=== PATIENT | male | born 1940 | race Hispanic/Latino ===

== ENCOUNTER 2016-06-14 06:20 | Day surgery (SDC) | payer MEDICARE, OTHER ==
[2016-06-01 08:18] VITALS: BMI 23.6
[2016-06-14 06:49] LABS: ADD MANUAL DIFF? NO
[2016-06-14 07:03] LABS: CALCIUM 9.5 mg/dL (8.4-10.5); POTASSIUM 4.5 mmol/L (3.6-5.0)
[2016-06-14 07:08] LABS: INR 0.99 (0.93-1.08); PARTIAL THROMBOPLASTIN TIME 25.9 Seconds (23.7-30.8)
[2016-06-14] MEDS ORDERED: Midazolam 2 MG/2 ML VIAL ONE (07:15)
[2016-06-14] MEDS ORDERED: Lidocaine 2% Inj (20ml) ONE (07:15)
[2016-06-14 07:16] LABS: BASO # 0.03 K/mm3 (0.0-2.0); BASO % 0.4 % (0.0-3.0); EOS # 0.2 (0.0-0.7); EOS % 2.7 % (1.5-5.0); GRAN # 4.71 (1.4-6.5); GRAN % 69.5 % (50.0-68.0); HEMATOCRIT 37.7 % (42.0-52.0); LYMPH # 1.3 (1.2-3.4); LYMPH % 19.3 % (22.0-35.0); MEAN CORPUSCULAR HEMOGLOBIN 29.1 pg (25.0-35.0); MEAN CORPUSCULAR HGB CONC 32.4 g/dl (31.0-37.0); MEAN PLATELET VOLUME 9.1 fl (7.0-11.0); MONO # 0.6 (0.1-0.6); MONO % 8.1 % (1.0-6.0); PLATELET COUNT 181 10^3/uL (120.0-450.0); RED CELL DISTRIBUTION WIDTH 14.3 % (11.5-14.5); WHITE BLOOD COUNT 6.8 10^3/ul (4.5-11.0)
[2016-06-14 07:20] VITALS: RESP 20; TEMP 97.9
[2016-06-14 08:27] VITALS: O2SAT 98
[2016-06-14 10:03] VITALS: BP 115/70; PULSE 69
--- NOTE | 2016-06-14 10:07 | CARDCATH ---
PROCEDURE DATE: 06/14/2016 HISTORY: This is a 75-year-old man with a history of pulmonary hypertension, known coronary artery d isease, status post remote bypass surgery, PCI and pulmonary hypertension who was advised a repeat [facility] heart catheterization for monitoring of pulmonary artery pressures. He is currently on IV milrin one as well as Adempas. INDICATION: Pulmonary hypertension, congestive heart failure. FINDINGS: The right heart pressures were as follows: The RA mean pressure was 8, the RV pressure wa s 36/8 with a PA pressure of 36/14. The pulmonary capillary wedge pressure was 14. No significant m itral regurgitation was noted. The cardiac output was 4.9 liters per minute with cardiac index of 2. 6 liters per minute per meter squared. Access was obtained via the right femoral artery without difficulty. Following the procedure, the sh eath was removed and manual pressure applied. Hemostasis was achieved. IMPRESSION: History of pulmonary hypertension, well controlled at present. RECOMMENDATIONS: Continuation of his current therapy is advised. Dwight Tejeda MD cc:Matt Hartley MD; Jan Griffin MD 382 TT: 06/14/2016 10:07:04 an
== END 2016-06-14 11:30 | disposition home or self-care (01) ==
LOC: CATH 06:20
PROVIDERS: ATTEND Internal Medicine Cardiovascular Disease
DX: I25.10 Atherosclerotic heart disease of native coronary artery without angina pectoris (principal); I27.2 Other secondary pulmonary hypertension; I11.0 Hypertensive heart disease with heart failure; I50.9 Heart failure, unspecified; Z95.1 Presence of aortocoronary bypass graft
CPT/HCPCS: 36415; 80048; 80061; 85025; 85610; 85730; 86850; 86900; 93451; 99152; C1894; J1644; J2250; J3010; J7040

== ENCOUNTER 2017-07-23 18:45 | Emergency (ER) | payer MEDICARE, OTHER ==
[2017-07-23 19:19] VITALS: BMI 26.2
--- NOTE | 2017-07-23 19:28 | ED PDOC ---
Arrival/HPI - General Chief Complaint: Vascular Access Device Problem Time Seen by Provider: 07/23/17 19:22 Historian: Patient - History of Present Illness Narrative History of Present Illness (Text): 07/23/17 19:23 A 76 year old male, whose past medical history includes , presents to the emergency department complaining of right port leak. Patient reports milrinone is not going through upper chest port that is attached to bag. Patient's port is leaking and making shirt wet instead. No PMD Past Medical History - Provider Review Nursing Documentation Reviewed: Yes - Infectious Disease Hx of Infectious Diseases: None - Cardiac Hx Cardiac Disorders: Yes (CAD, Coronary Stent) - Pulmonary Hx Respiratory Disorders: Yes Hx Chronic Obstructive Pulmonary Disease (COPD): Yes Hx Pneumonia: Yes - Neurological Hx Neurological Disorder: No Hx Paralysis: No - HEENT Hx HEENT Disorder: Yes Other/Comment: hearing problem - Renal Hx Renal Disorder: Yes (BLADDER CA WITH SURGERY) - Endocrine/Metabolic Hx Endocrine Disorders: No - Hematological/Oncological Hx Blood Transfusions: Yes - Integumentary Hx Dermatological Disorder: No - Musculoskeletal/Rheumatological Hx Musculoskeletal Disorders: No Hx Back Pain: Yes Hx Falls: Yes - Gastrointestinal Hx Gastrointestinal Disorders: Yes Other/Comment: hernia- inguinal - Genitourinary/Gynecological Hx Genitourinary Disorders: Yes Hx Bladder Cancer: Yes Other/Comment: urostomy - Psychiatric Hx Psychophysiologic Disorder: Yes Hx Depression: Yes Hx Substance Use: No - Surgical History Hx Cholecystectomy: Yes Hx Coronary Stent: Yes (ptca 11/2014) - Anesthesia Hx Anesthesia: Yes Hx Anesthesia Reactions: No - Suicidal Assessment Feels Threatened In Home Enviroment: No Family/Social History - Physician Review Nursing Documentation Reviewed: Yes Family/Social History: No Known Family HX Smoking Status: Former Smoker Hx Alcohol Use: Yes Hx Substance Use: No Hx Substance Use Treatment: No Allergies/Home Meds Allergies/Adverse Reactions: Allergies No Known Allergies Allergy (Verified 04/25/17 06:16) Home Medications: Home Meds Medication Instructions Recorded Confirmed Atorvastatin [Lipitor] 40 mg PO QPM 04/13/15 04/25/17 Clopidogrel [Plavix] 75 mg PO QAM 04/13/15 04/25/17 Metoprolol Tartrate 50 mg PO BID 05/11/15 04/25/17 Furosemide [Lasix] 40 mg PO BID 12/24/15 04/25/17 Temazepam [Restoril] 15 mg PO HS PRN 03/30/16 06/14/16 Milrinone [Primacor] 3.3 ml IV Q60M 06/01/16 04/25/17 Riociguat [Adempas] 2.5 mg PO TID 06/01/16 04/25/17 Metolazone 5 mg PO QWK 04/25/17 04/25/17 Potassium 20 meq PO QWK 04/25/17 04/25/17 Spironolactone 25 mg PO DAILY 04/25/17 04/25/17 Review of Systems - Physician Review All systems were reviewed & negative as marked: Yes - Review of Systems Constitutional: absent: Fevers, Night Sweats Respiratory: absent: SOB, Cough Cardiovascular: absent: Chest Pain Gastrointestinal: absent: Abdominal Pain, Diarrhea, Nausea, Vomiting Physical Exam - Systems Exam Respiratory/Chest: Present: Clear to Auscultation, Good Air Exchange. No: Respiratory Distress, Accessory Muscle Use Cardiovascular: Present: Regular Rate and Rhythm, Normal S1, S2. No: Murmurs Abdomen: No: Tenderness, Distention, Peritoneal Signs Upper Extremity: Present: Normal Inspection. No: Cyanosis, Edema Lower Extremity: Present: Normal Inspection. No: Edema Neurological: Present: GCS=15, CN II-XII Intact, Speech Normal Skin: Present: Warm, Dry, Normal Color. No: Rashes Psychiatric: Present: Alert, Oriented x 3, Normal Insight, Normal Concentration Medical Decision Making ED Course and Treatment: 07/23/17 19:30 Impression: 76 year old male with leaking chest port. Plan: -- Insert back chest port correctly -- Reassess and disposition Progress Notes: 07/23/17 19:49 Patient's port has been correctly placed. Has good blood flow return now. It was discovered needle was dislodged causing the leak. Since there is no present chest pain or chest tenderness, fluids will absorb, and patient will be discharged. - Scribe Statement The provider has reviewed the documentation as recorded by the Ebony Black Provider Scribe Attestation: All medical record entries made by the Scribe were at my direction and personally dictated by me. I have reviewed the chart and agree that the record accurately reflects my personal performance of the history, physical exam, medical decision making, and the department course for this patient. I have also personally directed, reviewed, and agree with the discharge instructions and disposition. Disposition/Present on Arrival - Present on Arrival Any Indicators Present on Arrival: No History of DVT/PE: No History of Uncontrolled Diabetes: No Urinary Catheter: No History of Decub. Ulcer: No History Surgical Site Infection Following: None - Disposition Have Diagnosis and Disposition been Completed?: Yes Diagnosis: Encounter for care related to vascular access port Disposition: HOME/ ROUTINE Disposition Time: 19:50 Patient Plan: Discharge Additional Instructions: Mr Ko - It was a pleasure to meet you today. I am glad we were able to fix the problem. Return to us if you have any problems at all. Follow up with your regular doctor(s). Best- Dr. Dylan Preston Referrals: Pascual Hartley MD [Primary Care Provider] - Follow up with primary Forms: [email or web address] (Burmese)
[2017-07-23 20:32] VITALS: BP 157/72; PULSE 79; RESP 18; TEMP 98.8; O2SAT 98
== END 2017-07-23 20:05 | disposition home or self-care (01) ==
LOC: ED 18:45
DX: Z45.2 Encounter for adjustment and management of vascular access device (principal); I25.10 Atherosclerotic heart disease of native coronary artery without angina pectoris; Z87.891 Personal history of nicotine dependence; Z85.51 Personal history of malignant neoplasm of bladder

== ENCOUNTER 2017-07-24 09:30 | Inpatient (IN) | payer MEDICARE, OTHER ==
[2017-07-24 09:30] VITALS: BMI 26.2
[2017-07-24 11:38] LABS: BASO # 0.03 K/mm3 (0.0-2.0); BASO % 0.4 % (0.0-3.0); EOS # 0.1 (0.0-0.7); EOS % 1.4 % (1.5-5.0); GRAN # 6.12 (1.4-6.5); GRAN % 76.7 % (50.0-68.0); HEMOGLOBIN 11.7 g/dL (14.0-18.0); LYMPH # 1.2 (1.2-3.4); LYMPH % 14.4 % (22.0-35.0); MEAN CELL VOLUME 86.6 fl (80.0-105.0); MEAN CORPUSCULAR HEMOGLOBIN 29.5 pg (25.0-35.0); MEAN PLATELET VOLUME 8.6 fl (7.0-11.0); MONO # 0.6 (0.1-0.6); MONO % 7.1 % (1.0-6.0); RBC 3.97 10^6/uL (3.5-6.1); RED CELL DISTRIBUTION WIDTH 15.2 % (11.5-14.5)
--- NOTE | 2017-07-24 11:41 | RAD ---
HISTORY: Shortness of breath COMPARISON: 03/30/2016. FINDINGS: The right IJV line terminates at the cavoatrial junction. LUNGS: The lungs are hyperinflated and there is peribronchial thickening with chronic changes in both lungs. There is bibasilar atelectasis. No focal consolidation. PLEURA: No significant pleural effusion identified, no pneumothorax apparent. CARDIOVASCULAR: Normal. OSSEOUS STRUCTURES: No significant abnormalities. VISUALIZED UPPER ABDOMEN: Normal. OTHER FINDINGS: None. IMPRESSION: No active pulmonary disease. COPD.
[2017-07-24 11:49] LABS: PROTHROMBIN TIME 11.3 SECONDS (9.4-12.5)
[2017-07-24 11:50] LABS: ALB/GLOB RATIO 1.9 (1.1-1.8); ALBUMIN 4.2 g/dL (3.0-4.8); CALCIUM 9.5 mg/dL (8.4-10.5); INR 0.98 (0.93-1.08); PARTIAL THROMBOPLASTIN TIME 27.3 Seconds (25.1-36.5)
[2017-07-24 12:01] LABS: TROPONIN I 0.07 ng/mL
[2017-07-24 12:06] LABS: CK MB% 1.9 % (2.5-3.0)
--- NOTE | 2017-07-24 13:21 | ED PDOC ---
Arrival/HPI - General Historian: Patient - History of Present Illness Time/Duration: 4-6 hours Symptom Onset: Sudden Symptom Course: Unchanged Quality: Unable to Describe Severity Level: 2 Activities at Onset: Rest Context: Home - General Chief Complaint: Abnormal Skin Integrity Time Seen by Provider: 07/24/17 09:55 - History of Present Illness Narrative History of Present Illness (Text): 07/24/17 13:22 Pt is a 76 year old male, whose past medical history includes CHF, Cardiac stent , and COPD, presents to the emergency department one day after being seen in the ED for a right port leak. Patient reports milrinone is not going through upper chest port that is attached to bag. Patient's port continues to leak. Denies chest pain, mildly short of breath, no n/v/d, fever, chills, lower extremity swelling. PMD: Marielena Plummer) Past Medical History - Provider Review Nursing Documentation Reviewed: Yes - Travel History Have you recently traveled outside [place] w/in the past 3 mons?: No - Infectious Disease Hx of Infectious Diseases: None - Cardiac Hx Cardiac Disorders: Yes (CAD, Coronary Stent) - Pulmonary Hx Respiratory Disorders: Yes Hx Chronic Obstructive Pulmonary Disease (COPD): Yes Hx Pneumonia: Yes - Neurological Hx Neurological Disorder: No Hx Paralysis: No - HEENT Hx HEENT Disorder: Yes Other/Comment: hearing problem - Renal Hx Renal Disorder: Yes (BLADDER CA WITH SURGERY) - Endocrine/Metabolic Hx Endocrine Disorders: No - Hematological/Oncological Hx Blood Transfusions: Yes - Integumentary Hx Dermatological Disorder: No - Musculoskeletal/Rheumatological Hx Musculoskeletal Disorders: No Hx Back Pain: Yes Hx Falls: Yes - Gastrointestinal Hx Gastrointestinal Disorders: Yes Other/Comment: hernia- inguinal - Genitourinary/Gynecological Hx Genitourinary Disorders: Yes Hx Bladder Cancer: Yes Other/Comment: urostomy - Psychiatric Hx Psychophysiologic Disorder: Yes Hx Depression: Yes Hx Substance Use: No - Surgical History Hx Cholecystectomy: Yes Hx Coronary Stent: Yes (ptca 11/2014) - Anesthesia Hx Anesthesia: Yes Hx Anesthesia Reactions: No - Suicidal Assessment Feels Threatened In Home Enviroment: No Family/Social History - Physician Review Nursing Documentation Reviewed: Yes Family/Social History: Unknown Family HX Smoking Status: Former Smoker Hx Alcohol Use: Yes Hx Substance Use: No Hx Substance Use Treatment: No Allergies/Home Meds Allergies/Adverse Reactions: Allergies No Known Allergies Allergy (Verified 07/24/17 22:10) Home Medications: Home Meds Medication Instructions Recorded Confirmed Atorvastatin [Lipitor] 40 mg PO QPM 04/13/15 07/24/17 Clopidogrel [Plavix] 75 mg PO QAM 04/13/15 07/24/17 Metoprolol Tartrate 50 mg PO BID 05/11/15 07/24/17 Furosemide [Lasix] 40 mg PO BID 12/24/15 07/24/17 Temazepam [Restoril] 15 mg PO HS PRN 03/30/16 07/24/17 Milrinone [Primacor] 3.3 ml IV Q60M 06/01/16 07/24/17 Riociguat [Adempas] 2.5 mg PO TID 06/01/16 07/24/17 Potassium Chloride [K-Dur 20] 20 meq PO QWK 07/24/17 07/24/17 Spironolactone [Aldactone] 25 mg PO DAILY 07/24/17 07/24/17 metOLazone [Zaroxolyn] 5 mg PO QWK 07/24/17 07/24/17 Review of Systems - Review of Systems Systems not reviewed;Unavailable: Acuity of Condition Constitutional: Normal Eyes: Normal ENT: Normal Respiratory: Normal Cardiovascular: Normal, Other (right port with pump; ) Gastrointestinal: Normal Genitourinary Male: Normal Musculoskeletal: Normal Skin: Normal Neurological: Normal Endocrine: Normal Hemo/Lymphatic: Normal Psychiatric: Normal Physical Exam Vital Signs Reviewed: Yes Temperature: Afebrile Blood Pressure: Normal Pulse: Regular Respiratory Rate: Normal Appearance: Positive for: Well-Appearing, Non-Toxic, Comfortable Pain Distress: None Mental Status: Positive for: Alert and Oriented X 3 - Systems Exam Head: Present: Atraumatic, Normocephalic Pupils: Present: PERRL Extroacular Muscles: Present: EOMI Conjunctiva: Present: Normal Mouth: Present: Moist Mucous Membranes Neck: Present: Normal Range of Motion Respiratory/Chest: Present: Clear to Auscultation, Good Air Exchange, Other ( Right port opening with cath, dressing wet due to failure of port). No: Respiratory Distress, Accessory Muscle Use Cardiovascular: Present: Regular Rate and Rhythm, Normal S1, S2. No: Murmurs Abdomen: No: Tenderness, Distention, Peritoneal Signs Back: Present: Normal Inspection Upper Extremity: Present: Normal Inspection. No: Cyanosis, Edema Lower Extremity: Present: Normal Inspection. No: Edema Neurological: Present: GCS=15, CN II-XII Intact, Speech Normal Skin: Present: Warm, Dry, Normal Color. No: Rashes Psychiatric: Present: Alert, Oriented x 3, Normal Insight, Normal Concentration Vital Signs Temp Pulse Resp BP Pulse Ox 07/24/17 16:40 88 18 103/68 97 07/24/17 16:39 98 F 07/24/17 13:58 90 18 127/66 97 07/24/17 13:20 110/70 07/24/17 10:00 98 F 98 H 20 101/48 L 96 Medical Decision Making ED Course and Treatment: 07/24/17 13:25 Impression Pt is a 76 year old male, whose past medical history includes CHF, Cardiac stent , and COPD, presents to the emergency department one day after being seen in the ED for a right port leak. Pt's port site wet with serosangreneous fluid; lungs CTAB Plan labs, UA, cxr, EKG Contact PMD, senior medical writer, pulp drier firer DW Dr Carroll Assess and dispo Progress note Spoke with Dr. Peres who advised consult from Dr. Wayne Mathews Pt resting comfortably; pt admitted to med/surg Stable and awaiting bed (Marielena Villalta) 07/25/17 10:25 Patient seen and evaluated with PA. On exam, patient complaining of increased SOB over past several days. Suspect component of COPD and CHF. Port site examined is leaking fluid appears to not be functioning properly. There is no surrounding erythema or edema. No cellulitis noted. Milrinone drip ordered as I feel patient is not receiving milrinone properly through port. Will be admitted to Dr. Hartley service, Dr. Tejeda consulted as well as Dr. Wayne Mathews. (Taisha Carroll) - Lab Interpretations Lab Results: 07/24/17 11:11 07/24/17 11:11 Lab Results 07/24/17 11:11: Sodium 139, Potassium 3.4 L, Chloride 102, Carbon Dioxide 22, Anion Gap 18, BUN 78 H, Creatinine 3.3 H, Est GFR ( Amer) 22, Est GFR ( Non-Af Amer) 18, Random Glucose 124 H, Calcium 9.5, Total Bilirubin 0.3, AST 26 , ALT 35, Alkaline Phosphatase 63, Lactate Dehydrogenase 592, Total Creatine Kinase 262 H, CK-MB (CK-2) 5.0 H, CK-MB (CK-2) % 1.9 L, Troponin I 0.07 D, NT- Pro-B Natriuret Pep 893 H, Total Protein 6.4, Albumin 4.2, Globulin 2.3, Albumin /Globulin Ratio 1.9 H 07/24/17 11:11: PT 11.3, INR 0.98, APTT 27.3 07/24/17 11:11: WBC 8.0, RBC 3.97, Hgb 11.7 L, Hct 34.4 L, MCV 86.6, MCH 29.5, MCHC 34.0, RDW 15.2 H, Plt Count 182, MPV 8.6, Gran % 76.7 H, Lymph % (Auto) 14.4 L, [place] % (Auto) 7.1 H, Eos % (Auto) 1.4 L, Baso % (Auto) 0.4, Gran # 6.12 , Lymph # (Auto) 1.2, [place] # (Auto) 0.6, Eos # (Auto) 0.1, Baso # (Auto) 0.03 - RAD Interpretation Radiology Orders: 07/24/17 10:59 CHEST PORTABLE [RAD] Stat - Medication Orders Current Medication Orders: Albuterol/Ipratropium (Duoneb 3 Mg/0.5 Mg (3 Ml) Ud) 3 ml IH Q2H PRN PRN Reason: Shortness of Breath Albuterol/Ipratropium (Duoneb 3 Mg/0.5 Mg (3 Ml) Ud) 3 ml IH [id number] [facility] Last Admin: 07/25/17 07:30 Dose: 3 ml Aspirin (Aspirin Chewable) 81 mg PO DAILY [facility] Atorvastatin Calcium (Lipitor) 40 mg PO DIN [facility] Clopidogrel Bisulfate (Plavix) 75 mg PO DAILY [facility] Furosemide (Lasix) 40 mg PO BID [facility] Last Admin: 07/24/17 17:30 Dose: 40 mg MAR Blood Pressure Document 07/24/17 17:30 LM (Rec: 07/24/17 17:30 LM [id number]) Blood Pressure Blood Pressure (100/60-150/90 mm Hg) 128/69 Milrinone Lactate/Dextrose (Primacor 20mg/100ml D5w) 100 mls @ 7.267 mls/hr IV [id number] PRN; Protocol; 0.3 MCG/KG/MIN PRN Reason: TITRATE PER MD ORDER Last Admin: 07/25/17 01:07 Dose: 0.3 mcg/kg/min, 7.267 mls/hr eMAR Start Stop Document 07/25/17 01:07 MS (Rec: 07/25/17 01:08 [place] [id number]) Intravenous Solution Start Date 07/25/17 Start Time 01:07 MAY Pulse and Blood Pressure Document 07/25/17 01:07 MS (Rec: 07/25/17 01:08 MS [id number]) Pulse Pulse Rate (60-90 beats/min) 105 Blood Pressure Blood Pressure (100/60-150/90 mm Hg) 103/60 Titration Intervention Document 07/25/17 01:07 MS (Rec: 07/25/17 01:08 MS [id number]) Titration Intake Cumulative Intake (Rx) 100 Waste Amount 0 Container Volume 100 Titration Dosing Titration Dose 0.3 IV Rate 7.267 Intake/Decrease Started/Running Cumulative Dose 20 Potassium Chloride (Potassium Chloride 10 Meq/100 Ml) 10 meq in 100 mls @ 50 mls/hr IVPB Q2H CECILY Stop: 07/25/17 12:29 Metoprolol Tartrate (Lopressor) 50 mg PO BRKDIN CECILY Discontinued Medications Furosemide (Lasix) 40 mg IVP ONCE ONE Stop: 07/24/17 13:12 Last Admin: 07/24/17 13:20 Dose: 40 mg MAR Blood Pressure Document 07/24/17 13:20 Regino (Rec: 07/24/17 13:46 [facility] [id number]) Blood Pressure Blood Pressure (100/60-150/90 mm Hg) 110/70 IVP Administration Document 07/24/17 13:20 GEORGE (Rec: 07/24/17 13:46 [facility] [id number]) Charges for Administration # of IVP Administrations 1 Pneumococcal Polyvalent Vaccine (Pneumovax 23 Vaccine) 0.5 ml IM .ONCE ONE Stop: 07/24/17 22:33 Last Admin: 07/25/17 01:10 Dose: Comments: already had vaccine Immunization Registry Document 07/25/17 01:10 MS (Rec: 07/25/17 01:10 MS [id number]) Immunization Registry Consent Date 03/06/17 Potassium Chloride (K-Dur 20 Meq Er Tab) 20 meq PO STAT STA Stop: 07/24/17 16:50 Last Admin: 07/24/17 17:30 Dose: 20 meq Potassium Chloride (K-Dur 20 Meq Er Tab) 40 meq PO ONCE ONE Stop: 07/25/17 08:26 Disposition/Present on Arrival - Present on Arrival Any Indicators Present on Arrival: Yes History of DVT/PE: No History of Uncontrolled Diabetes: No Urinary Catheter: No History of Decub. Ulcer: No History Surgical Site Infection Following: None - Disposition Have Diagnosis and Disposition been Completed?: Yes Disposition Time: 11:00 Patient Plan: Admission - Disposition Diagnosis: Port catheter in place, Failure of outpatient treatment, CHF exacerbation Disposition: HOSPITALIZED Patient Problems: Current Active Problems Problem Status Onset CHF exacerbation Acute Failure of outpatient treatment Acute Port catheter in place Acute Condition: GOOD
[2017-07-24] MEDS: Milrinone 20mg/100ml D5W 100 ML IV PRN (13:44)
[2017-07-24] MEDS ORDERED: Potassium Chloride 20 mEq ER Tab PO STA (16:49)
[2017-07-24] MEDS ORDERED: Albuterol-Ipratrop 3 mg / 0.5 (3 ml) UD IH PRN (17:17)
--- NOTE | 2017-07-24 18:34 | CARD ---
APPROVED REPORT EKG Measurement Heart [id number] <Conclusion> Sinus rhythm with marked sinus arrhythmia Right bundle branch block Anteroseptal infarct, age undetermined Abnormal ECG
--- NOTE | 2017-07-24 19:14 | HP ---
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 The patient was seen in the ED 1 day ago for reported leakage at his port site. He was discharged from the ED with outpatient followup recommended however overnight he noted continued leakage and states that he woke up in the morning with his T shirt being soaked. He returned for evaluation in the ED and was indeed found to have a malfunctioning access port and as such was admitted for evaluation for possible line exchange. PAST MEDICAL HISTORY: As per HPI, also, hypertension and history of bladder cancer. PAST SURGICAL HISTORY: As per HPI. ALLERGIES: NKDA. MEDICATIONS: Metoprolol 50 mg p.o. b.i.d., Lisinopril 2.5 mg p.o. daily, Spironolactone 12.5 mg p.o. b.i.d., Aspirin 81 mg p.o. daily, Plavix 75 mg p.o. daily, Lasix 40 mg p.o. b.i.d., Lipitor 40 mg p.o. daily and Milrinone infusion. FAMILY HISTORY: Noncontributory. SOCIAL HISTORY: The patient reports a former [id number] smoking history but quit approximately 4 years ago. He reports social alcohol use and denies illicit drug abuse. REVIEW OF SYSTEMS: A 14-point review of systems is negative except as per HPI. PHYSICAL EXAMINATION: VITAL SIGNS: Temperature 98, pulse 88, blood pressure 103/68, respiratory rate 18, oxygen saturation 97% on room air. GENERAL: No apparent distress. HEENT: PERRL, EOMI. No scleral icterus. No conjunctival pallor. NECK: Supple with full range of motion. No JVD. No bruits. LUNGS: Decreased breath sounds at the bases. CARDIOVASCULAR: Regular rate and rhythm. Normal S1 and S2. Grade II/ systolic murmur to left lower sternal border. ABDOMEN: Normoactive bowel sounds. Soft, nontender and nondistended. EXTREMITIES: Trace lower extremity edema bilaterally. NEUROLOGIC: Awake, alert and oriented x 3. No focal motor deficits. LABORATORY DATA: WBC 8, hemoglobin 11.7, hematocrit 34, platelets 182. Sodium 139, potassium 3.4, chloride 102, bicarb 22, BUN 78, creatinine 3.3, glucose 124. IMAGING STUDIES: Chest x-ray demonstrates COPD changes but no active pulmonary disease. ASSESSMENT: The patient is a 76 year old man with multiple medical comorbidities including severe 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 infusion who presented for evaluation of a malfunctioning MediPort. PLAN: 1. Ischemic dilated cardiomyopathy on chronic home milrinone. The patient presented with a malfunctioning Port. Dr. Wayne Mathews of IR has been consulted for evaluation for possible port exchange. We will resume the patient's outpatient medications. Dr. Tejeda of Cardiology has been consulted. 2. COPD, severe. We will resume bronchodilators and supplemental oxygen as needed. 3. CAD s/p STEMI s/p PCI with stent placement. Resume Aspirin 81 mg p.o. daily , Plavix 75 mg p.o. daily and Lipitor 40 mg p.o. daily. 4. CKD stage 4. Labs demonstrated renal function at the patient's baseline. 5. Hypertension. Blood pressure controlled. Continue with current medications. 6. Prophylaxis. GI prophylaxis is not indicated as the patient is eating. DVT prophylaxis is not indicated as the patient is ambulatory. CODE STATUS: Full code. Matt Hartley MD MTDD
[2017-07-24] MEDS: Albuterol-Ipratrop 3 mg / 0.5 (3 ml) UD IH SCH ×2 (19:51→23:45)
[2017-07-24] MEDS ORDERED: Pneumococcal 23-Valent Vaccine IM ONE (22:32)
[2017-07-25] MEDS: Milrinone 20mg/100ml D5W 100 ML IV PRN ×2 (01:07→18:34)
[2017-07-25] MEDS: Albuterol-Ipratrop 3 mg / 0.5 (3 ml) UD IH SCH ×6 (04:31→23:27)
[2017-07-25 07:07] LABS: HEMOGLOBIN 11.6 g/dL (14.0-18.0); MEAN CELL VOLUME 87.3 fl (80.0-105.0); MEAN CORPUSCULAR HEMOGLOBIN 28.9 pg (25.0-35.0); MEAN PLATELET VOLUME 8.5 fl (7.0-11.0); RBC 4.02 10^6/uL (3.5-6.1); RED CELL DISTRIBUTION WIDTH 15.3 % (11.5-14.5); WHITE BLOOD COUNT 7.7 10^3/ul (4.5-11.0)
[2017-07-25 07:19] LABS: ALB/GLOB RATIO 1.6 (1.1-1.8); ALBUMIN 4.4 g/dL (3.0-4.8); CALCIUM 9.5 mg/dL (8.4-10.5)
[2017-07-25] MEDS ORDERED: Potassium Chloride 20 mEq ER Tab PO ONE (08:25)
[2017-07-25] MEDS ORDERED: Magnesium Sulfate 2 GM in Sodium Chloride 0.9% 100 ML IVPB ONE (11:19)
--- NOTE | 2017-07-25 14:21 | PN ---
SUBJECTIVE: The patient was seen and examined at bedside on the telemetry sarkar. No acute events overnight. He remains afebrile, hemodynamically stable and is pending change of his right anterior chest wall MediPort due to leakage. PHYSICAL EXAMINATION: VITAL SIGNS: Temperature 97.6, pulse 85, blood pressure 99/56, respiratory rate 20, oxygen saturation 98% on room air. GENERAL: No apparent distress. HEENT: PERRL. EOMI. No scleral icterus. No conjunctival pallor. NECK: No JVD. No bruits. LUNGS: Decreased breath sounds at the bases. CARDIOVASCULAR: Regular rate and rhythm. Normal S1 and S2. Grade 2/6 systolic murmur to left lower sternal border. ABDOMEN: Normoactive bowel sounds. Soft, nontender, and nondistended. EXTREMITIES: No edema. NEUROLOGIC: Awake, alert and oriented x 3. No focal motor deficits. LABORATORY DATA: CBC reviewed and unremarkable. Sodium 141, potassium 3, chloride 102, bicarb 23, BUN 81, creatinine 3.5, glucose 124. 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 PLAN: 1. Ischemic dilated cardiomyopathy on chronic home Milrinone. The patient presented with a malfunctioning MediPort. Evaluation by Dr. Wayne Mathews is pending for exchange of MediPort access. The patient remains on Milrinone infusion via peripheral access. Continue with current outpatient medical regimen. 2. COPD, severe. Continue with bronchodilators and supplemental oxygen as needed. 3. CAD s/p STEMI s/p PCI with stent placement. Continue Aspirin 81 mg p.o. daily, Plavix 75 mg p.o. daily and Lipitor 40 mg p.o. daily. 4. CKD stage IV. Labs demonstrated renal function at patient's baseline. 5. Hypertension. Blood pressure controlled. Continue with current medications. 6. Prophylaxis. GI prophylaxis is not indicated as the patient is eating. DVT prophylaxis is not indicated as the patient is ambulatory. CODE STATUS: Full code. Matt Hartley MD [facility] # [id number] [place]
--- NOTE | 2017-07-25 22:21 | CON ---
DATE: 07/25/2017 REQUESTING PHYSICIAN: Dr. Hartley. REASON FOR CONSULTATION: Dyspnea, infusion port malfunction. HISTORY OF PRESENT ILLNESS: This is a 76-year-old man well known to me with a history of severe coronary artery disease, prior myocardial infarction, severely reduced LV systolic function as well as severe COPD, maintained on home milrinone infusion, who was admitted with evidence of malfunction of his infusion port as well as dyspnea. He was seen in the emergency room 2 days ago and noted to have problems with this port due to leakage at the site. Apparently his needle was changed and he was sent home. The same evening, he developed leakage at the site and soaked his shirt. It does not appear to be receiving his milrinone as a result. PAST MEDICAL HISTORY: Notable for the problems mentioned above. He suffered a myocardial infarction several years ago and underwent PCI at that time. He has been left with severe residual LV dysfunction. He also has a history of hypertension and prior bladder cancer. History of chronic renal insufficiency with baseline creatinine approximately 3. MEDICATIONS AT HOME: Include metoprolol 50 mg b.i.d., lisinopril 2.5 mg daily, spirolactone 12.5 mg b.i.d., aspirin once daily, Plavix 75 mg daily, Lasix 40 mg b.i.d., Lipitor 40 mg daily, and home milrinone infusion. ALLERGIES: NONE. SOCIAL HISTORY: He is a smoker of over a pack per day for many years. He drinks alcohol rarely. He is retired, lives with his . FAMILY HISTORY: Both parents from age-related illness. REVIEW OF SYSTEMS: A 10-point review of systems otherwise unremarkable. PHYSICAL EXAMINATION: GENERAL: He is a chronically ill-appearing elderly man. VITAL SIGNS: Blood pressure is 100/56 with a pulse of 86, in sinus and respirations are 16. He is afebrile. HEENT: Head normocephalic, atraumatic. NECK: Supple. No JVD noted. Carotid upstrokes are diminished, however, 1+ bilaterally. CHEST: Reveals bilateral scattered rhonchi. HEART: PMI displaced laterally with soft tones noted with systolic murmur in the lower left sternal border as well as at the apex. ABDOMEN: Soft and nontender with normoactive bowel sounds. EXTREMITIES: Trace ankle edema. SKIN: Warm and dry. The connection to his infusion port appears to be intact at the present time. PSYCHIATRIC: Normal mood and affect. NEUROLOGIC: Alert and was x3. No gross motor or sensory is appreciable. DIAGNOSTIC DATA: Potassium is 3, BUN and creatinine are 81 and 3.5. White count 7.7, hemoglobin and hematocrit 11.6 and 35.1 with a platelet count of 189,000. Electrocardiogram reveals sinus rhythm with right bundle-branch block, prior anteroseptal myocardial infarction pattern is present. Chest x-ray reveals enlarged cardiac silhouette with clear lung collins. IMPRESSION: 1. Apparent infusion catheter malfunction, unclear if this is due to needle displacement or actual disruption of the normal architecture of the infusion catheter. 2. Class III congestive heart failure, chronic, systolic. 3. Coronary artery disease, status post remote percutaneous coronary intervention and myocardial infarction. 4. Rest of the problems as noted. RECOMMENDATIONS: Additional potassium supplement has been ordered and replaced. Dr. Wayne Mathews was notified and requested that his port be checked. If replacement is needed, this can be arranged. Rest of the medications should continue unchanged. Overall, prognosis remains fairly poor. Thank you for this consultation. We will be happy to follow him through the hospital course. Dwight Tejeda MD
[2017-07-26] MEDS: Albuterol-Ipratrop 3 mg / 0.5 (3 ml) UD IH SCH ×6 (04:10→23:26)
[2017-07-26 06:43] LABS: MEAN CELL VOLUME 87.5 fl (80.0-105.0); MEAN CORPUSCULAR HEMOGLOBIN 29.3 pg (25.0-35.0); MEAN CORPUSCULAR HGB CONC 33.4 g/dl (31.0-37.0); RBC 3.76 10^6/uL (3.5-6.1); RED CELL DISTRIBUTION WIDTH 15.5 % (11.5-14.5)
[2017-07-26 07:36] LABS: ALB/GLOB RATIO 1.6 (1.1-1.8); ALBUMIN 3.9 g/dL (3.0-4.8); CALCIUM 9.5 mg/dL (8.4-10.5)
[2017-07-26] MEDS: Milrinone 20mg/100ml D5W 100 ML IV PRN ×2 (08:21→23:15)
--- NOTE | 2017-07-26 08:50 | PN ---
SUBJECTIVE: The patient was seen and examined at bedside on the telemetry sarkar. No acute events overnight. He remains afebrile, hemodynamically stable and is pending exchange of his MediPort. PHYSICAL EXAMINATION: VITAL SIGNS: Temperature 98, pulse 106, blood pressure 96/53, respiratory rate 20, oxygen saturation 97% on room air. GENERAL: No apparent distress. HEENT: PERRL. EOMI. No scleral icterus. No conjunctival pallor. NECK: No JVD. LUNGS: Clear to auscultation. CARDIOVASCULAR: Regular rate and rhythm. Normal S1 and S2. Grade II/ systolic murmur to left lower sternal border. ABDOMEN: Normoactive bowel sounds. Soft, nontender, and nondistended. EXTREMITIES: Trace pedal edema bilaterally. NEUROLOGIC: Awake, alert and oriented x 3. No focal motor deficits. LABORATORY DATA: CBC reviewed and unremarkable. Sodium 141, potassium 3.6, chloride 103, bicarb 23, BUN 83, creatinine 3.3, glucose 116. 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 PLAN: 1. Ischemic dilated cardiomyopathy on chronic home Milrinone. The patient presented with a malfunctioning MediPort. He is pending MediPort exchange with Dr. Wayne Mathews today. Continue with his current medical regimen. 2. COPD, severe. Continue with bronchodilators and supplemental oxygen as needed. 3. CAD s/p STEMI s/p PCI with stent placement. Continue Aspirin 81 mg p.o. daily, Plavix 75 mg p.o. daily and Lipitor 40 mg p.o. daily. 4. CKD stage IV. Labs demonstrated renal function at the patient's baseline. 5. Hypertension. Blood pressure controlled. Continue with current medications. 6. Prophylaxis. GI prophylaxis is not indicated as the patient is eating. DVT prophylaxis is not indicated as the patient is ambulatory. CODE STATUS: Full code. Matt Hartley MD [facility]
[2017-07-26] MEDS ORDERED: Lidocaine 2% Inj (20ml) ONE (14:03)
[2017-07-26] MEDS ORDERED: Iodixanol 320 MG/ML 100 ML BOTTLE IV ONE (14:03)
--- NOTE | 2017-07-26 15:39 | VASCULAR ---
PROCEDURE: 1. Port-A-Cath check CLINICAL HISTORY: Right IJ Port-A-Cath. Milrinone infusion. Leaking port site. PHYSICIAN(S): Wayne Mathews M.D. TECHNIQUE: The patient's port was prepped and draped in usual sterile fashion. It was accessed with the appropriate Martinez needle. Preliminary fluoroscopy showed no evidence of fracture or separation. The tip of the catheter is well positioned at the SVC-RA junction. Contrast was injected. The port fills without evidence of extravasation initially. The catheter is patent with contrast infusing from the tip. No obvious large fibrin sheath is seen. After injecting 15 cc of contrast, there is a faint amorphous accumulation of contrast adjacent to the port. Point of leakage is not clearly identified. It may involve the septum. IMPRESSION: 1. Faint leak noted likely involving the septum of the patient's port. 2. The results were discussed with Dr. Calixto. The patient's port will be changed.
[2017-07-27] MEDS: Albuterol-Ipratrop 3 mg / 0.5 (3 ml) UD IH SCH ×4 (05:12→15:31)
[2017-07-27 07:10] LABS: HEMOGLOBIN 10.9 g/dL (14.0-18.0); MEAN CELL VOLUME 87.5 fl (80.0-105.0); MEAN CORPUSCULAR HEMOGLOBIN 29.1 pg (25.0-35.0); MEAN CORPUSCULAR HGB CONC 33.2 g/dl (31.0-37.0); MEAN PLATELET VOLUME 8.7 fl (7.0-11.0); RBC 3.75 10^6/uL (3.5-6.1); RED CELL DISTRIBUTION WIDTH 15.5 % (11.5-14.5); WHITE BLOOD COUNT 7.9 10^3/ul (4.5-11.0)
[2017-07-27 07:23] LABS: ALB/GLOB RATIO 1.7 (1.1-1.8); CALCIUM 9.5 mg/dL (8.4-10.5)
[2017-07-27] MEDS ORDERED: Lidocaine 2% Inj (20ml) ONE ×2 (10:35→10:45)
[2017-07-27] MEDS ORDERED: Midazolam 2 MG/2 ML VIAL ONE (10:45)
[2017-07-27] MEDS ORDERED: Oxycodone/Acetaminophen 5/325 mg Tab PO PRN (11:52)
[2017-07-27] MEDS ORDERED: Sodium Chloride 0.45% 1,000 ML IV SCH (12:00)
[2017-07-27 12:26] VITALS: RESP 16; TEMP 97.9; O2SAT 98
--- NOTE | 2017-07-27 14:37 | PN ---
DATE: 07/27/2017 SUBJECTIVE: Patient is a 76-year-old white male in room 273, bed 2. He is ambulatory. He has no complaints. There have been no acute events overnight. PHYSICAL EXAMINATION: VITAL SIGNS: Temperature of 97.7, pulse rate of 98, blood pressure 98/67, respiratory rate of 18 with 95% O2 saturation on room air. HEENT: Negative. NECK: Supple. There are no bruits. LUNGS: Clear. HEART: Regular rate and rhythm. ABDOMEN: Benign. NEUROLOGIC: The patient is intact. The patient will be taken for a replacement of an indwelling catheter that is nonfunctional and subsequently, the patient will be discharged. The patient's CBC with a hemoglobin of 10.9 and hematocrit of 32.8. Chemistry is normal with the potassium of 3.5, BUN of 79, creatinine of 3.2, which has improved since the patient arrived. CURRENT DIAGNOSES: 1. Non-functioning catheter. 2. Congestive heart failure. 3. Chronic obstructive pulmonary disease. 4. Chronic renal failure. Pascual Hartley MD
[2017-07-27 17:44] VITALS: BP 103/61; PULSE 65
--- NOTE | 2017-07-27 21:04 | VASCULAR ---
PROCEDURE: Change leaking right chest venous port CLINICAL HISTORY: Cardiomyopathy. Venous port for Milrinone infusion. Leaking port. PHYSICIAN(S): Wayne Mathews M.D. TECHNIQUE: The relative risks and indications of the procedure were explained to the patient and consent obtained. The patient was placed supine on the arteriogram table and the right neck and chest prepped and draped usual sterile fashion. Conscious sedation monitoring were provided throughout the procedure by a nurse. Antibiotics were given. Entrance site at the right internal jugular vein was anesthetized 1 percent xylocaine. A 2 cm incision was made. The catheter was bluntly dissected and transected. A 0.035 glidewire was placed the IVC. The catheter fragment was removed. A new 8 Dutch catheter was advanced the SVC/RA junction. The catheter was tunneled in a retrograde fashion to a new pocket. The catheter was trimmed and attached to the port. The port aspirates and inject easily. The port was placed the pocket closed in 2 layers. The patient tolerated the procedure well IMPRESSION: governor assembler a guidewire of the malfunctioning right IJ chest port.
--- NOTE | 2017-07-28 12:21 | DS ---
ADMITTING DIAGNOSIS: Malfunctioning MediPort to the right anterior chest wall. DISCHARGE DIAGNOSIS: Malfunctioning MediPort to the right anterior chest wall s/p replacement. SECONDARY DIAGNOSES: Ischemic dilated cardiomyopathy on chronic home Milrinone infusion, CAD s/p STEMI s/p PCI with stent placement, severe COPD, CKD stage 4, HTN and history of bladder cancer. CONSULTATIONS: Dr. Tejeda (Cardiology) and Dr. Mathews (Interventional Radiology). IMAGING STUDIES: Chest x-ray demonstrated COPD changes but otherwise no acute pathology. PROCEDURES: Exchange of malfunctioning right chest MediPort. HISTORY OF PRESENT ILLNESS: The patient is a 76 year old man with a past medical history of ischemic dilated cardiomyopathy on chronic home Milrinone infusion who presented for evaluation of a malfunctioning MediPort to his right anterior chest wall. The patient was seen in the ED 1 day prior for reported leakage at his port site. The patient had an exchange of the needle access to his MediPort and was sent home with outpatient followup recommended however that night he was noted to have persistent leakage and the following morning reported his shirt and bed being soaked with fluids presumably from his port access. He returned to the ED and was indeed found to have a malfunctioning access port and was thus admitted for further evaluation of possible line exchange. HOSPITAL COURSE: Upon admission to the telemetry sarkar he was resumed on his outpatient medications. Dr. Wayne Mathews of IR evaluated the patient and confirmed a malfunctioning MediPort. The following day he was taken to the IR suite where he underwent successful exchange of his right anterior chest wall MediPort. After confirming that it was functioning satisfactorily, he was discharged to home. CONDITION: Fair, improved. DISPOSITION: Home. DISCHARGE MEDICATIONS: Metoprolol 50 mg p.o. b.i.d., Lisinopril 2.5 mg p.o. daily, Spironolactone 12.5 mg p.o. b.i.d., Aspirin 81 mg p.o. daily, Plavix 75 mg p.o. daily, Lasix 40 mg p.o. b.i.d., Lipitor 40 mg p.o. daily and Milrinone infusion. DISCHARGE INSTRUCTIONS: The patient was advised that if he has any further leakage or issues with his MediPort to present to his PMD or to the nearest ED immediately. The patient was also advised that if he develops any discharge, erythema, increased warmth or pain at his MediPort site to present to his PMD or in the nearest ED immediately. FOLLOWUP: The patient to follow up with his PMD within 1 week of discharge. The patient to follow up with Dr. Tejeda as scheduled. Matt Hartley MD MTDD
== END 2017-07-27 19:00 | disposition home or self-care (01) | DRG 315 ==
LOC: ED 09:30 → ERH 13:10 → 2RSO 16:53 → OBSVTOIN 07-26 15:47
PROVIDERS: ADMIT Student in an Organized Health Care Education/Training Program; ATTEND Student in an Organized Health Care Education/Training Program
PROC: 0JPT3XZ Removal of Tunneled Vascular Access Device from Trunk Subcutaneous Tissue and Fascia, Percutaneous Approach (ICD-10-PCS; principal; 2017-07-27)
PROC: 0JH63XZ Insertion of Tunneled Vascular Access Device into Chest Subcutaneous Tissue and Fascia, Percutaneous Approach (ICD-10-PCS; 2017-07-27)
PROC: 06PY33Z Removal of Infusion Device from Lower Vein, Percutaneous Approach (ICD-10-PCS; 2017-07-27)
PROC: 02HV33Z Insertion of Infusion Device into Superior Vena Cava, Percutaneous Approach (ICD-10-PCS; 2017-07-27)
DX: T82.534A Leakage of infusion catheter, initial encounter (principal); I50.22 Chronic systolic (congestive) heart failure; I13.0 Hypertensive heart and chronic kidney disease with heart failure and stage 1 through stage 4 chronic kidney disease, or unspecified chronic kidney disease; N18.4 Chronic kidney disease, stage 4 (severe); I42.0 Dilated cardiomyopathy; I25.10 Atherosclerotic heart disease of native coronary artery without angina pectoris; J44.9 Chronic obstructive pulmonary disease, unspecified; I25.5 Ischemic cardiomyopathy; F17.200 Nicotine dependence, unspecified, uncomplicated; Y83.8 Other surgical procedures as the cause of abnormal reaction of the patient, or of later complication, without mention of misadventure at the time of the procedure; I25.2 Old myocardial infarction; Z95.5 Presence of coronary angioplasty implant and graft; Z85.51 Personal history of malignant neoplasm of bladder; Z79.899 Other long term (current) drug therapy

== ENCOUNTER 2018-03-18 10:05 | Inpatient (IN) | payer MEDICARE, OTHER ==
[2018-03-18 10:11] VITALS: BMI 24.6
[2018-03-18] MEDS ORDERED: Albuterol-Ipratrop 3 mg / 0.5 (3 ml) UD IH STA ×2 (10:24→10:25)
--- NOTE | 2018-03-18 10:32 | ED PDOC ---
Arrival/HPI - General Chief Complaint: Chest Pain Time Seen by Provider: 03/18/18 10:11 Historian: Patient - History of Present Illness Narrative History of Present Illness (Text): 03/18/18 10:25 75 year old male, whose past medical history includes chronic obstructive pulmonary disease, congestive heart failure, coronary artery disease, hypertension, bladder CA, myocardial infarction in the past, on Plavix, Lasix, and home Milrinone drip, presents to the emergency department with chest pain, since 07:00 today. Patient states pain is sharp and localized to the middle of the chest, and associated with some difficulty breathing. Patient states he has been having abdominal pain as well, associated with an untreated hernia. Patient denies any fevers, chills, headache, dizziness, nausea, vomiting, diarrhea, back pain, neck pain, or any other complaint. PMD: Dr. Pascual Hartley Time/Duration: 1-3 hours Symptom Onset: Gradual Symptom Course: Unchanged Quality: Stabbing Context: Home Past Medical History - Provider Review Nursing Documentation Reviewed: Yes - Infectious Disease Hx of Infectious Diseases: None - Cardiac Hx Cardiac Disorders: Yes (CAD, 1 Coronary Stent) - Pulmonary Hx Respiratory Disorders: Yes (smoked 2 ppd quit.) - Neurological Hx Neurological Disorder: No - HEENT Hx HEENT Disorder: Yes Other/Comment: hearing problem - Renal Hx Renal Disorder: Yes (BLADDER CA WITH SURGERY) - Endocrine/Metabolic Hx Endocrine Disorders: No - Hematological/Oncological Hx Blood Transfusions: Yes - Integumentary Hx Dermatological Disorder: No - Musculoskeletal/Rheumatological Hx Musculoskeletal Disorders: Yes - Gastrointestinal Hx Gastrointestinal Disorders: Yes Other/Comment: hernia- inguinal - Genitourinary/Gynecological Hx Genitourinary Disorders: Yes Hx Bladder Cancer: Yes Other/Comment: urostomy - Psychiatric Hx Psychophysiologic Disorder: Yes Hx Depression: Yes Hx Substance Use: No - Surgical History Hx Cholecystectomy: Yes Hx Coronary Stent: Yes (ptca 11/2014) - Anesthesia Hx Anesthesia: Yes Hx Anesthesia Reactions: No Hx Malignant Hyperthermia: No - Suicidal Assessment Feels Threatened In Home Enviroment: No Family/Social History - Physician Review Nursing Documentation Reviewed: Yes Family/Social History: No Known Family HX Smoking Status: Former Smoker Hx Alcohol Use: Yes (glass of wine occasionally) Hx Substance Use: No Hx Substance Use Treatment: No Allergies/Home Meds Allergies/Adverse Reactions: Allergies No Known Allergies Allergy (Verified 03/18/18 17:28) Home Medications: Home Meds Medication Instructions Recorded Confirmed RX: Atorvastatin [Lipitor] 40 mg PO QPM 04/13/15 03/18/18 RX: Clopidogrel [Plavix] 75 mg PO QAM 04/13/15 03/18/18 RX: Furosemide [Lasix] 40 mg PO ACD 12/24/15 03/18/18 RX: Milrinone [Primacor] 3.3 ml IV Q60M 06/01/16 03/18/18 RX: Riociguat [Adempas] 2.5 mg PO TID 06/01/16 03/18/18 RX: Spironolactone [Aldactone] 25 mg PO DAILY 07/24/17 03/18/18 Carvedilol [Coreg] 3.125 mg PO BID 03/18/18 03/18/18 Furosemide [Lasix] 2 mg PO ACB 03/18/18 03/18/18 Selexipag [Uptravi] 600 mg PO BID 03/18/18 03/18/18 Umeclidinium Brm/Vilanterol Tr 1 puff INH DAILY 03/18/18 03/18/18 [Anoro Ellipta 62.5-25 Mcg INH] Review of Systems - Physician Review All systems were reviewed & negative as marked: Yes - Review of Systems Constitutional: absent: Fevers, Night Sweats Respiratory: SOB Cardiovascular: Chest Pain Gastrointestinal: Abdominal Pain. absent: Diarrhea, Nausea, Vomiting Musculoskeletal: absent: Back Pain, Neck Pain Neurological: absent: Headache, Dizziness Physical Exam Vital Signs Reviewed: Yes Vital Signs Temp Pulse Resp BP Pulse Ox 03/18/18 10:11 98.6 F 86 18 122/56 L 98 Temperature: Afebrile Blood Pressure: Hypotensive Pulse: Regular Respiratory Rate: Normal Appearance: Positive for: Well-Appearing, Non-Toxic, Comfortable Pain Distress: None Mental Status: Positive for: Alert and Oriented X 3 - Systems Exam Head: Present: Atraumatic, Normocephalic Pupils: Present: PERRL Extroacular Muscles: Present: EOMI Conjunctiva: Present: Normal Mouth: Present: Moist Mucous Membranes Neck: Present: Normal Range of Motion Respiratory/Chest: Present: Wheezes (Bilateral Wheezing), Decreased Breath Sounds, Rales (Rales bilaterally) Cardiovascular: Present: Regular Rate and Rhythm, Normal S1, S2. No: Murmurs Abdomen: Present: Hernias (Large, soft, abdominal hernia), Ostomy Tubes (Cholost maximo bag) Back: Present: Normal Inspection Upper Extremity: Present: Normal Inspection. No: Cyanosis, Edema Lower Extremity: Present: Normal Inspection. No: Edema Neurological: Present: GCS=15, CN II-XII Intact, Speech Normal Skin: Present: Warm, Dry, Normal Color. No: Rashes Psychiatric: Present: Alert, Oriented x 3, Normal Insight, Normal Concentration Medical Decision Making ED Course and Treatment: 03/18/18 10:37 Impression: 77 year old male presents with chest pain, shortness of breath, and abdominal pain. Plan: -- CT abd & pelvis -- EKG -- Chemistry -- CBC, Heme -- Chest X-ray -- Duoneb -- Solumedrol -- Urinalysis -- Reassess and disposition Prior Visits: Notes and results from previous visits were reviewed. Progress Notes: 03/18/18 10:38 EKG reviewed by me, shows: Normal sinus rhythm @ 91bpm RBBB, No interval change from previous 03/18/18 13:50 Chest X-ray reviewed by radiologist, shows: No active disease. 03/18/18 13:53 CT abd & pelvis reviewed by radiologist, shows: There is a large left inguinal hernia extending into the left scrotum measuring 8 x 12 cm transversely and 25 cm in length. The hernia contains large and small bowel. There is no associated obstruction. 03/19/18 12:23 vq neg. case discussed with pmd accepted for admission. - Scribe Statement The provider has reviewed the documentation as recorded by the Ebony Awan Provider Scribe Attestation: All medical record entries made by the Loreleiibrenata were at my direction and personally dictated by me. I have reviewed the chart and agree that the record accurately reflects my personal performance of the history, physical exam, medical decision making, and the department course for this patient. I have also personally directed, reviewed, and agree with the discharge instructions and disposition. Disposition/Present on Arrival - Present on Arrival Any Indicators Present on Arrival: No History of DVT/PE: No History of Uncontrolled Diabetes: No Urinary Catheter: No History of Decub. Ulcer: No History Surgical Site Infection Following: None - Disposition Have Diagnosis and Disposition been Completed?: Yes Diagnosis: COPD exacerbation, Chest pain, Hernia, CHF exacerbation Disposition: HOSPITALIZED Disposition Time: 12:00 Condition: FAIR
[2018-03-18 10:48] LABS: BASO # 0.05 K/mm3 (0.0-2.0); BASO % 0.7 % (0.0-3.0); EOS # 0.2 (0.0-0.7); EOS % 3.2 % (1.5-5.0); GRAN # 5.17 (1.4-6.5); GRAN % 72.7 % (50.0-68.0); HEMOGLOBIN 10.8 g/dL (14.0-18.0); LYMPH # 1.2 (1.2-3.4); LYMPH % 17.1 % (22.0-35.0); MEAN CELL VOLUME 87.5 fl (80.0-105.0); MEAN CORPUSCULAR HEMOGLOBIN 27.6 pg (25.0-35.0); MEAN CORPUSCULAR HGB CONC 31.6 g/dl (31.0-37.0); MEAN PLATELET VOLUME 8.5 fl (7.0-11.0); MONO # 0.5 (0.1-0.6); MONO % 6.3 % (1.0-6.0); RBC 3.91 10^6/uL (3.5-6.1); RED CELL DISTRIBUTION WIDTH 15.2 % (11.5-14.5); WHITE BLOOD COUNT 7.1 10^3/uL (4.5-11.0)
[2018-03-18 10:57] LABS: INR 0.98; PARTIAL THROMBOPLASTIN TIME 29.3 Seconds (25.1-36.5); PROTHROMBIN TIME 11.3 SECONDS (9.4-12.5)
[2018-03-18 10:58] LABS: ALB/GLOB RATIO 1.4 (1.1-1.8); ALBUMIN 3.9 g/dL (3.0-4.8); CALCIUM 9.3 mg/dL (8.4-10.5)
[2018-03-18 11:10] LABS: TROPONIN I 0.04 ng/mL
[2018-03-18 11:16] LABS: CK-MB 2.2 ng/mL (0.0-3.6)
[2018-03-18 11:35] LABS: URINE APPEARANCE CLEAR (CLEAR); URINE BILIRUBIN NEGATIVE (NEGATIVE); URINE BLOOD NEGATIVE (NEGATIVE); URINE COLOR YELLOW (YELLOW); URINE GLUCOSE (UA) NEGATIVE (NEGATIVE); URINE LEUKOCYTE ESTERASE SMALL Leu/uL (NEGATIVE); URINE PROTEIN NEGATIVE mg/dL (<30 mg/dL); URINE UROBILINOGEN 0.2 E.U./dL (<1 E.U./dL)
[2018-03-18 11:40] LABS: URINE EPITHELIAL CELLS 0 - 2 /hpf (0-5); URINE RBC NEGATIVE /hpf (0-2)
[2018-03-18 11:41] LABS: URINE BACTERIA MANY /hpf
--- NOTE | 2018-03-18 12:47 | CT ---
Date of service: 03/18/2018 PROCEDURE: CT Abdomen and Pelvis without intravenous contrast HISTORY: abd pain, h/o of colostomy/hernia COMPARISON: None. TECHNIQUE: Without contrast.. Contrast dose: Radiation dose: Total exam DLP = 653.81 mGy-cm. This CT exam was performed using one or more of the following dose reduction techniques: Automated exposure control, adjustment of the mA and/or kV according to patient size, and/or use of iterative reconstruction technique. FINDINGS: LOWER THORAX: Unremarkable. LIVER: Unremarkable. No gross lesion or ductal dilatation. GALLBLADDER AND BILE DUCTS: Unremarkable. PANCREAS: Unremarkable. No gross lesion or ductal dilatation. SPLEEN: Unremarkable. ADRENALS: Bilateral adrenal masses are seen. On the right the mass measures 2.4 x 3.8 cm and contains areas of fat. There is a 2.0 x 2.7 cm left adrenal mass. 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 KIDNEYS AND URETERS: There is a 2.3 cm lesion along the periphery of the left kidney measuring 40 Hounsfield units in density. This could represent a solid mass or hemorrhagic cyst. Follow-up is recommended this is unchanged from prior MRI 10/31/2017 VASCULATURE: Unremarkable. No aortic aneurysm. Aortic calcification BOWEL: There is a large left inguinal hernia extending into the left scrotum measuring 8 x 12 cm transversely and 25 cm in length. The hernia contains large and small bowel. There is no associated obstruction. There is a right lower quadrant colostomy. APPENDIX: Unremarkable. Normal appendix. PERITONEUM: Unremarkable. No free fluid. No free air. LYMPH NODES: Unremarkable. No enlarged lymph nodes. BLADDER: Unremarkable. REPRODUCTIVE: Unremarkable. BONES: No acute fracture. OTHER FINDINGS: None. IMPRESSION: There is a large left inguinal hernia extending into the left scrotum measuring 8 x 12 cm transversely and 25 cm in length. The hernia contains large and small bowel. There is no associated obstruction.
--- NOTE | 2018-03-18 13:27 | RAD ---
Date of service: 03/18/2018 HISTORY: sob COMPARISON: 07/24/2017 FINDINGS: LUNGS: No active pulmonary disease. PLEURA: No significant pleural effusion identified, no pneumothorax apparent. CARDIOVASCULAR: No aortic atherosclerotic calcification present. Normal cardiac size. No pulmonary vascular congestion. OSSEOUS STRUCTURES: No significant abnormalities. VISUALIZED UPPER ABDOMEN: Normal. OTHER FINDINGS: Right-sided Port-A-Cath IMPRESSION: No active disease.
--- NOTE | 2018-03-18 14:48 | NM ---
Date of service: 03/18/2018 COMPARISON: Chest x-ray same day TECHNIQUE: 38.5 mCi technetium 99-m DTPA aerosol. 5.0 mCI technetium 99-m MAA administered intravenously. FINDINGS: VENTILATION COMPONENT: Normal. PERFUSION COMPONENT: Normal. IMPRESSION: Lowprobability ventilation perfusion scan for pulmonary embolism.
[2018-03-18] MEDS ORDERED: Albuterol-Ipratrop 3 mg / 0.5 (3 ml) UD IH PRN (15:55)
[2018-03-18] MEDS: Milrinone 20mg/100ml D5W 100 ML IV PRN (18:31)
[2018-03-18] MEDS: Arformoterol 15 mcg/2 ml Inh Sol IH SCH (21:07)
[2018-03-18] MEDS: Budesonide 0.25 mg/2 ml Inhal Susp UD IH SCH (21:07)
--- NOTE | 2018-03-18 21:18 | HP ---
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 The patient reports that he was in his usual state of health until the day of presentation to the ED when he developed a sudden onset of substernal chest discomfort. The patient reports dyspnea and pedal edema associated with his chest pain but denies radiation of pain, palpitations or diaphoresis. Due to his underlying cardiac history he opted for ED evaluation. In the ED he was afebrile and hemodynamically stable. Labs revealed an elevated D-dimer and an intermediate troponin. He underwent a V/Q scan which was negative and he was subsequently admitted to the telemetry sarkar to rule out ACS. PAST MEDICAL HISTORY: As per HPI, also CKD stage IV, hypertension, anemia of chronic kidney disease and a history of bladder cancer. PAST SURGICAL HISTORY: As per HPI. ALLERGIES: NKDA. MEDICATIONS: Coreg 3.125 mg p.o. b.i.d., Lisinopril 2.5 mg p.o. daily, Spironolactone 25 mg p.o. daily, Aspirin 81 mg p.o. daily, Plavix 75 mg p.o. daily, Lasix 40 mg p.o. daily, Lipitor 40 mg p.o. daily and Milrinone infusion. FAMILY HISTORY: Noncontributory. SOCIAL HISTORY: The patient reports a former 50 pack-year smoking history but quit approximately 5 years ago. He reports social alcohol use and denies illicit drug abuse. REVIEW OF SYSTEMS: A 12-point review of systems is negative except as per HPI. PHYSICAL EXAMINATION: VITAL SIGNS: Temperature 98.6, pulse 112, blood pressure 133/82, respiratory rate 18, oxygen saturation 98% on room air. GENERAL: No apparent distress. HEENT: PERRL, EOMI. No scleral icterus. No conjunctival pallor. NECK: No JVD. No bruits. LUNGS: Decreased breath sounds at the bases. CARDIOVASCULAR: Regular rate and rhythm. Normal S1, S2. Grade II/ RAGHU to LLSB. ABDOMEN: Normoactive bowel sounds. Soft, nontender, nondistended. Palpable and reducible mass to left groin. EXTREMITIES: Trace pedal edema bilaterally. NEUROLOGIC: Awake, alert and oriented x 3. No focal motor deficits. LABORATORY DATA: WBC 7.1 with 73% neutrophils, hemoglobin 11, hematocrit 34, platelets 194. Sodium 140, potassium 4.5, chloride 113, bicarb 21, BUN 35, creatinine 2.6, glucose 89. D-dimer 329. BNP 735. Troponin 0.04. IMAGING STUDIES: 1. Chest x-ray demonstrates no active disease. 2. CT of the abdomen and pelvis without contrast demonstrates a large left inguinal hernia with no evidence of obstruction or incarceration. DIAGNOSTIC STUDIES: V/Q scan demonstrates low probability for PE. ASSESSMENT: The patient is a 77-year-old man with multiple medical comorbidities including severe ischemic dilated cardiomyopathy on home milrinone, CAD s/p STEMI s/p PCI with stent placement and severe COPD who presented for evaluation of a 1 day history of substernal chest pain and was admitted to the telemetry sarkar to rule out acute coronary syndrome. PLAN: 1. Chest pain, rule out ACS. The patient had an intermediate initial troponin. We will cycle cardiac enzymes q [address] Tejeda of Cardiology has been consulted for further evaluation and recommendations. 2. CAD s/p STEMI s/p PCI with stent placement. Resume Aspirin 81 mg p.o. daily, Plavix 75 mg p.o. daily and Lipitor 40 mg p.o. daily. 3. 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 Resume Lisinopril 2.5 mg p.o. daily, Aldactone 25 mg p.o. daily, Coreg 3.125 mg p.o. b.i.d., Lasix 40 mg p.o. daily and Milrinone infusion. 4. COPD. Continue supplemental oxygen and bronchodilators as needed. 5. CKD stage IV. Renal function at baseline. We will continue to monitor strict I&O's, renally dose medications and avoid nephrotoxins. 6. Hypertension. Blood pressure controlled. Continue with current medications. 7. Anemia of chronic disease. H/H remains stable with no evidence of active bleed. We will continue to monitor. 8. Prophylaxis. GI prophylaxis not indicated as the patient is eating. DVT prophylaxis is not indicated as the patient is ambulatory. CODE STATUS: Full code. Matt Hartley MD [facility] # [id number] [place]
[2018-03-18] MEDS ORDERED: Pneumococcal 23-Valent Vaccine IM ONE (22:15)
[2018-03-18] MEDS ORDERED: Influenza Vaccine 60 mcg/0.5 mL SYR (4YR UP) IM ONE (22:15)
--- NOTE | 2018-03-19 01:16 | CARD ---
APPROVED REPORT Date of service: 03/18/2018 EKG Measurement Heart [id number] <Conclusion> Normal sinus rhythm Right bundle branch block Anterolateral infarct, age undetermined Abnormal ECG
[2018-03-19] MEDS: Milrinone 20mg/100ml D5W 100 ML IV PRN ×2 (06:44→19:42)
[2018-03-19 07:24] LABS: BASO # 0.01 K/mm3 (0.0-2.0); BASO % 0.1 % (0.0-3.0); EOS % 0.2 % (1.5-5.0); GRAN # 6.58 (1.4-6.5); GRAN % 81.5 % (50.0-68.0); HEMOGLOBIN 10.8 g/dL (14.0-18.0); LYMPH # 0.9 (1.2-3.4); LYMPH % 11.6 % (22.0-35.0); MEAN CELL VOLUME 86.7 fl (80.0-105.0); MEAN CORPUSCULAR HEMOGLOBIN 27.7 pg (25.0-35.0); MEAN PLATELET VOLUME 8.5 fl (7.0-11.0); MONO # 0.5 (0.1-0.6); MONO % 6.6 % (1.0-6.0); RBC 3.9 10^6/uL (3.5-6.1); RED CELL DISTRIBUTION WIDTH 15.1 % (11.5-14.5); WHITE BLOOD COUNT 8.1 10^3/uL (4.5-11.0)
[2018-03-19 07:50] LABS: ALB/GLOB RATIO 1.5 (1.1-1.8); ALBUMIN 4.1 g/dL (3.0-4.8); CALCIUM 9.7 mg/dL (8.4-10.5)
[2018-03-19] MEDS: Budesonide 0.25 mg/2 ml Inhal Susp UD IH SCH ×2 (08:32→20:06)
[2018-03-19] MEDS: Arformoterol 15 mcg/2 ml Inh Sol IH SCH ×2 (08:32→20:05)
--- NOTE | 2018-03-19 13:37 | CON ---
DATE: 03/19/2018 INDICATIONS: Chest pain, shortness of breath. HISTORY OF PRESENT ILLNESS: This is a 77-year-old man known to our practice with admission through the emergency room yesterday with severe episode of chest pain associated with shortness of breath. He underwent treatment. He was transferred to telemetry. This morning he does not have chest pain. There is some dyspnea on exertion with minimal activities. There is no orthopnea, PND, syncope, presyncope, lightheadedness, dizziness, vertigo, palpitation, fever, chills, cough, sputum production, hemoptysis, abdominal pain, nausea, vomiting, diarrhea, constipation, or melena. PAST MEDICAL HISTORY: His past medical history is complex. He has known ischemic cardiomyopathy on milrinone infusion. He has a history of myocardial infarction and coronary intervention. He has severe COPD and pulmonary hypertension, on pulmonary hypertension meds. He has a history of hypertension, chronic kidney disease, bladder cancer with cystectomy, left inguinal hernia. He is a former smoker. There is no history of rheumatic fever, arrhythmia, diabetes, stroke, TIA or gout. MEDICATIONS: Medications at the time of admission include Adempas, Aldactone, Anoro, Coreg, Lasix, Lipitor, Plavix, milrinone. ALLERGIES: THERE ARE NO MEDICATION ALLERGIES REPORTED. SOCIAL HISTORY: He lives at home. He is ambulatory. He no longer smokes. He drinks alcohol on social occasions. FAMILY HISTORY: Noncontributory. REVIEW OF SYSTEMS: Ten-point review of systems otherwise unremarkable except as noted above. PHYSICAL EXAMINATION: GENERAL: He is a well-developed male, in no acute distress, sitting on his bed in telemetry. VITAL SIGNS: Notable for sinus rhythm to sinus tachycardia 85-116 beats per minute. He is afebrile. Blood pressure 118/88, respirations 18-20, O2 sat 95-98% on nasal cannula and room air. HEENT: Exam reveals no neck vein distention, thyromegaly, carotid bruits. Mucous membranes moist. Conjunctivae pink. NECK: Supple. LUNGS: Lung collins, scattered rhonchi. CARDIAC: Examination of the heart revealed a regular rhythm. Normal first and second heart sounds. Soft systolic murmur along the left sternal border. ABDOMEN: Soft. Bowel sounds present. No mass, organomegaly, tenderness, rebound or guarding. No CVA tenderness. No palpable abdominal aortic aneurysm. EXTREMITIES: Extremity exam revealed no cyanosis or clubbing. There is mild ankle edema. NEUROLOGICALLY: Awake, alert and oriented. PSYCHIATRIC: Normal as to mood and affect. SKIN: Warm and dry. No rash or cellulitis. LABORATORY AND IMAGING STUDIES: EKG demonstrates regular sinus rhythm, right bundle-branch block, anterior wall myocardial infarction, ST-T wave changes. No change from a prior EKG. A CT of the abdomen and pelvis revealed large left inguinal hernia extending into the left scrotum. A portable chest x-ray revealed no active disease. A lung scan was low probability for PE. White count normal, hemoglobin 10.8, hematocrit 33.8, platelet count normal. PT, INR, PTT unremarkable. D-dimer 329. Electrolytes, BUN, creatinine notable for BUN 38, creatinine 2.7, potassium 4.6, magnesium 2.4. LFTs unremarkable. CK 278, troponin 0.04 and 0.03. BNP 735. Lipase 379. Urinalysis unremarkable. IMPRESSION: Boy Ko is a 77-year-old man with severe left ventricular dysfunction, coronary artery disease, remote myocardial infarction, severe chronic obstructive pulmonary disease, former smoker with pulmonary hypertension on therapy, admitted with an episode of chest pain with negative troponins. At this time, the chest pain has resolved. I would continue his usual cardiac medications including Coreg, Lasix, Lipitor, Plavix and milrinone. I will check an echocardiogram. He should have a pulmonary evaluation. He should continue his pulmonary hypertension medications. He can be out of bed to chair. We will continue the milrinone infusion. We will check I's and O's, stool for occult blood, monitor labs. We will continue spironolactone, aspirin. He is getting Brovana albuterol, Pulmicort, methylprednisolone and Zestril. I will follow along with you. I will make additional recommendations based on his clinical course. Jj Orozco MD [facility]
[2018-03-20 01:58] VITALS: O2SAT 97
[2018-03-20] MEDS: Budesonide 0.25 mg/2 ml Inhal Susp UD IH SCH ×2 (08:01→20:20)
[2018-03-20] MEDS: Arformoterol 15 mcg/2 ml Inh Sol IH SCH ×2 (08:01→20:20)
--- NOTE | 2018-03-20 08:13 | CP.PCM.PN ---
Subjective - Date & Time of Evaluation Date of Evaluation: 03/20/18 Time of Evaluation: 07:00 - Subjective Subjective: Stable on 2R. Low abd. pain on and off. GÓMEZ with mild exertions. No CP V/S noted. RSR PE: Lungs: rhonchi Cor.: S1S2 Abd.: soft Ext.: mild edema Neuro.: alert Labs pending. Urine C+S: GNR Stool for OB: neg. Objective - Vital Signs/Intake and Output Vital Signs (last 24 hours): Temp Pulse Resp BP Pulse Ox 98.6 F 99 H 20 101/62 97 03/20/18 06:00 03/20/18 06:00 03/20/18 06:00 03/20/18 06:00 03/20/18 00:01 Intake and Output: 03/20/18 03/20/18 06:59 18:59 Intake Total 1088 Output Total 4 Balance 1084 - Medications Medications: Current Medications Albuterol/Ipratropium (Duoneb 3 Mg/0.5 Mg (3 Ml) Ud) 3 ml IH Q4 PRN PRN Reason: Shortness of Breath Arformoterol Tartrate (Brovana) 15 mcg IH [id number] [facility] Last Admin: 03/20/18 08:01 Dose: 15 mcg Aspirin (Aspirin Chewable) 81 mg PO DAILY [facility] Last Admin: 03/19/18 10:29 Dose: 81 mg Atorvastatin Calcium (Lipitor) 40 mg PO DAILY [facility] Last Admin: 03/19/18 10:28 Dose: 40 mg Budesonide (Pulmicort Respules) 0.25 mg IH [id number] [facility] Last Admin: 03/20/18 08:01 Dose: 0.25 mg Carvedilol (Coreg) 3.125 mg PO BID [facility] Last Admin: 03/19/18 17:41 Dose: 3.125 mg Clopidogrel Bisulfate (Plavix) 75 mg PO DAILY [facility] Last Admin: 03/19/18 10:28 Dose: 75 mg Furosemide (Lasix) 40 mg PO DAILY [facility] Last Admin: 03/19/18 10:28 Dose: 40 mg Milrinone Lactate/Dextrose (Primacor 20mg/100ml D5w) 100 mls @ 6.818 mls/hr IV .[id number] PRN; Protocol PRN Reason: TITRATE PER MD ORDER Last Admin: 03/19/18 19:42 Dose: 0.3 mcg/kg/min, 6.818 mls/hr Lisinopril (Zestril) 2.5 mg PO DAILY [facility] Last Admin: 03/19/18 10:28 Dose: 2.5 mg Spironolactone (Aldactone) 25 mg PO DAILY [facility] Last Admin: 03/19/18 10:28 Dose: 25 mg Zolpidem Tartrate (Ambien) 5 mg PO HS PRN; Protocol PRN Reason: Insomnia Last Admin: 03/19/18 21:47 Dose: 5 mg - Labs Labs: 03/19/18 06:30 03/19/18 06:30 PT 11.3 SECONDS (9.4-12.5) 03/18/18 10:40 INR 0.98 03/18/18 10:40 APTT 29.3 Seconds (25.1-36.5) 03/18/18 10:40 Assessment and Plan - Assessment and Plan (Free Text) Assessment: CP/SOB/Abd. Pain CAD/DE/PCI/Severe LVD on milrinone infusion R/O UTI CHF Severe COPD and PH/Former Smoker HBP CKD Bladder cancer/cystectomy [facility] Plan: AB Pulm eval and tx. Continue cardiac meds and milrinone infusion. Check Echo OOB as kortney. Monitor: labs, cultures, sats., I/O, etc.
--- NOTE | 2018-03-20 08:37 | PN ---
SUBJECTIVE: The patient was seen and examined at bedside on the telemetry sarkar. No acute events overnight. He remains afebrile and hemodynamically stable. He furthermore reports resolution of his chest discomfort but does endorse mild dyspnea which has also improved since admission. OBJECTIVE: VITAL SIGNS: Temperature 98.6, pulse 99, blood pressure 101/62, respiratory rate 20, oxygen saturation 97% on 2 liters nasal cannula. GENERAL: No apparent distress. HEENT: PERRL, EOMI. No scleral icterus. No conjunctival pallor. NECK: No JVD. LUNGS: Decreased breath sounds at the bases with bibasilar crackles. CARDIOVASCULAR: Regular rate and rhythm. Normal S1, S2. Grade II/ RAGHU to LLSB. ABDOMEN: Normoactive bowel sounds. Soft, nontender, nondistended, reducible mass to left groin. EXTREMITIES: Trace pedal edema bilaterally. NEUROLOGIC: Awake, alert and oriented x 3. No focal motor deficits. LABORATORY DATA: Morning labs are pending. ASSESSMENT: The patient is a 77-year-old man with multiple medical comorbidities including severe ischemic dilated cardiomyopathy on home Milrinone, CAD s/p STEMI s/p PCI with stent placement and severe COPD who presented for evaluation of a 1 day history of substernal chest pain and was admitted to the telemetry sarkar to rule out an acute coronary syndrome. PLAN: 1. Chest pain, no evidence of ACS. Input from Dr. Orozco noted and greatly appreciated. The patient has an echocardiogram pending. 2. CAD s/p STEMI s/p PCI with stent placement. Continue Aspirin 81 mg p.o. daily, Plavix 75 mg p.o. daily and Lipitor 40 mg p.o. daily. 3. 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 Continue Lisinopril 2.5 mg p.o. daily, Aldactone 25 mg p.o. daily, Coreg 3.125 mg p.o. b.i.d., Lasix 40 mg p.o. daily and Milrinone infusion. 4. COPD. Continue supplemental oxygen and bronchodilators as needed. 5. CKD stage IV. Renal function at baseline. Continue to monitor strict I&O's, renally dose medications and avoid nephrotoxins. 6. Hypertension. Blood pressure remained satisfactory. Continue with current medications. 7. Anemia of chronic disease. H/H remained stable. No evidence of bleed. Continue to monitor CBC daily. 8. Insomnia. Continue Ambien 5 mg p.o. at bedtime. 9. Prophylaxis. GI prophylaxis not indicated as the patient is eating. DVT prophylaxis not indicated as the patient is ambulatory. CODE STATUS: Full code. Matt Hartley MD [facility]
--- NOTE | 2018-03-20 09:52 | PN ---
SUBJECTIVE: The patient was seen and examined at bedside on the telemetry sarkar. No acute events overnight. He remains afebrile, hemodynamically stable and with moderate improvement in his chest discomfort. This morning he feels okay overall and offers no complaints. OBJECTIVE: VITAL SIGNS: Temperature 98.2, pulse 116, blood pressure 118/88, respiratory rate 18, oxygen saturation 96% on 2 liters nasal cannula. GENERAL: No apparent distress. HEENT: PERRL, EOMI. No scleral icterus. No conjunctival pallor. NECK: No JVD, no bruits. LUNGS: Decreased breath sounds at the bases with faint bibasilar crackles. CARDIOVASCULAR: Regular rate and rhythm. Normal S1, S2. Grade II/ RAGHU to LLSB. ABDOMEN: Normoactive bowel sounds. Soft, nontender, nondistended and reducible mass to left groin EXTREMITIES: Trace pedal edema bilaterally. NEUROLOGIC: Awake, alert and oriented x 3. No focal motor deficits. LABORATORY DATA: WBC 8.1, hemoglobin 11, hematocrit 34, platelets 207. Sodium 139, potassium 4.6, chloride 112, bicarb 19, BUN 38, creatinine 2.7, glucose 104. Troponin 0.04, 0.03. ASSESSMENT: The patient is a 77-year-old man with multiple medical comorbidities including severe ischemic dilated cardiomyopathy on home Milrinone, CAD s/p STEMI s/p PCI with stent placement and severe COPD who presented with a 1 day history of substernal chest pain and was admitted to the telemetry sarkar to rule out acute coronary syndrome. PLAN: 1. Chest pain, no evidence for ACS. The patient has had two sets of negative cardiac enzymes. Evaluation with Dr. Orozco pending. A TTE is ordered and pending. 2. CAD s/p STEMI s/p PCI with stent placement. Continue Aspirin 81 mg p.o. daily, Plavix 75 mg p.o. daily, and Lipitor 40 mg p.o. daily 3. 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 Continue Lisinopril 2.5 mg p.o. daily, Aldactone 25 mg p.o. daily, Coreg 3.125 mg p.o. b.i.d., Lasix 40 mg p.o. daily and Milrinone infusion. 4. COPD. Continue supplemental oxygen and bronchodilators as needed. 5. CKD, stage IV. Renal function at baseline. Continue to monitor strict I&O's, renally dose medications and avoid nephrotoxins. 6. Hypertension. Blood pressure controlled. Continue with current medications. 7. Anemia of chronic disease. Hb stable. 8. Insomnia. We will start Ambien 10 mg p.o. at bedtime as needed 9. Prophylaxis. GI prophylaxis not indicated as the patient is eating. DVT prophylaxis is not indicated as the patient is ambulatory. CODE STATUS: Full code. Matt Hartley MD [facility]
[2018-03-20] MEDS: Milrinone 20mg/100ml D5W 100 ML IV PRN (10:22)
[2018-03-20 11:33] LABS: BASO # 0.03 K/mm3 (0.0-2.0); BASO % 0.5 % (0.0-3.0); EOS # 0.1 (0.0-0.7); GRAN # 3.64 (1.4-6.5); GRAN % 66.4 % (50.0-68.0); HEMOGLOBIN 10.2 g/dL (14.0-18.0); LYMPH # 1.2 (1.2-3.4); LYMPH % 21.1 % (22.0-35.0); MEAN CELL VOLUME 86.7 fl (80.0-105.0); MEAN CORPUSCULAR HEMOGLOBIN 27.7 pg (25.0-35.0); MEAN PLATELET VOLUME 8.1 fl (7.0-11.0); MONO # 0.6 (0.1-0.6); RBC 3.68 10^6/uL (3.5-6.1); RED CELL DISTRIBUTION WIDTH 15.3 % (11.5-14.5); WHITE BLOOD COUNT 5.5 10^3/uL (4.5-11.0)
[2018-03-20 11:45] LABS: ALB/GLOB RATIO 1.4 (1.1-1.8); ALBUMIN 3.6 g/dL (3.0-4.8); CALCIUM 9.1 mg/dL (8.4-10.5)
[2018-03-21] MEDS: Milrinone 20mg/100ml D5W 100 ML IV PRN (01:11)
[2018-03-21 06:58] LABS: BASO # 0.04 K/mm3 (0.0-2.0); BASO % 0.6 % (0.0-3.0); EOS # 0.2 (0.0-0.7); EOS % 3.2 % (1.5-5.0); GRAN # 4.18 (1.4-6.5); GRAN % 67.6 % (50.0-68.0); HEMOGLOBIN 10.1 g/dL (14.0-18.0); LYMPH # 1.2 (1.2-3.4); LYMPH % 19.1 % (22.0-35.0); MEAN CELL VOLUME 87.2 fl (80.0-105.0); MEAN CORPUSCULAR HEMOGLOBIN 27.5 pg (25.0-35.0); MEAN CORPUSCULAR HGB CONC 31.6 g/dl (31.0-37.0); MEAN PLATELET VOLUME 8.7 fl (7.0-11.0); MONO # 0.6 (0.1-0.6); MONO % 9.5 % (1.0-6.0); RBC 3.67 10^6/uL (3.5-6.1); RED CELL DISTRIBUTION WIDTH 15.2 % (11.5-14.5); WHITE BLOOD COUNT 6.2 10^3/uL (4.5-11.0)
[2018-03-21 07:18] LABS: ALB/GLOB RATIO 1.4 (1.1-1.8); ALBUMIN 3.5 g/dL (3.0-4.8); CALCIUM 8.9 mg/dL (8.4-10.5)
--- NOTE | 2018-03-21 08:23 | CP.PCM.PN ---
Subjective - Date & Time of Evaluation Date of Evaluation: 03/21/18 Time of Evaluation: 07:00 - Subjective Subjective: Stable on 2R. GÓMEZ with mild exertions. No CP. He feels better. V/S noted. RSR PE: Lungs: rhonchi Cor.: S1S2 Abd.: soft Ext.: mild edema Neuro.: alert Labs noted: Cr = 2.7 Urine C+S: + Klebs and Enterococus Stool for OB: neg. Echo done: Sev. LVD. See report. Objective - Vital Signs/Intake and Output Vital Signs (last 24 hours): Temp Pulse Resp BP Pulse Ox 98 F 64 19 104/71 97 03/21/18 06:00 03/21/18 06:00 03/21/18 06:00 03/21/18 06:00 03/21/18 06:00 Intake and Output: 03/21/18 03/21/18 06:59 18:59 Intake Total 432 Output Total 0 Balance 432 - Medications Medications: Current Medications Albuterol/Ipratropium (Duoneb 3 Mg/0.5 Mg (3 Ml) Ud) 3 ml IH Q4 PRN PRN Reason: Shortness of Breath Arformoterol Tartrate (Brovana) 15 mcg IH [id number] [facility] Last Admin: 03/20/18 20:20 Dose: 15 mcg Aspirin (Aspirin Chewable) 81 mg PO DAILY [facility] Last Admin: 03/20/18 10:13 Dose: 81 mg Atorvastatin Calcium (Lipitor) 40 mg PO DAILY [facility] Last Admin: 03/20/18 10:13 Dose: 40 mg Budesonide (Pulmicort Respules) 0.25 mg IH [id number] [facility] Last Admin: 03/20/18 20:20 Dose: 0.25 mg Carvedilol (Coreg) 3.125 mg PO BID [facility] Last Admin: 03/20/18 17:45 Dose: 3.125 mg Clopidogrel Bisulfate (Plavix) 75 mg PO DAILY [facility] Last Admin: 03/20/18 10:14 Dose: 75 mg Furosemide (Lasix) 40 mg PO DAILY [facility] Last Admin: 03/20/18 10:13 Dose: 40 mg Milrinone Lactate/Dextrose (Primacor 20mg/100ml D5w) 100 mls @ 6.818 mls/hr IV .[id number] PRN; Protocol PRN Reason: TITRATE PER MD ORDER Last Admin: 03/21/18 01:11 Dose: 0.3 mcg/kg/min, 6.818 mls/hr Lisinopril (Zestril) 2.5 mg PO DAILY [facility] Last Admin: 03/20/18 10:13 Dose: 2.5 mg Spironolactone (Aldactone) 25 mg PO DAILY [facility] Last Admin: 03/20/18 10:14 Dose: 25 mg Zolpidem Tartrate (Ambien) 5 mg PO HS PRN; Protocol PRN Reason: Insomnia Last Admin: 03/21/18 01:28 Dose: 5 mg - Labs Labs: 03/21/18 06:00 03/21/18 06:00 PT 11.3 SECONDS (9.4-12.5) 03/18/18 10:40 INR 0.98 03/18/18 10:40 APTT 29.3 Seconds (25.1-36.5) 03/18/18 10:40 Assessment and Plan - Assessment and Plan (Free Text) Assessment: CP/SOB/Abd. Pain. All resolved/improved CAD/TX/PCI/Severe LVD on milrinone infusion UTI CHF Severe COPD and PH/Former Smoker HBP CKD Bladder cancer/cystectomy [facility] Plan: Rx. for UTI/AB, as per Dr. Hartley Pulm eval and tx. Continue cardiac meds and milrinone infusion. OOB as kortney.
[2018-03-21] MEDS: Arformoterol 15 mcg/2 ml Inh Sol IH SCH (08:25)
[2018-03-21] MEDS: Budesonide 0.25 mg/2 ml Inhal Susp UD IH SCH (08:25)
--- NOTE | 2018-03-21 08:45 | PN ---
SUBJECTIVE: The patient was seen and examined at bedside on the telemetry sarkar. No acute events overnight. He remains afebrile and hemodynamically stable. His sole complaint is that of mild lower abdominal discomfort secondary to his inguinal hernia. OBJECTIVE: VITAL SIGNS: Temperature 98, pulse 64, blood pressure 104/71, respiratory rate 19, oxygen saturation 97% on 2 liters nasal cannula. GENERAL: No apparent distress. HEENT: PERRL, EOMI. No scleral icterus. No conjunctival pallor. NECK: No JVD. LUNGS: Decreased breath sounds at the bases with bibasilar crackles. CARDIOVASCULAR: Regular rate and rhythm. Normal S1, S2. Grade II/ RAGHU to LLSB. ABDOMEN: Normoactive bowel sounds. Soft, nontender, nondistended with reducible mass to left groin. EXTREMITIES: Trace pedal edema bilaterally. NEUROLOGIC: Awake, alert and oriented x 3. No focal motor deficits. LABORATORY DATA: WBC 6.2, hemoglobin 10, hematocrit 32, platelets 185. Sodium 130, potassium 4.7, chloride 113, bicarb 19, BUN 50, creatinine 2.7, glucose 84. ASSESSMENT: The patient is a 77-year-old man with multiple medical comorbidities including severe ischemic dilated cardiomyopathy on home Milrinone, CAD s/p STEMI s/p PCI with stent placement and severe COPD who presented for evaluation of 1 day history of substernal chest pain and was admitted to the telemetry sarkar to rule out an acute coronary syndrome. PLAN: 1. Chest pain, no evidence of ACS. Input from Dr. Orozco appreciated. 2. CAD s/p STEMI s/p PCI with stent placement. Continue Aspirin 81 mg p.o. daily, Plavix 75 mg p.o. daily and Lipitor 40 mg p.o. daily. 3. 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 Continue Lisinopril 2.5 mg p.o. daily, Aldactone 25 mg p.o. daily, Coreg 3.125 mg p.o. b.i.d., Lasix 40 mg p.o. daily and Milrinone infusion. A TTE is pending. 4. COPD. Continue supplemental oxygen and bronchodilators as needed. 5. CKD stage IV. Renal function remains at baseline. We will continue to monitor. 6. Hypertension. Blood pressure remains satisfactory. Continue current medications. 7. Anemia of chronic disease. Hb stable. 8. Insomnia. Continue Ambien 5 mg p.o. at bedtime. 9. Prophylaxis. GI prophylaxis not indicated as the patient is eating. DVT prophylaxis not indicated as the patient is ambulatory. 10. Disposition. The patient for possible discharge today pending PT evaluation. CODE STATUS: Full code. Matt Hartley MD [facility]
--- NOTE | 2018-03-21 09:11 | CARD ---
APPROVED REPORT Date of service: 03/20/2018 EXAM: Two-dimensional and M-mode echocardiogram with Doppler and color Doppler. Other Information Quality : FairRhythm : INDICATION Dyspnea Cardiomyopathy 2D DIMENSIONS Left Atrium (2D)4.5 (1.6-4.0cm)IVSd1.2 (0.7-1.1cm) LVDd6.1 (3.9-5.9cm)PWd1.1 (0.7-1.1cm) LVDs5.4 (2.5-4.0cm)LVEF (%)25.0 (>50%) M-Mode DIMENSIONS Aortic Root2.80 (2.2-3.7cm)Aortic Cusp Exc.1.10 (1.5-2.0cm) Aortic Valve AoV Peak Rvzkpmsy602.0cm/Suze Peak GR.14mmHg Mitral Valve MV E Qtdjobuo77.1cm/sMV A Terlhfpb182.0cm/sE/A ratio0.5 TDI E/Lateral E'0.0E/Medial E'0.0 Tricuspid Valve TR Peak [id number]/sRAP [id number] Peak Gr.18mmHg [id number] LEFT VENTRICLE The Left Ventricle is moderately dilated. There is normal left ventricular wall thickness. Left ventricle systolic function is severely impaired. The Ejection Fraction is - 25% There is severe global hypokinesis. RIGHT VENTRICLE The right ventricle is normal size. ATRIA The left atrium is mildly dilated. The right atrium size is normal. The interatrial septum is intact with no evidence for an atrial septal defect. AORTIC VALVE The aortic valve is moderately calcified. MITRAL VALVE The mitral valve is moderately thickened but opens well. Mitral regurgitation is mild. TRICUSPID VALVE The tricuspid valve is not well visualized. There is mild tricuspid regurgitation. PULMONIC VALVE The pulmonic valve is not well visualized. GREAT VESSELS The aortic root is normal in size. PERICARDIAL EFFUSION There is no pericardial effusion. <Conclusion> The Left Ventricle is moderately dilated. There is normal left ventricular wall thickness. Left ventricle systolic function is severely impaired. The Ejection Fraction is - 25% There is severe global hypokinesis. The aortic valve is moderately calcified. Aortic sclerosis vs. mild . Mitral regurgitation is mild. There is mild tricuspid regurgitation.
[2018-03-21] MEDS ORDERED: Influenza Vaccine 60 mcg/0.5 mL SYR (4YR UP) IM ONE (13:33)
[2018-03-21] MEDS ORDERED: Pneumococcal 23-Valent Vaccine IM ONE (13:33)
[2018-03-21 13:52] VITALS: RESP 18; TEMP 97.4
[2018-03-21 14:25] VITALS: BP 93/62; PULSE 87
== END 2018-03-21 16:14 | disposition home or self-care (01) | DRG 303 ==
LOC: ED 10:05 → ERH 15:31 → 2RSO 18:35
PROVIDERS: ADMIT Student in an Organized Health Care Education/Training Program; ATTEND Student in an Organized Health Care Education/Training Program
PROC: 3E0234Z Introduction of Serum, Toxoid and Vaccine into Muscle, Percutaneous Approach (ICD-10-PCS; principal; 2018-03-21)
DX: I25.5 Ischemic cardiomyopathy (principal); J44.1 Chronic obstructive pulmonary disease with (acute) exacerbation; I13.0 Hypertensive heart and chronic kidney disease with heart failure and stage 1 through stage 4 chronic kidney disease, or unspecified chronic kidney disease; N18.4 Chronic kidney disease, stage 4 (severe); N39.0 Urinary tract infection, site not specified; R07.2 Precordial pain; I42.0 Dilated cardiomyopathy; Z85.51 Personal history of malignant neoplasm of bladder; I50.9 Heart failure, unspecified; I25.2 Old myocardial infarction; I25.10 Atherosclerotic heart disease of native coronary artery without angina pectoris; D63.1 Anemia in chronic kidney disease; I27.20 Pulmonary hypertension, unspecified; Z87.891 Personal history of nicotine dependence; K40.90 Unilateral inguinal hernia, without obstruction or gangrene, not specified as recurrent; Z95.5 Presence of coronary angioplasty implant and graft; R79.1 Abnormal coagulation profile; Z90.49 Acquired absence of other specified parts of digestive tract; I45.10 Unspecified right bundle-branch block; G47.00 Insomnia, unspecified; Z90.6 Acquired absence of other parts of urinary tract; B96.1 Klebsiella pneumoniae [K. pneumoniae] as the cause of diseases classified elsewhere; B95.2 Enterococcus as the cause of diseases classified elsewhere; Z23 Encounter for immunization

== ENCOUNTER 2018-04-09 13:23 | Inpatient (IN) | payer MEDICARE, OTHER ==
[2018-04-09] MEDS ORDERED: Sodium Chloride 0.9% 500 ML IV STA (14:13)
--- NOTE | 2018-04-09 14:22 | ED PDOC ---
Arrival/HPI <Oliverio Sewell - Last Filed: 04/09/18 19:55> - History of Present Illness Narrative History of Present Illness (Text): 04/09/18 14:14 This is a 77-year-old M with PMH COPD, CHF, CAD, HTN, bladder CA, MS in the past, on Plavix and home Milrinone drip, presents to [facility] emergency department with a chief complaint of inability to urinate x2 days Patient reports associated abdominal pain that began 2 days ago. Patient able to localize the pain to his upper quadrants, however states that it becomes more diffuse and intense when he coughs. Patient describes the pain as "tight" and rates it as 9/10 and radiating towards his back. ROS significant for non-blood diarrhea and shortness of breath. Patient otherwise denies fever, chills, chest pain, headache, and/or lower extremity pain. 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, CAD, s/p STEMI) - Pulmonary Hx Chronic Obstructive Pulmonary Disease (COPD): Yes (severe) - Neurological Hx Neurological Disorder: No - HEENT Hx HEENT Disorder: Yes Other/Comment: hearing problem - Renal Hx Renal Failure: Yes (CKD IV) - Endocrine/Metabolic Hx Endocrine Disorders: No - Hematological/Oncological Hx Blood Transfusions: Yes - Integumentary Hx Dermatological Disorder: No - Musculoskeletal/Rheumatological Hx Musculoskeletal Disorders: Yes - Gastrointestinal Hx Gastrointestinal Disorders: Yes Other/Comment: hernia- inguinal - Genitourinary/Gynecological Hx Genitourinary Disorders: Yes Hx Bladder Cancer: Yes Other/Comment: urostomy - Psychiatric Hx Psychophysiologic Disorder: Yes Hx Depression: Yes Hx Substance Use: No - Surgical History Hx Cholecystectomy: Yes Hx Coronary Stent: Yes (ptca 11/2014) - Anesthesia Hx Anesthesia: Yes Hx Anesthesia Reactions: No Hx Malignant Hyperthermia: No - Suicidal Assessment Feels Threatened In Home Enviroment: No <Kristin Joy - Last Filed: 04/09/18 20:06> Family/Social History - Physician Review Nursing Documentation Reviewed: Yes Family/Social History: Unknown Family HX Smoking Status: Former Smoker Hx Alcohol Use: Yes (glass of wine occasionally) Hx Substance Use: No Hx Substance Use Treatment: No <Kristin Joy - Last Filed: 04/09/18 20:06> Allergies/Home Meds <Oliverio Sewell - Last Filed: 04/09/18 19:55> <Kristin Joy - Last Filed: 04/09/18 20:06> Allergies/Adverse Reactions: Allergies No Known Allergies Allergy (Verified 04/09/18 18:51) Home Medications: Home Meds Medication Instructions Recorded Confirmed RX: Atorvastatin [Lipitor] 40 mg PO QPM 04/13/15 04/09/18 RX: Clopidogrel [Plavix] 75 mg PO QAM 04/13/15 04/09/18 RX: Milrinone [Primacor] 3.3 ml IV Q60M 06/01/16 04/09/18 RX: Riociguat [Adempas] 2.5 mg PO TID 06/01/16 04/09/18 RX: Spironolactone [Aldactone] 25 mg PO DAILY 07/24/17 04/09/18 RX: Carvedilol [Coreg] 3.125 mg PO BID 03/18/18 04/09/18 RX: Selexipag [Uptravi] 600 mg PO BID 03/18/18 04/09/18 RX: Umeclidinium Brm/Vilanterol Tr 1 puff INH DAILY 03/18/18 04/09/18 [Anoro Ellipta 62.5-25 Mcg INH] Atropine/Diphenoxylate [Lonox 1 tab PO Q6 PRN 04/09/18 04/09/18 0.025 MG-2.5 MG] Review of Systems - Review of Systems Constitutional: Normal Eyes: Normal ENT: Normal Respiratory: SOB Cardiovascular: Normal Gastrointestinal: Abdominal Pain, Stool Changes (watery diarrhea ), Diarrhea Genitourinary Male: Urinary Output Changes (oliguria x2 days ), Other (cystectomy) Musculoskeletal: Back Pain Skin: Normal Neurological: Normal Endocrine: Normal Hemo/Lymphatic: Normal Psychiatric: Normal <Kristin Joy - Last Filed: 04/09/18 20:06> Physical Exam Vital Signs Temp Pulse Resp BP Pulse Ox 04/09/18 16:07 96 H 74/42 L 04/09/18 15:54 100 H 20 74/42 L 100 04/09/18 15:01 97.2 F L 97 H 18 77/44 L 100 04/09/18 13:55 97.2 F L 92 H 22 61/42 L 97 <Oliverio Sewell - Last Filed: 04/09/18 19:55> Vital Signs Reviewed: Yes (hypotension, tachycardia ) Vital Signs Temp Pulse Resp BP Pulse Ox 04/09/18 13:55 97.2 F L 92 H 22 61/42 L 97 Blood Pressure: Hypotensive Pulse: Tachycardic Respiratory Rate: Normal Appearance: Positive for: Ill-Appearing Pain Distress: Moderate Mental Status: Positive for: Alert and Oriented X 3. No: Confused - Systems Exam Head: Present: Atraumatic, Normocephalic Pupils: Present: PERRL Extroacular Muscles: Present: EOMI Conjunctiva: Present: Normal Mouth: Present: Dry Nose (External): Present: Atraumatic Neck: Present: Normal Range of Motion Respiratory/Chest: Present: Clear to Auscultation Cardiovascular: Present: Normal S1, S2, Tachycardic Abdomen: Present: Tenderness, Normal Bowel Sounds. No: Distention, Peritoneal Signs Back: Present: Normal Inspection Upper Extremity: Present: Normal Inspection. No: Cyanosis, Edema Lower Extremity: Present: Normal Inspection. No: Edema Neurological: Present: GCS=15, CN II-XII Intact, Speech Normal Skin: Present: Warm, Dry, Normal Color Psychiatric: Present: Alert, Oriented x 3, Normal Insight <Kristin Joy - Last Filed: 04/09/18 20:06> Medical Decision Making ED Course and Treatment: 04/09/18 16:27 Patient is a 77 year old female presenting to the emergency department complaining of inability to urinate for the past 2 days. In agreement with resident note, which includes further HPI details. Patient was seen and evaluated with resident, came up with plan and treatment together. 04/09/18 16:[address] Rodriguez. Consult for Dr. Ivey and Dr. Tejeda. 16:[address] Escoto accepts patient for admission. 04/09/18 16:[address] Menjivar, in cardiology, who recommends discontinuing the milrinone drip. 04/09/18 16:[address] Bonner who will see patient for consultation. - Critical Care Critical Care Minutes: 60 minutes - Lab Interpretations Lab Results: pO2 227 mm/Hg (30-55) H 04/09/18 14:15 VBG pH 7.14 (7.32-7.43) L* 04/09/18 14:15 VBG pCO2 29.0 (40-60) L 04/09/18 14:15 VBG HCO3 9.9 mmol/l (21-28) L 04/09/18 14:15 VBG Total CO2 10.8 mmol.L (22-28) L 04/09/18 14:15 VBG O2 Sat (Calc) 98.4 % (40-65) H 04/09/18 14:15 VBG Base Excess -17.8 mmol/L (0.0-2.0) L 04/09/18 14:15 VBG Potassium 5.6 mmol/L (3.6-5.2) H 04/09/18 14:15 Sodium 132.0 mmol/L (132-148) 04/09/18 14:15 Chloride 110.0 mmol/L (98-107) H 04/09/18 14:15 Glucose 132 mg/dl (75-110) H 04/09/18 14:15 Lactate 0.8 mmol/L (0.7-2.1) 04/09/18 14:15 FiO2 21.0 % 04/09/18 14:15 Crit Value Called To Britt johnson 04/09/18 14:15 Crit Value Called By Ab 04/09/18 14:15 Blood Gas Notified Time 1428 04/09/18 14:15 PT 11.1 SECONDS (9.4-12.5) 04/09/18 14:10 INR 0.97 04/09/18 14:10 APTT 28.8 Seconds (25.1-36.5) 04/09/18 14:10 Troponin I 0.03 ng/mL 04/09/18 14:10 Total Bilirubin 0.4 mg/dL (0.2-1.3) 04/09/18 14:10 AST 15 U/L (17-59) L D 04/09/18 14:10 ALT 24 U/L (7-56) 04/09/18 14:10 Alkaline Phosphatase 87 U/L (38-126) 04/09/18 14:10 Total Protein 6.7 g/dL (5.8-8.3) 04/09/18 14:10 Albumin 4.0 g/dL (3.0-4.8) 04/09/18 14:10 Globulin 2.8 gm/dL 04/09/18 14:10 Albumin/Globulin Ratio 1.4 (1.1-1.8) 04/09/18 14:10 Lipase 171 U/L (23-300) 04/09/18 14:10 Urine Color Light yellow (YELLOW) 04/09/18 14:30 Urine Appearance Cloudy (CLEAR) 04/09/18 14:30 Urine pH 6.5 (4.7-8.0) 04/09/18 14:30 Ur Specific [place] 1.025 (1.005-1.035) 04/09/18 14:30 Urine Protein 100 mg/dL (<30 mg/dL) H 04/09/18 14:30 Urine Glucose (UA) Negative mg/dL (NEGATIVE) 04/09/18 14:30 Urine Ketones Negative mg/dL (NEGATIVE) 04/09/18 14:30 Urine Blood Large (NEGATIVE) H 04/09/18 14:30 Urine Nitrate Negative (NEGATIVE) 04/09/18 14:30 Urine Bilirubin Negative (NEGATIVE) 04/09/18 14:30 Urine Urobilinogen 0.2 E.U./dL (<1 E.U./dL) 04/09/18 14:30 Ur Leukocyte Esterase Trace Kirk/uL (NEGATIVE) H 04/09/18 14:30 Urine RBC 25 - 30 /hpf (0-2) H 04/09/18 14:30 Urine WBC 10 - 15 /hpf (0-6) H 04/09/18 14:30 Ur Epithelial Cells 0 - 2 /hpf (0-5) 04/09/18 14:30 Amorphous Sediment Small /hpf (NONE) 04/09/18 14:30 Urine Bacteria Large /hpf (NONE) 04/09/18 14:30 Urine Other Uyeast /hpf 04/09/18 14:30 - RAD Interpretation Radiology Orders: 04/09/18 14:10 CHEST PORTABLE [RAD] Stat 04/09/18 14:26 ABDOMEN & PELVIS [ABD & PELVIS W/O PO OR IV CONT] [CT] Stat - EKG Interpretation EKG Interpretation (Text): 04/09/18 17:53 EKG: Ordered, reviewed, and independently interpreted the EKG. Rate : 93 BPM Rhythm : NSR Interpretation : Right bundle branch block, no ectopy. Interpreted by ED Physician: Yes - Medication Orders Current Medication Orders: Milrinone Lactate/Dextrose (Primacor 20mg/100ml D5w) 100 mls @ 4.507 mls/hr IV .[id number] PRN; Protocol PRN Reason: TITRATE PER MD ORDER Last Admin: 04/09/18 16:07 Dose: 4.507 mls/hr eMAR Start Stop Document 04/09/18 16:07 EQ (Rec: 04/09/18 16:08 EQ [facility]-ER-20) Intravenous Solution Start Date 04/09/18 Start Time 16:08 MAR Pulse and Blood Pressure Document 04/09/18 16:07 EQ (Rec: 04/09/18 16:08 EQ [facility]-ER-20) Pulse Pulse Rate (60-90) 96 Blood Pressure Blood Pressure (100/60-150/90) 74/42 Calcium Gluconate 1,000 mg/ (Sodium Chloride) 110 mls @ 110 mls/hr IVPB ONCE ONE Stop: 04/09/18 16:59 Discontinued Medications Albuterol Sulfate (Albuterol 0.5% Inhal Evelin (2.5 Mg/0.5 Ml) Ud) 10 mg IH STAT STA Stop: 04/09/18 16:04 Dextrose (Dextrose 50% Inj) 50 ml IVP STAT STA Stop: 04/09/18 16:04 Sodium Chloride (Sodium Chloride 0.9%) 500 mls @ 999 mls/hr IV .Q31M STA Stop: 04/09/18 14:43 Last Admin: 04/09/18 14:19 Dose: 999 mls/hr eMAR Start Stop Document 04/09/18 14:19 EQ (Rec: 04/09/18 14:19 EQ [facility]-ER-20) Intravenous Solution Start Date 04/09/18 Start Time 14:19 Insulin Human Regular (Humulin R) 10 units SC STAT STA Stop: 04/09/18 16:04 Ondansetron HCl (Zofran Inj) 4 mg IVP STAT STA Stop: 04/09/18 15:17 Last Admin: 04/09/18 16:07 Dose: 4 mg IVP Administration Document 04/09/18 16:07 EQ (Rec: 04/09/18 16:07 EQ [facility]-ER-20) Charges for Administration # of IVP Administrations 1 Sodium Bicarbonate (Sodium Bicarbonate 8.4% (50 Meq) Syringe) 100 meq IVP STAT STA Stop: 04/09/18 16:04 Sodium Polystyrene Sulfonate (Kayexalate) 30 gm PO STAT STA Stop: 04/09/18 16:04 <Oliverio Sewell - Last Filed: 04/09/18 19:55> ED Course and Treatment: 04/09/18 14:34 IMPRESSION: 77-year-old M with PMH of COPD, CHF, CAD, HTN, Bladder CA, nad previous MS (on Plavix and home Milrinone drip) presents to [facility] emergency department for oliguria x2 days. Patient has cystectomy. ASSESSMENT: Rule-Out SBO PLAN: Labs ordered: - VBG - CMP - CBC - Lipase - Troponin - PT/PTT - Urinalysis / Urine Culture - Type & Screen Medications ordered: - NS 500mL IV 999mls/hr Imaging ordered: - CXR - ABD/PELVIS CT - EKG 04/09/18 16:17 Assessment/Plan: Acidosis ABG: - pH= 7.14 - PCO2=29.0 Anemia CBC: - Hgb=10.3 - Hct=32.0 Hyperkalemia CMP: - Potassium=5.8 - Creatinine=9.4 Imaging: - CT ABD/Pelvis: IMPRESSION: 1. large left inguinal scrotal hernia containing normal caliber small bowel loops and colon. No evidence for obstruction or incarceration. VASCULATURE: No aortic aneurysm. There are aortic atherosclerotic calcifications present - EKG: abnormal - Chest X-ray: Mild cardiomegaly and moderate vascular congestion - RAD Interpretation Radiology Orders: 04/09/18 14:10 CHEST PORTABLE [RAD] Stat - EKG Interpretation Interpreted by ED Physician: Yes - Medication Orders Current Medication Orders: Sodium Chloride (Sodium Chloride 0.9%) 500 mls @ 999 mls/hr IV .Q31M STA Stop: 04/09/18 14:43 <Kristin Joy - Last Filed: 04/09/18 20:06> - PA / TRIAL JUSTICE / Resident Statement / has reviewed & agrees with the documentation as recorded. /DO has examined the patient and agrees with the treatment plan. - Scribe Statement The provider has reviewed the documentation as recorded by the Scribrenata Bynum All medical record entries made by the Scribe were at my direction and personally dictated by me. I have reviewed the chart and agree that the record accurately reflects my personal performance of the history, physical exam, medical decision making, and the department course for this patient. I have also personally directed, reviewed, and agree with the discharge instructions and disposition. <Oliverio Sewell - Last Filed: 04/09/18 19:55> Disposition/Present on Arrival <Oliverio Sewell - Last Filed: 04/09/18 19:55> - Present on Arrival Any Indicators Present on Arrival: No History of DVT/PE: No History of Uncontrolled Diabetes: No Urinary Catheter: No History of Decub. Ulcer: No History Surgical Site Infection Following: None - Disposition Have Diagnosis and Disposition been Completed?: Yes Disposition Time: 16:45 Patient Plan: ICU <Kristin Joy - Last Filed: 04/09/18 20:06> - Disposition Diagnosis: Hypotension, Hyperkalemia, Acute kidney failure Disposition: HOSPITALIZED Patient Problems: Current Active Problems Problem Status Onset Acute kidney failure Acute Acute on chronic heart failure Acute Hyperkalemia Acute Hypotension Acute Condition: CRITICAL
[2018-04-09 14:25] LABS: BASO # 0.01 K/mm3 (0.0-2.0); BASO % 0.1 % (0.0-3.0); EOS # 0.1 (0.0-0.7); EOS % 0.9 % (1.5-5.0); GRAN # 5.97 (1.4-6.5); HEMOGLOBIN 10.3 g/dL (14.0-18.0); LYMPH # 0.8 (1.2-3.4); LYMPH % 10.4 % (22.0-35.0); MEAN CELL VOLUME 87.4 fl (80.0-105.0); MEAN CORPUSCULAR HEMOGLOBIN 28.1 pg (25.0-35.0); MEAN CORPUSCULAR HGB CONC 32.2 g/dl (31.0-37.0); MONO # 0.6 (0.1-0.6); MONO % 8.6 % (1.0-6.0); RBC 3.66 10^6/uL (3.5-6.1); RED CELL DISTRIBUTION WIDTH 15.9 % (11.5-14.5); WHITE BLOOD COUNT 7.5 10^3/uL (4.5-11.0)
[2018-04-09 14:30] LABS: VENOUS BLOOD GAS BASE EXCESS -17.8 mmol/L (0.0-2.0); VENOUS BLOOD GAS PO2 227 mm/Hg (30-55); VENOUS BLOOD PH 7.14 (7.32-7.43)
[2018-04-09 14:40] LABS: TROPONIN I 0.03 ng/mL
[2018-04-09 14:41] LABS: INR 0.97; PARTIAL THROMBOPLASTIN TIME 28.8 Seconds (25.1-36.5); PROTHROMBIN TIME 11.1 SECONDS (9.4-12.5)
[2018-04-09 14:43] LABS: ALB/GLOB RATIO 1.4 (1.1-1.8); CALCIUM 9.2 mg/dL (8.4-10.5)
--- NOTE | 2018-04-09 14:44 | RAD ---
Date of service: 04/09/2018 HISTORY: chest pain COMPARISON: 03/18/2018 FINDINGS: LUNGS: No active pulmonary disease. PLEURA: No significant pleural effusion identified, no pneumothorax apparent. CARDIOVASCULAR: No aortic atherosclerotic calcification present. Mild cardiomegaly moderate vascular congestion OSSEOUS STRUCTURES: No significant abnormalities. VISUALIZED UPPER ABDOMEN: Normal. OTHER FINDINGS: Right-sided Port-A-Cath IMPRESSION: Mild cardiomegaly and moderate vascular congestion
[2018-04-09 15:01] LABS: PH,URINE 6.5 (4.7-8.0); URINE BILIRUBIN NEGATIVE (NEGATIVE); URINE BLOOD LARGE (NEGATIVE); URINE GLUCOSE (UA) NEGATIVE (NEGATIVE); URINE LEUKOCYTE ESTERASE TRACE Leu/uL (NEGATIVE); URINE PROTEIN 100 mg/dL (<30 mg/dL); URINE UROBILINOGEN 0.2 E.U./dL (<1 E.U./dL)
[2018-04-09 15:07] LABS: URINE APPEARANCE CLOUDY (CLEAR); URINE COLOR LIGHT YELLOW (YELLOW)
[2018-04-09 15:13] LABS: URINE BACTERIA LARGE /hpf; URINE EPITHELIAL CELLS 0 - 2 /hpf (0-5); URINE RBC 25 - 30 /hpf (0-2)
[2018-04-09 15:14] LABS: URINE AMORPHOUS SEDIMENT SMALL /hpf
[2018-04-09 15:24] VITALS: BMI 25.9
[2018-04-09] MEDS ORDERED: Milrinone 20mg/100ml D5W 100 ML IV PRN (15:28)
--- NOTE | 2018-04-09 15:33 | CT ---
Date of service: 04/09/2018 PROCEDURE: CT Abdomen and Pelvis without intravenous contrast HISTORY: Abdominal pain COMPARISON: 03/18/2018. TECHNIQUE: CT scan of the abdomen and pelvis was performed without administration of intravenous contrast. Oral contrast was not administered. Coronal and sagittal reformatted images were obtained. . Radiation dose: Total exam DLP = 577.63 mGy-cm. This CT exam was performed using one or more of the following dose reduction techniques: Automated exposure control, adjustment of the mA and/or kV according to patient size, and/or use of iterative reconstruction technique. FINDINGS: LOWER THORAX: There is dependent atelectasis in the lung bases. LIVER: Normal in size. No intrahepatic ductal dilatation. GALLBLADDER AND BILE DUCTS: The gallbladder is distended. There is a small calcified gallstone in the neck of the gallbladder. PANCREAS: Mild fatty atrophy of the pancreas. No ductal dilatation. SPLEEN: Mild splenomegaly. ADRENALS: There is a stable 3.5 cm benign adenoma in the right adrenal gland and 1.8 cm benign adenoma in the left adrenal gland. KIDNEYS AND URETERS: There is cortical atrophy in both kidneys. There is redemonstration of a 2.6 x 2.2 cm Iso to hyperdense nodule in the lower pole of the right kidney and 10 mm high attenuation lesion in the upper pole of the left kidney. Additionally there are few simple cysts in the kidneys. VASCULATURE: No aortic aneurysm. There are aortic atherosclerotic calcifications present. BOWEL: The small bowel loops are normal in caliber. There is redemonstration of right lower quadrant ostomy. Again seen is a large left inguinal scrotal hernia containing small bowel loops descending and sigmoid colon. No evidence for incarceration. There is large amount of stool in a pouch of colon in the right mid abdomen at the site of surgical anastomosis. APPENDIX: Normal appendix. PERITONEUM: No free fluid. No free air. LYMPH NODES: No enlarged lymph nodes. BLADDER: Not visualized. Please correlate with surgical history. REPRODUCTIVE: Unremarkable. BONES: No acute fracture. Advanced multilevel degenerative disc disease and diffuse bone demineralization. OTHER FINDINGS: None. IMPRESSION: 1. large left inguinal scrotal hernia containing normal caliber small bowel loops and colon. No evidence for obstruction or incarceration. 2. Additional stable benign findings as described above.
[2018-04-09] MEDS ORDERED: Insulin Regular 1 UNITS/0.01 ML ML SC STA (16:03)
[2018-04-09] MEDS ORDERED: Sodium Bicarbonate (8.4%) 50 Meq Syringe IVP STA (16:03)
[2018-04-09] MEDS ORDERED: Dextrose 50% SYRINGE Inj (50 ml) IVP STA (16:03)
[2018-04-09] MEDS ORDERED: Albuterol 0.5% Inhal Sol (2.5 mg/0.5 ml) UD IH STA (16:03)
[2018-04-09] MEDS ORDERED: Primacor 1 mg/ml Inj (10 ml) IV SCH (16:45)
[2018-04-09] MEDS ORDERED: Sodium Chloride 0.9% 1,000 ML IV SCH (17:00)
--- NOTE | 2018-04-09 17:12 | CP.PCM.CON ---
<Scott Tellez - Last Filed: 04/09/18 18:04> History of Present Illness - History of Present Illness History of Present Illness: Chinmay Rosalinda PGY2 - ICU Consult Note Consultation: ICU admission HPI: Patient is a 77 year old male with past medical history of COPD (on 3L NC at home), Pulmonary HTN, CKD stage IV, hx bladder CA, CAD, anterior wall WI, CHF, and HTN who presented to [facility] via [place] for complaints of fatigue, nausea, vomiting and limited urine output for the past 2 days. Patient indicates that starting 2 days prior to presentation he noticed that he was having limited output of his ileo conduit. He also endorses limited oral intake of fluids and food for the past 2 days. Denies fever, chills, recent illness, sick contacts, chest pain changes in medications, confusion, palpitations, neurological deficits, urinary complaints. He does endorse some shortness of breath as well as abdominal discomfort. He has had some dark colored vomit but denies coffee ground emesis. Patient does report compliance with his medications and various consultants. PMH: COPD (on 3L NC at home), Pulmonary HTN, CKD stage IV, hx bladder CA, CAD, anterior wall WI, CHF, and HTN Surg: Port-a-cath placement, cardiac catherization, cystectomy All: NKDA FHx: Non-contributory SH: Former 2-3 PPD for 40 years (quit 3 yrs ago), social EtOH use, denied illicit drug use Meds: MAR reviewed Review of Systems - Review of Systems All systems: reviewed and no additional remarkable complaints except (as mentioned in HPI) Past Patient History - Infectious Disease Hx of Infectious Diseases: None - Past Medical History & Family History Past Medical History?: Yes - Past Social History Smoking Status: Former Smoker Drugs: Denies - CARDIAC Hx Cardiac Disorders: Yes (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, CAD, s/p STEMI) - PULMONARY Hx Chronic Obstructive Pulmonary Disease (COPD): Yes (severe) - NEUROLOGICAL Hx Neurological Disorder: No - HEENT Hx HEENT Problems: Yes Other/Comment: hearing problem - RENAL Hx Renal Failure: Yes (CKD IV) - ENDOCRINE/METABOLIC Hx Endocrine Disorders: No - HEMATOLOGICAL/ONCOLOGICAL Hx Blood Transfusions: Yes - INTEGUMENTARY Hx Dermatological Problems: No - MUSCULOSKELETAL/RHEUMATOLOGICAL Hx Musculoskeletal Disorders: Yes - GASTROINTESTINAL Hx Gastrointestinal Disorders: Yes Other/Comment: hernia- inguinal - GENITOURINARY/GYNECOLOGICAL Hx Genitourinary Disorders: Yes Hx Bladder Cancer: Yes Other/Comment: urostomy - PSYCHIATRIC Hx Psychophysiologic Disorder: Yes Hx Depression: Yes Hx Substance Use: No - SURGICAL HISTORY Hx Cholecystectomy: Yes Hx Coronary Stent: Yes (ptca 11/2014) - ANESTHESIA Hx Anesthesia: Yes Hx Anesthesia Reactions: No Hx Malignant Hyperthermia: No Meds Allergies/Adverse Reactions: Allergies Allergy/AdvReac Type Severity Reaction Status Date / Time No Known Allergies Allergy Verified 04/09/18 13:53 - Medications Medications: Current Medications Acetaminophen (Tylenol 325mg Tab) 650 mg PO Q6H PRN PRN Reason: Fever >100.4 F Albuterol/Ipratropium (Duoneb 3 Mg/0.5 Mg (3 Ml) Ud) 3 ml IH [id number] PRN PRN Reason: Shortness of Breath Arformoterol Tartrate (Brovana) 15 mcg IH [id number] [facility] Aspirin (Aspirin Chewable) 81 mg PO DAILY [facility] Aspirin (Aspirin Chewable) 81 mg PO DAILY [facility] Atorvastatin Calcium (Lipitor) 40 mg PO DAILY [facility] Atorvastatin Calcium (Lipitor) 40 mg PO QPM [facility] Clopidogrel Bisulfate (Plavix) 75 mg PO DAILY [facility] Clopidogrel Bisulfate (Plavix) 75 mg PO QAM [facility] Famotidine (Pepcid) 20 mg PO DAILY [facility] Heparin Sodium (Porcine) (Heparin) 5,000 units SC Q8 [facility]; Protocol Sodium Chloride (Sodium Chloride 0.9%) 1,000 mls @ 50 mls/hr IV .Q20H [facility] Ondansetron HCl (Zofran Inj) 4 mg IVP Q6H PRN PRN Reason: Nausea/Vomiting Physical Exam - Constitutional Additional comments: anxious male appearing stated age resting in bed - Head Exam Head Exam: ATRAUMATIC, NORMAL INSPECTION, NORMOCEPHALIC - Eye Exam Eye Exam: EOMI, PERRL. absent: Nystagmus, Scleral icterus - ENT Exam ENT Exam: Mucous Membranes Dry - Neck Exam Neck exam: Positive for: Full Rom - Respiratory Exam Respiratory Exam: Clear to Auscultation Bilateral, NORMAL BREATHING PATTERN. absent: Rales, Rhonchi, Wheezes Additional comments: breath sounds distant b/l - Cardiovascular Exam Cardiovascular Exam: REGULAR RHYTHM, +S1, +S2. absent: JVD - GI/Abdominal Exam GI & Abdominal Exam: Guarding, Hernia, Normal Bowel Sounds, Soft, Tenderness - Extremities Exam Extremities exam: Negative for: calf tenderness, pedal edema, tenderness - Neurological Exam Neurological exam: Alert, CN II-XII Intact, Oriented x3 Additional comments: motor and sensory grossly intact - Psychiatric Exam Psychiatric exam: Anxious - Skin Skin Exam: Dry, Intact Results - Vital Signs Recent Vital Signs: Last Vital Signs Temp 97.2 F L 04/09/18 15:01 Pulse 96 H 04/09/18 16:07 Resp 20 04/09/18 15:54 BP 74/42 L 04/09/18 16:07 Pulse Ox 100 04/09/18 15:54 - Labs Result Diagrams: 04/09/18 14:10 04/09/18 14:10 Labs: Laboratory Results - last 24 hr 04/09/18 04/09/18 04/09/18 14:10 14:10 14:10 WBC 7.5 D RBC 3.66 Hgb 10.3 L Hct 32.0 L MCV 87.4 MCH 28.1 MCHC 32.2 RDW 15.9 H Plt Count 167 MPV 8.0 Gran % 80.0 H Lymph % (Auto) 10.4 L [place] % (Auto) 8.6 H Eos % (Auto) 0.9 L Baso % (Auto) 0.1 Gran # 5.97 Lymph # (Auto) 0.8 L [place] # (Auto) 0.6 Eos # (Auto) 0.1 Baso # (Auto) 0.01 PT 11.1 INR 0.97 APTT 28.8 pO2 VBG pH VBG pCO2 VBG HCO3 VBG Total CO2 VBG O2 Sat (Calc) VBG Base Excess VBG Potassium Glucose Lactate FiO2 Crit Value Called To Crit Value Called By Blood Gas Notified Time Sodium 136 Potassium 5.8 H* D Chloride 111 H Carbon Dioxide 11 L Anion Gap 20 BUN 74 H Creatinine 9.4 H* D Est GFR ( Amer) 7 Est GFR (Non-Af Amer) 5 Random Glucose 126 H Calcium 9.2 Total Bilirubin 0.4 AST 15 L D ALT 24 Alkaline Phosphatase 87 Troponin I 0.03 Total Protein 6.7 Albumin 4.0 Globulin 2.8 Albumin/Globulin Ratio 1.4 Lipase 171 Venous Blood Potassium Urine Color Urine Appearance Urine pH Ur Specific [place] Urine Protein Urine Glucose (UA) Urine Ketones Urine Blood Urine Nitrate Urine Bilirubin Urine Urobilinogen Ur Leukocyte Esterase Urine RBC Urine WBC Ur Epithelial Cells Amorphous Sediment Urine Bacteria Urine Other Blood Type Antibody Screen BBK History Checked 04/09/18 04/09/18 04/09/18 14:15 14:30 15:41 WBC RBC Hgb Hct MCV MCH MCHC RDW Plt Count MPV Gran % Lymph % (Auto) [place] % (Auto) Eos % (Auto) Baso % (Auto) Gran # Lymph # (Auto) [place] # (Auto) Eos # (Auto) Baso # (Auto) PT INR APTT pO2 227 H VBG pH 7.14 L* VBG pCO2 29.0 L VBG HCO3 9.9 L VBG Total CO2 10.8 L VBG O2 Sat (Calc) 98.4 H VBG Base Excess -17.8 L VBG Potassium 5.6 H Glucose 132 H Lactate 0.8 FiO2 21.0 Crit Value Called To Britt johnson Crit Value Called By Ab Blood Gas Notified Time 1428 Sodium 132.0 Potassium Chloride 110.0 H Carbon Dioxide Anion Gap BUN Creatinine Est GFR ( Amer) Est GFR (Non-Af Amer) Random Glucose Calcium Total Bilirubin AST ALT Alkaline Phosphatase Troponin I Total Protein Albumin Globulin Albumin/Globulin Ratio Lipase Venous Blood Potassium 5.6 H Urine Color Light yellow Urine Appearance Cloudy Urine pH 6.5 Ur Specific [place] 1.025 Urine Protein 100 H Urine Glucose (UA) Negative Urine Ketones Negative Urine Blood Large H Urine Nitrate Negative Urine Bilirubin Negative Urine Urobilinogen 0.2 Ur Leukocyte Esterase Trace H Urine RBC 25 - 30 H Urine WBC 10 - 15 H Ur Epithelial Cells 0 - 2 Amorphous Sediment Small Urine Bacteria Large Urine Other Uyeast Blood Type O POSITIVE Antibody Screen Negative BBK History Checked Patient has bt Assessment & Plan - Assessment and Plan (Free Text) Assessment: 77 year old male with past medical history of COPD (on 3L NC at home), Pulmonary HTN, CKD stage IV, hx bladder CA, CAD, anterior wall WI, CHF, and HTN who presented to [facility] via [place] for complaints of fatigue, nausea, vomiting and limited urine output for the past 2 days. Patient is to be admitted to ICU for hypotension, acute on chronic renal failure, acute electrolyte disturbance, uremia, systolic CHF. Plan: Neuro: AAOx3 Monitor mentation Maintain normothermia, euglycemia Cardio: CAD, Hx anterior wall WI - Continue ASA 81mg Daily, Plavix 75mg Daily, Lipitor 40mg QHS - EKG on admission shows old septal anterior q waves and RBBB Systolic CHF - Last known EF of 25% in 02/2018 - Echocardiogram(03/20/2018): EF 25%, severe global hypokinesis, AV moderately clacified, mild MR, TR - Holding MARK-inh, Spironolactone at this time in setting of acute on chronic kidney injury - Proceed with gentle hydration, clinically patient appears dry - Per cardiology will hold milrinone gtt Hypotension in setting of hx of HTN -Patient with history of HTN, holding home coreg at this time -Will fluid resuscitate with gentle hydration and continue to monitor BP -Will consider further pressor support after fluid resucitation -Maintain MAP>65mmHg Pulm: Hx of COPD on home O2 3L NC, Pulm HTN -Duoneb q6H PRN -Supplemental O2 with NC, goal SaO2 >90% -Patient instructed to notify family members to bring his medications from home -Pulmonology consulted, appreciate recs GI: Abdominal Pain, Emesis -Abd/Pelvis CT w/o contrast(04/09/18): Large left inguinal scrotla hernia containing normal caliber small bowel loops and colon, no evidence of obstruction or incarceration, gallbladder is distended, small calcified gallstone in the neck of the gallbladder -Zofran 4mg IVP Q6H prn nausea -Continue to monitor for change in consistency, likely secondary to uremia, CKD -GI ppx pepcid -HHD Renal: Acute on chronic renal failure, CKD stage IV Uremia -Patient regularly follows with Dr. Ivey outpatient nephrology -Patient Cr/BUN elevated from baseline -Clinically and labwork indicate patient dry with specific gravity elevated, BUN elevated, limited output from ileoconduit -Abd/Pelvis CT w/o contrast(04/09/18): Cortical atrophy in both kidneys, few simple cysts, 2.6 x 2.2 cm Iso to hyperdense nodule in the lower pole of the right kidney and 10 mm high attenuation lesion in the upper pole of the left kidney -Monitor UOP -IVF with 1/4 NS and 2 amps bicarb gentle hydration at 50cc/hr in setting of systolic CHF - Maintain euvolemia, replete lytes as necessary -Nephrology with Dr. Bonner consulted, appreciate further recs Heme/Onc: HX of bladder cancer s/p bladder resection Anemia likely 2/2 chronic disease -Monitor H/H, current levels appear to be at baseline -Transfuse with Hgb goal >7 ID: Afebrile, No leukocytosis -Tylenol Q6 PRN fever -Maintain normothermia GI ppx: Pepcid, HHD DVT ppx: Heparin 5000 units SC Q8 Code status: Full Code Patient seen, case and plan discussed and approved by attending, Dr. Mccurdy <Robinson Judd - Last Filed: 04/09/18 18:15> Meds - Medications Medications: Current Medications Acetaminophen (Tylenol 325mg Tab) 650 mg PO Q6H PRN PRN Reason: Fever >100.4 F Albuterol/Ipratropium (Duoneb 3 Mg/0.5 Mg (3 Ml) Ud) 3 ml IH [id number] PRN PRN Reason: Shortness of Breath Arformoterol Tartrate (Brovana) 15 mcg IH [id number] [facility] Aspirin (Aspirin Chewable) 81 mg PO DAILY [facility] Aspirin (Aspirin Chewable) 81 mg PO DAILY [facility] Atorvastatin Calcium (Lipitor) 40 mg PO DAILY [facility] Atorvastatin Calcium (Lipitor) 40 mg PO QPM [facility] Clopidogrel Bisulfate (Plavix) 75 mg PO DAILY [facility] Clopidogrel Bisulfate (Plavix) 75 mg PO QAM [facility] Famotidine (Pepcid) 20 mg PO DAILY [facility] Heparin Sodium (Porcine) (Heparin) 5,000 units SC Q8 [facility]; Protocol Sodium Chloride (Sodium Chloride 0.9%) 1,000 mls @ 50 mls/hr IV .Q20H [facility] Last Admin: 04/09/18 17:26 Dose: 50 mls/hr Sodium Bicarbonate 100 meq/ (Dextrose/Sodium Chloride) 1,100 mls @ 50 mls/hr IV .Q22H [facility] Ondansetron HCl (Zofran Inj) 4 mg IVP Q6H PRN PRN Reason: Nausea/Vomiting Results - Vital Signs Recent Vital Signs: Last Vital Signs Temp 97.5 F L 04/09/18 17:52 Pulse 93 H 04/09/18 17:52 Resp 20 04/09/18 17:52 BP 110/63 04/09/18 17:52 Pulse Ox 100 04/09/18 17:52 - Labs Result Diagrams: 04/09/18 14:10 04/09/18 14:10 Labs: Laboratory Results - last 24 hr 04/09/18 04/09/18 04/09/18 14:10 14:10 14:10 WBC 7.5 D RBC 3.66 Hgb 10.3 L Hct 32.0 L MCV 87.4 MCH 28.1 MCHC 32.2 RDW 15.9 H Plt Count 167 MPV 8.0 Gran % 80.0 H Lymph % (Auto) 10.4 L [place] % (Auto) 8.6 H Eos % (Auto) 0.9 L Baso % (Auto) 0.1 Gran # 5.97 Lymph # (Auto) 0.8 L [place] # (Auto) 0.6 Eos # (Auto) 0.1 Baso # (Auto) 0.01 PT 11.1 INR 0.97 APTT 28.8 pO2 VBG pH VBG pCO2 VBG HCO3 VBG Total CO2 VBG O2 Sat (Calc) VBG Base Excess VBG Potassium Glucose Lactate FiO2 Crit Value Called To Crit Value Called By Blood Gas Notified Time Sodium 136 Potassium 5.8 H* D Chloride 111 H Carbon Dioxide 11 L Anion Gap 20 BUN 74 H Creatinine 9.4 H* D Est GFR ( Amer) 7 Est GFR (Non-Af Amer) 5 Random Glucose 126 H Calcium 9.2 Total Bilirubin 0.4 AST 15 L D ALT 24 Alkaline Phosphatase 87 Troponin I 0.03 Total Protein 6.7 Albumin 4.0 Globulin 2.8 Albumin/Globulin Ratio 1.4 Lipase 171 Venous Blood Potassium Urine Color Urine Appearance Urine pH Ur Specific [place] Urine Protein Urine Glucose (UA) Urine Ketones Urine Blood Urine Nitrate Urine Bilirubin Urine Urobilinogen Ur Leukocyte Esterase Urine RBC Urine WBC Ur Epithelial Cells Amorphous Sediment Urine Bacteria Urine Other Blood Type Antibody Screen BBK History Checked 04/09/18 04/09/18 04/09/18 14:15 14:30 15:41 WBC RBC Hgb Hct MCV MCH MCHC RDW Plt Count MPV Gran % Lymph % (Auto) [place] % (Auto) Eos % (Auto) Baso % (Auto) Gran # Lymph # (Auto) [place] # (Auto) Eos # (Auto) Baso # (Auto) PT INR APTT pO2 227 H VBG pH 7.14 L* VBG pCO2 29.0 L VBG HCO3 9.9 L VBG Total CO2 10.8 L VBG O2 Sat (Calc) 98.4 H VBG Base Excess -17.8 L VBG Potassium 5.6 H Glucose 132 H Lactate 0.8 FiO2 21.0 Crit Value Called To Britt johnson Crit Value Called By Ab Blood Gas Notified Time 1428 Sodium 132.0 Potassium Chloride 110.0 H Carbon Dioxide Anion Gap BUN Creatinine Est GFR ( Amer) Est GFR (Non-Af Amer) Random Glucose Calcium Total Bilirubin AST ALT Alkaline Phosphatase Troponin I Total Protein Albumin Globulin Albumin/Globulin Ratio Lipase Venous Blood Potassium 5.6 H Urine Color Light yellow Urine Appearance Cloudy Urine pH 6.5 Ur Specific [place] 1.025 Urine Protein 100 H Urine Glucose (UA) Negative Urine Ketones Negative Urine Blood Large H Urine Nitrate Negative Urine Bilirubin Negative Urine Urobilinogen 0.2 Ur Leukocyte Esterase Trace H Urine RBC 25 - 30 H Urine WBC 10 - 15 H Ur Epithelial Cells 0 - 2 Amorphous Sediment Small Urine Bacteria Large Urine Other [place] Blood Type O POSITIVE Antibody Screen Negative BBK History Checked Patient has bt Assessment & Plan - Assessment and Plan (Free Text) Plan: Patient seen and examined on rounds with resident, agree with note with following additions/exceptions: Patient is 77yo male with PMhx of COPD (on 3L NC at home), Pulmonary HTN, CKD stage IV, hx bladder CA, CAD, anterior wall WI, CHF, and HTN, Ilium conduit, who presented to [facility] via [place] for complaints of fatigue, nausea, vomiting and limited urine output for the past 2 days. Pt found to be in worsening renal failure, with metabolic acidosis. Labs, imaging, chart reviewed Patient currently afebrile, BP stable, with nausea Renal consulted LYNN CKD Pulmonary HTN COPD Metabolic Acidosis CHF, EF 25% Recommend: - supp o2 as needed, goal sat 90%, duonebs PRN, pulm consult - panculture, UCx, BCx, Procal - Hold BP meds - IVF, 1/2NS with 75meq NaBicarb - check Ulytes, Renal sono - follow up CT A/P - GI ppx - DVT ppx - Monitor in MICU
[2018-04-09] MEDS ORDERED: SODIUM BICARBONATE IV SCH (19:00)
[2018-04-09] MEDS ORDERED: [UNRECOGNIZED DRUG - OTHER] IV SCH (19:00)
[2018-04-09] MEDS ORDERED: DEXTROSE IV SCH (19:00)
[2018-04-09] MEDS ORDERED: Pneumococcal 23-Valent Vaccine IM ONE (19:26)
[2018-04-09] MEDS ORDERED: Influenza Vaccine 60 mcg/0.5 mL SYR (4YR UP) IM ONE (19:26)
[2018-04-09] MEDS: Arformoterol 15 mcg/2 ml Inh Sol IH SCH (20:18)
[2018-04-09 20:23] LABS: ALB/GLOB RATIO 1.5 (1.1-1.8); ALBUMIN 3.6 g/dL (3.0-4.8); CALCIUM 9.2 mg/dL (8.4-10.5)
--- NOTE | 2018-04-09 20:32 | HP ---
HISTORY OF PRESENT ILLNESS: The patient is a 77-year-old man with a past medical history of CKD stage IV and history of bladder cancer s/p cystectomy with ileal conduit who presented with a 2 day history of decreased urinary output from his ileal conduit. He reports that 2 days ago he developed a lower abdominal "fullness" that progressed over the next 24 hours. He also reported decreased urinary output and nausea. He denied fevers, chills or rigors associated with his symptoms. Given the increasing intensity of his abdominal discomfort, he opted for ED evaluation. In the ED he was afebrile but hypotensive and in moderate distress secondary to lower abdominal pain. A CT of the abdomen and pelvis demonstrated a persistent large left inguinal hernia but otherwise no acute pathology. Laboratory findings demonstrated significant derangements with acute on chronic kidney disease (creatinine of 9.4), hyperkalemia (potassium of 5.8) and metabolic acidosis. He was started on IV fluid hydration and subsequently admitted for continued management of acute on chronic kidney disease. PAST MEDICAL HISTORY: As per HPI, also ischemic dilated cardiomyopathy on chronic Milrinone, CAD s/p STEMI s/p PCI with stent placement, severe COPD, hypertension, anemia of chronic kidney disease, insomnia and chronic left inguinal hernia. PAST SURGICAL HISTORY: As per HPI. ALLERGIES: NKDA. MEDICATIONS: Coreg 3.125 mg p.o. b.i.d., Lisinopril 2.5 mg p.o. daily, Spironolactone 25 mg p.o. daily, Aspirin 81 mg p.o. daily, Plavix 75 mg p.o. daily, Lipitor 40 mg p.o. daily, Lasix 40 mg p.o. daily, Ventolin HFA 2 puffs q. 4-6 hours p.r.n. dyspnea or wheeze, Symbicort 160/4.5 mcg 2 puffs b.i.d. and Milrinone infusion. FAMILY HISTORY: Noncontributory. SOCIAL HISTORY: The patient reports a former 50 pack-year smoking history but quit approximately 5 years ago. He reports social alcohol use and denies illicit drug abuse. REVIEW OF SYSTEMS: A 12-point review of systems is negative except as per HPI. PHYSICAL EXAMINATION: VITAL SIGNS: Temperature 97.2, pulse 96, blood pressure 74/42, respiratory rate 20, oxygen saturation 100% on room air. GENERAL: Non-toxic elderly man in mild distress secondary to abdominal pain. HEENT: PERRL, EOMI. No scleral icterus. Mild conjunctival pallor is noted. NECK: No JVD. No bruits. CARDIOPULMONARY: Regular rate and rhythm. Normal S1, S2. Grade II/ RAGHU to LLSB. LUNGS: Decreased breath sounds at the bases with bibasilar crackles and few scattered rhonchi. ABDOMEN: Normoactive bowel sounds, soft, nondistended. Mild tenderness to palpation to lower abdomen with voluntary guarding and large left inguinal hernia. EXTREMITIES: Trace pedal edema bilaterally. NEUROLOGIC: Awake, alert and oriented x 3. No focal motor deficits. LABORATORY DATA: WBC 7.5, hemoglobin 10, hematocrit 32, platelets 167. Sodium 136, potassium 5.8, chloride 111, bicarb 11, BUN 74, creatinine 9.4, glucose 126. IMAGING STUDIES: 1. Chest x-ray demonstrates mild cardiomegaly and moderate vascular congestion. 2. CT of the abdomen and pelvis without contrast demonstrates a large left inguinal scrotal hernia with no obstruction or incarceration. ASSESSMENT: The patient is a 77-year-old man with multiple medical comorbidities including CKD stage IV and history of bladder cancer s/p cystectomy s/p ileal conduit who presented with a 2 day history of decreased urinary output, nausea and lower abdominal pain and was admitted for management of LYNN on CKD stage IV. PLAN: 1. LYNN on CKD stage IV (baseline Cr 2-3). Consider etiology secondary to medication induced as patient is on multiple nephrotoxic agents. We will obtain urine studies. Evaluation with Dr. Bonner is pending. We will start gentle IV fluid hydration, monitor strict I&O's, renally dose medications and avoid nephrotoxins. 2. Remote history of bladder cancer s/p cystectomy s/p ileal conduit. CT reviewed and no evidence of malfunctioning conduit. As per discussion with the ED physician the case was reviewed with Dr. Figueredo (urologist apartment leasing consultant) and no indication of acute urological intervention is indicated. 3. Hyperkalemia. The patient is s/p calcium gluconate, insulin and Kayexalate in the ED. We will continue to monitor. 4. Metabolic acidosis. We will start patient on sodium bicarbonate infusion. As above, evaluation with Dr. Bonner is pending. 5. 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 We will hold Lisinopril 2.5 mg p.o. daily, Aldactone 25 mg p.o. daily and Lasix 40 mg p.o. daily in the setting of LYNN on CKD. We will furthermore hold Coreg 3.125 mg p.o. b.i.d. given the patient's hypotension. Evaluation with Dr. Tejeda is pending. 6. COPD. We will start supplemental oxygen and bronchodilators as needed. 7. CAD s/p STEMI s/p PCI with stent placement. Resume Aspirin 81 mg p.o. daily, Plavix 75 mg p.o. daily and Lipitor 40 mg p.o. daily 8. Anemia of chronic disease. Hb stable. 9. Insomnia. Resume Ambien 5 mg p.o. at bedtime. 10. Chronic left inguinal hernia. CT reviewed and no evidence of incarceration or obstruction. 11. Prophylaxis. GI prophylaxis not indicated as the patient is eating. We will start SCDs for DVT prophylaxis. CODE STATUS: Full code. Matt Hartley MD MTDD
[2018-04-09] MEDS ORDERED: Alum-Mag Hydrox-Simethicone Susp (30 mL) PO ONE (22:15)
[2018-04-09] MEDS ORDERED: HYDROmorphone 0.5 mg/0.5 ml ISec IVP STA (22:20)
[2018-04-09] MEDS ORDERED: Piperacillin/Tazobact 3.375 gm 100 ML IVPB STA (23:03)
--- NOTE | 2018-04-10 00:08 | CON ---
DATE: 04/09/2018 The patient admitted for Dr. Pascual Hartley. REFERRING PHYSICIAN: Dr. aHrtley REASON FOR CONSULTATION: Evaluation of a patient unknown to me but seen by my partner approximately 2 years ago, who presents with acute renal failure superimposed on chronic kidney disease stage IV with life-threatening hyperkalemia and metabolic acidosis. 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 The patient apparently has seen Dr. Rico Ann in the outpatient setting. He has never been to our office. The patient remains on home Primacor therapy for his severe cardiomyopathy. The patient has a history of bladder cancer, status post resection of the bladder with ileostomy. History of anemia. Past history of hypertension. The patient, as per his history, has been sick over the last several days at home. Diminished p.o. fluid intake. No significant urine output. The patient was tremulous. He presents to the hospital with an elevated BUN and creatinine, BUN 74 with a creatinine of 9.4. The patient is hyperkalemic with a potassium of 5.8 and acidotic with a CO2 of 11. We are asked to evaluate the patient for his ioyoc-py-abzcpae kidney disease with life-threatening hyperkalemia and metabolic acidosis. PAST MEDICAL HISTORY: Significant for ischemic dilated cardiomyopathy, on ionotropic support at home; ASHD status post RI, status post PTCA stent; history of COPD with pulmonary hypertension; history of chronic kidney disease stage IV with a baseline creatinine in the upper 2 to low 3 range; past history of hypertension; past history of cigarette smoking; history of bladder cancer, status post resection of the bladder with ileostomy; history of anemia secondary to chronic kidney disease; history of aortic stenosis, mitral regurgitation and tricuspid regurgitation. MEDICATIONS AT HOME: Include that of Uptravi, Adempas, Primacor drip, Lomotil, lisinopril, Lasix, Plavix, Coreg, Lipitor, aspirin, Anoro Ellipta, spirolactone. ALLERGIES: THE PATIENT HAS NO KNOWN ALLERGIES TO MEDICATION. CURRENT MEDICATIONS IN HOSPITAL: Include that of aspirin, Brovana, DuoNeb, heparin, Lipitor, Pepcid, Plavix, normal saline 50 mL an hour, Tylenol p.r.n. and Zofran p.r.n. The patient had received calcium gluconate, D50 with insulin, Kayexalate, sodium bicarbonate and Zofran. SOCIAL HISTORY: Past history of cigarette smoking many years, the patient had stopped recently. No history of alcohol use at present, but he was using alcohol socially in the past. FAMILY HISTORY: Mother of complications of diabetes. Father of complications of heart disease. REVIEW OF SYSTEMS: Ten-plus systems reviewed with the patient and the patient's daughter. GENERAL: Up until this point in time, appetite has been stable, no weight loss. ENT: Denies any hearing or visual problems. PULMONARY: Admits to chronic shortness of breath and dyspnea on exertion. CARDIAC: History of ASHD as noted above. GI: Positive for nausea and vomiting at present. No abdominal pain. No constipation or diarrhea. The patient does use Lomotil on a p.r.n. basis for intermittent diarrhea. : History of chronic kidney disease stage IV. ENDOCRINE: No history of diabetes. MUSCULOSKELETAL: No issues. NEURO: No past history of CVA, TIA, seizures or syncope. HEME/ONC: History of anemia secondary to chronic kidney disease and history of bladder cancer. PSYCHIATRIC HISTORY: Negative. PHYSICAL EXAMINATION: GENERAL: The patient is currently seen in the ER en route to the CCU. He is tremulous. He is having mild nausea and vomiting. IV calcium gluconate is infusing. No significant urine output as of yet. VITAL SIGNS: Blood pressure has been ranging from 61 systolic to 81. Diastolic 42-48. Heart rate is 112. Temperature 97.2, respiratory rate of 20 with an oxygen saturation of 100% on oxygen by nasal cannula. HEENT: Exam shows him to be normocephalic, atraumatic. Conjunctivae are pale. Sclerae are nonicteric. Pupils equal and reactive to light and accommodation. Extraocular muscles are intact. Posterior pharynx appears normal. NECK: Supple. No neck vein distention. No thyromegaly. No lymphadenopathy. No bruits. CHEST: Clear to auscultation and percussion with no rales, rhonchi or wheezing. Positive port right chest wall, cannulated, with IV fluid infusing. CARDIOVASCULAR: Shows a regular rate and rhythm with /MR/TR. No S3, no S4, no rub. ABDOMEN: Soft. Bowel sounds normal. Positive ileostomy lower quadrant. Bowel sounds normal. No rebound, guarding or masses. BACK: No CVAT, no spinal tenderness. EXTREMITIES: Show no lower extremity cyanosis, clubbing or edema. Distal lower extremity pulses are reduced to 1+ bilateral. NEURO: The patient appears to be mildly tremulous. He is alert, oriented x3. There are no gross focal motor or sensory deficits noted. LABORATORY DATA AND IMAGING: Admitting chest x-ray showed no acute pulmonary disease. Admitting abdominal CT scan showed a large left inguinal hernia. He has bilateral renal cortical atrophy with a hyperdense nodule on the right kidney and a hyperdense lesion in the left kidney with bilateral renal cyst. No obstructive uropathy. CBC: White blood cell count 7.5, hemoglobin 10.3 with a platelet count of 167,000. Coags are normal. Blood gas: 7.14 with a pO2 of 227 and a pCO2 of 29. Chemistries showed a sodium of 136, potassium elevated at 5.8, chloride 111 with a CO2 of 11. BUN 74 with a creatinine of 9.4. His baseline BUN is in the 30-50 range with baseline creatinine in the upper 2 to low 3 range. Glucose is 126. Calcium 9.2. Liver enzymes are normal. Albumin is 4. Venous blood potassium level correlates and is 5.6. His urines showed 25-30 red blood cells, 10-15 white blood cells, 2 to 3+ protein. ASSESSMENT: 1. Acute renal failure superimposed on chronic kidney disease stage IV in the setting of profound hypotension, dehydration, life-threatening hyperkalemia and metabolic acidosis. The patient received the standard treatment in the emergency room. He should be started on IV fluid hydration cautiously with sodium bicarbonate rather than chloride as the anion. I did discuss with the patient and the daughter the possibility of needing dialysis if he is unable to tolerate fluids and his hyperkalemia and acidosis are difficult to control. The patient does have a baseline of chronic kidney disease stage IV. Apparently, he is followed by Dr. Rico Ann in-and-out in the outpatient setting. No evidence for obstructive uropathy. 2. History of severe ischemic dilated cardiomyopathy. The patient is on chronic Primacor therapy at home. History of myocardial infarction, status post percutaneous transluminal coronary angioplasty and stent. As per discussion between the ER staff and his financial operations analyst, Dr. Tejeda, the patient should be started on pressors to increase his blood pressure if necessary. At this point in time, Dr. Tejeda does not want to use Primacor. 3. History of aortic stenosis, mitral regurgitation, tricuspid regurgitation with ejection fraction of 25% on an echocardiogram done in 02/2018. The patient also has a history of pulmonary hypertension and remains on appropriate medication and follows with Dr. Griffin. 4. History of chronic obstructive pulmonary disease. This is secondary to long history of cigarette smoking. The patient remains on inhalation therapy. 5. Past history of hypertension. The patient presently is nonhypertensive, he is hypotensive. 6. History of bladder cancer, status post bladder resection with ileostomy. 7. History of anemia, likely in part secondary to chronic kidney disease. PLAN: 1. Discussed with ER staff and ICU staff. No role for MARK inhibition or spirolactone at this point in time, and in all likelihood, these medications should never be used in this patient. 2. Agree with either ionotropic support or pressor support to increase his blood pressure to improve renal perfusion. 3. Would start IV fluid with sodium bicarbonate rather than normal saline in light of his severe metabolic acidosis and hyperkalemia. 4. Continue inhalation therapy. 5. Monitor urine output carefully. At present, the patient is making small amounts of urine. 6. Obtain a urine C and S in light of the fact that he has red blood cells and white blood cells in his urine, but this is a urine collected from the ileostomy. 7. Discussed with the patient and his daughter the possibility of needing to do acute dialysis if we are unable to lower his BUN and creatinine with IV fluid hydration, if we are unable to correct his severe metabolic acidosis and treat his hyperkalemia. I did explain to them that given his severe cardiomyopathy with low ejection fraction, dialysis could be a risky procedure. Greater than 45 minutes spent in the care of this critically ill patient. Thank you for letting me partake and share in the care of your patient. Paul Bonner MD
[2018-04-10 06:58] LABS: BASO # 0.01 K/mm3 (0.0-2.0); BASO % 0.2 % (0.0-3.0); EOS % 0.3 % (1.5-5.0); GRAN # 5.19 (1.4-6.5); GRAN % 78.6 % (50.0-68.0); HEMOGLOBIN 9.3 g/dL (14.0-18.0); LYMPH # 0.7 (1.2-3.4); LYMPH % 10.3 % (22.0-35.0); MEAN CELL VOLUME 86.9 fl (80.0-105.0); MEAN CORPUSCULAR HEMOGLOBIN 27.8 pg (25.0-35.0); MEAN PLATELET VOLUME 8.4 fl (7.0-11.0); MONO # 0.7 (0.1-0.6); MONO % 10.6 % (1.0-6.0); RBC 3.35 10^6/uL (3.5-6.1); RED CELL DISTRIBUTION WIDTH 16.1 % (11.5-14.5); WHITE BLOOD COUNT 6.6 10^3/uL (4.5-11.0)
[2018-04-10 07:02] LABS: INR 0.98; PARTIAL THROMBOPLASTIN TIME 29.5 Seconds (25.1-36.5); PROTHROMBIN TIME 11.3 SECONDS (9.4-12.5)
[2018-04-10 07:34] LABS: ALB/GLOB RATIO 1.4 (1.1-1.8); ALBUMIN 3.3 g/dL (3.0-4.8); CALCIUM 8.6 mg/dL (8.4-10.5)
--- NOTE | 2018-04-10 07:54 | CON ---
DATE: 04/10/2018 PULMONARY CONSULTATION REASON FOR CONSULTATION: COPD. REFERRING PHYSICIAN: Dr. Hartley. SOURCE OF HISTORY: History is obtained via extensive discussion with the ICU team. I have also reviewed the chart at length, and discussed the case with the patient at length. HISTORY OF PRESENT ILLNESS: The patient is a chronically ill 77-year-old male, with past medical history significant for advanced chronic obstructive pulmonary disease, on home oxygen, pulmonary hypertension, chronic kidney disease, bladder cancer, coronary artery disease, myocardial infarction in the past, hypertension, who presents to [facility] with increasing fatigue, nausea, vomiting, and limited urine output for the past 2 days. In the emergency room, the patient was noted to be in acute renal failure. He also was noted to have multiple electrolyte abnormalities. He was thus admitted for additional evaluation. The patient is not short of breath at rest. He does have chronic dyspnea on exertion. He also has a chronic occasional cough with occasional sputum production. There is no history of chest pain, coughing up of blood, or chest pain - brought on with deep respirations. There is no history of temperatures, chills or infectious exposure. There is no history of night sweats, weight loss or appetite change prior to the above events. No history of calf pains. No history of syncope or diaphoresis. No history of recent travel or trauma. REVIEW OF SYSTEMS: No abdominal pain. No diarrhea. The patient does state to a discoloration of his urine. No new neurologic complaints. Rest of the review of systems is negative. ALLERGIES: NO KNOWN ALLERGIES. SOCIAL HISTORY: Positive for extensive tobacco usage. No alcohol. FAMILY HISTORY: No inheritable diseases. MEDICATIONS: Home medications include Adempas, Primacor, Zestril, Lasix, Plavix, Coreg, Lipitor, aspirin, ANORO, Aldactone. PHYSICAL EXAMINATION: GENERAL: The patient appears comfortable at rest. He is not short of breath. VITAL SIGNS: Temperature is 98.3, pulse is 104, respiratory rate 16/18, last blood pressure recorded 73/35. Oxygen saturation on nasal cannula is 97%. HEENT: Normocephalic, atraumatic. No JVD. CARDIOVASCULAR: Systolic ejection murmur at the lower left sternal border. No S3 gallop. LUNGS: Decreased breath sounds at the bases. Very minimal rhonchi. No wheezing. EXTREMITIES: Mild edema. No cyanosis, no clubbing. Calves are nontender to palpation. GI: Abdomen is soft, nontender and nondistended. Bowel sounds are positive. SKIN: No acute rash. NEUROLOGIC: Exam limited at the present time. PERTINENT LABORATORY DATA: Chest x-ray was done and reviewed. There is mild cardiomegaly and mild vascular congestion noted. CBC: White count 7.5K, hemoglobin 10.3, hematocrit 32, platelets of 167,000. Complete metabolic profile: Potassium 5.3, chloride 113, carbon dioxide 15, BUN 76, creatinine 8.8. Rest of the metabolic profile is within normal limits. IMPRESSION: 1. Acute on chronic renal failure. 2. Multiple electrolyte abnormalities. 3. Hypotension. 4. Advanced chronic obstructive pulmonary disease. 5. Coronary artery disease. 6. Pulmonary hypertension. PLAN: Again, I did discuss the case with the ICU team at length. I have also reviewed the chart at length, and discussed the case with the patient at length. The patient presents to [facility] with a 2-day history of worsening fatigue, nausea, vomiting, and limited urine output. In the emergency room, he was noted to be hypotensive and in renal failure. He was thus admitted for additional evaluation to the medical ICU. I did review the chest x-ray as above. The chest x-ray reveals only mild pulmonary vascular congestion. At the present time, the patient is not in significant bronchospasm. In addition, there is no significant alveolar-arterial gradient. I will continue the current nebulizer treatments and add inhaled Pulmicort. The patient does have a history of very advanced chronic obstructive pulmonary disease. Inputs by Renal and Internal Medicine are also noted. The patient appears critically ill at this point in time. His overall prognosis is very guarded. Again, I did discuss the case with the ICU team at length. I will also discuss the case with the attending physician. Thank you very much for this pulmonary consultation. Mic Birmingham MD MTDToya
[2018-04-10] MEDS: Arformoterol 15 mcg/2 ml Inh Sol IH SCH ×2 (08:11→20:58)
[2018-04-10] MEDS: Budesonide 0.5 mg/2 ml Inhal Susp UD IH SCH ×2 (08:11→20:58)
--- NOTE | 2018-04-10 09:21 | CP.CCUPN ---
<García Jasso - Last Filed: 04/10/18 11:31> CCU Subjective - Physician Review Subjective (Free Text): García Jasso, PGY-1, ICU Progress Note for Dr. Judd CC: fatigue, dark urine, dark diarrhea, dark vomit, abdominal pain Patient seen and evaluated at bedside. Patient had no acute overnight events. Today, he complains of shortness of breath, dysphagia to both solids and liquids, sharp abdominal pain worse with eating, fatigue, and shortness of breath. Patient has recent history of multiple episodes of black vomitus, black diarrhea, and black urine that terminated today. 12-point ROS was negative except for what was mentioned above. CCU Objective - Vital Signs / Intake & Output Vital Signs (Last 4 hours): Vital Signs Temp Pulse 04/10/18 06:00 98.3 F 04/10/18 05:30 116 H Intake and Output (Last 8hrs): Intake & Output 04/09/18 04/10/18 04/10/18 22:59 06:59 14:59 Intake Total 1500 Output Total 250 Balance 1250 Weight 165 lb 9.6 oz Intake: IV 1500 Left Forearm 1500 Output: Urine 250 Suprapubic 250 Other: Voiding Method Ileal Conduit (Right) - Physical Exam Head: Positive for: Atraumatic, Normocephalic Pupils: Positive for: PERRL Extroacular Muscles: Positive for: EOMI Conjunctiva: Positive for: Normal Mouth: Positive for: Dry Nose (External): Positive for: Atraumatic Neck: Positive for: Normal Range of Motion Respiratory/Chest: Positive for: Clear to Auscultation, Decreased Breath Sounds Cardiovascular: Positive for: Normal S1, S2, Tachycardic Abdomen: Positive for: Tenderness, Normal Bowel Sounds. Negative for: Distention, Peritoneal Signs Back: Positive for: Normal Inspection Upper Extremity: Positive for: Normal Inspection. Negative for: Cyanosis, Edema Lower Extremity: Positive for: Normal Inspection. Negative for: Edema Neurological: Positive for: GCS=15, CN II-XII Intact, Speech Normal Skin: Positive for: Warm, Dry, Normal Color Psychiatric: Positive for: Alert, Oriented x 3, Normal Insight - Medications Active Medications: Active Medications Generic Name Dose Route Start Last Admin Trade Name Freq PRN Reason Stop Dose Admin Acetaminophen 650 mg 04/09/18 16:51 Tylenol 325mg Tab PO Q6H PRN Fever >100.4 F Albuterol/Ipratropium 3 ml 04/09/18 16:50 Duoneb 3 Mg/0.5 Mg (3 Ml) Ud IH [id number] PRN Shortness of Breath Arformoterol Tartrate 15 mcg 04/09/18 20:00 04/10/18 08:11 Brovana IH 15 mcg [id number] CECILY Administration Aspirin 81 mg 04/10/18 10:00 Aspirin Chewable PO DAILY CECILY Atorvastatin Calcium 40 mg 04/10/18 10:00 Lipitor PO DAILY CECILY Budesonide 0.5 mg 04/10/18 08:00 04/10/18 08:11 Pulmicort Respules IH 0.5 mg [id number] CECILY Administration Clopidogrel Bisulfate 75 mg 04/10/18 10:00 Plavix PO DAILY CECILY Famotidine 20 mg 04/10/18 10:00 Pepcid PO DAILY CECILY Heparin Sodium (Porcine) 5,000 units 04/09/18 22:00 04/10/18 08:35 Heparin SC 5,000 units Q8 CECILY Administration Protocol Sodium Bicarbonate 75 meq/ 1,075 mls @ 50 mls/hr 04/09/18 18:15 04/09/18 18:35 Sodium Chloride IV 50 mls/hr .[id number] CECILY Administration Ondansetron HCl 4 mg 04/09/18 16:51 04/09/18 18:25 Zofran Inj IVP 4 mg Q6H PRN Administration Nausea/Vomiting - Patient Studies Lab Studies: Lab Studies 04/10/18 04/10/18 04/10/18 Range/Units 06:30 06:30 06:30 WBC 6.6 (4.5-11.0) 10^3/uL RBC 3.35 L (3.5-6.1) 10^6/uL Hgb 9.3 L (14.0-18.0) g/dL Hct 29.1 L (42.0-52.0) % MCV 86.9 (80.0-105.0) fl MCH 27.8 (25.0-35.0) pg MCHC 32.0 (31.0-37.0) g/dl RDW 16.1 H (11.5-14.5) % Plt Count 162 (120.0-450.0) 10^3/uL MPV 8.4 (7.0-11.0) fl Gran % 78.6 H (50.0-68.0) % Lymph % (Auto) 10.3 L (22.0-35.0) % [place] % (Auto) 10.6 H (1.0-6.0) % Eos % (Auto) 0.3 L (1.5-5.0) % Baso % (Auto) 0.2 (0.0-3.0) % Gran # 5.19 (1.4-6.5) Lymph # (Auto) 0.7 L (1.2-3.4) [place] # (Auto) 0.7 H (0.1-0.6) Eos # (Auto) 0.0 (0.0-0.7) Baso # (Auto) 0.01 (0.0-2.0) K/mm3 PT 11.3 (9.4-12.5) SECONDS INR 0.98 APTT 29.5 (25.1-36.5) Seconds pO2 (30-55) mm/Hg VBG pH (7.32-7.43) VBG pCO2 (40-60) VBG HCO3 (21-28) mmol/l VBG Total CO2 (22-28) mmol.L VBG O2 Sat (Calc) (40-65) % VBG Base Excess (0.0-2.0) mmol/L VBG Potassium (3.6-5.2) mmol/L Glucose (75-110) mg/dl Lactate (0.7-2.1) mmol/L FiO2 % Crit Value Called To Crit Value Called By Blood Gas Notified Time Sodium 138 (132-148) mmol/L Potassium 5.6 H* (3.6-5.0) mmol/L Chloride 113 H (98-107) mmol/L Carbon Dioxide 14 L (21-33) mmol/L Anion Gap 17 (10-20) BUN 76 H (7-21) mg/dL Creatinine 9.0 H* (0.8-1.5) mg/dl Est GFR ( Amer) 7 Est GFR (Non-Af Amer) 6 Random Glucose 87 (70-110) mg/dL Calcium 8.6 (8.4-10.5) mg/dL Phosphorus 7.0 H (2.5-4.5) mg/dL Magnesium 2.0 (1.7-2.2) mg/dL Total Bilirubin 0.3 (0.2-1.3) mg/dL AST 15 L D (17-59) U/L ALT 24 (7-56) U/L Alkaline Phosphatase 76 (38-126) U/L Troponin I ng/mL Total Protein 5.7 L (5.8-8.3) g/dL Albumin 3.3 (3.0-4.8) g/dL Globulin 2.4 gm/dL Albumin/Globulin Ratio 1.4 (1.1-1.8) Lipase (23-300) U/L Venous Blood Potassium (3.6-5.2) mmol/L Urine Color (YELLOW) Urine Appearance (CLEAR) Urine pH (4.7-8.0) Ur Specific [place] (1.005-1.035) Urine Protein (<30 mg/dL) mg/dL Urine Glucose (UA) (NEGATIVE) mg/dL Urine Ketones (NEGATIVE) mg/dL Urine Blood (NEGATIVE) Urine Nitrate (NEGATIVE) Urine Bilirubin (NEGATIVE) Urine Urobilinogen (<1 E.U./dL) E.U./dL Ur Leukocyte Esterase (NEGATIVE) Kirk/uL Urine RBC (0-2) /hpf Urine WBC (0-6) /hpf Ur Epithelial Cells (0-5) /hpf Amorphous Sediment (NONE) /hpf Urine Bacteria (NONE) /hpf Urine Other /hpf Blood Type Antibody Screen BBK History Checked 04/09/18 04/09/18 04/09/18 Range/Units 23:50 19:40 15:41 WBC (4.5-11.0) 10^3/uL RBC (3.5-6.1) 10^6/uL Hgb (14.0-18.0) g/dL Hct (42.0-52.0) % MCV (80.0-105.0) fl MCH (25.0-35.0) pg MCHC (31.0-37.0) g/dl RDW (11.5-14.5) % Plt Count (120.0-450.0) 10^3/uL MPV (7.0-11.0) fl Gran % (50.0-68.0) % Lymph % (Auto) (22.0-35.0) % [place] % (Auto) (1.0-6.0) % Eos % (Auto) (1.5-5.0) % Baso % (Auto) (0.0-3.0) % Gran # (1.4-6.5) Lymph # (Auto) (1.2-3.4) [place] # (Auto) (0.1-0.6) Eos # (Auto) (0.0-0.7) Baso # (Auto) (0.0-2.0) K/mm3 PT (9.4-12.5) SECONDS INR APTT (25.1-36.5) Seconds pO2 (30-55) mm/Hg VBG pH (7.32-7.43) VBG pCO2 (40-60) VBG HCO3 (21-28) mmol/l VBG Total CO2 (22-28) mmol.L VBG O2 Sat (Calc) (40-65) % VBG Base Excess (0.0-2.0) mmol/L VBG Potassium (3.6-5.2) mmol/L Glucose (75-110) mg/dl Lactate (0.7-2.1) mmol/L FiO2 % Crit Value Called To Crit Value Called By Blood Gas Notified Time Sodium 139 (132-148) mmol/L Potassium 5.3 H (3.6-5.0) mmol/L Chloride 113 H (98-107) mmol/L Carbon Dioxide 15 L (21-33) mmol/L Anion Gap 17 (10-20) BUN 76 H (7-21) mg/dL Creatinine 8.8 H* (0.8-1.5) mg/dl Est GFR ( Amer) 7 Est GFR (Non-Af Amer) 6 Random Glucose 80 (70-110) mg/dL Calcium 9.2 (8.4-10.5) mg/dL Phosphorus (2.5-4.5) mg/dL Magnesium (1.7-2.2) mg/dL Total Bilirubin 0.3 (0.2-1.3) mg/dL AST 25 (17-59) U/L ALT 21 (7-56) U/L Alkaline Phosphatase 78 (38-126) U/L Troponin I 0.03 ng/mL Total Protein 6.1 (5.8-8.3) g/dL Albumin 3.6 (3.0-4.8) g/dL Globulin 2.5 gm/dL Albumin/Globulin Ratio 1.5 (1.1-1.8) Lipase (23-300) U/L Venous Blood Potassium (3.6-5.2) mmol/L Urine Color (YELLOW) Urine Appearance (CLEAR) Urine pH (4.7-8.0) Ur Specific [place] (1.005-1.035) Urine Protein (<30 mg/dL) mg/dL Urine Glucose (UA) (NEGATIVE) mg/dL Urine Ketones (NEGATIVE) mg/dL Urine Blood (NEGATIVE) Urine Nitrate (NEGATIVE) Urine Bilirubin (NEGATIVE) Urine Urobilinogen (<1 E.U./dL) E.U./dL Ur Leukocyte Esterase (NEGATIVE) Kirk/uL Urine RBC (0-2) /hpf Urine WBC (0-6) /hpf Ur Epithelial Cells (0-5) /hpf Amorphous Sediment (NONE) /hpf Urine Bacteria (NONE) /hpf Urine Other /hpf Blood Type O POSITIVE Antibody Screen Negative BBK History Checked Patient has bt 04/09/18 04/09/18 04/09/18 Range/Units 14:30 14:15 14:10 WBC (4.5-11.0) 10^3/uL RBC (3.5-6.1) 10^6/uL Hgb (14.0-18.0) g/dL Hct (42.0-52.0) % MCV (80.0-105.0) fl MCH (25.0-35.0) pg MCHC (31.0-37.0) g/dl RDW (11.5-14.5) % Plt Count (120.0-450.0) 10^3/uL MPV (7.0-11.0) fl Gran % (50.0-68.0) % Lymph % (Auto) (22.0-35.0) % [place] % (Auto) (1.0-6.0) % Eos % (Auto) (1.5-5.0) % Baso % (Auto) (0.0-3.0) % Gran # (1.4-6.5) Lymph # (Auto) (1.2-3.4) [place] # (Auto) (0.1-0.6) Eos # (Auto) (0.0-0.7) Baso # (Auto) (0.0-2.0) K/mm3 PT (9.4-12.5) SECONDS INR APTT (25.1-36.5) Seconds pO2 227 H (30-55) mm/Hg VBG pH 7.14 L* (7.32-7.43) VBG pCO2 29.0 L (40-60) VBG HCO3 9.9 L (21-28) mmol/l VBG Total CO2 10.8 L (22-28) mmol.L VBG O2 Sat (Calc) 98.4 H (40-65) % VBG Base Excess -17.8 L (0.0-2.0) mmol/L VBG Potassium 5.6 H (3.6-5.2) mmol/L Glucose 132 H (75-110) mg/dl Lactate 0.8 (0.7-2.1) mmol/L FiO2 21.0 % Crit Value Called To Britt johnson Crit Value Called By Ab Blood Gas Notified Time 1428 Sodium 132.0 136 (132-148) mmol/L Potassium 5.8 H* D (3.6-5.0) mmol/L Chloride 110.0 H 111 H (98-107) mmol/L Carbon Dioxide 11 L (21-33) mmol/L Anion Gap 20 (10-20) BUN 74 H (7-21) mg/dL Creatinine 9.4 H* D (0.8-1.5) mg/dl Est GFR ( Amer) 7 Est GFR (Non-Af Amer) 5 Random Glucose 126 H (70-110) mg/dL Calcium 9.2 (8.4-10.5) mg/dL Phosphorus (2.5-4.5) mg/dL Magnesium (1.7-2.2) mg/dL Total Bilirubin 0.4 (0.2-1.3) mg/dL AST 15 L D (17-59) U/L ALT 24 (7-56) U/L Alkaline Phosphatase 87 (38-126) U/L Troponin I 0.03 ng/mL Total Protein 6.7 (5.8-8.3) g/dL Albumin 4.0 (3.0-4.8) g/dL Globulin 2.8 gm/dL Albumin/Globulin Ratio 1.4 (1.1-1.8) Lipase 171 (23-300) U/L Venous Blood Potassium 5.6 H (3.6-5.2) mmol/L Urine Color Light yellow (YELLOW) Urine Appearance Cloudy (CLEAR) Urine pH 6.5 (4.7-8.0) Ur Specific [place] 1.025 (1.005-1.035) Urine Protein 100 H (<30 mg/dL) mg/dL Urine Glucose (UA) Negative (NEGATIVE) mg/dL Urine Ketones Negative (NEGATIVE) mg/dL Urine Blood Large H (NEGATIVE) Urine Nitrate Negative (NEGATIVE) Urine Bilirubin Negative (NEGATIVE) Urine Urobilinogen 0.2 (<1 E.U./dL) E.U./dL Ur Leukocyte Esterase Trace H (NEGATIVE) Kirk/uL Urine RBC 25 - 30 H (0-2) /hpf Urine WBC 10 - 15 H (0-6) /hpf Ur Epithelial Cells 0 - 2 (0-5) /hpf Amorphous Sediment Small (NONE) /hpf Urine Bacteria Large (NONE) /hpf Urine Other Uyeast /hpf Blood Type Antibody Screen BBK History Checked 04/09/18 04/09/18 Range/Units 14:10 14:10 WBC 7.5 D (4.5-11.0) 10^3/uL RBC 3.66 (3.5-6.1) 10^6/uL Hgb 10.3 L (14.0-18.0) g/dL Hct 32.0 L (42.0-52.0) % MCV 87.4 (80.0-105.0) fl MCH 28.1 (25.0-35.0) pg MCHC 32.2 (31.0-37.0) g/dl RDW 15.9 H (11.5-14.5) % Plt Count 167 (120.0-450.0) 10^3/uL MPV 8.0 (7.0-11.0) fl Gran % 80.0 H (50.0-68.0) % Lymph % (Auto) 10.4 L (22.0-35.0) % [place] % (Auto) 8.6 H (1.0-6.0) % Eos % (Auto) 0.9 L (1.5-5.0) % Baso % (Auto) 0.1 (0.0-3.0) % Gran # 5.97 (1.4-6.5) Lymph # (Auto) 0.8 L (1.2-3.4) [place] # (Auto) 0.6 (0.1-0.6) Eos # (Auto) 0.1 (0.0-0.7) Baso # (Auto) 0.01 (0.0-2.0) K/mm3 PT 11.1 (9.4-12.5) SECONDS INR 0.97 APTT 28.8 (25.1-36.5) Seconds pO2 (30-55) mm/Hg VBG pH (7.32-7.43) VBG pCO2 (40-60) VBG HCO3 (21-28) mmol/l VBG Total CO2 (22-28) mmol.L VBG O2 Sat (Calc) (40-65) % VBG Base Excess (0.0-2.0) mmol/L VBG Potassium (3.6-5.2) mmol/L Glucose (75-110) mg/dl Lactate (0.7-2.1) mmol/L FiO2 % Crit Value Called To Crit Value Called By Blood Gas Notified Time Sodium (132-148) mmol/L Potassium (3.6-5.0) mmol/L Chloride (98-107) mmol/L Carbon Dioxide (21-33) mmol/L Anion Gap (10-20) BUN (7-21) mg/dL Creatinine (0.8-1.5) mg/dl Est GFR ( Amer) Est GFR (Non-Af Amer) Random Glucose (70-110) mg/dL Calcium (8.4-10.5) mg/dL Phosphorus (2.5-4.5) mg/dL Magnesium (1.7-2.2) mg/dL Total Bilirubin (0.2-1.3) mg/dL AST (17-59) U/L ALT (7-56) U/L Alkaline Phosphatase (38-126) U/L Troponin I ng/mL Total Protein (5.8-8.3) g/dL Albumin (3.0-4.8) g/dL Globulin gm/dL Albumin/Globulin Ratio (1.1-1.8) Lipase (23-300) U/L Venous Blood Potassium (3.6-5.2) mmol/L Urine Color (YELLOW) Urine Appearance (CLEAR) Urine pH (4.7-8.0) Ur Specific [place] (1.005-1.035) Urine Protein (<30 mg/dL) mg/dL Urine Glucose (UA) (NEGATIVE) mg/dL Urine Ketones (NEGATIVE) mg/dL Urine Blood (NEGATIVE) Urine Nitrate (NEGATIVE) Urine Bilirubin (NEGATIVE) Urine Urobilinogen (<1 E.U./dL) E.U./dL Ur Leukocyte Esterase (NEGATIVE) Kirk/uL Urine RBC (0-2) /hpf Urine WBC (0-6) /hpf Ur Epithelial Cells (0-5) /hpf Amorphous Sediment (NONE) /hpf Urine Bacteria (NONE) /hpf Urine Other /hpf Blood Type Antibody Screen BBK History Checked Laboratory Results - last 24 hr 04/09/18 04/09/18 04/09/18 14:10 14:10 14:10 WBC 7.5 D RBC 3.66 Hgb 10.3 L Hct 32.0 L MCV 87.4 MCH 28.1 MCHC 32.2 RDW 15.9 H Plt Count 167 MPV 8.0 Gran % 80.0 H Lymph % (Auto) 10.4 L [place] % (Auto) 8.6 H Eos % (Auto) 0.9 L Baso % (Auto) 0.1 Gran # 5.97 Lymph # (Auto) 0.8 L [place] # (Auto) 0.6 Eos # (Auto) 0.1 Baso # (Auto) 0.01 PT 11.1 INR 0.97 APTT 28.8 pO2 VBG pH VBG pCO2 VBG HCO3 VBG Total CO2 VBG O2 Sat (Calc) VBG Base Excess VBG Potassium Glucose Lactate FiO2 Crit Value Called To Crit Value Called By Blood Gas Notified Time Sodium 136 Potassium 5.8 H* D Chloride 111 H Carbon Dioxide 11 L Anion Gap 20 BUN 74 H Creatinine 9.4 H* D Est GFR ( Amer) 7 Est GFR (Non-Af Amer) 5 Random Glucose 126 H Calcium 9.2 Phosphorus Magnesium Total Bilirubin 0.4 AST 15 L D ALT 24 Alkaline Phosphatase 87 Troponin I 0.03 Total Protein 6.7 Albumin 4.0 Globulin 2.8 Albumin/Globulin Ratio 1.4 Lipase 171 Venous Blood Potassium Urine Color Urine Appearance Urine pH Ur Specific [place] Urine Protein Urine Glucose (UA) Urine Ketones Urine Blood Urine Nitrate Urine Bilirubin Urine Urobilinogen Ur Leukocyte Esterase Urine RBC Urine WBC Ur Epithelial Cells Amorphous Sediment Urine Bacteria Urine Other Blood Type Antibody Screen BBK History Checked 04/09/18 04/09/18 04/09/18 14:15 14:30 15:41 WBC RBC Hgb Hct MCV MCH MCHC RDW Plt Count MPV Gran % Lymph % (Auto) [place] % (Auto) Eos % (Auto) Baso % (Auto) Gran # Lymph # (Auto) [place] # (Auto) Eos # (Auto) Baso # (Auto) PT INR APTT pO2 227 H VBG pH 7.14 L* VBG pCO2 29.0 L VBG HCO3 9.9 L VBG Total CO2 10.8 L VBG O2 Sat (Calc) 98.4 H VBG Base Excess -17.8 L VBG Potassium 5.6 H Glucose 132 H Lactate 0.8 FiO2 21.0 Crit Value Called To Britt johnson Crit Value Called By Ab Blood Gas Notified Time 1428 Sodium 132.0 Potassium Chloride 110.0 H Carbon Dioxide Anion Gap BUN Creatinine Est GFR ( Amer) Est GFR (Non-Af Amer) Random Glucose Calcium Phosphorus Magnesium Total Bilirubin AST ALT Alkaline Phosphatase Troponin I Total Protein Albumin Globulin Albumin/Globulin Ratio Lipase Venous Blood Potassium 5.6 H Urine Color Light yellow Urine Appearance Cloudy Urine pH 6.5 Ur Specific [place] 1.025 Urine Protein 100 H Urine Glucose (UA) Negative Urine Ketones Negative Urine Blood Large H Urine Nitrate Negative Urine Bilirubin Negative Urine Urobilinogen 0.2 Ur Leukocyte Esterase Trace H Urine RBC 25 - 30 H Urine WBC 10 - 15 H Ur Epithelial Cells 0 - 2 Amorphous Sediment Small Urine Bacteria Large Urine Other Uyeast Blood Type O POSITIVE Antibody Screen Negative BBK History Checked Patient has bt 04/09/18 04/09/18 04/10/18 19:40 23:50 06:30 WBC 6.6 RBC 3.35 L Hgb 9.3 L Hct 29.1 L MCV 86.9 MCH 27.8 MCHC 32.0 RDW 16.1 H Plt Count 162 MPV 8.4 Gran % 78.6 H Lymph % (Auto) 10.3 L [place] % (Auto) 10.6 H Eos % (Auto) 0.3 L Baso % (Auto) 0.2 Gran # 5.19 Lymph # (Auto) 0.7 L [place] # (Auto) 0.7 H Eos # (Auto) 0.0 Baso # (Auto) 0.01 PT INR APTT pO2 VBG pH VBG pCO2 VBG HCO3 VBG Total CO2 VBG O2 Sat (Calc) VBG Base Excess VBG Potassium Glucose Lactate FiO2 Crit Value Called To Crit Value Called By Blood Gas Notified Time Sodium 139 Potassium 5.3 H Chloride 113 H Carbon Dioxide 15 L Anion Gap 17 BUN 76 H Creatinine 8.8 H* Est GFR ( Amer) 7 Est GFR (Non-Af Amer) 6 Random Glucose 80 Calcium 9.2 Phosphorus Magnesium Total Bilirubin 0.3 AST 25 ALT 21 Alkaline Phosphatase 78 Troponin I 0.03 Total Protein 6.1 Albumin 3.6 Globulin 2.5 Albumin/Globulin Ratio 1.5 Lipase Venous Blood Potassium Urine Color Urine Appearance Urine pH Ur Specific [place] Urine Protein Urine Glucose (UA) Urine Ketones Urine Blood Urine Nitrate Urine Bilirubin Urine Urobilinogen Ur Leukocyte Esterase Urine RBC Urine WBC Ur Epithelial Cells Amorphous Sediment Urine Bacteria Urine Other Blood Type Antibody Screen BBK History Checked 04/10/18 04/10/18 06:30 06:30 WBC RBC Hgb Hct MCV MCH MCHC RDW Plt Count MPV Gran % Lymph % (Auto) [place] % (Auto) Eos % (Auto) Baso % (Auto) Gran # Lymph # (Auto) [place] # (Auto) Eos # (Auto) Baso # (Auto) PT 11.3 INR 0.98 APTT 29.5 pO2 VBG pH VBG pCO2 VBG HCO3 VBG Total CO2 VBG O2 Sat (Calc) VBG Base Excess VBG Potassium Glucose Lactate FiO2 Crit Value Called To Crit Value Called By Blood Gas Notified Time Sodium 138 Potassium 5.6 H* Chloride 113 H Carbon Dioxide 14 L Anion Gap 17 BUN 76 H Creatinine 9.0 H* Est GFR ( Amer) 7 Est GFR (Non-Af Amer) 6 Random Glucose 87 Calcium 8.6 Phosphorus 7.0 H Magnesium 2.0 Total Bilirubin 0.3 AST 15 L D ALT 24 Alkaline Phosphatase 76 Troponin I Total Protein 5.7 L Albumin 3.3 Globulin 2.4 Albumin/Globulin Ratio 1.4 Lipase Venous Blood Potassium Urine Color Urine Appearance Urine pH Ur Specific [place] Urine Protein Urine Glucose (UA) Urine Ketones Urine Blood Urine Nitrate Urine Bilirubin Urine Urobilinogen Ur Leukocyte Esterase Urine RBC Urine WBC Ur Epithelial Cells Amorphous Sediment Urine Bacteria Urine Other Blood Type Antibody Screen BBK History Checked Radiology Impressions: Radiology Impressions Chest X-Ray 04/09/18 14:10 IMPRESSION: Mild cardiomegaly and moderate vascular congestion Abdomen/Pelvis CT 04/09/18 14:26 IMPRESSION: 1. large left inguinal scrotal hernia containing normal caliber small bowel loops and colon. No evidence for obstruction or incarceration. 2. Additional stable benign findings as described above. EKG/Cardiology Studies: Cardiology / EKG Studies 04/09/18 14:10 EKG [ELECTROCARDIOGRAM] Stat Comment: Reason For Exam: chest pain 04/09/18 16:57 EKG [ELECTROCARDIOGRAM] Stat Comment: Reason For Exam: urinary retention Fingerstick Blood Sugar Results: 123 Review of Systems - Review of Systems Review of Systems: except for what was mentioned in HPI Critical Care Progress Note - Ventilator Checklist Head of Bed 30 Degrees: Yes PUD Prophalyxis: Yes DVT Prophylaxis: Yes - Nutrition Nutrition: Nutrition Category Date Time Status Heart Healthy Diet [DIET] Diets 04/09/18 Dinner Active Assessment/Plan - Assessment and Plan (Free Text) Assessment: 77 year old female with past medical history of CAD status post STEMI with stent, congestive heart failure with last EF: 25% from 02/2018, severe COPD on 3L at home, CKD stage 4, history of bladder carcinoma s/p ileal conduit, pulmonary hypertension, and hypertension presents with fatigue, nausea, black vomit, black diarrhea, black urine, shortness of breath, dysphagia, and sharp abdominal pain worse with eating. Plan: Neuro: -AAOx3, no FND, moving extremities past midline. -Monitor neuro status. -Reorient patient as necessary. Cardio: Systolic Congestive Heart failure Echocardiogram from 02/2018: EF: 25% -Sinus tachycardia, hypotensive at 76/47 with range of 61/42-86/34 -EKG: sinus tachycardia, RBBB with HR: 115 -Stopped home milrinone due to patient's renal function and current hypotension -Hold MARK I, spironolactone, B-blockers. -1/2 NS with NaHCO3 75 MEq at 50 cc/hr -Maintain MAP>65. -Monitor for S/S, HD compromise. CAD s/p stent placement -Continue home aspirin 81 mg PO daily, lipitor 40 mg PO daily, plavix 75 mg PO daily Pulm: COPD -No signs of respiratory distress. -CXR: mild cardiomegaly, moderate vascular congestion -Maintain O2 saturation>95%. -O2 NC 3L -Duonebs Q6 PRN -Elevate bed to 30 degrees Pulmonary Hypertension -Hold all home medications due to current hypotension. GI: Diet -Tolerating HHD diet well. GI prophylaxis -Pepcid 20 mg PO daily /Nephro: ESRD currently not on dialysis -BUN/Cr elevated at 76/9.0 -UA: 100 protein, large blood, trace leukocyte esterase, large bacteria, yeast. Likely UTI present -Hyperkalemia at 5.6 -Decreased bicarbonate at 14 -Elevated phosphate at 7 -All electrolyte abnormalities likely due to ESRD. -UO: 250. Currently making sparse urine -Continue monitoring. -As per Dr. Mancilla, Cardiology, patient ok for dialysis. -As per Dr. Ivey, Nephrology, patient should have permacath placed for [facility]entiary dialysis. -Dr. Wayne Mathews, Interventional Radiology, consulted for recommendations and permacath placement. -Continue to follow Cardiology, Nephrology, and Radiology recommendations. Nonanion gap metabolic acidosis -PH: 7.14 from prior VBG on 04/09 secondary to RTA vs. diarrhea. -ABG ordered to evaluate for appropriate compensation -Continue with 1/2 NS with sodium bicarbonate 7.4 mEq at 50 cc/hr Endocrinology: -Random glucose: 87 -Maintain euglycemia. Heme/Onc: Normocytic Anemia -H/H decreased to 9.3/29.1 -Continue monitoring H/H DVT prophylaxis -Heparin 5000 U SubQ Q8 ID: UTI -Afebrile, no leukocytosis -UA: 100 protein, large blood, trace leukocyte esterase, large bacteria, yeast. Likely UTI present -Follow up BCx, UCx, Procalcitonin -Lactate: 0.8 -Rocephin 1 gm daily day 1 -Monitor for signs and symptoms of infection. Patient seen and examined with Dr. Judd. - Date & Time Date: 04/10/18 Time: 09:24 <Esperanza Juddriy - Last Filed: 04/10/18 12:46> CCU Objective - Vital Signs / Intake & Output Intake and Output (Last 8hrs): Intake & Output 04/09/18 04/10/18 04/10/18 22:59 06:59 14:59 Intake Total 1500 Output Total 250 Balance 1250 Weight 165 lb 9.6 oz Intake: IV 1500 Left Forearm 1500 Output: Urine 250 Suprapubic 250 Other: Voiding Method Ileal Conduit (Right) - Medications Active Medications: Active Medications Generic Name Dose Route Start Last Admin Trade Name Freq PRN Reason Stop Dose Admin Acetaminophen 650 mg 04/09/18 16:51 Tylenol 325mg Tab PO Q6H PRN Fever >100.4 F Albuterol/Ipratropium 3 ml 04/09/18 16:50 Duoneb 3 Mg/0.5 Mg (3 Ml) Ud IH [id number] PRN Shortness of Breath Arformoterol Tartrate 15 mcg 04/09/18 20:00 04/10/18 08:11 Brovana IH 15 mcg [id number] CECILY Administration Aspirin 81 mg 04/10/18 10:00 04/10/18 10:19 Aspirin Chewable PO 81 mg DAILY CECILY Administration Atorvastatin Calcium 40 mg 04/10/18 17:00 Lipitor PO DAILY CECILY Budesonide 0.5 mg 04/10/18 08:00 04/10/18 08:11 Pulmicort Respules IH 0.5 mg [id number] CECILY Administration Famotidine 20 mg 04/10/18 10:00 04/10/18 10:19 Pepcid PO 20 mg DAILY CECILY Administration Heparin Sodium (Porcine) 5,000 units 04/09/18 22:00 04/10/18 08:35 Heparin SC 5,000 units Q8 CECILY Administration Protocol Sodium Bicarbonate 75 meq/ 1,075 mls @ 50 mls/hr 04/09/18 18:15 04/09/18 18:35 Sodium Chloride IV 50 mls/hr .[id number] CECILY Administration Ceftriaxone Sodium 1 gm in 100 mls @ 100 mls/hr 04/10/18 10:00 04/10/18 10:19 Rocephin 1 Gram Ivpb IVPB 100 mls/hr DAILY CECILY Administration Protocol Ondansetron HCl 4 mg 04/09/18 16:51 04/09/18 18:25 Zofran Inj IVP 4 mg Q6H PRN Administration Nausea/Vomiting - Patient Studies Lab Studies: Lab Studies 04/10/18 04/10/18 04/10/18 Range/Units 07:36 06:30 06:30 WBC (4.5-11.0) 10^3/uL RBC (3.5-6.1) 10^6/uL Hgb (14.0-18.0) g/dL Hct (42.0-52.0) % MCV (80.0-105.0) fl MCH (25.0-35.0) pg MCHC (31.0-37.0) g/dl RDW (11.5-14.5) % Plt Count (120.0-450.0) 10^3/uL MPV (7.0-11.0) fl Gran % (50.0-68.0) % Lymph % (Auto) (22.0-35.0) % [place] % (Auto) (1.0-6.0) % Eos % (Auto) (1.5-5.0) % Baso % (Auto) (0.0-3.0) % Gran # (1.4-6.5) Lymph # (Auto) (1.2-3.4) [place] # (Auto) (0.1-0.6) Eos # (Auto) (0.0-0.7) Baso # (Auto) (0.0-2.0) K/mm3 PT 11.3 (9.4-12.5) SECONDS INR 0.98 APTT 29.5 (25.1-36.5) Seconds pO2 (30-55) mm/Hg VBG pH (7.32-7.43) VBG pCO2 (40-60) VBG HCO3 (21-28) mmol/l VBG Total CO2 (22-28) mmol.L VBG O2 Sat (Calc) (40-65) % VBG Base Excess (0.0-2.0) mmol/L VBG Potassium (3.6-5.2) mmol/L Glucose (75-110) mg/dl Lactate (0.7-2.1) mmol/L FiO2 % Crit Value Called To Crit Value Called By Blood Gas Notified Time Sodium 138 (132-148) mmol/L Potassium 5.6 H* (3.6-5.0) mmol/L Chloride 113 H (98-107) mmol/L Carbon Dioxide 14 L (21-33) mmol/L Anion Gap 17 (10-20) BUN 76 H (7-21) mg/dL Creatinine 9.0 H* (0.8-1.5) mg/dl Est GFR ( Amer) 7 Est GFR (Non-Af Amer) 6 POC Glucose (mg/dL) 82 (65-110) mg/dL Random Glucose 87 (70-110) mg/dL Calcium 8.6 (8.4-10.5) mg/dL Phosphorus 7.0 H (2.5-4.5) mg/dL Magnesium 2.0 (1.7-2.2) mg/dL Total Bilirubin 0.3 (0.2-1.3) mg/dL AST 15 L D (17-59) U/L ALT 24 (7-56) U/L Alkaline Phosphatase 76 (38-126) U/L Troponin I ng/mL Total Protein 5.7 L (5.8-8.3) g/dL Albumin 3.3 (3.0-4.8) g/dL Globulin 2.4 gm/dL Albumin/Globulin Ratio 1.4 (1.1-1.8) Lipase (23-300) U/L Venous Blood Potassium (3.6-5.2) mmol/L Urine Color (YELLOW) Urine Appearance (CLEAR) Urine pH (4.7-8.0) Ur Specific [place] (1.005-1.035) Urine Protein (<30 mg/dL) mg/dL Urine Glucose (UA) (NEGATIVE) mg/dL Urine Ketones (NEGATIVE) mg/dL Urine Blood (NEGATIVE) Urine Nitrate (NEGATIVE) Urine Bilirubin (NEGATIVE) Urine Urobilinogen (<1 E.U./dL) E.U./dL Ur Leukocyte Esterase (NEGATIVE) Kirk/uL Urine RBC (0-2) /hpf Urine WBC (0-6) /hpf Ur Epithelial Cells (0-5) /hpf Amorphous Sediment (NONE) /hpf Urine Bacteria (NONE) /hpf Urine Other /hpf Blood Type Antibody Screen BBK History Checked 04/10/18 04/09/18 04/09/18 Range/Units 06:30 23:50 19:40 WBC 6.6 (4.5-11.0) 10^3/uL RBC 3.35 L (3.5-6.1) 10^6/uL Hgb 9.3 L (14.0-18.0) g/dL Hct 29.1 L (42.0-52.0) % MCV 86.9 (80.0-105.0) fl MCH 27.8 (25.0-35.0) pg MCHC 32.0 (31.0-37.0) g/dl RDW 16.1 H (11.5-14.5) % Plt Count 162 (120.0-450.0) 10^3/uL MPV 8.4 (7.0-11.0) fl Gran % 78.6 H (50.0-68.0) % Lymph % (Auto) 10.3 L (22.0-35.0) % [place] % (Auto) 10.6 H (1.0-6.0) % Eos % (Auto) 0.3 L (1.5-5.0) % Baso % (Auto) 0.2 (0.0-3.0) % Gran # 5.19 (1.4-6.5) Lymph # (Auto) 0.7 L (1.2-3.4) [place] # (Auto) 0.7 H (0.1-0.6) Eos # (Auto) 0.0 (0.0-0.7) Baso # (Auto) 0.01 (0.0-2.0) K/mm3 PT (9.4-12.5) SECONDS INR APTT (25.1-36.5) Seconds pO2 (30-55) mm/Hg VBG pH (7.32-7.43) VBG pCO2 (40-60) VBG HCO3 (21-28) mmol/l VBG Total CO2 (22-28) mmol.L VBG O2 Sat (Calc) (40-65) % VBG Base Excess (0.0-2.0) mmol/L VBG Potassium (3.6-5.2) mmol/L Glucose (75-110) mg/dl Lactate (0.7-2.1) mmol/L FiO2 % Crit Value Called To Crit Value Called By Blood Gas Notified Time Sodium 139 (132-148) mmol/L Potassium 5.3 H (3.6-5.0) mmol/L Chloride 113 H (98-107) mmol/L Carbon Dioxide 15 L (21-33) mmol/L Anion Gap 17 (10-20) BUN 76 H (7-21) mg/dL Creatinine 8.8 H* (0.8-1.5) mg/dl Est GFR ( Amer) 7 Est GFR (Non-Af Amer) 6 POC Glucose (mg/dL) (65-110) mg/dL Random Glucose 80 (70-110) mg/dL Calcium 9.2 (8.4-10.5) mg/dL Phosphorus (2.5-4.5) mg/dL Magnesium (1.7-2.2) mg/dL Total Bilirubin 0.3 (0.2-1.3) mg/dL AST 25 (17-59) U/L ALT 21 (7-56) U/L Alkaline Phosphatase 78 (38-126) U/L Troponin I 0.03 ng/mL Total Protein 6.1 (5.8-8.3) g/dL Albumin 3.6 (3.0-4.8) g/dL Globulin 2.5 gm/dL Albumin/Globulin Ratio 1.5 (1.1-1.8) Lipase (23-300) U/L Venous Blood Potassium (3.6-5.2) mmol/L Urine Color (YELLOW) Urine Appearance (CLEAR) Urine pH (4.7-8.0) Ur Specific [place] (1.005-1.035) Urine Protein (<30 mg/dL) mg/dL Urine Glucose (UA) (NEGATIVE) mg/dL Urine Ketones (NEGATIVE) mg/dL Urine Blood (NEGATIVE) Urine Nitrate (NEGATIVE) Urine Bilirubin (NEGATIVE) Urine Urobilinogen (<1 E.U./dL) E.U./dL Ur Leukocyte Esterase (NEGATIVE) Kirk/uL Urine RBC (0-2) /hpf Urine WBC (0-6) /hpf Ur Epithelial Cells (0-5) /hpf Amorphous Sediment (NONE) /hpf Urine Bacteria (NONE) /hpf Urine Other /hpf Blood Type Antibody Screen BBK History Checked 04/09/18 04/09/18 04/09/18 Range/Units 15:41 14:30 14:15 WBC (4.5-11.0) 10^3/uL RBC (3.5-6.1) 10^6/uL Hgb (14.0-18.0) g/dL Hct (42.0-52.0) % MCV (80.0-105.0) fl MCH (25.0-35.0) pg MCHC (31.0-37.0) g/dl RDW (11.5-14.5) % Plt Count (120.0-450.0) 10^3/uL MPV (7.0-11.0) fl Gran % (50.0-68.0) % Lymph % (Auto) (22.0-35.0) % [place] % (Auto) (1.0-6.0) % Eos % (Auto) (1.5-5.0) % Baso % (Auto) (0.0-3.0) % Gran # (1.4-6.5) Lymph # (Auto) (1.2-3.4) [place] # (Auto) (0.1-0.6) Eos # (Auto) (0.0-0.7) Baso # (Auto) (0.0-2.0) K/mm3 PT (9.4-12.5) SECONDS INR APTT (25.1-36.5) Seconds pO2 227 H (30-55) mm/Hg VBG pH 7.14 L* (7.32-7.43) VBG pCO2 29.0 L (40-60) VBG HCO3 9.9 L (21-28) mmol/l VBG Total CO2 10.8 L (22-28) mmol.L VBG O2 Sat (Calc) 98.4 H (40-65) % VBG Base Excess -17.8 L (0.0-2.0) mmol/L VBG Potassium 5.6 H (3.6-5.2) mmol/L Glucose 132 H (75-110) mg/dl Lactate 0.8 (0.7-2.1) mmol/L FiO2 21.0 % Crit Value Called To Britt johnson Crit Value Called By Ab Blood Gas Notified Time 1428 Sodium 132.0 (132-148) mmol/L Potassium (3.6-5.0) mmol/L Chloride 110.0 H (98-107) mmol/L Carbon Dioxide (21-33) mmol/L Anion Gap (10-20) BUN (7-21) mg/dL Creatinine (0.8-1.5) mg/dl Est GFR ( Amer) Est GFR (Non-Af Amer) POC Glucose (mg/dL) (65-110) mg/dL Random Glucose (70-110) mg/dL Calcium (8.4-10.5) mg/dL Phosphorus (2.5-4.5) mg/dL Magnesium (1.7-2.2) mg/dL Total Bilirubin (0.2-1.3) mg/dL AST (17-59) U/L ALT (7-56) U/L Alkaline Phosphatase (38-126) U/L Troponin I ng/mL Total Protein (5.8-8.3) g/dL Albumin (3.0-4.8) g/dL Globulin gm/dL Albumin/Globulin Ratio (1.1-1.8) Lipase (23-300) U/L Venous Blood Potassium 5.6 H (3.6-5.2) mmol/L Urine Color Light yellow (YELLOW) Urine Appearance Cloudy (CLEAR) Urine pH 6.5 (4.7-8.0) Ur Specific [place] 1.025 (1.005-1.035) Urine Protein 100 H (<30 mg/dL) mg/dL Urine Glucose (UA) Negative (NEGATIVE) mg/dL Urine Ketones Negative (NEGATIVE) mg/dL Urine Blood Large H (NEGATIVE) Urine Nitrate Negative (NEGATIVE) Urine Bilirubin Negative (NEGATIVE) Urine Urobilinogen 0.2 (<1 E.U./dL) E.U./dL Ur Leukocyte Esterase Trace H (NEGATIVE) Kirk/uL Urine RBC 25 - 30 H (0-2) /hpf Urine WBC 10 - 15 H (0-6) /hpf Ur Epithelial Cells 0 - 2 (0-5) /hpf Amorphous Sediment Small (NONE) /hpf Urine Bacteria Large (NONE) /hpf Urine Other Uyeast /hpf Blood Type O POSITIVE Antibody Screen Negative BBK History Checked Patient has bt 04/09/18 04/09/18 04/09/18 Range/Units 14:10 14:10 14:10 WBC 7.5 D (4.5-11.0) 10^3/uL RBC 3.66 (3.5-6.1) 10^6/uL Hgb 10.3 L (14.0-18.0) g/dL Hct 32.0 L (42.0-52.0) % MCV 87.4 (80.0-105.0) fl MCH 28.1 (25.0-35.0) pg MCHC 32.2 (31.0-37.0) g/dl RDW 15.9 H (11.5-14.5) % Plt Count 167 (120.0-450.0) 10^3/uL MPV 8.0 (7.0-11.0) fl Gran % 80.0 H (50.0-68.0) % Lymph % (Auto) 10.4 L (22.0-35.0) % [place] % (Auto) 8.6 H (1.0-6.0) % Eos % (Auto) 0.9 L (1.5-5.0) % Baso % (Auto) 0.1 (0.0-3.0) % Gran # 5.97 (1.4-6.5) Lymph # (Auto) 0.8 L (1.2-3.4) [place] # (Auto) 0.6 (0.1-0.6) Eos # (Auto) 0.1 (0.0-0.7) Baso # (Auto) 0.01 (0.0-2.0) K/mm3 PT 11.1 (9.4-12.5) SECONDS INR 0.97 APTT 28.8 (25.1-36.5) Seconds pO2 (30-55) mm/Hg VBG pH (7.32-7.43) VBG pCO2 (40-60) VBG HCO3 (21-28) mmol/l VBG Total CO2 (22-28) mmol.L VBG O2 Sat (Calc) (40-65) % VBG Base Excess (0.0-2.0) mmol/L VBG Potassium (3.6-5.2) mmol/L Glucose (75-110) mg/dl Lactate (0.7-2.1) mmol/L FiO2 % Crit Value Called To Crit Value Called By Blood Gas Notified Time Sodium 136 (132-148) mmol/L Potassium 5.8 H* D (3.6-5.0) mmol/L Chloride 111 H (98-107) mmol/L Carbon Dioxide 11 L (21-33) mmol/L Anion Gap 20 (10-20) BUN 74 H (7-21) mg/dL Creatinine 9.4 H* D (0.8-1.5) mg/dl Est GFR ( Amer) 7 Est GFR (Non-Af Amer) 5 POC Glucose (mg/dL) (65-110) mg/dL Random Glucose 126 H (70-110) mg/dL Calcium 9.2 (8.4-10.5) mg/dL Phosphorus (2.5-4.5) mg/dL Magnesium (1.7-2.2) mg/dL Total Bilirubin 0.4 (0.2-1.3) mg/dL AST 15 L D (17-59) U/L ALT 24 (7-56) U/L Alkaline Phosphatase 87 (38-126) U/L Troponin I 0.03 ng/mL Total Protein 6.7 (5.8-8.3) g/dL Albumin 4.0 (3.0-4.8) g/dL Globulin 2.8 gm/dL Albumin/Globulin Ratio 1.4 (1.1-1.8) Lipase 171 (23-300) U/L Venous Blood Potassium (3.6-5.2) mmol/L Urine Color (YELLOW) Urine Appearance (CLEAR) Urine pH (4.7-8.0) Ur Specific [place] (1.005-1.035) Urine Protein (<30 mg/dL) mg/dL Urine Glucose (UA) (NEGATIVE) mg/dL Urine Ketones (NEGATIVE) mg/dL Urine Blood (NEGATIVE) Urine Nitrate (NEGATIVE) Urine Bilirubin (NEGATIVE) Urine Urobilinogen (<1 E.U./dL) E.U./dL Ur Leukocyte Esterase (NEGATIVE) Kirk/uL Urine RBC (0-2) /hpf Urine WBC (0-6) /hpf Ur Epithelial Cells (0-5) /hpf Amorphous Sediment (NONE) /hpf Urine Bacteria (NONE) /hpf Urine Other /hpf Blood Type Antibody Screen BBK History Checked Laboratory Results - last 24 hr 04/09/18 04/09/18 04/09/18 14:10 14:10 14:10 WBC 7.5 D RBC 3.66 Hgb 10.3 L Hct 32.0 L MCV 87.4 MCH 28.1 MCHC 32.2 RDW 15.9 H Plt Count 167 MPV 8.0 Gran % 80.0 H Lymph % (Auto) 10.4 L [place] % (Auto) 8.6 H Eos % (Auto) 0.9 L Baso % (Auto) 0.1 Gran # 5.97 Lymph # (Auto) 0.8 L [place] # (Auto) 0.6 Eos # (Auto) 0.1 Baso # (Auto) 0.01 PT 11.1 INR 0.97 APTT 28.8 pO2 VBG pH VBG pCO2 VBG HCO3 VBG Total CO2 VBG O2 Sat (Calc) VBG Base Excess VBG Potassium Glucose Lactate FiO2 Crit Value Called To Crit Value Called By Blood Gas Notified Time Sodium 136 Potassium 5.8 H* D Chloride 111 H Carbon Dioxide 11 L Anion Gap 20 BUN 74 H Creatinine 9.4 H* D Est GFR ( Amer) 7 Est GFR (Non-Af Amer) 5 POC Glucose (mg/dL) Random Glucose 126 H Calcium 9.2 Phosphorus Magnesium Total Bilirubin 0.4 AST 15 L D ALT 24 Alkaline Phosphatase 87 Troponin I 0.03 Total Protein 6.7 Albumin 4.0 Globulin 2.8 Albumin/Globulin Ratio 1.4 Lipase 171 Venous Blood Potassium Urine Color Urine Appearance Urine pH Ur Specific [place] Urine Protein Urine Glucose (UA) Urine Ketones Urine Blood Urine Nitrate Urine Bilirubin Urine Urobilinogen Ur Leukocyte Esterase Urine RBC Urine WBC Ur Epithelial Cells Amorphous Sediment Urine Bacteria Urine Other Blood Type Antibody Screen BBK History Checked 04/09/18 04/09/18 04/09/18 14:15 14:30 15:41 WBC RBC Hgb Hct MCV MCH MCHC RDW Plt Count MPV Gran % Lymph % (Auto) [place] % (Auto) Eos % (Auto) Baso % (Auto) Gran # Lymph # (Auto) [place] # (Auto) Eos # (Auto) Baso # (Auto) PT INR APTT pO2 227 H VBG pH 7.14 L* VBG pCO2 29.0 L VBG HCO3 9.9 L VBG Total CO2 10.8 L VBG O2 Sat (Calc) 98.4 H VBG Base Excess -17.8 L VBG Potassium 5.6 H Glucose 132 H Lactate 0.8 FiO2 21.0 Crit Value Called To Britt johnson Crit Value Called By Ab Blood Gas Notified Time 1428 Sodium 132.0 Potassium Chloride 110.0 H Carbon Dioxide Anion Gap BUN Creatinine Est GFR ( Amer) Est GFR (Non-Af Amer) POC Glucose (mg/dL) Random Glucose Calcium Phosphorus Magnesium Total Bilirubin AST ALT Alkaline Phosphatase Troponin I Total Protein Albumin Globulin Albumin/Globulin Ratio Lipase Venous Blood Potassium 5.6 H Urine Color Light yellow Urine Appearance Cloudy Urine pH 6.5 Ur Specific [place] 1.025 Urine Protein 100 H Urine Glucose (UA) Negative Urine Ketones Negative Urine Blood Large H Urine Nitrate Negative Urine Bilirubin Negative Urine Urobilinogen 0.2 Ur Leukocyte Esterase Trace H Urine RBC 25 - 30 H Urine WBC 10 - 15 H Ur Epithelial Cells 0 - 2 Amorphous Sediment Small Urine Bacteria Large Urine Other Uyeast Blood Type O POSITIVE Antibody Screen Negative BBK History Checked Patient has bt 04/09/18 04/09/18 04/10/18 19:40 23:50 06:30 WBC 6.6 RBC 3.35 L Hgb 9.3 L Hct 29.1 L MCV 86.9 MCH 27.8 MCHC 32.0 RDW 16.1 H Plt Count 162 MPV 8.4 Gran % 78.6 H Lymph % (Auto) 10.3 L [place] % (Auto) 10.6 H Eos % (Auto) 0.3 L Baso % (Auto) 0.2 Gran # 5.19 Lymph # (Auto) 0.7 L [place] # (Auto) 0.7 H Eos # (Auto) 0.0 Baso # (Auto) 0.01 PT INR APTT pO2 VBG pH VBG pCO2 VBG HCO3 VBG Total CO2 VBG O2 Sat (Calc) VBG Base Excess VBG Potassium Glucose Lactate FiO2 Crit Value Called To Crit Value Called By Blood Gas Notified Time Sodium 139 Potassium 5.3 H Chloride 113 H Carbon Dioxide 15 L Anion Gap 17 BUN 76 H Creatinine 8.8 H* Est GFR ( Amer) 7 Est GFR (Non-Af Amer) 6 POC Glucose (mg/dL) Random Glucose 80 Calcium 9.2 Phosphorus Magnesium Total Bilirubin 0.3 AST 25 ALT 21 Alkaline Phosphatase 78 Troponin I 0.03 Total Protein 6.1 Albumin 3.6 Globulin 2.5 Albumin/Globulin Ratio 1.5 Lipase Venous Blood Potassium Urine Color Urine Appearance Urine pH Ur Specific [place] Urine Protein Urine Glucose (UA) Urine Ketones Urine Blood Urine Nitrate Urine Bilirubin Urine Urobilinogen Ur Leukocyte Esterase Urine RBC Urine WBC Ur Epithelial Cells Amorphous Sediment Urine Bacteria Urine Other Blood Type Antibody Screen BBK History Checked 04/10/18 04/10/18 04/10/18 06:30 06:30 07:36 WBC RBC Hgb Hct MCV MCH MCHC RDW Plt Count MPV Gran % Lymph % (Auto) [place] % (Auto) Eos % (Auto) Baso % (Auto) Gran # Lymph # (Auto) [place] # (Auto) Eos # (Auto) Baso # (Auto) PT 11.3 INR 0.98 APTT 29.5 pO2 VBG pH VBG pCO2 VBG HCO3 VBG Total CO2 VBG O2 Sat (Calc) VBG Base Excess VBG Potassium Glucose Lactate FiO2 Crit Value Called To Crit Value Called By Blood Gas Notified Time Sodium 138 Potassium 5.6 H* Chloride 113 H Carbon Dioxide 14 L Anion Gap 17 BUN 76 H Creatinine 9.0 H* Est GFR ( Amer) 7 Est GFR (Non-Af Amer) 6 POC Glucose (mg/dL) 82 Random Glucose 87 Calcium 8.6 Phosphorus 7.0 H Magnesium 2.0 Total Bilirubin 0.3 AST 15 L D ALT 24 Alkaline Phosphatase 76 Troponin I Total Protein 5.7 L Albumin 3.3 Globulin 2.4 Albumin/Globulin Ratio 1.4 Lipase Venous Blood Potassium Urine Color Urine Appearance Urine pH Ur Specific [place] Urine Protein Urine Glucose (UA) Urine Ketones Urine Blood Urine Nitrate Urine Bilirubin Urine Urobilinogen Ur Leukocyte Esterase Urine RBC Urine WBC Ur Epithelial Cells Amorphous Sediment Urine Bacteria Urine Other Blood Type Antibody Screen BBK History Checked Radiology Impressions: Radiology Impressions Chest X-Ray 04/09/18 14:10 IMPRESSION: Mild cardiomegaly and moderate vascular congestion Abdomen/Pelvis CT 04/09/18 14:26 IMPRESSION: 1. large left inguinal scrotal hernia containing normal caliber small bowel loops and colon. No evidence for obstruction or incarceration. 2. Additional stable benign findings as described above. EKG/Cardiology Studies: Cardiology / EKG Studies 04/09/18 14:10 EKG [ELECTROCARDIOGRAM] Stat Comment: Reason For Exam: chest pain 04/09/18 16:57 EKG [ELECTROCARDIOGRAM] Stat Comment: Reason For Exam: urinary retention Critical Care Progress Note - Nutrition Nutrition: Nutrition Category Date Time Status Heart Healthy Diet [DIET] Diets 04/09/18 Dinner Active Assessment/Plan - Assessment and Plan (Free Text) Plan: Patient seen and examined on rounds with resident, agree with note with following additions/exceptions: Patient is 77yo male with PMhx of COPD (on 3L NC at home), Pulmonary HTN, CKD stage IV, hx bladder CA, CAD, anterior wall NJ, CHF, and HTN, Ilium conduit, who presented [place] [facility] [place] for complaints of fatigue, nausea, vomiting and limited urine output for the past 2 days. Pt found to be in worsening renal failure, with metabolic acidosis, hyperkalemia Labs, imaging, chart reviewed Patient currently afebrile, BP stable, with nausea Renal consultedm possible HD today, needs permacath by IR LYNN CKD, end stage Pulmonary HTN COPD Metabolic Acidosis CHF, EF 25% Recommend: - supp o2 as needed, goal sat 90%, duonebs PRN, pulm follow up - panculture, UCx, BCx, Procal - Hold BP meds - IVF, 1/2NS with 75meq NaBicarb - HD as per renal - GI ppx - DVT ppx - Monitor in MICU
--- NOTE | 2018-04-10 09:36 | CARD ---
APPROVED REPORT Date of service: 04/09/2018 EKG Measurement Heart [id number] <Conclusion> Normal sinus rhythm Right bundle branch block Anteroseptal infarct, age undetermined
--- NOTE | 2018-04-10 09:36 | CARD ---
APPROVED REPORT Date of service: 04/09/2018 EKG Measurement Heart [id number] <Conclusion> Sinus tachycardia Right bundle branch block Anteroseptal infarct, age undetermined Abnormal ECG
[2018-04-10] MEDS: cefTRIAXone 1 gm 1 GM/100 ML BAG IVPB SCH (10:19)
--- NOTE | 2018-04-10 11:16 | PN ---
SUBJECTIVE: The patient was seen and examined at bedside in the ICU. No acute events overnight. He remains afebrile and hypotensive, albeit stable. This morning he feels okay and reports mild increased urine output and overall offers no complaints. OBJECTIVE: VITAL SIGNS: Temperature 98.3, pulse 116, blood pressure 76/35, respiratory rate 20, oxygen saturation 94% on 2L NC. GENERAL: Frail, nontoxic, elderly man, lying in bed in no apparent distress. HEENT: PERRL, EOMI. No scleral icterus. Mild conjunctival pallor is noted. NECK: No JVD. LUNGS: Decreased breath sounds at the bases with minimal scattered rhonchi. CARDIOVASCULAR: Tachycardic. Normal S1 and S2. Grade II/ RAGHU to LLSB. ABDOMEN: Normoactive bowel sounds, soft, nontender, nondistended. Persistent left inguinal hernia. EXTREMITIES: Trace pedal edema bilaterally. NEUROLOGIC: Awake, alert and oriented x 3. No focal motor deficits. LABORATORY DATA: WBC 6.6 with 78% neutrophils, hemoglobin 9, hematocrit 29, platelets 162. Sodium 138, potassium 5.6, chloride 113, bicarb 14, BUN 76, creatinine 9, glucose 87. ASSESSMENT: The patient is a 77-year-old man with multiple medical comorbidities including CKD stage IV and remote history of bladder cancer s/p cystectomy s/p ileal conduit who presented with a 2 day history of decreased urinary output, nausea and lower abdominal pain and was admitted for management of LYNN on CKD stage IV, metabolic acidosis and hyperkalemia. PLAN: 1. LYNN on CKD stage IV (baseline Cr 2-3). Consider etiology secondary to medication-induced vs ATN in the setting of severe hypotension. Input from Dr. Bonner greatly appreciated. Continue with gentle IV fluid hydration, monitor strict I&O's, renally dose medications and avoid nephrotoxins. 2. Remote history of bladder cancer s/p cystectomy s/p ileal conduit. As per Dr. Figueredo of Urology there is no indication for acute urological intervention. 3. Hyperkalemia. He received standard treatment in the ED. Continue with IV fluid hydration and telemetry monitoring. 4. Metabolic acidosis. Input from Dr. Bonner appreciated. Continue with sodium bicarbonate infusion. 5. 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 Lisinopril, Aldactone and Lasix remain on hold in the setting of LYNN on CKD. Coreg also remains on hold in the setting of hypotension. Evaluation with Dr. Tejeda pending. The patient is off inotropic support pending cardiac evaluation. 6. COPD. Input from Dr. [place] greatly appreciated. Continue supplemental oxygen and bronchodilators as needed. 7. CAD s/p STEMI s/p PCI with stent placement. Continue Aspirin 81 mg p.o. daily, Plavix 75 mg p.o. daily and Lipitor 40 mg p.o. daily. 8. Anemia of chronic disease. Hb stable. 9. Insomnia. 10. Chronic left inguinal hernia. CT reviewed and no evidence of incarceration or obstruction. 11. Prophylaxis. GI prophylaxis not indicated as the patient is eating. Continue with Heparin for DVT prophylaxis. CODE STATUS: Full code. Matt Hartley MD MTDToya
[2018-04-10] MEDS ORDERED: Dextrose 50% SYRINGE Inj (50 ml) IV PRN (14:30)
[2018-04-10] MEDS ORDERED: Insulin Regular 1 UNITS/0.01 ML ML SC ONE (14:30)
[2018-04-10] MEDS ORDERED: Dextrose 50% SYRINGE Inj (50 ml) IVP ONE ×2 (14:30→16:43)
[2018-04-10] MEDS ORDERED: Albuterol-Ipratrop 3 mg / 0.5 (3 ml) UD IH ONE (14:30)
[2018-04-10] MEDS ORDERED: Albuterol 0.083% Inhal Sol (2.5 mg/3 mL) UD INH ONE (15:34)
[2018-04-10] MEDS ORDERED: Albuterol 0.083% Inhal Sol (2.5 mg/3 mL) UD ONE (15:35)
--- NOTE | 2018-04-10 15:57 | CP.PCM.APN ---
Subjective - Date & Time of Evaluation Date of Evaluation: 04/10/18 Time of Evaluation: 12:15 - Subjective Subjective: pt seen at bedside - states he feels much better, less abd pain . eating lunch with family at bedside, pedro luis urine noted in urostomy Review of Systems - EENT Eyes: As Per HPI Objective - Vital Signs/Intake and Output Vital Signs (last 24 hours): Temp Pulse Resp BP Pulse Ox 98.9 F 116 H 17 81/51 L 97 04/10/18 12:00 04/10/18 12:50 04/10/18 12:50 04/10/18 10:16 04/10/18 12:50 Intake and Output: 04/10/18 04/10/18 06:59 18:59 Intake Total 1500 Output Total 250 Balance 1250 - Medications Medications: Current Medications Acetaminophen (Tylenol 325mg Tab) 650 mg PO Q6H PRN PRN Reason: Fever >100.4 F Albuterol/Ipratropium (Duoneb 3 Mg/0.5 Mg (3 Ml) Ud) 3 ml IH [id number] PRN PRN Reason: Shortness of Breath Arformoterol Tartrate (Brovana) 15 mcg IH [id number] [facility] Last Admin: 04/10/18 08:11 Dose: 15 mcg Aspirin (Aspirin Chewable) 81 mg PO DAILY [facility] Last Admin: 04/10/18 10:19 Dose: 81 mg Atorvastatin Calcium (Lipitor) 40 mg PO DAILY [facility] Budesonide (Pulmicort Respules) 0.5 mg IH [id number] [facility] Last Admin: 04/10/18 08:11 Dose: 0.5 mg Dextrose (Dextrose 50% Inj) 0 ml IV STAT PRN; Protocol PRN Reason: Hypoglycemia Protocol Famotidine (Pepcid) 20 mg PO DAILY [facility] Last Admin: 04/10/18 10:19 Dose: 20 mg Heparin Sodium (Porcine) (Heparin) 5,000 units SC Q8 CECILY; Protocol Last Admin: 04/10/18 14:25 Dose: 5,000 units Sodium Bicarbonate 75 meq/ (Sodium Chloride) 1,075 mls @ 50 mls/hr IV [id number] [facility] Last Admin: 04/10/18 15:41 Dose: 50 mls/hr Ceftriaxone Sodium (Rocephin 1 Gram Ivpb) 1 gm in 100 mls @ 100 mls/hr IVPB DAILY CECILY; Protocol Last Admin: 04/10/18 10:19 Dose: 100 mls/hr Dextrose (Dextrose 5% In Water 1000 Ml) 1,000 mls @ 0 mls/hr IV .Q0M PRN; Protocol PRN Reason: Hypoglycemia Protocol Ondansetron HCl (Zofran Inj) 4 mg IVP Q6H PRN PRN Reason: Nausea/Vomiting Last Admin: 04/09/18 18:25 Dose: 4 mg - Labs Labs: 04/10/18 06:30 04/10/18 06:30 PT 11.3 SECONDS (9.4-12.5) 04/10/18 06:30 INR 0.98 04/10/18 06:30 APTT 29.5 Seconds (25.1-36.5) 04/10/18 06:30 - Constitutional Appears: No Acute Distress - Respiratory Exam Respiratory Exam: Decreased Breath Sounds - Cardiovascular Exam Cardiovascular Exam: Tachycardia, +S1, +S2, Murmur - Exam External exam: NORMAL EXTERNAL EXAM - Neurological Exam Neurological Exam: Alert, Awake - Skin Skin Exam: Dry, Intact Assessment and Plan - Assessment and Plan (Free Text) Plan: ITS Impressions Chest X-Ray 04/09/18 14:10 IMPRESSION: Mild cardiomegaly and moderate vascular congestion Abdomen/Pelvis CT 04/09/18 14:26 IMPRESSION: 1. large left inguinal scrotal hernia containing normal caliber small bowel loops and colon. No evidence for obstruction or incarceration. 2. Additional stable benign findings as described above. 77 yr old pmh sig for copd, cad s/p stenting, htn, bladder CA with ileal conduit, ICM on home Milrinone who presented to ED with c/o of urinary retention x 2 days found with LYNN on CKD, hyperkalemia and metabolic acidosis ph of 7.14 with severe electrolyte abnormalities with profound hypotension. pt is admitted to the ICU for further mgmt with renal and pulmonary consultation on board. #LYNN on CKD nephrology eval and consultation eliminate nephrotoxic agents Urine studies IVF monitor UO # metabolic acidosis Sodium Bicarb infusion Renal rec's noted #Ischemic dilated CM # hyperkalemia s/p kayexalate #copd pul consultation Brovana regimen # large hernia will continue to follow. Naila Coronado APN BPCI/TIC - BPCIA/TIC Educated pt/family on BPCIA/CIR/Med to Bed Programs: Yes Flyers given, including CMS Beneficiary letter: Yes Pt/family verbalized understanding & agreed to program: Yes
--- NOTE | 2018-04-10 17:16 | CON ---
DATE: 04/10/2018 REQUESTING PHYSICIAN: Dr. Hartley. REASON FOR CONSULTATION: Hypotension, known coronary artery disease, progressive renal failure. HISTORY: This is a 77-year-old man, well known to me with a history of advanced coronary artery disease, severe LV dysfunction and severe COPD, who has been maintained on home milrinone therapy. He also has a history of chronic renal insufficiency. He presented to the emergency room yesterday with decreased urine output. He has also had nausea and fatigue. His general baseline condition is poor. His recent outpatient blood work revealed a rise in his creatinine from baseline of 3 up to 6 on admission, his creatinine is 99. He is seen in the ICU, and he is feeling somewhat better, but remains hypotensive. PAST MEDICAL HISTORY: His past history is notable for the problems mentioned above. He has ischemic cardiomyopathy and suffered a large anterior myocardial fraction in the past. He has undergone multivessel PCI. He also has severe COPD and is on home oxygen dependent. He has a history of chronic renal insufficiency, hypertension, and a large left inguinal hernia. He had bladder cancer in the past, for which he underwent cystectomy and ileal conduit placement. MEDICATIONS: His medications at home included carvedilol, lisinopril, spironolactone, aspirin, Plavix, Lipitor, Lasix, Ventolin, Symbicort, and milrinone infusion. SOCIAL HISTORY: He is a former smoker of many packs for many years. He denies alcohol abuse. FAMILY HISTORY: Both parents from uncertain cause. ALLERGIES: NONE. REVIEW OF SYSTEMS: Ten-point review of systems is notable mainly for the problems mentioned above. PHYSICAL EXAMINATION: GENERAL: He is a chronically ill-appearing elderly man. VITAL SIGNS: His current blood pressure is 74/40 with a pulse of 116 and sinus, respirations are 16. He is afebrile. HEENT: Normocephalic, atraumatic. NECK: No JVD. CHEST: Bilateral coarse rhonchi. HEART: PMI displaced laterally with soft tones noted. ABDOMEN: Soft, nontender with normoactive bowel sounds and ileal conduit which shows no significant output. EXTREMITIES: No edema. SKIN: Warm and dry. PSYCHIATRIC: Moderate anxiety, but otherwise unchanged affect. NEUROLOGICAL: Alert and oriented x3. No gross motor or sensory deficits appreciable. DIAGNOSTIC DATA: Potassium 5.6. BUN and creatinine are 76 and 9, bicarbonate is 14. White count 6.6, hemoglobin and hematocrit are 9.3 and 29.1 with a platelet count of 162,000. Arterial blood gas showed a pH of 7.14, pCO2 of 24 and a pO2 of 227. Troponin is negative x2. Electrocardiogram reveals sinus rhythm with a right bundle-branch block and a prior anteroseptal myocardial fraction pattern. Chest x-ray reveals increased cardiac silhouette with moderate bilateral congestive changes. An infusion port is noted in the right clavicular region. IMPRESSION: 1. Acute on chronic renal failure with hyperkalemia and acidosis, appears to need urgent dialysis at this time. 2. Profound hypotension, multifactorial in the setting of a severe ischemic cardiomyopathy. 3. Known coronary disease, status post remote myocardial fraction and percutaneous coronary intervention. 4. Severe chronic obstructive pulmonary disease. 5. Home milrinone dependency. RECOMMENDATIONS: Milrinone will be withheld at this time to avoid excessive worsening of his hypotension. IV pressor therapy with norepinephrine and/or vasopressin would be appropriate at this time in order to allow for dialysis to be initiated. Bronchodilator therapy should continue at this time. Beta-nicanor therapy will be held to avoid excessive hypotension. A bicarbonate infusion is currently ongoing. His overall prognosis is extremely poor. DNR/DNI status should be clarified, although he has expressed a wish to not have a defibrillator placed in the past when this was discussed with him. His Plavix can be withheld at this time as his stent is in place for more than a year. Thank you for this consultation. We will be happy to follow along and make further recommendations as appropriate. Dwight Tejeda MD
[2018-04-10] MEDS: Albuterol-Ipratrop 3 mg / 0.5 (3 ml) UD IH PRN ×2 (17:45→20:58)
--- NOTE | 2018-04-10 19:21 | CP.PCM.CON ---
History of Present Illness - History of Present Illness History of Present Illness: Surgery Consult note- Dr. Arndt Reason for consult- Left Inguinal Hernia 77M pmhx significant for COPD on O2 at home, CKD, Pulmn HTN, Bladder Ca s/p cystectmy and left lower abdomen conduit placement approx 25 years ago, CAD w/ cardiac stents, CHF, HTN, on Milrinone ggt at home, initially presened to [facility] w/ decreased urine output and found to have potassium 5.9. Patient was admitted t the ICU for hypotension, acute on chronic renal failure, uremia, systolic CHF. Surgery was consulted for Left inguinal hernia. Patient and daughter at bedside and able to obtain a complete H&P. Patient states he has had the hernia for > 2.5 years. He is passing flatus and having regular bowel movements. Patient said he had addressed the hernia w/ his PMD and frickertron checker, and said it is not safe to operate on if he continues to remain asymptomatic. Patient admits that as he ambulates at home he states an increased heaviness in his testicles. He has never tried to reduce it at home and has never seen a surgeon for it. At bedside attempted to reduce hernia which was partially reducible. patient states his pain as improved and no longer feels the pulling sensation in his scrotum At this time again he states he does not want surgery. PMH: COPD (on 3L NC at home), Pulmonary HTN, CKD stage IV, hx bladder CA, CAD, anterior wall SD, CHF, and HTN, on milrinone ggt Surg: Port-a-cath placement, cardiac catherization, cystectomy 25 years ago All: NKDA SH: Former 2-3 PPD for 40 years (quit 3 yrs ago), social EtOH use, denied illi cit drug use FHx: Non-contributory Review of Systems - Review of Systems All systems: reviewed and no additional remarkable complaints except - Constitutional Constitutional: As Per HPI Past Patient History - Infectious Disease Hx of Infectious Diseases: None - Past Medical History & Family History Past Medical History?: Yes - Past Social History Smoking Status: Former Smoker - CARDIAC Hx Cardiac Disorders: Yes (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, CAD, s/p STEMI) - PULMONARY Hx Chronic Obstructive Pulmonary Disease (COPD): Yes (severe) - NEUROLOGICAL Hx Neurological Disorder: No - HEENT Hx HEENT Problems: Yes Other/Comment: hearing problem - RENAL Hx Renal Failure: Yes (CKD IV) - ENDOCRINE/METABOLIC Hx Endocrine Disorders: No - HEMATOLOGICAL/ONCOLOGICAL Hx Blood Transfusions: Yes - INTEGUMENTARY Hx Dermatological Problems: No - MUSCULOSKELETAL/RHEUMATOLOGICAL Hx Musculoskeletal Disorders: Yes - GASTROINTESTINAL Hx Gastrointestinal Disorders: Yes Other/Comment: hernia- inguinal - GENITOURINARY/GYNECOLOGICAL Hx Genitourinary Disorders: Yes Hx Bladder Cancer: Yes Other/Comment: urostomy - PSYCHIATRIC Hx Psychophysiologic Disorder: Yes Hx Depression: Yes Hx Substance Use: No - SURGICAL HISTORY Hx Cholecystectomy: Yes Hx Coronary Stent: Yes (ptca 11/2014) - ANESTHESIA Hx Anesthesia: Yes Hx Anesthesia Reactions: No Hx Malignant Hyperthermia: No Meds Allergies/Adverse Reactions: Allergies Allergy/AdvReac Type Severity Reaction Status Date / Time No Known Allergies Allergy Verified 04/09/18 18:51 - Medications Medications: Current Medications Acetaminophen (Tylenol 325mg Tab) 650 mg PO Q6H PRN PRN Reason: Fever >100.4 F Albuterol/Ipratropium (Duoneb 3 Mg/0.5 Mg (3 Ml) Ud) 3 ml IH [id number] PRN PRN Reason: Shortness of Breath Last Admin: 04/10/18 17:45 Dose: 3 ml Arformoterol Tartrate (Brovana) 15 mcg IH [id number] [facility] Last Admin: 04/10/18 08:11 Dose: 15 mcg Aspirin (Aspirin Chewable) 81 mg PO DAILY [facility] Last Admin: 04/10/18 10:19 Dose: 81 mg Atorvastatin Calcium (Lipitor) 40 mg PO DAILY [facility] Last Admin: 04/10/18 17:12 Dose: 40 mg Budesonide (Pulmicort Respules) 0.5 mg IH [id number] [facility] Last Admin: 04/10/18 08:11 Dose: 0.5 mg Dextrose (Dextrose 50% Inj) 0 ml IV STAT PRN; Protocol PRN Reason: Hypoglycemia Protocol Last Admin: 04/10/18 17:07 Dose: 50 ml Famotidine (Pepcid) 20 mg PO DAILY [facility] Last Admin: 04/10/18 10:19 Dose: 20 mg Heparin Sodium (Porcine) (Heparin) 5,000 units SC Q8 [facility]; Protocol Last Admin: 04/10/18 14:25 Dose: 5,000 units Ceftriaxone Sodium (Rocephin 1 Gram Ivpb) 1 gm in 100 mls @ 100 mls/hr IVPB DAILY [facility]; Protocol Last Admin: 04/10/18 10:19 Dose: 100 mls/hr Dextrose (Dextrose 5% In Water 1000 Ml) 1,000 mls @ 0 mls/hr IV .Q0M PRN; Protocol PRN Reason: Hypoglycemia Protocol Methylprednisolone (Solu-Medrol) 40 mg IVP Q12 [facility] Ondansetron HCl (Zofran Inj) 4 mg IVP Q6H PRN PRN Reason: Nausea/Vomiting Last Admin: 04/09/18 18:25 Dose: 4 mg Physical Exam - Constitutional Appears: Non-toxic, No Acute Distress, Chronically Ill - Head Exam Head Exam: ATRAUMATIC - Eye Exam Eye Exam: EOMI. absent: Scleral icterus - ENT Exam ENT Exam: Mucous Membranes Moist - Respiratory Exam Respiratory Exam: Accessory Muscle Use, Respiratory Distress, NORMAL BREATHING P ATTERN - Cardiovascular Exam Cardiovascular Exam: Tachycardia, REGULAR RHYTHM, +S1, +S2. absent: Bradycardia - GI/Abdominal Exam GI & Abdominal Exam: Soft. absent: Distended, Firm, Guarding, Hernia, Rigid, Tenderness Additional comments: bladder conduit w/ urine in pouch Left inguinal hernia that was partially reduced no color or skin changes around sacrum - Extremities Exam Extremities exam: Negative for: calf tenderness - Psychiatric Exam Psychiatric exam: Normal Affect - Skin Skin Exam: Intact, Warm Results - Vital Signs Recent Vital Signs: Last Vital Signs Temp 98.1 F 04/10/18 18:00 Pulse 83 04/10/18 18:50 Resp 22 04/10/18 18:50 BP 90/49 L 04/10/18 18:00 Pulse Ox 94 L 04/10/18 18:50 - Labs Result Diagrams: 04/10/18 06:30 04/10/18 06:30 Labs: Laboratory Results - last 24 hr 04/09/18 04/09/18 04/09/18 19:40 23:50 23:50 WBC RBC Hgb Hct MCV MCH MCHC RDW Plt Count MPV Gran % Lymph % (Auto) Taylor % (Auto) Eos % (Auto) Baso % (Auto) Gran # Lymph # (Auto) Taylor # (Auto) Eos # (Auto) Baso # (Auto) PT INR APTT Sodium 139 Potassium 5.3 H Chloride 113 H Carbon Dioxide 15 L Anion Gap 17 BUN 76 H Creatinine 8.8 H* Est GFR ( Amer) 7 Est GFR (Non-Af Amer) 6 POC Glucose (mg/dL) Random Glucose 80 Calcium 9.2 Phosphorus Magnesium Total Bilirubin 0.3 AST 25 ALT 21 Alkaline Phosphatase 78 Troponin I 0.03 Total Protein 6.1 Albumin 3.6 Globulin 2.5 Albumin/Globulin Ratio 1.5 Procalcitonin 0.14 L 04/10/18 04/10/18 04/10/18 06:30 06:30 06:30 WBC 6.6 RBC 3.35 L Hgb 9.3 L Hct 29.1 L MCV 86.9 MCH 27.8 MCHC 32.0 RDW 16.1 H Plt Count 162 MPV 8.4 Gran % 78.6 H Lymph % (Auto) 10.3 L Taylor % (Auto) 10.6 H Eos % (Auto) 0.3 L Baso % (Auto) 0.2 Gran # 5.19 Lymph # (Auto) 0.7 L Taylor # (Auto) 0.7 H Eos # (Auto) 0.0 Baso # (Auto) 0.01 PT 11.3 INR 0.98 APTT 29.5 Sodium 138 Potassium 5.6 H* Chloride 113 H Carbon Dioxide 14 L Anion Gap 17 BUN 76 H Creatinine 9.0 H* Est GFR ( Amer) 7 Est GFR (Non-Af Amer) 6 POC Glucose (mg/dL) Random Glucose 87 Calcium 8.6 Phosphorus 7.0 H Magnesium 2.0 Total Bilirubin 0.3 AST 15 L D ALT 24 Alkaline Phosphatase 76 Troponin I Total Protein 5.7 L Albumin 3.3 Globulin 2.4 Albumin/Globulin Ratio 1.4 Procalcitonin 04/10/18 04/10/18 04/10/18 07:36 15:25 15:53 WBC RBC Hgb Hct MCV MCH MCHC RDW Plt Count MPV Gran % Lymph % (Auto) Taylor % (Auto) Eos % (Auto) Baso % (Auto) Gran # Lymph # (Auto) Taylor # (Auto) Eos # (Auto) Baso # (Auto) PT INR APTT Sodium Potassium Chloride Carbon Dioxide Anion Gap BUN Creatinine Est GFR ( Amer) Est GFR (Non-Af Amer) POC Glucose (mg/dL) 82 116 H 154 H Random Glucose Calcium Phosphorus Magnesium Total Bilirubin AST ALT Alkaline Phosphatase Troponin I Total Protein Albumin Globulin Albumin/Globulin Ratio Procalcitonin 04/10/18 04/10/18 04/10/18 16:35 17:00 18:02 WBC RBC Hgb Hct MCV MCH MCHC RDW Plt Count MPV Gran % Lymph % (Auto) Taylor % (Auto) Eos % (Auto) Baso % (Auto) Gran # Lymph # (Auto) Taylor # (Auto) Eos # (Auto) Baso # (Auto) PT INR APTT Sodium Potassium Chloride Carbon Dioxide Anion Gap BUN Creatinine Est GFR ( Amer) Est GFR (Non-Af Amer) POC Glucose (mg/dL) 67 63 L 141 H Random Glucose Calcium Phosphorus Magnesium Total Bilirubin AST ALT Alkaline Phosphatase Troponin I Total Protein Albumin Globulin Albumin/Globulin Ratio Procalcitonin Assessment & Plan - Assessment and Plan (Free Text) Assessment: 77M admitted to ICU for hypotension, acute on chronic renal failure, acute electrolyte disturbance, uremia, systolic CHF; w/ known left inguinal hernia present for over 2 years, no clinical signs of obstrction, partially reducible at bedside Plan: - Recommend scrotal support - agree with cardio team- patient is high risk for surgery - patient has emphasized that he does not want surgery at this time - serial abdominal exams - will follow closely; if patient becomes symptomatic from hernia, may require intervention - continued management per Critical care and primary team - further recs per Dr. Yris Duran PGY2
[2018-04-10] MEDS: MethylPREDNISolone 40 mg Vial IVP SCH (21:17)
[2018-04-10] MEDS ORDERED: NOREPINEPHRINE BIT/0.9 % NACL 4 MG/250 ML BAG IV PRN (21:34)
--- NOTE | 2018-04-10 22:10 | PN ---
DATE: 04/10/2018 SUBJECTIVE: The patient is seen lying in bed in the ICU. He is awake, he is alert. He complains of shortness of breath. He complains of increased dyspnea with minimal exertion. He also reports that his urine was very dark at home. He reports that urine was almost black?. He also reports that for a couple of days prior to presentation, he was choking and throwing up black stuff ? PHYSICAL EXAMINATION: GENERAL: Elderly male lying in bed in the ICU. VITAL SIGNS: Blood pressure 90/49, heart rate 122, respiratory rate 18 to 24, temperature 98.1. HEENT: Normocephalic, atraumatic, positive pallor. NECK: Supple. No JVD. CARDIAC: S1 and S2, irregularly irregular, no murmur, no rub. LUNGS: Bilateral equal entry, bilateral equal expansion, minimal rhonchi. ABDOMEN: Distended, soft, positive ileostomy with urine bag, bowel sounds present. EXTREMITIES: No lower extremity edema. INTAKE AND OUTPUT: 500/250. LABORATORY DATA: WBC 6.6, hemoglobin 9.3, hematocrit 29, platelets 162. Sodium 138, potassium 5.6, chloride 113, CO2 14, BUN 76, creatinine 9.0, anion gap is 11, glucose 87, calcium 8.6, phosphorus 7.0, magnesium 2.0, AST 15, ALT 24, albumin 3.3. Urinalysis, light yellow cloudy, pH 6.5, specific gravity 1.025 protein 100, blood large, leukocyte esterase trace, rbc's 25 to 30, wbc's [address] of the abdomen and pelvis, in both kidneys, 2.6 cm hyperdense nodule in the lower pole of the right kidney and 10 mm high attenuation lesion in the upper pole of the left kidney, large left inguinal scrotal hernia. CURRENT MEDICATIONS: Aspirin, Brovana, D5W, Lipitor 40, Pepcid 20, ceftriaxone 1 g daily, Solu-Medrol 40 every 12, Tylenol p.r.n. Zofran. ASSESSMENT: 1. 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 2. Hyperkalemia. 3. Hyperchloremic metabolic acidosis. 4. Severe dilated cardiomyopathy, decreased ejection fraction, global hypokinesis, aortic stenosis, mitral regurgitation, 5. History of coronary artery disease/percutaneous transluminal coronary angioplasty and stent. 6. Chronic obstructive pulmonary disease and pulmonary hypertension. 7. Anemia of chronic kidney disease. 8. ? Acute kidney injury. 9. ? Gastrointestinal blood loss ?. PLAN: 1. Treat hyperkalemia with albuterol, D50, insulin, calcium gluconate. 2. Place PermCath for dialysis. 3. We will likely need chronic dialysis. 4. Check stool occults to rule out any gastrointestinal blood loss. 5. Monitor H and H. 6. Check iron stores. 7. Check PTH. 8. Start phosphate binders. 9. Case discussed at length with ICU resident, case discussed with dialysis nurse and staff, case discussed with Dr. Wayne Mathews. More than 35 minutes spent in the care of this critically ill patient. Myranda Ivey MD
[2018-04-11] MEDS ORDERED: Morphine 2 mg/ml ISec IVP ONE (02:09)
--- NOTE | 2018-04-11 06:44 | CP.PCM.PN ---
Subjective - Date & Time of Evaluation Date of Evaluation: 04/11/18 Time of Evaluation: 06:41 - Subjective Subjective: Patient was seen for hypotension. Patient has no chest pain,sob, nausea, sweating, palpitation. Medical record was reviewed. This 77 year old male was admitted with decreased urinary output from ileal conduit. Has PMH of Ischemic dilated cardiomyopathy on Milrinone,CAD,S/P STEMI,S/P stent, anemia, CKD, COPD , HTN. Objective - Vital Signs/Intake and Output Vital Signs (last 24 hours): Temp Pulse Resp BP Pulse Ox 98.1 F 83 22 90/49 L 94 L 04/10/18 18:00 04/10/18 22:00 04/10/18 18:50 04/10/18 18:00 04/10/18 18:50 Intake and Output: 04/10/18 04/11/18 18:59 06:59 Intake Total 1250 Output Total 850 Balance 400 - Medications Medications: Current Medications Acetaminophen (Tylenol 325mg Tab) 650 mg PO Q6H PRN PRN Reason: Fever >100.4 F Albuterol/Ipratropium (Duoneb 3 Mg/0.5 Mg (3 Ml) Ud) 3 ml IH [id number] PRN PRN Reason: Shortness of Breath Last Admin: 04/10/18 20:58 Dose: 3 ml Arformoterol Tartrate (Brovana) 15 mcg IH [id number] [facility] Last Admin: 04/10/18 20:58 Dose: 15 mcg Aspirin (Aspirin Chewable) 81 mg PO DAILY [facility] Last Admin: 04/10/18 10:19 Dose: 81 mg Atorvastatin Calcium (Lipitor) 40 mg PO DAILY [facility] Last Admin: 04/10/18 17:12 Dose: 40 mg Budesonide (Pulmicort Respules) 0.5 mg IH [id number] [facility] Last Admin: 04/10/18 20:58 Dose: 0.5 mg Calcium Acetate (Phoslo) 667 mg PO WM [facility] Dextrose (Dextrose 50% Inj) 0 ml IV STAT PRN; Protocol PRN Reason: Hypoglycemia Protocol Last Admin: 04/10/18 17:07 Dose: 50 ml Famotidine (Pepcid) 20 mg PO DAILY [facility] Last Admin: 04/10/18 10:19 Dose: 20 mg Heparin Sodium (Porcine) (Heparin) 5,000 units SC Q8 [facility]; Protocol Last Admin: 04/11/18 06:36 Dose: Not Given Ceftriaxone Sodium (Rocephin 1 Gram Ivpb) 1 gm in 100 mls @ 100 mls/hr IVPB DAILY [facility]; Protocol Last Admin: 04/10/18 10:19 Dose: 100 mls/hr Dextrose (Dextrose 5% In Water 1000 Ml) 1,000 mls @ 0 mls/hr IV .Q0M PRN; Wanda col PRN Reason: Hypoglycemia Protocol NOREPINEPHRINE BIT/0.9 % NACL (Levophed 4 Mg/ 250 Ml Ns Premixed) 4 mg in 250 mls @ 15 mls/hr IV .[id number] PRN; Protocol PRN Reason: TITRATE PER MD ORDER Last Admin: 04/10/18 22:08 Dose: 4 mcg/min, 15 mls/hr Methylprednisolone (Solu-Medrol) 40 mg IVP Q12 [facility] Last Admin: 04/10/18 21:17 Dose: 40 mg Ondansetron HCl (Zofran Inj) 4 mg IVP Q6H PRN PRN Reason: Nausea/Vomiting Last Admin: 04/09/18 18:25 Dose: 4 mg - Labs Labs: 04/10/18 06:30 04/10/18 06:30 PT 11.3 SECONDS (9.4-12.5) 04/10/18 06:30 INR 0.98 04/10/18 06:30 APTT 29.5 Seconds (25.1-36.5) 04/10/18 06:30 - Constitutional Appears: Well, No Acute Distress - Head Exam Head Exam: ATRAUMATIC, NORMAL INSPECTION, NORMOCEPHALIC - Eye Exam Eye Exam: Normal appearance - ENT Exam ENT Exam: Normal Exam, Normal External Ear Exam - Neck Exam Neck Exam: Normal Inspection - Respiratory Exam Respiratory Exam: Clear to Ausculation Bilateral, NORMAL BREATHING PATTERN - Cardiovascular Exam Cardiovascular Exam: REGULAR RHYTHM. absent: JVD - GI/Abdominal Exam GI & Abdominal Exam: absent: Distended - Rectal Exam Rectal Exam: Deferred - Exam Additional comments: Deferred. - Extremities Exam Extremities Exam: Normal Inspection - Back Exam Back Exam: NORMAL INSPECTION - Neurological Exam Neurological Exam: Alert, Awake, Oriented x3 - Psychiatric Exam Psychiatric exam: Normal Affect, Normal Mood - Skin Skin Exam: Normal Color Assessment and Plan - Assessment and Plan (Free Text) Assessment: Hypotension. CMP. HTN. CAD. Anemia. CKD. Plan: Hold Milrinone. Levophed as ordered. Continue present management.
[2018-04-11 06:54] LABS: IRON 63 ug/dL (45-180)
[2018-04-11 06:56] LABS: GRAN # 7.94 (1.4-6.5); GRAN % 96.5 % (50.0-68.0); HEMOGLOBIN 9.8 g/dL (14.0-18.0); LYMPH # 0.2 (1.2-3.4); LYMPH % 2.8 % (22.0-35.0); MEAN CELL VOLUME 86.9 fl (80.0-105.0); MEAN CORPUSCULAR HEMOGLOBIN 27.8 pg (25.0-35.0); MEAN PLATELET VOLUME 8.5 fl (7.0-11.0); MONO # 0.1 (0.1-0.6); MONO % 0.7 % (1.0-6.0); PLATELET COUNT 165 10^3/uL (120.0-450.0); RBC 3.52 10^6/uL (3.5-6.1); RED CELL DISTRIBUTION WIDTH 16.4 % (11.5-14.5); WHITE BLOOD COUNT 8.2 10^3/uL (4.5-11.0)
[2018-04-11 07:05] LABS: % IRON SATURATION 23 % (20-55); TOTAL IRON BINDING CAPACITY 281 ug/dL (261-462)
[2018-04-11 07:20] LABS: ALB/GLOB RATIO 1.4 (1.1-1.8); ALBUMIN 3.8 g/dL (3.0-4.8); CALCIUM 8.9 mg/dL (8.4-10.5)
[2018-04-11] MEDS: Arformoterol 15 mcg/2 ml Inh Sol IH SCH ×2 (07:42→20:33)
[2018-04-11] MEDS: Budesonide 0.5 mg/2 ml Inhal Susp UD IH SCH ×2 (07:42→20:33)
--- NOTE | 2018-04-11 07:48 | CP.PCM.PN ---
<AlnavjotEladio - Last Filed: 04/11/18 14:41> Subjective - Date & Time of Evaluation Date of Evaluation: 04/11/18 Time of Evaluation: 07:47 - Subjective Subjective: Surgery: Dr. Ross Pt seen and examined. Resting comfortably in bed. No complaints. Remains on levo gtt. Objective - Vital Signs/Intake and Output Vital Signs (last 24 hours): Temp Pulse Resp BP Pulse Ox 98.1 F 117 H 30 H 111/93 H 93 L 04/10/18 18:00 04/11/18 07:30 04/11/18 07:30 04/11/18 07:00 04/11/18 07:30 Intake and Output: 04/11/18 04/11/18 06:59 18:59 Intake Total 250 Output Total 1000 Balance -750 - Medications Medications: Current Medications Acetaminophen (Tylenol 325mg Tab) 650 mg PO Q6H PRN PRN Reason: Fever >100.4 F Albuterol/Ipratropium (Duoneb 3 Mg/0.5 Mg (3 Ml) Ud) 3 ml IH [id number] PRN PRN Reason: Shortness of Breath Last Admin: 04/10/18 20:58 Dose: 3 ml Arformoterol Tartrate (Brovana) 15 mcg IH [id number] [facility] Last Admin: 04/11/18 07:42 Dose: 15 mcg Aspirin (Aspirin Chewable) 81 mg PO DAILY [facility] Last Admin: 04/10/18 10:19 Dose: 81 mg Atorvastatin Calcium (Lipitor) 40 mg PO DAILY [facility] Last Admin: 04/10/18 17:12 Dose: 40 mg Budesonide (Pulmicort Respules) 0.5 mg IH [id number] [facility] Last Admin: 04/11/18 07:42 Dose: 0.5 mg Calcium Acetate (Phoslo) 667 mg PO [facility] Dextrose (Dextrose 50% Inj) 0 ml IV STAT PRN; Protocol PRN Reason: Hypoglycemia Protocol Last Admin: 04/10/18 17:07 Dose: 50 ml Famotidine (Pepcid) 20 mg PO DAILY [facility] Last Admin: 04/10/18 10:19 Dose: 20 mg Heparin Sodium (Porcine) (Heparin) 5,000 units SC Q8 [facility]; Protocol Last Admin: 04/11/18 06:36 Dose: Not Given Ceftriaxone Sodium (Rocephin 1 Gram Ivpb) 1 gm in 100 mls @ 100 mls/hr IVPB DAILY [facility]; Protocol Last Admin: 04/10/18 10:19 Dose: 100 mls/hr Dextrose (Dextrose 5% In Water 1000 Ml) 1,000 mls @ 0 mls/hr IV .Q0M PRN; Protocol PRN Reason: Hypoglycemia Protocol NOREPINEPHRINE BIT/0.9 % NACL (Levophed 4 Mg/ 250 Ml Ns Premixed) 4 mg in 250 mls @ 15 mls/hr IV .[id number] PRN; Protocol PRN Reason: TITRATE PER MD ORDER Last Admin: 04/10/18 22:08 Dose: 4 mcg/min, 15 mls/hr Methylprednisolone (Solu-Medrol) 40 mg IVP Q12 [facility] Last Admin: 04/10/18 21:17 Dose: 40 mg Ondansetron HCl (Zofran Inj) 4 mg IVP Q6H PRN PRN Reason: Nausea/Vomiting Last Admin: 04/09/18 18:25 Dose: 4 mg - Labs Labs: 04/11/18 05:40 04/11/18 05:40 PT 11.3 SECONDS (9.4-12.5) 04/10/18 06:30 INR 0.98 04/10/18 06:30 APTT 29.5 Seconds (25.1-36.5) 04/10/18 06:30 - Constitutional Appears: Non-toxic, No Acute Distress - Head Exam Head Exam: ATRAUMATIC, NORMOCEPHALIC - Eye Exam Eye Exam: EOMI - ENT Exam ENT Exam: Mucous Membranes Moist - Neck Exam Neck Exam: Full ROM - Respiratory Exam Respiratory Exam: NORMAL BREATHING PATTERN. absent: Respiratory Distress - GI/Abdominal Exam GI & Abdominal Exam: Soft, Hernia (Large R reducible inguinal hernia). absent: Distended, Firm, Guarding, Rigid, Rebound - Extremities Exam Extremities Exam: absent: Calf Tenderness, Pedal Edema - Neurological Exam Neurological Exam: Alert, Awake, Oriented x3 Assessment and Plan - Assessment and Plan (Free Text) Assessment: COPD (on 3L NC at home), Pulmonary HTN, CKD stage IV, hx bladder CA, CAD, anterior wall ND, CHF, and HTN, on milrinone ggt presenting w. large reducible R inguinal hernia, currently asymptomatic Plan: -Pt is poor surgical candidate, and he does not want surgery at this time -Recommend scrotal support -No surgical intervention, surgery will sign off, please reconsult if needed -d/w attending Bill PGY4 <Sammy Arndt - Last Filed: 04/14/18 23:32> Objective - Vital Signs/Intake and Output Vital Signs (last 24 hours): Temp Pulse Resp BP Pulse Ox 98.5 F 109 H 21 101/61 90 L 04/14/18 20:00 04/14/18 22:00 04/14/18 22:00 04/14/18 22:00 04/14/18 22:00 Intake and Output: 04/14/18 04/15/18 18:59 06:59 Intake Total 1040 Output Total 1000 Balance 40 - Medications Medications: Current Medications Acetaminophen (Tylenol 325mg Tab) 650 mg PO Q6H PRN PRN Reason: Fever >100.4 F Last Admin: 04/13/18 13:07 Dose: 650 mg Albuterol/Ipratropium (Duoneb 3 Mg/0.5 Mg (3 Ml) Ud) 3 ml IH [id number] PRN PRN Reason: Shortness of Breath Last Admin: 04/10/18 20:58 Dose: 3 ml Amino Acid Protein (Prostat 15 G Packet) 15 gm GT DAILY [facility] Last Admin: 04/14/18 12:00 Dose: 15 gm Arformoterol Tartrate (Brovana) 15 mcg IH [id number] [facility] Last Admin: 04/12/18 07:00 Dose: 15 mcg Aspirin (Aspirin Chewable) 81 mg PO DAILY [facility] Last Admin: 04/14/18 09:53 Dose: 81 mg Atorvastatin Calcium (Lipitor) 40 mg PO HS [facility] Last Admin: 04/14/18 21:56 Dose: 40 mg Budesonide (Pulmicort Respules) 0.5 mg IH [id number] [facility] Last Admin: 04/14/18 20:05 Dose: 0.5 mg Calcium Acetate (Phoslo) 667 mg PO WM [facility] Last Admin: 04/14/18 17:13 Dose: 667 mg Dextrose (Dextrose 50% Inj) 0 ml IV STAT PRN; Protocol PRN Reason: Hypoglycemia Protocol Last Admin: 04/10/18 17:07 Dose: 50 ml Famotidine (Pepcid) 20 mg PO DAILY [facility] Last Admin: 04/14/18 09:53 Dose: 20 mg Heparin Sodium (Porcine) (Heparin) 5,000 units SC Q8 [facility]; Protocol Last Admin: 04/14/18 21:55 Dose: 5,000 units Dextrose (Dextrose 5% In Water 1000 Ml) 1,000 mls @ 0 mls/hr IV .Q0M PRN; Protocol PRN Reason: Hypoglycemia Protocol Meropenem/Sodium Chloride (Merrem Iv 500 Mg/Ns 50 Ml) 500 mg in 50 mls @ 100 mls/hr IVPB Q24H [facility]; Protocol Last Admin: 04/14/18 09:54 Dose: 100 mls/hr Milrinone Lactate/Dextrose (Primacor 20mg/100ml D5w) 100 mls @ 5.164 mls/hr IV .[id number] PRN; Protocol PRN Reason: TITRATE PER MD ORDER Last Admin: 04/13/18 08:11 Dose: 0.23 mcg/kg/min, 5.164 mls/hr NOREPINEPHRINE BIT/0.9 % NACL (Levophed 4 Mg/ 250 Ml Ns Premixed) 4 mg in 250 mls @ 15 mls/hr IV .[id number] PRN; Protocol PRN Reason: TITRATE PER MD ORDER Last Titration: 04/14/18 13:45 Dose: Infused Levalbuterol HCl (Xopenex) 1.25 mg IH [id number] PRN PRN Reason: Shortness of Breath Last Admin: 04/14/18 13:15 Dose: 1.25 mg Lorazepam (Ativan) 1 mg IVP DAILY PRN; Protocol PRN Reason: Anxiety Methylprednisolone (Solu-Medrol) 40 mg IVP Q12 [facility] Last Admin: 04/14/18 21:56 Dose: 40 mg Non-Formulary Medication (Selexipag [Uptravi]) 600 mg PO BID [facility] Last Admin: 04/14/18 17:14 Dose: 600 mg Non-Formulary Medication (Riociguat [Adempas]) 2.5 mg PO 0700,1500,2300 [facility] Last Admin: 04/14/18 22:15 Dose: 2.5 mg Ondansetron HCl (Zofran Inj) 4 mg IVP Q6H PRN PRN Reason: Nausea/Vomiting Last Admin: 04/09/18 18:25 Dose: 4 mg Quetiapine Fumarate (Seroquel) 50 mg PO HS PRN; Protocol PRN Reason: Agitation Zolpidem Tartrate (Ambien) 5 mg PO HS PRN; Protocol PRN Reason: Insomnia Last Admin: 04/14/18 21:55 Dose: 5 mg - Labs Labs: 04/14/18 06:00 04/14/18 06:00 PT 11.3 SECONDS (9.4-12.5) 04/10/18 06:30 INR 0.98 04/10/18 06:30 APTT 29.5 Seconds (25.1-36.5) 04/10/18 06:30 Assessment and Plan - Assessment and Plan (Free Text) Plan: Patient was seen, examined and evaluated by me. I agree with resident's assessment and plan.
--- NOTE | 2018-04-11 08:51 | PN ---
DATE: 04/11/2018 SUBJECTIVE: The patient appears comfortable this morning. He is not short of breath at rest. PHYSICAL EXAMINATION: VITAL SIGNS: Temperature 98.1, pulse 83, respirations 18/20, blood pressure 90/49. Oxygen saturation on nasal cannula is 94-98%. HEENT: Normocephalic, atraumatic. NECK: No JVD. CARDIOVASCULAR: Systolic ejection murmur at the lower left sternal border. No S3 gallop. LUNGS: Decreased breath sounds at the bases. Minimal rhonchi. No wheezing. EXTREMITIES: Mild edema. No cyanosis. No clubbing. Calves are nontender to palpation. GI: Abdomen is soft, nontender and nondistended. Bowel sounds are positive. SKIN: No acute rash. NEUROLOGIC: Exam limited at the present time. IMPRESSION: 1. Acute on chronic renal failure. 2. Multiple electrolyte abnormalities. 3. Hypotension, resolving. 4. Advanced chronic obstructive pulmonary disease. 5. Coronary artery disease. 6. Pulmonary hypertension. PLAN: The patient appears comfortable this morning. He is not short of breath at rest. I did discuss the case with the night nurse at length. The night nurse stated the patient had a very good night. On physical exam, there is only mild bronchospasm noted. In addition, there is no significant alveolar-arterial gradient. I will continue with the current nebulizer treatments and low-dose intravenous steroids for now. Inputs by Renal and Cardiology are also noted. Repeat a.m. labs are pending. Clinical status of the patient is significantly improved - compared to the initial presentation. However, given the above, the future status/prognosis for this patient does remain guarded. I will discuss the above with the entire ICU team in the next few moments. I will also discuss the above with the attending physician later this morning. Mic Birmingham MD [facility]
[2018-04-11 09:51] LABS: LYMPHOCYTE 1 % (22.0-35.0); NEUTROPHIL 99 % (50.0-70.0); PLATELET ESTIMATE NORMAL (NORMAL)
[2018-04-11 09:52] LABS: POIKILOCYTOSIS SLIGHT
[2018-04-11 09:54] LABS: ACANTHROCYTES SLIGHT
[2018-04-11 09:55] LABS: OVALOCYTES SLIGHT
[2018-04-11] MEDS: cefTRIAXone 1 gm 1 GM/100 ML BAG IVPB SCH (10:07)
[2018-04-11] MEDS: MethylPREDNISolone 40 mg Vial IVP SCH ×2 (10:08→21:11)
--- NOTE | 2018-04-11 10:41 | CP.CCUPN ---
<García Jasso - Last Filed: 04/11/18 11:58> CCU Subjective - Physician Review Subjective (Free Text): García Jasso, PGY-1, ICU Progress Note for Dr. Hayes CC: fatigue, dark urine, dark diarrhea, dark vomit, abdominal pain Patient seen and evaluated at bedside. Patient was hypotensive overnight at started on levophed 4 mcg/min through the port patient has for home milrinone drip. Today, he denies shortness of breath, dysphagia to both solids and liquids, sharp abdominal pain worse with eating, fatigue, and shortness of breath. Patient has recent history of multiple episodes of black vomitus, black diarrhea, and black urine that terminated yesterday. Patient's inguinal hernia was reduced at bedside in the AM. Patient has no complaints today. 12-point ROS was negative except for what was mentioned above. CCU Objective - Vital Signs / Intake & Output Vital Signs (Last 4 hours): Vital Signs Pulse Resp BP Pulse Ox 04/11/18 07:30 117 H 30 H 93 L 04/11/18 07:20 119 H 15 92 L 04/11/18 07:10 120 H 93 L 04/11/18 07:00 120 H 57 H 111/93 H 90 L 04/11/18 06:50 120 H 26 H 92 L 04/11/18 06:40 124 H 25 H 92 L Intake and Output (Last 8hrs): Intake & Output 04/10/18 04/11/18 04/11/18 22:59 06:59 14:59 Intake Total 1250 250 Output Total 850 1000 Balance 400 -750 Weight 165 lb Intake: IV 1000 Left Forearm 1000 Oral 250 250 Output: Urine 850 1000 Suprapubic 850 1000 Other: # Bowel Movements 0 0 - Physical Exam Head: Positive for: Atraumatic, Normocephalic Pupils: Positive for: PERRL Extroacular Muscles: Positive for: EOMI Conjunctiva: Positive for: Normal Mouth: Positive for: Dry Nose (External): Positive for: Atraumatic Neck: Positive for: Normal Range of Motion Respiratory/Chest: Positive for: Clear to Auscultation, Decreased Breath Sounds Cardiovascular: Positive for: Normal S1, S2, Tachycardic Abdomen: Positive for: Normal Bowel Sounds. Negative for: Tenderness, Distention, Peritoneal Signs Genitourinary Male: Positive for: Other (reduction of testicular swelling) Back: Positive for: Normal Inspection Upper Extremity: Positive for: Normal Inspection. Negative for: Cyanosis, Edema Lower Extremity: Positive for: Normal Inspection. Negative for: Edema Neurological: Positive for: GCS=15, CN II-XII Intact, Speech Normal Skin: Positive for: Warm, Dry, Normal Color Psychiatric: Positive for: Alert, Oriented x 3, Normal Insight - Medications Active Medications: Active Medications Generic Name Dose Route Start Last Admin Trade Name Freq PRN Reason Stop Dose Admin Acetaminophen 650 mg 04/09/18 16:51 Tylenol 325mg Tab PO Q6H PRN Fever >100.4 F Albuterol/Ipratropium 3 ml 04/09/18 16:50 04/10/18 20:58 Duoneb 3 Mg/0.5 Mg (3 Ml) Ud IH 3 ml [id number] PRN Administration Shortness of Breath Arformoterol Tartrate 15 mcg 04/09/18 20:00 04/11/18 07:42 Brovana IH 15 mcg [id number] CECILY Administration Aspirin 81 mg 04/10/18 10:00 04/10/18 10:19 Aspirin Chewable PO 81 mg DAILY CECILY Administration Atorvastatin Calcium 40 mg 04/10/18 17:00 04/10/18 17:12 Lipitor PO 40 mg DAILY CECILY Administration Budesonide 0.5 mg 04/10/18 08:00 04/11/18 07:42 Pulmicort Respules IH 0.5 mg [id number] CECILY Administration Calcium Acetate 667 mg 04/11/18 08:00 04/11/18 10:18 Phoslo PO Not Given WM CECILY Dextrose 0 ml 04/10/18 14:30 04/10/18 17:07 Dextrose 50% Inj IV 50 ml STAT PRN Administration Hypoglycemia Protocol Protocol Famotidine 20 mg 04/10/18 10:00 04/10/18 10:19 Pepcid PO 20 mg DAILY CECILY Administration Heparin Sodium (Porcine) 5,000 units 04/09/18 22:00 04/11/18 06:36 Heparin SC Not Given Q8 CECILY Protocol Ceftriaxone Sodium 1 gm in 100 mls @ 100 mls/hr 04/10/18 10:00 04/11/18 10:07 Rocephin 1 Gram Ivpb IVPB 100 mls/hr DAILY CECILY Administration Protocol Dextrose 1,000 mls @ 0 mls/hr 04/10/18 14:30 Dextrose 5% In Water 1000 Ml IV .Q0M PRN Hypoglycemia Protocol Protocol Per Protocol NOREPINEPHRINE BIT/0.9 % NACL 4 mg in 250 mls @ 15 mls/hr 04/10/18 21:34 04/10/18 22:08 Levophed 4 Mg/ 250 Ml Ns Premixed IV 4 mcg/min .[id number] PRN 15 mls/hr TITRATE PER MD ORDER Administration Protocol 4 MCG/MIN Methylprednisolone 40 mg 04/10/18 22:00 04/11/18 10:08 Solu-Medrol IVP 40 mg Q12 CECILY Administration Ondansetron HCl 4 mg 04/09/18 16:51 04/09/18 18:25 Zofran Inj IVP 4 mg Q6H PRN Administration Nausea/Vomiting - Patient Studies Lab Studies: Microbiology Studies 04/09/18 23:50 Blood Culture - Preliminary Blood NO GROWTH AFTER 24 HOURS 04/09/18 23:40 Blood Culture - Preliminary Blood NO GROWTH AFTER 24 HOURS 04/09/18 19:00 MRSA Culture (Admit) - Final Nose MRSA NOT DETECTED Lab Studies 04/11/18 04/11/18 04/11/18 Range/Units 05:40 05:40 05:40 WBC 8.2 D (4.5-11.0) 10^3/uL RBC 3.52 (3.5-6.1) 10^6/uL Hgb 9.8 L (14.0-18.0) g/dL Hct 30.6 L (42.0-52.0) % MCV 86.9 (80.0-105.0) fl MCH 27.8 (25.0-35.0) pg MCHC 32.0 (31.0-37.0) g/dl RDW 16.4 H (11.5-14.5) % Plt Count 165 (120.0-450.0) 10^3/uL MPV 8.5 (7.0-11.0) fl Gran % 96.5 H (50.0-68.0) % Lymph % (Auto) 2.8 L (22.0-35.0) % Mathews % (Auto) 0.7 L (1.0-6.0) % Eos % (Auto) 0.0 L (1.5-5.0) % Baso % (Auto) 0.0 (0.0-3.0) % Gran # 7.94 H (1.4-6.5) Lymph # (Auto) 0.2 L (1.2-3.4) Mathews # (Auto) 0.1 (0.1-0.6) Eos # (Auto) 0.0 (0.0-0.7) Baso # (Auto) 0.00 (0.0-2.0) K/mm3 Neutrophils % (Manual) 99 H (50.0-70.0) % Lymphocytes % (Manual) 1 L (22.0-35.0) % Monocytes % (Manual) TEST NOT PERFORMED Platelet Evaluation Normal (NORMAL) Poikilocytosis (manual Slight Ovalocytes Slight Acanthocytes (Spur) Slight Sodium 138 (132-148) mmol/L Potassium 5.3 H (3.6-5.0) mmol/L Chloride 112 H (98-107) mmol/L Carbon Dioxide 14 L (21-33) mmol/L Anion Gap 18 (10-20) BUN 77 H (7-21) mg/dL Creatinine 8.0 H* (0.8-1.5) mg/dl Est GFR ( Amer) 8 Est GFR (Non-Af Amer) 7 POC Glucose (mg/dL) (65-110) mg/dL Random Glucose 140 H (70-110) mg/dL Calcium 8.9 (8.4-10.5) mg/dL Phosphorus 7.1 H (2.5-4.5) mg/dL Magnesium 1.9 (1.7-2.2) mg/dL Iron 63 (45-180) ug/dL TIBC 281 (261-462) ug/dL % Saturation 23 (20-55) % Total Bilirubin 0.3 (0.2-1.3) mg/dL AST 22 (17-59) U/L ALT 23 (7-56) U/L Alkaline Phosphatase 79 (38-126) U/L Total Protein 6.5 (5.8-8.3) g/dL Albumin 3.8 (3.0-4.8) g/dL Globulin 2.7 gm/dL Albumin/Globulin Ratio 1.4 (1.1-1.8) Procalcitonin (0.19-0.49) NG/ML Urine Chloride 04/11/18 04/10/18 04/10/18 Range/Units 05:17 19:30 18:02 WBC (4.5-11.0) 10^3/uL RBC (3.5-6.1) 10^6/uL Hgb (14.0-18.0) g/dL Hct (42.0-52.0) % MCV (80.0-105.0) fl MCH (25.0-35.0) pg MCHC (31.0-37.0) g/dl RDW (11.5-14.5) % Plt Count (120.0-450.0) 10^3/uL MPV (7.0-11.0) fl Gran % (50.0-68.0) % Lymph % (Auto) (22.0-35.0) % Mathews % (Auto) (1.0-6.0) % Eos % (Auto) (1.5-5.0) % Baso % (Auto) (0.0-3.0) % Gran # (1.4-6.5) Lymph # (Auto) (1.2-3.4) Mathews # (Auto) (0.1-0.6) Eos # (Auto) (0.0-0.7) Baso # (Auto) (0.0-2.0) K/mm3 Neutrophils % (Manual) (50.0-70.0) % Lymphocytes % (Manual) (22.0-35.0) % Monocytes % (Manual) Platelet Evaluation (NORMAL) Poikilocytosis (manual Ovalocytes Acanthocytes (Spur) Sodium (132-148) mmol/L Potassium (3.6-5.0) mmol/L Chloride (98-107) mmol/L Carbon Dioxide (21-33) mmol/L Anion Gap (10-20) BUN (7-21) mg/dL Creatinine (0.8-1.5) mg/dl Est GFR ( Amer) Est GFR (Non-Af Amer) POC Glucose (mg/dL) 131 H 125 H 141 H (65-110) mg/dL Random Glucose (70-110) mg/dL Calcium (8.4-10.5) mg/dL Phosphorus (2.5-4.5) mg/dL Magnesium (1.7-2.2) mg/dL Iron (45-180) ug/dL TIBC (261-462) ug/dL % Saturation (20-55) % Total Bilirubin (0.2-1.3) mg/dL AST (17-59) U/L ALT (7-56) U/L Alkaline Phosphatase (38-126) U/L Total Protein (5.8-8.3) g/dL Albumin (3.0-4.8) g/dL Globulin gm/dL Albumin/Globulin Ratio (1.1-1.8) Procalcitonin (0.19-0.49) NG/ML Urine Chloride 04/10/18 04/10/18 04/10/18 Range/Units 17:00 16:35 15:53 WBC (4.5-11.0) 10^3/uL RBC (3.5-6.1) 10^6/uL Hgb (14.0-18.0) g/dL Hct (42.0-52.0) % MCV (80.0-105.0) fl MCH (25.0-35.0) pg MCHC (31.0-37.0) g/dl RDW (11.5-14.5) % Plt Count (120.0-450.0) 10^3/uL MPV (7.0-11.0) fl Gran % (50.0-68.0) % Lymph % (Auto) (22.0-35.0) % Mathews % (Auto) (1.0-6.0) % Eos % (Auto) (1.5-5.0) % Baso % (Auto) (0.0-3.0) % Gran # (1.4-6.5) Lymph # (Auto) (1.2-3.4) Mathews # (Auto) (0.1-0.6) Eos # (Auto) (0.0-0.7) Baso # (Auto) (0.0-2.0) K/mm3 Neutrophils % (Manual) (50.0-70.0) % Lymphocytes % (Manual) (22.0-35.0) % Monocytes % (Manual) Platelet Evaluation (NORMAL) Poikilocytosis (manual Ovalocytes Acanthocytes (Spur) Sodium (132-148) mmol/L Potassium (3.6-5.0) mmol/L Chloride (98-107) mmol/L Carbon Dioxide (21-33) mmol/L Anion Gap (10-20) BUN (7-21) mg/dL Creatinine (0.8-1.5) mg/dl Est GFR ( Amer) Est GFR (Non-Af Amer) POC Glucose (mg/dL) 63 L 67 154 H (65-110) mg/dL Random Glucose (70-110) mg/dL Calcium (8.4-10.5) mg/dL Phosphorus (2.5-4.5) mg/dL Magnesium (1.7-2.2) mg/dL Iron (45-180) ug/dL TIBC (261-462) ug/dL % Saturation (20-55) % Total Bilirubin (0.2-1.3) mg/dL AST (17-59) U/L ALT (7-56) U/L Alkaline Phosphatase (38-126) U/L Total Protein (5.8-8.3) g/dL Albumin (3.0-4.8) g/dL Globulin gm/dL Albumin/Globulin Ratio (1.1-1.8) Procalcitonin (0.19-0.49) NG/ML Urine Chloride 04/10/18 04/10/18 04/09/18 Range/Units 15:25 07:36 23:50 WBC (4.5-11.0) 10^3/uL RBC (3.5-6.1) 10^6/uL Hgb (14.0-18.0) g/dL Hct (42.0-52.0) % MCV (80.0-105.0) fl MCH (25.0-35.0) pg MCHC (31.0-37.0) g/dl RDW (11.5-14.5) % Plt Count (120.0-450.0) 10^3/uL MPV (7.0-11.0) fl Gran % (50.0-68.0) % Lymph % (Auto) (22.0-35.0) % Mathews % (Auto) (1.0-6.0) % Eos % (Auto) (1.5-5.0) % Baso % (Auto) (0.0-3.0) % Gran # (1.4-6.5) Lymph # (Auto) (1.2-3.4) Mathews # (Auto) (0.1-0.6) Eos # (Auto) (0.0-0.7) Baso # (Auto) (0.0-2.0) K/mm3 Neutrophils % (Manual) (50.0-70.0) % Lymphocytes % (Manual) (22.0-35.0) % Monocytes % (Manual) Platelet Evaluation (NORMAL) Poikilocytosis (manual Ovalocytes Acanthocytes (Spur) Sodium (132-148) mmol/L Potassium (3.6-5.0) mmol/L Chloride (98-107) mmol/L Carbon Dioxide (21-33) mmol/L Anion Gap (10-20) BUN (7-21) mg/dL Creatinine (0.8-1.5) mg/dl Est GFR ( Amer) Est GFR (Non-Af Amer) POC Glucose (mg/dL) 116 H 82 (65-110) mg/dL Random Glucose (70-110) mg/dL Calcium (8.4-10.5) mg/dL Phosphorus (2.5-4.5) mg/dL Magnesium (1.7-2.2) mg/dL Iron (45-180) ug/dL TIBC (261-462) ug/dL % Saturation (20-55) % Total Bilirubin (0.2-1.3) mg/dL AST (17-59) U/L ALT (7-56) U/L Alkaline Phosphatase (38-126) U/L Total Protein (5.8-8.3) g/dL Albumin (3.0-4.8) g/dL Globulin gm/dL Albumin/Globulin Ratio (1.1-1.8) Procalcitonin 0.14 L (0.19-0.49) NG/ML Urine Chloride 04/09/18 04/09/18 Range/Units 18:00 16:32 WBC (4.5-11.0) 10^3/uL RBC (3.5-6.1) 10^6/uL Hgb (14.0-18.0) g/dL Hct (42.0-52.0) % MCV (80.0-105.0) fl MCH (25.0-35.0) pg MCHC (31.0-37.0) g/dl RDW (11.5-14.5) % Plt Count (120.0-450.0) 10^3/uL MPV (7.0-11.0) fl Gran % (50.0-68.0) % Lymph % (Auto) (22.0-35.0) % Mathews % (Auto) (1.0-6.0) % Eos % (Auto) (1.5-5.0) % Baso % (Auto) (0.0-3.0) % Gran # (1.4-6.5) Lymph # (Auto) (1.2-3.4) Mathews # (Auto) (0.1-0.6) Eos # (Auto) (0.0-0.7) Baso # (Auto) (0.0-2.0) K/mm3 Neutrophils % (Manual) (50.0-70.0) % Lymphocytes % (Manual) (22.0-35.0) % Monocytes % (Manual) Platelet Evaluation (NORMAL) Poikilocytosis (manual Ovalocytes Acanthocytes (Spur) Sodium (132-148) mmol/L Potassium (3.6-5.0) mmol/L Chloride (98-107) mmol/L Carbon Dioxide (21-33) mmol/L Anion Gap (10-20) BUN (7-21) mg/dL Creatinine (0.8-1.5) mg/dl Est GFR ( Amer) Est GFR (Non-Af Amer) POC Glucose (mg/dL) 123 H (65-110) mg/dL Random Glucose (70-110) mg/dL Calcium (8.4-10.5) mg/dL Phosphorus (2.5-4.5) mg/dL Magnesium (1.7-2.2) mg/dL Iron (45-180) ug/dL TIBC (261-462) ug/dL % Saturation (20-55) % Total Bilirubin (0.2-1.3) mg/dL AST (17-59) U/L ALT (7-56) U/L Alkaline Phosphatase (38-126) U/L Total Protein (5.8-8.3) g/dL Albumin (3.0-4.8) g/dL Globulin gm/dL Albumin/Globulin Ratio (1.1-1.8) Procalcitonin (0.19-0.49) NG/ML Urine Chloride TNP Laboratory Results - last 24 hr 04/09/18 04/09/18 04/09/18 16:32 18:00 23:50 WBC RBC Hgb Hct MCV MCH MCHC RDW Plt Count MPV Gran % Lymph % (Auto) Mathews % (Auto) Eos % (Auto) Baso % (Auto) Gran # Lymph # (Auto) Mathews # (Auto) Eos # (Auto) Baso # (Auto) Neutrophils % (Manual) Lymphocytes % (Manual) Monocytes % (Manual) Platelet Evaluation Poikilocytosis (manual Ovalocytes Acanthocytes (Spur) Sodium Potassium Chloride Carbon Dioxide Anion Gap BUN Creatinine Est GFR ( Amer) Est GFR (Non-Af Amer) POC Glucose (mg/dL) 123 H Random Glucose Calcium Phosphorus Magnesium Iron TIBC % Saturation Total Bilirubin AST ALT Alkaline Phosphatase Total Protein Albumin Globulin Albumin/Globulin Ratio Procalcitonin 0.14 L Urine Chloride TNP 04/10/18 04/10/18 04/10/18 07:36 15:25 15:53 WBC RBC Hgb Hct MCV MCH MCHC RDW Plt Count MPV Gran % Lymph % (Auto) Mathews % (Auto) Eos % (Auto) Baso % (Auto) Gran # Lymph # (Auto) Mathews # (Auto) Eos # (Auto) Baso # (Auto) Neutrophils % (Manual) Lymphocytes % (Manual) Monocytes % (Manual) Platelet Evaluation Poikilocytosis (manual Ovalocytes Acanthocytes (Spur) Sodium Potassium Chloride Carbon Dioxide Anion Gap BUN Creatinine Est GFR ( Amer) Est GFR (Non-Af Amer) POC Glucose (mg/dL) 82 116 H 154 H Random Glucose Calcium Phosphorus Magnesium Iron TIBC % Saturation Total Bilirubin AST ALT Alkaline Phosphatase Total Protein Albumin Globulin Albumin/Globulin Ratio Procalcitonin Urine Chloride 04/10/18 04/10/18 04/10/18 16:35 17:00 18:02 WBC RBC Hgb Hct MCV MCH MCHC RDW Plt Count MPV Gran % Lymph % (Auto) Mathews % (Auto) Eos % (Auto) Baso % (Auto) Gran # Lymph # (Auto) Mathews # (Auto) Eos # (Auto) Baso # (Auto) Neutrophils % (Manual) Lymphocytes % (Manual) Monocytes % (Manual) Platelet Evaluation Poikilocytosis (manual Ovalocytes Acanthocytes (Spur) Sodium Potassium Chloride Carbon Dioxide Anion Gap BUN Creatinine Est GFR ( Amer) Est GFR (Non-Af Amer) POC Glucose (mg/dL) 67 63 L 141 H Random Glucose Calcium Phosphorus Magnesium Iron TIBC % Saturation Total Bilirubin AST ALT Alkaline Phosphatase Total Protein Albumin Globulin Albumin/Globulin Ratio Procalcitonin Urine Chloride 04/10/18 04/11/18 04/11/18 19:30 05:17 05:40 WBC 8.2 D RBC 3.52 Hgb 9.8 L Hct 30.6 L MCV 86.9 MCH 27.8 MCHC 32.0 RDW 16.4 H Plt Count 165 MPV 8.5 Gran % 96.5 H Lymph % (Auto) 2.8 L Mathews % (Auto) 0.7 L Eos % (Auto) 0.0 L Baso % (Auto) 0.0 Gran # 7.94 H Lymph # (Auto) 0.2 L Mathews # (Auto) 0.1 Eos # (Auto) 0.0 Baso # (Auto) 0.00 Neutrophils % (Manual) 99 H Lymphocytes % (Manual) 1 L Monocytes % (Manual) TEST NOT PERFORMED Platelet Evaluation Normal Poikilocytosis (manual Slight Ovalocytes Slight Acanthocytes (Spur) Slight Sodium Potassium Chloride Carbon Dioxide Anion Gap BUN Creatinine Est GFR ( Amer) Est GFR (Non-Af Amer) POC Glucose (mg/dL) 125 H 131 H Random Glucose Calcium Phosphorus Magnesium Iron TIBC % Saturation Total Bilirubin AST ALT Alkaline Phosphatase Total Protein Albumin Globulin Albumin/Globulin Ratio Procalcitonin Urine Chloride 04/11/18 04/11/18 05:40 05:40 WBC RBC Hgb Hct MCV MCH MCHC RDW Plt Count MPV Gran % Lymph % (Auto) Mathews % (Auto) Eos % (Auto) Baso % (Auto) Gran # Lymph # (Auto) Mathews # (Auto) Eos # (Auto) Baso # (Auto) Neutrophils % (Manual) Lymphocytes % (Manual) Monocytes % (Manual) Platelet Evaluation Poikilocytosis (manual Ovalocytes Acanthocytes (Spur) Sodium 138 Potassium 5.3 H Chloride 112 H Carbon Dioxide 14 L Anion Gap 18 BUN 77 H Creatinine 8.0 H* Est GFR ( Amer) 8 Est GFR (Non-Af Amer) 7 POC Glucose (mg/dL) Random Glucose 140 H Calcium 8.9 Phosphorus 7.1 H Magnesium 1.9 Iron 63 TIBC 281 % Saturation 23 Total Bilirubin 0.3 AST 22 ALT 23 Alkaline Phosphatase 79 Total Protein 6.5 Albumin 3.8 Globulin 2.7 Albumin/Globulin Ratio 1.4 Procalcitonin Urine Chloride Fingerstick Blood Sugar Results: 116 Review of Systems - Review of Systems Review of Systems: except for what was mentioned in HPI Critical Care Progress Note - Ventilator Checklist Head of Bed 30 Degrees: Yes PUD Prophalyxis: Yes DVT Prophylaxis: Yes - Nutrition Nutrition: Nutrition Category Date Time Status NPO past midnight [NPO Diet] [DIET] Diets 04/10/18 Dinner Ordered Assessment/Plan - Assessment and Plan (Free Text) Assessment: 77 year old female with past medical history of CAD status post STEMI with stent, congestive heart failure with last EF: 25% from 02/2018, severe COPD on 3L at home, CKD stage 4, history of bladder carcinoma s/p ileal conduit, pulmonary hypertension, and hypertension presents with fatigue, nausea, black vomit, black diarrhea, black urine, shortness of breath, dysphagia, and sharp abdominal pain worse with eating. Plan: Neuro: -AAOx3, no FND, moving extremities past midline. -Monitor neuro status. -Reorient patient as necessary. Cardio: Systolic Congestive Heart failure Echocardiogram from 02/2018: EF: 25% -Sinus tachycardia, hypotensive overnight with BP: 73/42, after levophed was 111/93 -EKG 04/09: sinus tachycardia, RBBB with HR: 115 -Stopped home milrinone due to patient's renal function and current hypotension -Hold MARK I, spironolactone, B-blockers. -Levophed was started overnight for hypotension and blood pressure stabilized with administration. Titrate levophed dose as patient tolerates until levophed is titrated off. -Maintain MAP>65. -Monitor for S/S, HD compromise. -Dr. Mancilla, Cardiology, consulted for recommendations. Follow recommendations. CAD s/p stent placement -Continue home aspirin 81 mg PO daily, lipitor 40 mg PO daily, plavix 75 mg PO daily Pulm: COPD -No signs of respiratory distress. -CXR 04/09: mild cardiomegaly, moderate vascular congestion -Maintain O2 saturation>95%. -O2 NC 3L -Duonebs Q6 PRN -Elevate bed to 30 degrees Pulmonary Hypertension -Restart home medications as per Dr. [place], Pulmonology. GI: Diet -Tolerating HHD diet well. GI prophylaxis -Pepcid 20 mg PO daily /Nephro: ESRD currently not on dialysis -BUN/Cr improved to 77/8 -UA 04/09: 100 protein, large blood, trace leukocyte esterase, large bacteria, yeast. Likely UTI present -Hyperkalemia at 5.3 -Decreased bicarbonate at 14 -Elevated phosphate at 7.1 -All electrolyte abnormalities likely due to ESRD. -Phoslo started for hyperphosphatemia -Hyperkalemia to be corrected during hemodialysis at 12:00 on 04/11. -UO: 1850. Currently making sparse urine -Continue monitoring. -As per Dr. Mancilla, Cardiology, patient ok for dialysis. -As per Dr. Ivey, Nephrology, patient to have permacath placed for meterman dialysis. -Dr. Wayne Mathews, Interventional Radiology, consulted for recommendations and permacath placement. -Continue to follow Cardiology, Nephrology, and Radiology recommendations. Nonanion gap metabolic acidosis -PH: 7.14 from prior VBG on 04/09 secondary to RTA vs. diarrhea. -ABG ordered to evaluate for appropriate compensation Endocrinology: -Random glucose: 87 -Maintain euglycemia. Heme/Onc: Normocytic Anemia -H/H improved to 9.8/30.6 -Continue monitoring H/H DVT prophylaxis -Heparin 5000 U SubQ Q8 ID: UTI -Afebrile, no leukocytosis -UA: 100 protein, large blood, trace leukocyte esterase, large bacteria, yeast. Likely UTI present -CXR 04/09: mild cardiomegaly, moderate vascular congestion -Follow up UCx -BCx is negative for 24 hours, MRSA negative. -Lactate: 0.8 -Rocephin 1 gm daily day 2. -Dr. Peterson, ID, consulted for further recommendations. -Monitor for signs and symptoms of infection. Patient seen and examined with Dr. Hayes. - Date & Time Date: 04/11/18 Time: 10:42 <Eladio Hayes - Last Filed: 04/11/18 12:42> CCU Objective - Vital Signs / Intake & Output Intake and Output (Last 8hrs): Intake & Output 04/10/18 04/11/18 04/11/18 22:59 06:59 14:59 Intake Total 1250 250 Output Total 850 1000 Balance 400 -750 Weight 165 lb Intake: IV 1000 Left Forearm 1000 Oral 250 250 Output: Urine 850 1000 Suprapubic 850 1000 Other: # Bowel Movements 0 0 - Medications Active Medications: Active Medications Generic Name Dose Route Start Last Admin Trade Name Freq PRN Reason Stop Dose Admin Acetaminophen 650 mg 04/09/18 16:51 Tylenol 325mg Tab PO Q6H PRN Fever >100.4 F Albuterol/Ipratropium 3 ml 04/09/18 16:50 04/10/18 20:58 Duoneb 3 Mg/0.5 Mg (3 Ml) Ud IH 3 ml [id number] PRN Administration Shortness of Breath Arformoterol Tartrate 15 mcg 04/09/18 20:00 04/11/18 07:42 Brovana IH 15 mcg [id number] CECILY Administration Aspirin 81 mg 04/10/18 10:00 04/10/18 10:19 Aspirin Chewable PO 81 mg DAILY CECILY Administration Atorvastatin Calcium 40 mg 04/10/18 17:00 04/10/18 17:12 Lipitor PO 40 mg DAILY CECILY Administration Budesonide 0.5 mg 04/10/18 08:00 04/11/18 07:42 Pulmicort Respules IH 0.5 mg [id number] CECILY Administration Calcium Acetate 667 mg 04/11/18 08:00 04/11/18 10:18 Phoslo PO Not Given WM CECILY Dextrose 0 ml 04/10/18 14:30 04/10/18 17:07 Dextrose 50% Inj IV 50 ml STAT PRN Administration Hypoglycemia Protocol Protocol Famotidine 20 mg 04/10/18 10:00 04/10/18 10:19 Pepcid PO 20 mg DAILY CECILY Administration Heparin Sodium (Porcine) 5,000 units 04/09/18 22:00 04/11/18 06:36 Heparin SC Not Given Q8 CECILY Protocol Ceftriaxone Sodium 1 gm in 100 mls @ 100 mls/hr 04/10/18 10:00 04/11/18 10:07 Rocephin 1 Gram Ivpb IVPB 100 mls/hr DAILY CECILY Administration Protocol Dextrose 1,000 mls @ 0 mls/hr 04/10/18 14:30 Dextrose 5% In Water 1000 Ml IV .Q0M PRN Hypoglycemia Protocol Protocol Per Protocol NOREPINEPHRINE BIT/0.9 % NACL 4 mg in 250 mls @ 15 mls/hr 04/10/18 21:34 04/10/18 22:08 Levophed 4 Mg/ 250 Ml Ns Premixed IV 4 mcg/min .[id number] PRN 15 mls/hr TITRATE PER MD ORDER Administration Protocol 4 MCG/MIN Methylprednisolone 40 mg 04/10/18 22:00 04/11/18 10:08 Solu-Medrol IVP 40 mg Q12 CECILY Administration Non-Formulary Medication 600 mg 04/11/18 18:00 Selexipag [Uptravi] PO BID CECILY Non-Formulary Medication 2.5 mg 04/11/18 14:00 Riociguat [Adempas] PO TID CECILY Ondansetron HCl 4 mg 04/09/18 16:51 04/09/18 18:25 Zofran Inj IVP 4 mg Q6H PRN Administration Nausea/Vomiting - Patient Studies Lab Studies: Microbiology Studies 04/09/18 14:30 Urine Culture - Preliminary Urine,Catheterized Gram Positive Cocci 04/09/18 23:50 Blood Culture - Preliminary Blood NO GROWTH AFTER 24 HOURS 04/09/18 23:40 Blood Culture - Preliminary Blood NO GROWTH AFTER 24 HOURS 04/09/18 19:00 MRSA Culture (Admit) - Final Nose MRSA NOT DETECTED Lab Studies 04/11/18 04/11/18 04/11/18 Range/Units 05:40 05:40 05:40 WBC (4.5-11.0) 10^3/uL RBC (3.5-6.1) 10^6/uL Hgb (14.0-18.0) g/dL Hct (42.0-52.0) % MCV (80.0-105.0) fl MCH (25.0-35.0) pg MCHC (31.0-37.0) g/dl RDW (11.5-14.5) % Plt Count (120.0-450.0) 10^3/uL MPV (7.0-11.0) fl Gran % (50.0-68.0) % Lymph % (Auto) (22.0-35.0) % Mathews % (Auto) (1.0-6.0) % Eos % (Auto) (1.5-5.0) % Baso % (Auto) (0.0-3.0) % Gran # (1.4-6.5) Lymph # (Auto) (1.2-3.4) Mathews # (Auto) (0.1-0.6) Eos # (Auto) (0.0-0.7) Baso # (Auto) (0.0-2.0) K/mm3 Neutrophils % (Manual) (50.0-70.0) % Lymphocytes % (Manual) (22.0-35.0) % Monocytes % (Manual) Platelet Evaluation (NORMAL) Poikilocytosis (manual Ovalocytes Acanthocytes (Spur) Sodium 138 (132-148) mmol/L Potassium 5.3 H (3.6-5.0) mmol/L Chloride 112 H (98-107) mmol/L Carbon Dioxide 14 L (21-33) mmol/L Anion Gap 18 (10-20) BUN 77 H (7-21) mg/dL Creatinine 8.0 H* (0.8-1.5) mg/dl Est GFR ( Amer) 8 Est GFR (Non-Af Amer) 7 POC Glucose (mg/dL) (65-110) mg/dL Random Glucose 140 H (70-110) mg/dL Calcium 8.9 (8.4-10.5) mg/dL Phosphorus 7.1 H (2.5-4.5) mg/dL Magnesium 1.9 (1.7-2.2) mg/dL Iron 63 (45-180) ug/dL TIBC 281 (261-462) ug/dL % Saturation 23 (20-55) % Ferritin 47.6 ng/mL Total Bilirubin 0.3 (0.2-1.3) mg/dL AST 22 (17-59) U/L ALT 23 (7-56) U/L Alkaline Phosphatase 79 (38-126) U/L Total Protein 6.5 (5.8-8.3) g/dL Albumin 3.8 (3.0-4.8) g/dL Globulin 2.7 gm/dL Albumin/Globulin Ratio 1.4 (1.1-1.8) Procalcitonin (0.19-0.49) NG/ML Urine Chloride 04/11/18 04/11/18 04/10/18 Range/Units 05:40 05:17 19:30 WBC 8.2 D (4.5-11.0) 10^3/uL RBC 3.52 (3.5-6.1) 10^6/uL Hgb 9.8 L (14.0-18.0) g/dL Hct 30.6 L (42.0-52.0) % MCV 86.9 (80.0-105.0) fl MCH 27.8 (25.0-35.0) pg MCHC 32.0 (31.0-37.0) g/dl RDW 16.4 H (11.5-14.5) % Plt Count 165 (120.0-450.0) 10^3/uL MPV 8.5 (7.0-11.0) fl Gran % 96.5 H (50.0-68.0) % Lymph % (Auto) 2.8 L (22.0-35.0) % Mathews % (Auto) 0.7 L (1.0-6.0) % Eos % (Auto) 0.0 L (1.5-5.0) % Baso % (Auto) 0.0 (0.0-3.0) % Gran # 7.94 H (1.4-6.5) Lymph # (Auto) 0.2 L (1.2-3.4) Mathews # (Auto) 0.1 (0.1-0.6) Eos # (Auto) 0.0 (0.0-0.7) Baso # (Auto) 0.00 (0.0-2.0) K/mm3 Neutrophils % (Manual) 99 H (50.0-70.0) % Lymphocytes % (Manual) 1 L (22.0-35.0) % Monocytes % (Manual) TEST NOT PERFORMED Platelet Evaluation Normal (NORMAL) Poikilocytosis (manual Slight Ovalocytes Slight Acanthocytes (Spur) Slight Sodium (132-148) mmol/L Potassium (3.6-5.0) mmol/L Chloride (98-107) mmol/L Carbon Dioxide (21-33) mmol/L Anion Gap (10-20) BUN (7-21) mg/dL Creatinine (0.8-1.5) mg/dl Est GFR ( Amer) Est GFR (Non-Af Amer) POC Glucose (mg/dL) 131 H 125 H (65-110) mg/dL Random Glucose (70-110) mg/dL Calcium (8.4-10.5) mg/dL Phosphorus (2.5-4.5) mg/dL Magnesium (1.7-2.2) mg/dL Iron (45-180) ug/dL TIBC (261-462) ug/dL % Saturation (20-55) % Ferritin ng/mL Total Bilirubin (0.2-1.3) mg/dL AST (17-59) U/L ALT (7-56) U/L Alkaline Phosphatase (38-126) U/L Total Protein (5.8-8.3) g/dL Albumin (3.0-4.8) g/dL Globulin gm/dL Albumin/Globulin Ratio (1.1-1.8) Procalcitonin (0.19-0.49) NG/ML Urine Chloride 04/10/18 04/10/18 04/10/18 Range/Units 18:02 17:00 16:35 WBC (4.5-11.0) 10^3/uL RBC (3.5-6.1) 10^6/uL Hgb (14.0-18.0) g/dL Hct (42.0-52.0) % MCV (80.0-105.0) fl MCH (25.0-35.0) pg MCHC (31.0-37.0) g/dl RDW (11.5-14.5) % Plt Count (120.0-450.0) 10^3/uL MPV (7.0-11.0) fl Gran % (50.0-68.0) % Lymph % (Auto) (22.0-35.0) % Mathews % (Auto) (1.0-6.0) % Eos % (Auto) (1.5-5.0) % Baso % (Auto) (0.0-3.0) % Gran # (1.4-6.5) Lymph # (Auto) (1.2-3.4) Mathews # (Auto) (0.1-0.6) Eos # (Auto) (0.0-0.7) Baso # (Auto) (0.0-2.0) K/mm3 Neutrophils % (Manual) (50.0-70.0) % Lymphocytes % (Manual) (22.0-35.0) % Monocytes % (Manual) Platelet Evaluation (NORMAL) Poikilocytosis (manual Ovalocytes Acanthocytes (Spur) Sodium (132-148) mmol/L Potassium (3.6-5.0) mmol/L Chloride (98-107) mmol/L Carbon Dioxide (21-33) mmol/L Anion Gap (10-20) BUN (7-21) mg/dL Creatinine (0.8-1.5) mg/dl Est GFR ( Amer) Est GFR (Non-Af Amer) POC Glucose (mg/dL) 141 H 63 L 67 (65-110) mg/dL Random Glucose (70-110) mg/dL Calcium (8.4-10.5) mg/dL Phosphorus (2.5-4.5) mg/dL Magnesium (1.7-2.2) mg/dL Iron (45-180) ug/dL TIBC (261-462) ug/dL % Saturation (20-55) % Ferritin ng/mL Total Bilirubin (0.2-1.3) mg/dL AST (17-59) U/L ALT (7-56) U/L Alkaline Phosphatase (38-126) U/L Total Protein (5.8-8.3) g/dL Albumin (3.0-4.8) g/dL Globulin gm/dL Albumin/Globulin Ratio (1.1-1.8) Procalcitonin (0.19-0.49) NG/ML Urine Chloride 04/10/18 04/10/18 04/09/18 Range/Units 15:53 15:25 23:50 WBC (4.5-11.0) 10^3/uL RBC (3.5-6.1) 10^6/uL Hgb (14.0-18.0) g/dL Hct (42.0-52.0) % MCV (80.0-105.0) fl MCH (25.0-35.0) pg MCHC (31.0-37.0) g/dl RDW (11.5-14.5) % Plt Count (120.0-450.0) 10^3/uL MPV (7.0-11.0) fl Gran % (50.0-68.0) % Lymph % (Auto) (22.0-35.0) % Mathews % (Auto) (1.0-6.0) % Eos % (Auto) (1.5-5.0) % Baso % (Auto) (0.0-3.0) % Gran # (1.4-6.5) Lymph # (Auto) (1.2-3.4) Mathews # (Auto) (0.1-0.6) Eos # (Auto) (0.0-0.7) Baso # (Auto) (0.0-2.0) K/mm3 Neutrophils % (Manual) (50.0-70.0) % Lymphocytes % (Manual) (22.0-35.0) % Monocytes % (Manual) Platelet Evaluation (NORMAL) Poikilocytosis (manual Ovalocytes Acanthocytes (Spur) Sodium (132-148) mmol/L Potassium (3.6-5.0) mmol/L Chloride (98-107) mmol/L Carbon Dioxide (21-33) mmol/L Anion Gap (10-20) BUN (7-21) mg/dL Creatinine (0.8-1.5) mg/dl Est GFR ( Amer) Est GFR (Non-Af Amer) POC Glucose (mg/dL) 154 H 116 H (65-110) mg/dL Random Glucose (70-110) mg/dL Calcium (8.4-10.5) mg/dL Phosphorus (2.5-4.5) mg/dL Magnesium (1.7-2.2) mg/dL Iron (45-180) ug/dL TIBC (261-462) ug/dL % Saturation (20-55) % Ferritin ng/mL Total Bilirubin (0.2-1.3) mg/dL AST (17-59) U/L ALT (7-56) U/L Alkaline Phosphatase (38-126) U/L Total Protein (5.8-8.3) g/dL Albumin (3.0-4.8) g/dL Globulin gm/dL Albumin/Globulin Ratio (1.1-1.8) Procalcitonin 0.14 L (0.19-0.49) NG/ML Urine Chloride 04/09/18 04/09/18 Range/Units 18:00 16:32 WBC (4.5-11.0) 10^3/uL RBC (3.5-6.1) 10^6/uL Hgb (14.0-18.0) g/dL Hct (42.0-52.0) % MCV (80.0-105.0) fl MCH (25.0-35.0) pg MCHC (31.0-37.0) g/dl RDW (11.5-14.5) % Plt Count (120.0-450.0) 10^3/uL MPV (7.0-11.0) fl Gran % (50.0-68.0) % Lymph % (Auto) (22.0-35.0) % Mathews % (Auto) (1.0-6.0) % Eos % (Auto) (1.5-5.0) % Baso % (Auto) (0.0-3.0) % Gran # (1.4-6.5) Lymph # (Auto) (1.2-3.4) Mathews # (Auto) (0.1-0.6) Eos # (Auto) (0.0-0.7) Baso # (Auto) (0.0-2.0) K/mm3 Neutrophils % (Manual) (50.0-70.0) % Lymphocytes % (Manual) (22.0-35.0) % Monocytes % (Manual) Platelet Evaluation (NORMAL) Poikilocytosis (manual Ovalocytes Acanthocytes (Spur) Sodium (132-148) mmol/L Potassium (3.6-5.0) mmol/L Chloride (98-107) mmol/L Carbon Dioxide (21-33) mmol/L Anion Gap (10-20) BUN (7-21) mg/dL Creatinine (0.8-1.5) mg/dl Est GFR ( Amer) Est GFR (Non-Af Amer) POC Glucose (mg/dL) 123 H (65-110) mg/dL Random Glucose (70-110) mg/dL Calcium (8.4-10.5) mg/dL Phosphorus (2.5-4.5) mg/dL Magnesium (1.7-2.2) mg/dL Iron (45-180) ug/dL TIBC (261-462) ug/dL % Saturation (20-55) % Ferritin ng/mL Total Bilirubin (0.2-1.3) mg/dL AST (17-59) U/L ALT (7-56) U/L Alkaline Phosphatase (38-126) U/L Total Protein (5.8-8.3) g/dL Albumin (3.0-4.8) g/dL Globulin gm/dL Albumin/Globulin Ratio (1.1-1.8) Procalcitonin (0.19-0.49) NG/ML Urine Chloride TNP Laboratory Results - last 24 hr 04/09/18 04/09/18 04/09/18 16:32 18:00 23:50 WBC RBC Hgb Hct MCV MCH MCHC RDW Plt Count MPV Gran % Lymph % (Auto) Mathews % (Auto) Eos % (Auto) Baso % (Auto) Gran # Lymph # (Auto) Mathews # (Auto) Eos # (Auto) Baso # (Auto) Neutrophils % (Manual) Lymphocytes % (Manual) Monocytes % (Manual) Platelet Evaluation Poikilocytosis (manual Ovalocytes Acanthocytes (Spur) Sodium Potassium Chloride Carbon Dioxide Anion Gap BUN Creatinine Est GFR ( Amer) Est GFR (Non-Af Amer) POC Glucose (mg/dL) 123 H Random Glucose Calcium Phosphorus Magnesium Iron TIBC % Saturation Ferritin Total Bilirubin AST ALT Alkaline Phosphatase Total Protein Albumin Globulin Albumin/Globulin Ratio Procalcitonin 0.14 L Urine Chloride TNP 04/10/18 04/10/18 04/10/18 15:25 15:53 16:35 WBC RBC Hgb Hct MCV MCH MCHC RDW Plt Count MPV Gran % Lymph % (Auto) Mathews % (Auto) Eos % (Auto) Baso % (Auto) Gran # Lymph # (Auto) Mathews # (Auto) Eos # (Auto) Baso # (Auto) Neutrophils % (Manual) Lymphocytes % (Manual) Monocytes % (Manual) Platelet Evaluation Poikilocytosis (manual Ovalocytes Acanthocytes (Spur) Sodium Potassium Chloride Carbon Dioxide Anion Gap BUN Creatinine Est GFR ( Amer) Est GFR (Non-Af Amer) POC Glucose (mg/dL) 116 H 154 H 67 Random Glucose Calcium Phosphorus Magnesium Iron TIBC % Saturation Ferritin Total Bilirubin AST ALT Alkaline Phosphatase Total Protein Albumin Globulin Albumin/Globulin Ratio Procalcitonin Urine Chloride 04/10/18 04/10/18 04/10/18 17:00 18:02 19:30 WBC RBC Hgb Hct MCV MCH MCHC RDW Plt Count MPV Gran % Lymph % (Auto) Mathews % (Auto) Eos % (Auto) Baso % (Auto) Gran # Lymph # (Auto) Mathews # (Auto) Eos # (Auto) Baso # (Auto) Neutrophils % (Manual) Lymphocytes % (Manual) Monocytes % (Manual) Platelet Evaluation Poikilocytosis (manual Ovalocytes Acanthocytes (Spur) Sodium Potassium Chloride Carbon Dioxide Anion Gap BUN Creatinine Est GFR ( Amer) Est GFR (Non-Af Amer) POC Glucose (mg/dL) 63 L 141 H 125 H Random Glucose Calcium Phosphorus Magnesium Iron TIBC % Saturation Ferritin Total Bilirubin AST ALT Alkaline Phosphatase Total Protein Albumin Globulin Albumin/Globulin Ratio Procalcitonin Urine Chloride 04/11/18 04/11/18 04/11/18 05:17 05:40 05:40 WBC 8.2 D RBC 3.52 Hgb 9.8 L Hct 30.6 L MCV 86.9 MCH 27.8 MCHC 32.0 RDW 16.4 H Plt Count 165 MPV 8.5 Gran % 96.5 H Lymph % (Auto) 2.8 L Mathews % (Auto) 0.7 L Eos % (Auto) 0.0 L Baso % (Auto) 0.0 Gran # 7.94 H Lymph # (Auto) 0.2 L Mathews # (Auto) 0.1 Eos # (Auto) 0.0 Baso # (Auto) 0.00 Neutrophils % (Manual) 99 H Lymphocytes % (Manual) 1 L Monocytes % (Manual) TEST NOT PERFORMED Platelet Evaluation Normal Poikilocytosis (manual Slight Ovalocytes Slight Acanthocytes (Spur) Slight Sodium 138 Potassium 5.3 H Chloride 112 H Carbon Dioxide 14 L Anion Gap 18 BUN 77 H Creatinine 8.0 H* Est GFR ( Amer) 8 Est GFR (Non-Af Amer) 7 POC Glucose (mg/dL) 131 H Random Glucose 140 H Calcium 8.9 Phosphorus 7.1 H Magnesium 1.9 Iron TIBC % Saturation Ferritin Total Bilirubin 0.3 AST 22 ALT 23 Alkaline Phosphatase 79 Total Protein 6.5 Albumin 3.8 Globulin 2.7 Albumin/Globulin Ratio 1.4 Procalcitonin Urine Chloride 04/11/18 04/11/18 05:40 05:40 WBC RBC Hgb Hct MCV MCH MCHC RDW Plt Count MPV Gran % Lymph % (Auto) Mathews % (Auto) Eos % (Auto) Baso % (Auto) Gran # Lymph # (Auto) Mathews # (Auto) Eos # (Auto) Baso # (Auto) Neutrophils % (Manual) Lymphocytes % (Manual) Monocytes % (Manual) Platelet Evaluation Poikilocytosis (manual Ovalocytes Acanthocytes (Spur) Sodium Potassium Chloride Carbon Dioxide Anion Gap BUN Creatinine Est GFR ( Amer) Est GFR (Non-Af Amer) POC Glucose (mg/dL) Random Glucose Calcium Phosphorus Magnesium Iron 63 TIBC 281 % Saturation 23 Ferritin 47.6 Total Bilirubin AST ALT Alkaline Phosphatase Total Protein Albumin Globulin Albumin/Globulin Ratio Procalcitonin Urine Chloride Critical Care Progress Note - Nutrition Nutrition: Nutrition Category Date Time Status NPO past midnight [NPO Diet] [DIET] Diets 04/10/18 Dinner Ordered Attending/Attestation - Attestation I have personally seen and examined this patient.: Yes I have fully participated in the care of the patient.: Yes I have reviewed all pertinent clinical information: Yes Notes (Text): 04/11/18 12:38 The patient was seen and examined at the bedside. Patient care was discussed with resident Medical records, lab studies were reviewed and management issues were discussed and formulated. Agree with above treatment plans as outlined in 's note with addition of the following: Septic Shock \ Acute on Chronic Systolic CHF \ CAD \ ESRD \ UTI \ COPD -hemodynamic monitoring and vasopressor support to maintain MAP>65; currently on levophed -o2 supplementation to maintain Spo2>90 Pao2>60; currently comfortable on NC -nebs PRN and steroid taper -f\u Bun\Cr and U\o; renal team f\u for initiation of renal replacement therapy -continue Abx as per ID team and f\u cultures -PO diet as tolerated and aspiration precautions -DVT \ PUD prophylaxis CCM time 34min
[2018-04-11] MEDS ORDERED: Lidocaine 2% Inj (20ml) ONE ×2 (10:47→10:55)
[2018-04-11] MEDS ORDERED: Midazolam 2 MG/2 ML VIAL ONE ×2 (11:24→11:37)
--- NOTE | 2018-04-11 13:08 | PN ---
SUBJECTIVE: The patient was seen and examined at bedside in the ICU. He has been started on vasopressor therapy consisting of Norepinephrine with improvement in his hemodynamics. He furthermore reports improvement in his abdominal discomfort and resolution of his nausea. He was also noted to have increased urine output and overall feels better since admission. OBJECTIVE: VITAL SIGNS: Temperature 99.2, pulse 117, blood pressure 111/93, respiratory rate 20 and oxygen saturation 93% on 2L NC. GENERAL: Frail, nontoxic elderly man lying in bed in no apparent distress. HEENT: PERRL, EOMI. No scleral icterus. Mild conjunctival pallor is noted. NECK: No JVD. LUNGS: Decreased breath sounds at the bases with minimal scattered rhonchi. CARDIOVASCULAR: Tachycardic. Normal S1 and S2. Grade II/ RAGHU to LLSB. ABDOMEN: Normoactive bowel sounds. Soft, nontender and nondistended. Left inguinal hernia has been reduced. EXTREMITIES: Trace pedal edema bilaterally. NEUROLOGIC: Awake, alert and oriented x 3. No focal motor deficits. LABORATORY DATA: WBC 8.2 with 96% neutrophils, hemoglobin 9.8, hematocrit 30 and platelets 165. Sodium 138, potassium 5.3, chloride 112, bicarb 14, BUN 77, creatinine 8 and glucose 140. Procalcitonin 0.14. Blood cultures with no growth to date. Urine culture is pending. ASSESSMENT: The patient is a 77-year-old man with multiple medical comorbidities including CKD stage IV and a remote history of bladder cancer s/p cystectomy s/p ileal conduit who presented with a 2 day history of decreased urinary output, nausea and lower abdominal pain and was admitted for management of LYNN on CKD stage IV metabolic acidosis and hyperkalemia. PLAN: 1. LYNN on CKD stage IV (baseline Cr 2-3). Consider etiology secondary to medication-induced versus ATN in the setting of severe hypotension. Input from Dr. Bonner appreciated and plans are to initiate hemodialysis today. A PermCath will be placed to facilitate renal replacement therapy. Continue with gentle IV fluid hydration, monitor strict I&O's, renally dose medications and avoid nephrotoxins. 2. Remote history of bladder cancer s/p cystectomy s/p ileal conduit. As per Dr. Figueredo of Urology, no need for urological intervention. 3. Hyperkalemia, improving. Continue with IV fluid hydration and telemetry monitoring. 4. Metabolic acidosis, improving. As above, the patient is scheduled for hemodialysis later today. 5. 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 The patient's hemodynamics are improving on Norepinephrine. Input from Dr. Tejeda noted and greatly appreciated. Continue care as per Dr. Tejeda. 6. COPD. Input from Dr. Birmingham greatly appreciated. Continue with supplemental oxygen and bronchodilators as needed. 7. Pulmonary hypertension. Continue with care as per Dr. Birmingham. 8. CAD s/p STEMI s/p PCI with stent placement. Continue Aspirin 81 mg p.o. daily and Lipitor 40 mg p.o. daily. Plavix has been discontinued given that the patient is one year post stent placement. 9. Anemia of chronic disease. Hb stable. 10. Insomnia. 11. Chronic left inguinal hernia. Input from surgical team appreciated and the hernia has been reduced. 12. Prophylaxis. GI prophylaxis not indicated as the patient is eating. Continue with heparin for DVT prophylaxis. CODE STATUS: Full code. Matt Hartley MD [facility]
[2018-04-11] MEDS ORDERED: RIOCIGUAT 2.5 MG PO SCH (14:00)
[2018-04-11] MEDS ORDERED: Digoxin 500 mcg/2ml (0.5 mg/2ml) Inj IVP STA (15:36)
[2018-04-11] MEDS ORDERED: Amiodarone 150 mg/D5W 100 ml 150 MG/100 ML BAG ONE (15:42)
[2018-04-11] MEDS: Amiodarone 360 mg/D5W 200 ml 360 MG/200 ML BAG IV SCH ×2 (15:53→22:49)
--- NOTE | 2018-04-11 16:15 | VASCULAR ---
PROCEDURE: Ultrasound and fluoroscopic tunneled left IJ dialysis catheter. CLINICAL HISTORY: ESRD. Needs tunneled dialysis catheter PHYSICIAN(S): Wayne Mathews M.D. TECHNIQUE: The relative risks and indications for the procedure were explained to the patient and his daughter and informed written consent obtained. The patient was placed supine on the arteriography table and the left neck/chest was prepped and draped in the usual sterile fashion. 1% Xylocaine was used to anesthetize the skin and soft tissues at the puncture site. Conscious sedation and monitoring were provided throughout the procedure by a nurse. Under direct ultrasound guidance, the leftinternal jugular vein was punctured with a micropuncture set. A 0.035 Glidewire was advanced into the IVC. Sequential dilatation was performed with subsequent placement of a 32 cmCannon II catheter with its tip in the right atrium. A retrograde tunnel below the left clavicle was performed. The catheter was trimmed and the hub attached. Both ports aspirate and inject easily. The catheter was secured and a dressing applied. The patient tolerated the procedure well. IMPRESSION: 1. Ultrasound and fluoroscopically placed left IJ tunneled dialysis catheter.
[2018-04-11] MEDS: SELEXIPAG PO SCH (17:25)
[2018-04-11] MEDS ORDERED: Vancomycin 2 GM in Sodium Chloride 0.9% 500 ML IVPB ONE (17:29)
[2018-04-11] MEDS: RIOCIGUAT 2.5 MG PO SCH (17:29)
[2018-04-11] MEDS ORDERED: MEROPENEM 500 MG in NS 500 MG/50 ML BAG IVPB SCH (17:30)
--- NOTE | 2018-04-11 20:55 | PN ---
DATE: 04/11/2018 SUBJECTIVE: The patient is seen lying in bed in the ICU. He had a dialysis catheter placed earlier and was treated with one session of dialysis which he tolerated. He has been placed on Levophed for blood pressures support. He remains off his milrinone. He developed rapid atrial fibrillation and was started on IV amiodarone. He remains unhappy and uncomfortable. His blood pressure is improved with Levophed. PHYSICAL EXAMINATION: GENERAL: He is a chronically ill-appearing elderly man. VITAL SIGNS: Blood pressure is 120/84, pulse of 120 in sinus rhythm with frequent premature atrial complexes, respirations 16. His temperature is 100.2. HEENT: No JVD. HEART: PMI displaced laterally. Rhythm is rapid. Soft tones were noted. CHEST: Bilateral coarse rhonchi. ABDOMEN: Soft, nontender with bowel sounds. Urostomy site has scant drainage. EXTREMITIES: No edema. DIAGNOSTIC DATA: Potassium 5.3, BUN and creatinine 77 and 8.0. White count 8.2, hemoglobin and hematocrit 9.8 and 30.6 with platelet count 165,000. CURRENT MEDICATIONS: Include aspirin, Ativan p.r.n., Brovana, DuoNeb inhaler, subcutaneous heparin, Levophed at 4 mcg per minute, meropenem, IV amiodarone, Pepcid, PhosLo, Pulmicort, Adempas, Uptravi, Solu-Medrol and vancomycin. IMPRESSION: 1. Acute on chronic renal failure, status post catheter placement and single session of dialysis. 2. Severe chronic obstructive pulmonary disease and pulmonary hypertension. 3. Coronary disease status post remote anterior myocardial infarction with severe left ventricular dysfunction. 4. Decompensated heart failure, [id number] systolic. 5. Rest of problems as noted. RECOMMENDATIONS: Levophed will be weaned as tolerated. If his blood pressure allows, milrinone infusion will be resumed. IV amiodarone be continued for now and can be switched to oral administration as needed. His overall prognosis remains poor. This was discussed with his granddaughter at the bedside. We will continue to follow and make further recommendations as appropriate. Dwight Tejeda MD [facility] # [id number] [facility]
[2018-04-11 21:38] LABS: HEPATITIS B SURFACE AG Negative (NEGATIVE)
[2018-04-11 21:44] LABS: HEPATITIS B CORE AB NEGATIVE (NEGATIVE)
[2018-04-11] MEDS ORDERED: Amiodarone 360 mg/D5W 200 ml 360 MG/200 ML BAG IV SCH (21:45)
[2018-04-11] MEDS ORDERED: DiphenhydrAMINE 50 mg/ml Inj IVP STA (22:18)
--- NOTE | 2018-04-11 23:45 | PN ---
DATE: 04/11/2018 SUBJECTIVE: The patient is seen at the start of dialysis. He is awake. He is alert. He appears to be comfortable. and daughter are at the bedside. He denies any chest pain. He denies any palpitations. He denies any nausea or vomiting. His blood pressure is low. He is on Levophed at 3 mcg. PHYSICAL EXAMINATION GENERAL: Elderly male, lying in bed. VITAL SIGNS: Blood pressure 103/67, heart rate is 154, respiratory rate 24, temperature 98.1. HEENT: Normocephalic, atraumatic. Positive pallor. NECK: Supple. No JVD. LUNGS: Bilateral equal air entry, bilateral equal expansion. No rales. CARDIAC: S1 and S2, irregular rate and rhythm. No murmur or rub. ABDOMEN: Distended, soft, positive ileostomy, bowel sounds present. EXTREMITIES: No lower extremity edema. INTAKE AND OUTPUT: 1500/1850. LABORATORY DATA: WBC 8.2, hemoglobin 9.8, hematocrit 30.6, platelets 165. Sodium 138, potassium 5.3, chloride 112, CO2 of 14, BUN 77, creatinine 8, glucose 140, calcium 8.9, phosphorus 7.1, magnesium 1.9. Iron 63, saturation 23, ferritin 47.6, albumin 3.8. CURRENT MEDICATIONS: Aspirin 81, Ativan, Brovana, meropenem 500 every 12 hours, Pepcid, PhosLo 667 t.i.d. with meals, vancomycin 2 g, Zofran. ASSESSMENT: 1. Acute kidney injury versus progressive renal failure, progression of chronic kidney disease V to end-stage renal disease. 2. Hyperkalemia. 3. Anion gap metabolic acidosis. 4. Severe cardiomyopathy, decreased ejection fraction of 15% to 20%. 5. Coronary artery disease and congestive heart failure. 6. Anemia of chronic kidney disease. 7. Secondary hyperparathyroidism, hyperphosphatemia. 8. Chronic obstructive pulmonary disease, pulmonary hypertension. PLAN: 1. Starting first dialysis. 2. PermCath placed earlier. 3. No ultrafiltration today. 4. Will need dialysis again tomorrow. 5. Continue to monitor in the ICU. 6. Continue phosphate binders. 7. Continue Levophed to support blood pressure. 8. Case discussed with ICU residents at length, case discussed with ICU attending, case discussed with ICU nursing staff, case discussed with dialysis service staff. More than 35 minutes spent in the care of this critically ill patient. Myranda Ivey MD
[2018-04-12] MEDS ORDERED: Albuterol-Ipratrop 3 mg / 0.5 (3 ml) UD IH STA (06:41)
[2018-04-12 06:56] LABS: GRAN # 16.14 (1.4-6.5); GRAN % 93.4 % (50.0-68.0); HEMOGLOBIN 11.2 g/dL (14.0-18.0); LYMPH # 0.4 (1.2-3.4); LYMPH % 2.1 % (22.0-35.0); MEAN CELL VOLUME 85.1 fl (80.0-105.0); MEAN CORPUSCULAR HEMOGLOBIN 27.8 pg (25.0-35.0); MEAN CORPUSCULAR HGB CONC 32.7 g/dl (31.0-37.0); MEAN PLATELET VOLUME 8.7 fl (7.0-11.0); MONO # 0.8 (0.1-0.6); MONO % 4.5 % (1.0-6.0); RBC 4.03 10^6/uL (3.5-6.1); WHITE BLOOD COUNT 17.3 10^3/uL (4.5-11.0)
[2018-04-12] MEDS: Budesonide 0.5 mg/2 ml Inhal Susp UD IH SCH ×3 (06:58→21:03)
[2018-04-12] MEDS: Arformoterol 15 mcg/2 ml Inh Sol IH SCH (07:00)
[2018-04-12 07:20] LABS: ARTERIAL BLOOD GAS HCO3 17.7 mmol/L (21-28); ARTERIAL BLOOD GAS HEMOGLOBIN 10.7 g/dL (11.7-17.4); ARTERIAL BLOOD GAS O2 CAPACITY 14.9 mL/dl (16-24); ARTERIAL BLOOD GAS O2 CONTENT 13.9 ML/dl (15-23); ARTERIAL BLOOD GAS O2 SAT 93.2 % (95-98); ARTERIAL BLOOD GAS PCO2 32 mm/Hg (35-45); ARTERIAL BLOOD GAS PH 7.35 (7.35-7.45); ARTERIAL BLOOD GAS TCO2 18.7 mmol.L (22-28)
[2018-04-12] MEDS ORDERED: Albuterol-Ipratrop 3 mg / 0.5 (3 ml) UD IH ONE (07:30)
[2018-04-12 07:46] LABS: ALB/GLOB RATIO 1.4 (1.1-1.8); CALCIUM 9.4 mg/dL (8.4-10.5)
[2018-04-12] MEDS ORDERED: Levalbuterol 1.25 MG/3 ML Inhal Soln UD ONE (08:04)
--- NOTE | 2018-04-12 08:23 | CP.CCUPN ---
<García Jasso - Last Filed: 04/12/18 10:18> CCU Subjective - Physician Review Subjective (Free Text): García Jasso, PGY-1, ICU Progress Note for Dr. Hayes CC: fatigue, dark urine, dark diarrhea, dark vomit, abdominal pain Patient seen and evaluated at bedside. Patient was agitated overnight and was not able to sleep. Patient was given geodon 10mgx2, haldol 2mg Q2, and benadryl, which did not reduce his agitation and anxiety. This morning, patient had shortness of breath and audible wheezes on presentation. Patient was given methylprednisone 125 mg, and two treatments of duonebs, which relieved his shortness of breath and wheezing. Patient has no complaints today. 12-point ROS was unreliable due to mental status. CCU Objective - Vital Signs / Intake & Output Intake and Output (Last 8hrs): Intake & Output 04/11/18 04/12/18 04/12/18 22:59 06:59 14:59 Intake Total 730 250 Output Total 1850 Balance -1120 250 Intake: IV 250 250 Right Subclavian 250 Oral 480 Output: Urine 1350 Suprapubic 1350 Other 500 - Physical Exam Physical Exam Limitations: Positive for: Altered Mental Status Head: Positive for: Atraumatic, Normocephalic Pupils: Positive for: PERRL Extroacular Muscles: Positive for: EOMI Conjunctiva: Positive for: Normal Mouth: Positive for: Dry Nose (External): Positive for: Atraumatic Neck: Positive for: Normal Range of Motion Respiratory/Chest: Positive for: Good Air Exchange, Respiratory Distress, Wheezes Cardiovascular: Positive for: Irregular Rhythm, Tachycardic Abdomen: Positive for: Normal Bowel Sounds, Other (ileal conduit pouch intact). Negative for: Tenderness, Distention, Peritoneal Signs Genitourinary Male: Positive for: Other (reduction of testicular swelling) Back: Positive for: Normal Inspection Upper Extremity: Positive for: Normal Inspection. Negative for: Cyanosis, Edema Lower Extremity: Positive for: Normal Inspection. Negative for: Edema Neurological: Positive for: GCS=15, CN II-XII Intact, Speech Normal Skin: Positive for: Warm, Dry, Normal Color Psychiatric: Positive for: Alert Other physical findings (Free Text): AAOx0 - Medications Active Medications: Active Medications Generic Name Dose Route Start Last Admin Trade Name Freq PRN Reason Stop Dose Admin Acetaminophen 650 mg 04/09/18 16:51 Tylenol 325mg Tab PO Q6H PRN Fever >100.4 F Albuterol/Ipratropium 3 ml 04/09/18 16:50 04/10/18 20:58 Duoneb 3 Mg/0.5 Mg (3 Ml) Ud IH 3 ml [id number] PRN Administration Shortness of Breath Arformoterol Tartrate 15 mcg 04/09/18 20:00 04/12/18 07:00 Brovana IH 15 mcg [id number] CECILY Administration Aspirin 81 mg 04/10/18 10:00 04/11/18 17:18 Aspirin Chewable PO 81 mg DAILY CECILY Administration Atorvastatin Calcium 40 mg 04/10/18 17:00 04/11/18 14:37 Lipitor PO Not Given DAILY CECILY Budesonide 0.5 mg 04/10/18 08:00 04/12/18 07:11 Pulmicort Respules IH 0.5 mg [id number] CECILY Administration Calcium Acetate 667 mg 04/11/18 08:00 04/11/18 16:29 Phoslo PO 667 mg WM CECILY Administration Dextrose 0 ml 04/10/18 14:30 04/10/18 17:07 Dextrose 50% Inj IV 50 ml STAT PRN Administration Hypoglycemia Protocol Protocol Famotidine 20 mg 04/10/18 10:00 04/11/18 17:18 Pepcid PO 20 mg DAILY CECILY Administration Heparin Sodium (Porcine) 5,000 units 04/09/18 22:00 04/11/18 21:10 Heparin SC 5,000 units Q8 CECILY Administration Protocol Dextrose 1,000 mls @ 0 mls/hr 04/10/18 14:30 Dextrose 5% In Water 1000 Ml IV .Q0M PRN Hypoglycemia Protocol Protocol Per Protocol NOREPINEPHRINE BIT/0.9 % NACL 4 mg in 250 mls @ 15 mls/hr 04/10/18 21:34 04/12/18 00:57 Levophed 4 Mg/ 250 Ml Ns Premixed IV Infused .[id number] PRN Titration TITRATE PER MD ORDER Protocol 4 MCG/MIN Meropenem/Sodium Chloride 500 mg in 50 mls @ 100 mls/hr 04/11/18 17:30 01/17/19 18:19 Merrem Iv 500 Mg/Ns 50 Ml IVPB 100 mls/hr Q24H CECILY Administration Protocol Levalbuterol HCl 1.25 mg 04/12/18 08:01 Xopenex IH [id number] PRN Shortness of Breath Lorazepam 1 mg 04/12/18 10:00 Ativan IVP DAILY CECILY Protocol Methylprednisolone 40 mg 04/12/18 12:00 Solu-Medrol IVP Q6 CECILY Non-Formulary Medication 600 mg 04/11/18 18:00 04/11/18 17:25 Selexipag [Uptravi] PO 600 mg BID CECILY Administration Non-Formulary Medication 2.5 mg 04/11/18 17:04 04/11/18 17:29 Riociguat [Adempas] PO 2.5 mg TID CECILY Administration Ondansetron HCl 4 mg 04/09/18 16:51 04/09/18 18:25 Zofran Inj IVP 4 mg Q6H PRN Administration Nausea/Vomiting - Patient Studies Lab Studies: Microbiology Studies 04/09/18 14:30 Urine Culture - Final Urine,Catheterized Enterococcus Faecalis 04/09/18 23:50 Blood Culture - Preliminary Blood NO GROWTH AFTER 48 HOURS 04/09/18 23:40 Blood Culture - Preliminary Blood NO GROWTH AFTER 48 HOURS Lab Studies 04/12/18 04/12/18 04/12/18 Range/Units 07:12 06:15 06:15 WBC 17.3 H D (4.5-11.0) 10^3/uL RBC 4.03 (3.5-6.1) 10^6/uL Hgb 11.2 L (14.0-18.0) g/dL Hct 34.3 L (42.0-52.0) % MCV 85.1 (80.0-105.0) fl MCH 27.8 (25.0-35.0) pg MCHC 32.7 (31.0-37.0) g/dl RDW 16.0 H (11.5-14.5) % Plt Count 186 (120.0-450.0) 10^3/uL MPV 8.7 (7.0-11.0) fl Gran % 93.4 H (50.0-68.0) % Lymph % (Auto) 2.1 L (22.0-35.0) % [place] % (Auto) 4.5 (1.0-6.0) % Eos % (Auto) 0.0 L (1.5-5.0) % Baso % (Auto) 0.0 (0.0-3.0) % Gran # 16.14 H (1.4-6.5) Lymph # (Auto) 0.4 L (1.2-3.4) [place] # (Auto) 0.8 H (0.1-0.6) Eos # (Auto) 0.0 (0.0-0.7) Baso # (Auto) 0.00 (0.0-2.0) K/mm3 Neutrophils % (Manual) (50.0-70.0) % Lymphocytes % (Manual) (22.0-35.0) % Monocytes % (Manual) Platelet Evaluation (NORMAL) Poikilocytosis (manual Ovalocytes Acanthocytes (Spur) pCO2 32 L (35-45) mm/Hg pO2 59.0 L (80-100) mm/Hg HCO3 17.7 L (21-28) mmol/L ABG pH 7.35 (7.35-7.45) ABG Total CO2 18.7 L (22-28) mmol.L ABG O2 Saturation 93.2 L (95-98) % ABG O2 Content 13.9 L (15-23) ML/dl ABG Base Excess -7.0 L (-2.0-3.0) mmol/L ABG Hemoglobin 10.7 L (11.7-17.4) g/dL ABG Carboxyhemoglobin 0.9 (0.5-1.5) % POC ABG HHb (Measured) 6.7 H (0-5) % ABG Methemoglobin 0.3 (0.0-3.0) % ABG O2 Capacity 14.9 L (16-24) mL/dl Hgb O2 Saturation 92.1 L (95.0-98.0) % FiO2 36.0 % Sodium 138 (132-148) mmol/L Potassium 4.4 (3.6-5.0) mmol/L Chloride 106 (98-107) mmol/L Carbon Dioxide 19 L (21-33) mmol/L Anion Gap 17 (10-20) BUN 54 H (7-21) mg/dL Creatinine 5.0 H (0.8-1.5) mg/dl Est GFR ( Amer) 14 Est GFR (Non-Af Amer) 11 Random Glucose 170 H (70-110) mg/dL Calcium 9.4 (8.4-10.5) mg/dL Phosphorus 5.4 H (2.5-4.5) mg/dL Magnesium 1.9 (1.7-2.2) mg/dL Ferritin ng/mL Total Bilirubin 0.3 (0.2-1.3) mg/dL AST 33 (17-59) U/L ALT 24 (7-56) U/L Alkaline Phosphatase 88 (38-126) U/L Total Protein 6.9 (5.8-8.3) g/dL Albumin 4.0 (3.0-4.8) g/dL Globulin 2.8 gm/dL Albumin/Globulin Ratio 1.4 (1.1-1.8) Urine Chloride Hep Bs Antigen (NEGATIVE) Hep Bs Antibody (NEGATIVE) Hep B Core IgM Ab (NEGATIVE) 04/11/18 04/11/18 04/11/18 Range/Units 14:00 14:00 05:40 WBC (4.5-11.0) 10^3/uL RBC (3.5-6.1) 10^6/uL Hgb (14.0-18.0) g/dL Hct (42.0-52.0) % MCV (80.0-105.0) fl MCH (25.0-35.0) pg MCHC (31.0-37.0) g/dl RDW (11.5-14.5) % Plt Count (120.0-450.0) 10^3/uL MPV (7.0-11.0) fl Gran % (50.0-68.0) % Lymph % (Auto) (22.0-35.0) % [place] % (Auto) (1.0-6.0) % Eos % (Auto) (1.5-5.0) % Baso % (Auto) (0.0-3.0) % Gran # (1.4-6.5) Lymph # (Auto) (1.2-3.4) [place] # (Auto) (0.1-0.6) Eos # (Auto) (0.0-0.7) Baso # (Auto) (0.0-2.0) K/mm3 Neutrophils % (Manual) (50.0-70.0) % Lymphocytes % (Manual) (22.0-35.0) % Monocytes % (Manual) Platelet Evaluation (NORMAL) Poikilocytosis (manual Ovalocytes Acanthocytes (Spur) pCO2 (35-45) mm/Hg pO2 (80-100) mm/Hg HCO3 (21-28) mmol/L ABG pH (7.35-7.45) ABG Total CO2 (22-28) mmol.L ABG O2 Saturation (95-98) % ABG O2 Content (15-23) ML/dl ABG Base Excess (-2.0-3.0) mmol/L ABG Hemoglobin (11.7-17.4) g/dL ABG Carboxyhemoglobin (0.5-1.5) % POC ABG HHb (Measured) (0-5) % ABG Methemoglobin (0.0-3.0) % ABG O2 Capacity (16-24) mL/dl Hgb O2 Saturation (95.0-98.0) % FiO2 % Sodium (132-148) mmol/L Potassium (3.6-5.0) mmol/L Chloride (98-107) mmol/L Carbon Dioxide (21-33) mmol/L Anion Gap (10-20) BUN (7-21) mg/dL Creatinine (0.8-1.5) mg/dl Est GFR ( Amer) Est GFR (Non-Af Amer) Random Glucose (70-110) mg/dL Calcium (8.4-10.5) mg/dL Phosphorus (2.5-4.5) mg/dL Magnesium (1.7-2.2) mg/dL Ferritin 47.6 ng/mL Total Bilirubin (0.2-1.3) mg/dL AST (17-59) U/L ALT (7-56) U/L Alkaline Phosphatase (38-126) U/L Total Protein (5.8-8.3) g/dL Albumin (3.0-4.8) g/dL Globulin gm/dL Albumin/Globulin Ratio (1.1-1.8) Urine Chloride Hep Bs Antigen Negative (NEGATIVE) Hep Bs Antibody Negative (NEGATIVE) Hep B Core IgM Ab Negative (NEGATIVE) 04/11/18 04/09/18 Range/Units 05:40 18:00 WBC (4.5-11.0) 10^3/uL RBC (3.5-6.1) 10^6/uL Hgb (14.0-18.0) g/dL Hct (42.0-52.0) % MCV (80.0-105.0) fl MCH (25.0-35.0) pg MCHC (31.0-37.0) g/dl RDW (11.5-14.5) % Plt Count (120.0-450.0) 10^3/uL MPV (7.0-11.0) fl Gran % (50.0-68.0) % Lymph % (Auto) (22.0-35.0) % [place] % (Auto) (1.0-6.0) % Eos % (Auto) (1.5-5.0) % Baso % (Auto) (0.0-3.0) % Gran # (1.4-6.5) Lymph # (Auto) (1.2-3.4) [place] # (Auto) (0.1-0.6) Eos # (Auto) (0.0-0.7) Baso # (Auto) (0.0-2.0) K/mm3 Neutrophils % (Manual) 99 H (50.0-70.0) % Lymphocytes % (Manual) 1 L (22.0-35.0) % Monocytes % (Manual) TEST NOT PERFORMED Platelet Evaluation Normal (NORMAL) Poikilocytosis (manual Slight Ovalocytes Slight Acanthocytes (Spur) Slight pCO2 (35-45) mm/Hg pO2 (80-100) mm/Hg HCO3 (21-28) mmol/L ABG pH (7.35-7.45) ABG Total CO2 (22-28) mmol.L ABG O2 Saturation (95-98) % ABG O2 Content (15-23) ML/dl ABG Base Excess (-2.0-3.0) mmol/L ABG Hemoglobin (11.7-17.4) g/dL ABG Carboxyhemoglobin (0.5-1.5) % POC ABG HHb (Measured) (0-5) % ABG Methemoglobin (0.0-3.0) % ABG O2 Capacity (16-24) mL/dl Hgb O2 Saturation (95.0-98.0) % FiO2 % Sodium (132-148) mmol/L Potassium (3.6-5.0) mmol/L Chloride (98-107) mmol/L Carbon Dioxide (21-33) mmol/L Anion Gap (10-20) BUN (7-21) mg/dL Creatinine (0.8-1.5) mg/dl Est GFR ( Amer) Est GFR (Non-Af Amer) Random Glucose (70-110) mg/dL Calcium (8.4-10.5) mg/dL Phosphorus (2.5-4.5) mg/dL Magnesium (1.7-2.2) mg/dL Ferritin ng/mL Total Bilirubin (0.2-1.3) mg/dL AST (17-59) U/L ALT (7-56) U/L Alkaline Phosphatase (38-126) U/L Total Protein (5.8-8.3) g/dL Albumin (3.0-4.8) g/dL Globulin gm/dL Albumin/Globulin Ratio (1.1-1.8) Urine Chloride TNP Hep Bs Antigen (NEGATIVE) Hep Bs Antibody (NEGATIVE) Hep B Core IgM Ab (NEGATIVE) Laboratory Results - last 24 hr 04/09/18 04/11/18 04/11/18 18:00 05:40 05:40 WBC RBC Hgb Hct MCV MCH MCHC RDW Plt Count MPV Gran % Lymph % (Auto) [place] % (Auto) Eos % (Auto) Baso % (Auto) Gran # Lymph # (Auto) [place] # (Auto) Eos # (Auto) Baso # (Auto) Neutrophils % (Manual) 99 H Lymphocytes % (Manual) 1 L Monocytes % (Manual) TEST NOT PERFORMED Platelet Evaluation Normal Poikilocytosis (manual Slight Ovalocytes Slight Acanthocytes (Spur) Slight pCO2 pO2 HCO3 ABG pH ABG Total CO2 ABG O2 Saturation ABG O2 Content ABG Base Excess ABG Hemoglobin ABG Carboxyhemoglobin POC ABG HHb (Measured) ABG Methemoglobin ABG O2 Capacity Hgb O2 Saturation FiO2 Sodium Potassium Chloride Carbon Dioxide Anion Gap BUN Creatinine Est GFR ( Amer) Est GFR (Non-Af Amer) Random Glucose Calcium Phosphorus Magnesium Ferritin 47.6 Total Bilirubin AST ALT Alkaline Phosphatase Total Protein Albumin Globulin Albumin/Globulin Ratio Urine Chloride TNP Hep Bs Antigen Hep Bs Antibody Hep B Core IgM Ab 04/11/18 04/11/18 04/12/18 14:00 14:00 06:15 WBC 17.3 H D RBC 4.03 Hgb 11.2 L Hct 34.3 L MCV 85.1 MCH 27.8 MCHC 32.7 RDW 16.0 H Plt Count 186 MPV 8.7 Gran % 93.4 H Lymph % (Auto) 2.1 L [place] % (Auto) 4.5 Eos % (Auto) 0.0 L Baso % (Auto) 0.0 Gran # 16.14 H Lymph # (Auto) 0.4 L [place] # (Auto) 0.8 H Eos # (Auto) 0.0 Baso # (Auto) 0.00 Neutrophils % (Manual) Lymphocytes % (Manual) Monocytes % (Manual) Platelet Evaluation Poikilocytosis (manual Ovalocytes Acanthocytes (Spur) pCO2 pO2 HCO3 ABG pH ABG Total CO2 ABG O2 Saturation ABG O2 Content ABG Base Excess ABG Hemoglobin ABG Carboxyhemoglobin POC ABG HHb (Measured) ABG Methemoglobin ABG O2 Capacity Hgb O2 Saturation FiO2 Sodium Potassium Chloride Carbon Dioxide Anion Gap BUN Creatinine Est GFR ( Amer) Est GFR (Non-Af Amer) Random Glucose Calcium Phosphorus Magnesium Ferritin Total Bilirubin AST ALT Alkaline Phosphatase Total Protein Albumin Globulin Albumin/Globulin Ratio Urine Chloride Hep Bs Antigen Negative Hep Bs Antibody Negative Hep B Core IgM Ab Negative 04/12/18 04/12/18 06:15 07:12 WBC RBC Hgb Hct MCV MCH MCHC RDW Plt Count MPV Gran % Lymph % (Auto) [place] % (Auto) Eos % (Auto) Baso % (Auto) Gran # Lymph # (Auto) [place] # (Auto) Eos # (Auto) Baso # (Auto) Neutrophils % (Manual) Lymphocytes % (Manual) Monocytes % (Manual) Platelet Evaluation Poikilocytosis (manual Ovalocytes Acanthocytes (Spur) pCO2 32 L pO2 59.0 L HCO3 17.7 L ABG pH 7.35 ABG Total CO2 18.7 L ABG O2 Saturation 93.2 L ABG O2 Content 13.9 L ABG Base Excess -7.0 L ABG Hemoglobin 10.7 L ABG Carboxyhemoglobin 0.9 POC ABG HHb (Measured) 6.7 H ABG Methemoglobin 0.3 ABG O2 Capacity 14.9 L Hgb O2 Saturation 92.1 L FiO2 36.0 Sodium 138 Potassium 4.4 Chloride 106 Carbon Dioxide 19 L Anion Gap 17 BUN 54 H Creatinine 5.0 H Est GFR ( Amer) 14 Est GFR (Non-Af Amer) 11 Random Glucose 170 H Calcium 9.4 Phosphorus 5.4 H Magnesium 1.9 Ferritin Total Bilirubin 0.3 AST 33 ALT 24 Alkaline Phosphatase 88 Total Protein 6.9 Albumin 4.0 Globulin 2.8 Albumin/Globulin Ratio 1.4 Urine Chloride Hep Bs Antigen Hep Bs Antibody Hep B Core IgM Ab Radiology Impressions: Radiology Impressions Interventional Vascular Procedure 04/11/18 09:04 IMPRESSION: 1. Ultrasound and fluoroscopically placed left IJ tunneled dialysis catheter. Fingerstick Blood Sugar Results: 116 Review of Systems - Review of Systems Systems not reviewed;Unavailable: Altered Mental Status Critical Care Progress Note - Ventilator Checklist Head of Bed 30 Degrees: Yes PUD Prophalyxis: Yes DVT Prophylaxis: Yes - Nutrition Nutrition: Nutrition Category Date Time Status Heart Healthy Diet [DIET] Diets 04/11/18 Breakfast Active Assessment/Plan - Assessment and Plan (Free Text) Assessment: 77 year old female with past medical history of CAD status post STEMI with stent, congestive heart failure with last EF: 25% from 02/2018, severe COPD on 3L at home, CKD stage 4, history of bladder carcinoma s/p ileal conduit, pulmonary hypertension, and hypertension presents with fatigue, nausea, black vomit, black diarrhea, black urine, shortness of breath, dysphagia, and sharp abdominal pain worse with eating. Plan: Neuro: Altered Mental Status -Secondary to ICU delirium vs. delirium from infection -AAOx0, no FND, moving extremities past midline. -Patient agitated and had insomnia overnight. -Patient given geodon 10 mgx2, diphenhydramine 50 mg, haldol 2 mg Q2, which did not resolve agitation overnight -Patient currently not agitated -Dr. Curry, Psychiatry, consulted for recommendations. -Monitor neuro status. -Reorient patient as necessary. Cardio: Systolic Congestive Heart failure Echocardiogram from 02/2018: EF: 25% -Sinus tachycardia, hypotensive overnight with BP: 73/42, after levophed was 111/93 -EKG 04/09: sinus tachycardia, RBBB with HR: 115 -Stopped home milrinone due to patient's renal function and current hypotension -Hold MARK I, spironolactone -Levophed was titrated off. -Maintain MAP>65. -Monitor for S/S, HD compromise. -Dr. Mancilla, Cardiology, consulted for recommendations. Follow recommendations. CAD s/p stent placement -Continue home aspirin 81 mg PO daily, lipitor 40 mg PO daily, plavix 75 mg PO daily New onset Atrial Fibrillation -Due to patient's hypotension, patient is currently being rhythm controlled with amiodarone 0.5 mg/min for 12 hours -Will start amiodarone 400 mg daily. -Currently no therapeutic anticoagulation. DVT prophylaxis with heparin 5000 U Q8 Pulm: COPD exacerbation -Resolved respiratory distress -CXR 04/10: mild cardiomegaly, right lower lobe infiltrate 2/2 to pneumonia vs. vascular congestion -Maintain O2 saturation>95%. -O2 NC 3L -Changed to xopenex 1.25 Q4, pulmicort 0.5 Q12, and methylprednisone 40 mg Q6 -Elevate bed to 30 degrees Pulmonary Hypertension -Continue home medications as per Dr. [place], Pulmonology. GI: Diet -Tolerating HHD diet well. GI prophylaxis -Pepcid 20 mg PO daily /Nephro: ESRD currently not on dialysis -BUN/Cr improved to 54/5 -UA 04/09: 100 protein, large blood, trace leukocyte esterase, large bacteria, yeast. Likely UTI present -Hyperkalemia resolved -Decreased bicarbonate at 19. Improved from 14 yesterday. -Elevated phosphate at 5.4. Improved from 7.1 yesterday. -All electrolyte abnormalities likely due to ESRD. -Phoslo started for hyperphosphatemia -Decreased bicarbonate to be corrected during hemodialysis at 12:00 on 04/11. -UO: 600. Currently making sparse urine -Continue monitoring. -Patient to have second round of dialysis in the AM. -Continue to follow Cardiology, Nephrology, and Radiology recommendations. Nonanion gap metabolic acidosis -PH: 7.14 from prior VBG on 04/09 secondary to RTA vs. diarrhea. -ABG ordered to evaluate for appropriate compensation Endocrinology: -Random glucose: 170 -Maintain euglycemia. Heme/Onc: Normocytic Anemia -H/H improved to 11.2/34.3 -Continue monitoring H/H DVT prophylaxis -Heparin 5000 U SubQ Q8 ID: UTI vs. pneumonia -Afebrile, new leukocytosis at 17.3 -UA: 100 protein, large blood, trace leukocyte esterase, large bacteria, yeast. Likely UTI present -CXR 04/10: mild cardiomegaly, right lower lobe infiltrate 2/2 to pneumonia vs. vascular congestion -UCx: Enterococcus faecalis -BCx is negative for 48 hours, MRSA negative. -Lactate: 0.8 -Merrem 500 mg daily day 2. -Dr. Peterson, ID, consulted for further recommendations. -Monitor for signs and symptoms of infection. Patient seen and examined with Dr. Hayes. - Date & Time Date: 04/12/18 Time: 08:20 <Eladio Hayes - Last Filed: 04/12/18 11:08> CCU Objective - Vital Signs / Intake & Output Vital Signs (Last 4 hours): Vital Signs Pulse Resp BP Pulse Ox 04/12/18 09:00 105 H 18 113/70 99 04/12/18 08:50 104 H 20 99 04/12/18 08:40 108 H 20 99 04/12/18 08:30 110 H 20 101/55 L 99 04/12/18 08:20 113 H 21 99 04/12/18 08:10 127 H 16 98 04/12/18 08:00 123 H 29 H 156/95 H 97 04/12/18 07:59 125 H 29 H 04/12/18 07:54 126 H 28 H 04/12/18 07:52 127 H 45 H 04/12/18 07:50 126 H 21 80 L 04/12/18 07:40 125 H 51 H 91 L 04/12/18 07:30 127 H 22 143/78 94 L 04/12/18 07:20 128 H 94 L 04/12/18 07:18 130 H 26 H 04/12/18 07:10 125 H 33 H 91 L Intake and Output (Last 8hrs): Intake & Output 04/11/18 04/12/18 04/12/18 22:59 06:59 14:59 Intake Total 730 1530 Output Total 1850 600 Balance -1120 930 Weight 165 lb Intake: IV 250 1050 Right Subclavian 250 800 Oral 480 480 Output: Urine 1350 600 Suprapubic 1350 600 Other 500 Other: # Bowel Movements 0 - Medications Active Medications: Active Medications Generic Name Dose Route Start Last Admin Trade Name Freq PRN Reason Stop Dose Admin Acetaminophen 650 mg 04/09/18 16:51 Tylenol 325mg Tab PO Q6H PRN Fever >100.4 F Albuterol/Ipratropium 3 ml 04/09/18 16:50 04/10/18 20:58 Duoneb 3 Mg/0.5 Mg (3 Ml) Ud IH 3 ml [id number] PRN Administration Shortness of Breath Arformoterol Tartrate 15 mcg 04/09/18 20:00 04/12/18 07:00 Brovana IH 15 mcg [id number] CECILY Administration Aspirin 81 mg 04/10/18 10:00 04/12/18 10:13 Aspirin Chewable PO 81 mg DAILY CECILY Administration Atorvastatin Calcium 40 mg 04/10/18 17:00 04/11/18 14:37 Lipitor PO Not Given DAILY CECILY Budesonide 0.5 mg 04/10/18 08:00 04/12/18 07:11 Pulmicort Respules IH 0.5 mg [id number] CECILY Administration Calcium Acetate 667 mg 04/11/18 08:00 04/12/18 10:14 Phoslo PO 667 mg WM CECILY Administration Dextrose 0 ml 04/10/18 14:30 04/10/18 17:07 Dextrose 50% Inj IV 50 ml STAT PRN Administration Hypoglycemia Protocol Protocol Famotidine 20 mg 04/10/18 10:00 04/12/18 10:14 Pepcid PO 20 mg DAILY CECILY Administration Heparin Sodium (Porcine) 5,000 units 04/09/18 22:00 04/11/18 21:10 Heparin SC 5,000 units Q8 CECILY Administration Protocol Dextrose 1,000 mls @ 0 mls/hr 04/10/18 14:30 Dextrose 5% In Water 1000 Ml IV .Q0M PRN Hypoglycemia Protocol Protocol Per Protocol Meropenem/Sodium Chloride 500 mg in 50 mls @ 100 mls/hr 04/12/18 10:45 Merrem Iv 500 Mg/Ns 50 Ml IVPB Q24H CECILY Protocol Vancomycin HCl 1 gm in 250 mls @ 167 mls/hr 04/12/18 10:36 Vancomycin 1gm IVPB 04/12/18 12:05 STAT STA Protocol Milrinone Lactate/Dextrose 100 mls @ 8.42 mls/hr 04/12/18 10:39 Primacor 20mg/100ml D5w IV .[id number] PRN TITRATE PER MD ORDER Protocol 0.375 MCG/KG/MIN Levalbuterol HCl 1.25 mg 04/12/18 08:01 Xopenex IH [id number] PRN Shortness of Breath Lorazepam 1 mg 04/12/18 10:00 Ativan IVP DAILY CECILY Protocol Methylprednisolone 40 mg 04/12/18 12:00 Solu-Medrol IVP Q6 CECILY Non-Formulary Medication 600 mg 04/11/18 18:00 04/12/18 10:26 Selexipag [Uptravi] PO 600 mg BID CECILY Administration Non-Formulary Medication 2.5 mg 04/11/18 17:04 04/12/18 10:27 Riociguat [Adempas] PO 2.5 mg TID CECILY Administration Ondansetron HCl 4 mg 04/09/18 16:51 04/09/18 18:25 Zofran Inj IVP 4 mg Q6H PRN Administration Nausea/Vomiting Quetiapine Fumarate 12.5 mg 04/12/18 10:47 Seroquel PO HS PRN Agitation Protocol - Patient Studies Lab Studies: Microbiology Studies 04/09/18 14:30 Urine Culture - Final Urine,Catheterized Enterococcus Faecalis 04/09/18 23:50 Blood Culture - Preliminary Blood NO GROWTH AFTER 48 HOURS 04/09/18 23:40 Blood Culture - Preliminary Blood NO GROWTH AFTER 48 HOURS Lab Studies 04/12/18 04/12/18 04/12/18 Range/Units 08:30 07:12 06:15 WBC (4.5-11.0) 10^3/uL RBC (3.5-6.1) 10^6/uL Hgb (14.0-18.0) g/dL Hct (42.0-52.0) % MCV (80.0-105.0) fl MCH (25.0-35.0) pg MCHC (31.0-37.0) g/dl RDW (11.5-14.5) % Plt Count (120.0-450.0) 10^3/uL MPV (7.0-11.0) fl Gran % (50.0-68.0) % Lymph % (Auto) (22.0-35.0) % [place] % (Auto) (1.0-6.0) % Eos % (Auto) (1.5-5.0) % Baso % (Auto) (0.0-3.0) % Gran # (1.4-6.5) Lymph # (Auto) (1.2-3.4) Troup # (Auto) (0.1-0.6) Eos # (Auto) (0.0-0.7) Baso # (Auto) (0.0-2.0) K/mm3 pCO2 32 L (35-45) mm/Hg pO2 59.0 L (80-100) mm/Hg HCO3 17.7 L (21-28) mmol/L ABG pH 7.35 (7.35-7.45) ABG Total CO2 18.7 L (22-28) mmol.L ABG O2 Saturation 93.2 L (95-98) % ABG O2 Content 13.9 L (15-23) ML/dl ABG Base Excess -7.0 L (-2.0-3.0) mmol/L ABG Hemoglobin 10.7 L (11.7-17.4) g/dL ABG Carboxyhemoglobin 0.9 (0.5-1.5) % POC ABG HHb (Measured) 6.7 H (0-5) % ABG Methemoglobin 0.3 (0.0-3.0) % ABG O2 Capacity 14.9 L (16-24) mL/dl Hgb O2 Saturation 92.1 L (95.0-98.0) % FiO2 36.0 % Sodium 138 (132-148) mmol/L Potassium 4.4 (3.6-5.0) mmol/L Chloride 106 (98-107) mmol/L Carbon Dioxide 19 L (21-33) mmol/L Anion Gap 17 (10-20) BUN 54 H (7-21) mg/dL Creatinine 5.0 H (0.8-1.5) mg/dl Est GFR ( Amer) 14 Est GFR (Non-Af Amer) 11 Random Glucose 170 H (70-110) mg/dL Calcium 9.4 (8.4-10.5) mg/dL Phosphorus 5.4 H (2.5-4.5) mg/dL Magnesium 1.9 (1.7-2.2) mg/dL Ferritin ng/mL Total Bilirubin 0.3 (0.2-1.3) mg/dL AST 33 (17-59) U/L ALT 24 (7-56) U/L Alkaline Phosphatase 88 (38-126) U/L NT-Pro-B Natriuret Pep 97426 H (0-450) pg/mL Total Protein 6.9 (5.8-8.3) g/dL Albumin 4.0 (3.0-4.8) g/dL Globulin 2.8 gm/dL Albumin/Globulin Ratio 1.4 (1.1-1.8) Hep Bs Antigen (NEGATIVE) Hep Bs Antibody (NEGATIVE) Hep B Core IgM Ab (NEGATIVE) 04/12/18 04/11/18 04/11/18 Range/Units 06:15 14:00 14:00 WBC 17.3 H D (4.5-11.0) 10^3/uL RBC 4.03 (3.5-6.1) 10^6/uL Hgb 11.2 L (14.0-18.0) g/dL Hct 34.3 L (42.0-52.0) % MCV 85.1 (80.0-105.0) fl MCH 27.8 (25.0-35.0) pg MCHC 32.7 (31.0-37.0) g/dl RDW 16.0 H (11.5-14.5) % Plt Count 186 (120.0-450.0) 10^3/uL MPV 8.7 (7.0-11.0) fl Gran % 93.4 H (50.0-68.0) % Lymph % (Auto) 2.1 L (22.0-35.0) % Tr[place] % (Auto) 4.5 (1.0-6.0) % Eos % (Auto) 0.0 L (1.5-5.0) % Baso % (Auto) 0.0 (0.0-3.0) % Gran # 16.14 H (1.4-6.5) Lymph # (Auto) 0.4 L (1.2-3.4) Troup # (Auto) 0.8 H (0.1-0.6) Eos # (Auto) 0.0 (0.0-0.7) Baso # (Auto) 0.00 (0.0-2.0) K/mm3 pCO2 (35-45) mm/Hg pO2 (80-100) mm/Hg HCO3 (21-28) mmol/L ABG pH (7.35-7.45) ABG Total CO2 (22-28) mmol.L ABG O2 Saturation (95-98) % ABG O2 Content (15-23) ML/dl ABG Base Excess (-2.0-3.0) mmol/L ABG Hemoglobin (11.7-17.4) g/dL ABG Carboxyhemoglobin (0.5-1.5) % POC ABG HHb (Measured) (0-5) % ABG Methemoglobin (0.0-3.0) % ABG O2 Capacity (16-24) mL/dl Hgb O2 Saturation (95.0-98.0) % FiO2 % Sodium (132-148) mmol/L Potassium (3.6-5.0) mmol/L Chloride (98-107) mmol/L Carbon Dioxide (21-33) mmol/L Anion Gap (10-20) BUN (7-21) mg/dL Creatinine (0.8-1.5) mg/dl Est GFR ( Amer) Est GFR (Non-Af Amer) Random Glucose (70-110) mg/dL Calcium (8.4-10.5) mg/dL Phosphorus (2.5-4.5) mg/dL Magnesium (1.7-2.2) mg/dL Ferritin ng/mL Total Bilirubin (0.2-1.3) mg/dL AST (17-59) U/L ALT (7-56) U/L Alkaline Phosphatase (38-126) U/L NT-Pro-B Natriuret Pep (0-450) pg/mL Total Protein (5.8-8.3) g/dL Albumin (3.0-4.8) g/dL Globulin gm/dL Albumin/Globulin Ratio (1.1-1.8) Hep Bs Antigen Negative (NEGATIVE) Hep Bs Antibody Negative (NEGATIVE) Hep B Core IgM Ab Negative (NEGATIVE) 04/11/18 Range/Units 05:40 WBC (4.5-11.0) 10^3/uL RBC (3.5-6.1) 10^6/uL Hgb (14.0-18.0) g/dL Hct (42.0-52.0) % MCV (80.0-105.0) fl MCH (25.0-35.0) pg MCHC (31.0-37.0) g/dl RDW (11.5-14.5) % Plt Count (120.0-450.0) 10^3/uL MPV (7.0-11.0) fl Gran % (50.0-68.0) % Lymph % (Auto) (22.0-35.0) % [place] % (Auto) (1.0-6.0) % Eos % (Auto) (1.5-5.0) % Baso % (Auto) (0.0-3.0) % Gran # (1.4-6.5) Lymph # (Auto) (1.2-3.4) [place] # (Auto) (0.1-0.6) Eos # (Auto) (0.0-0.7) Baso # (Auto) (0.0-2.0) K/mm3 pCO2 (35-45) mm/Hg pO2 (80-100) mm/Hg HCO3 (21-28) mmol/L ABG pH (7.35-7.45) ABG Total CO2 (22-28) mmol.L ABG O2 Saturation (95-98) % ABG O2 Content (15-23) ML/dl ABG Base Excess (-2.0-3.0) mmol/L ABG Hemoglobin (11.7-17.4) g/dL ABG Carboxyhemoglobin (0.5-1.5) % POC ABG HHb (Measured) (0-5) % ABG Methemoglobin (0.0-3.0) % ABG O2 Capacity (16-24) mL/dl Hgb O2 Saturation (95.0-98.0) % FiO2 % Sodium (132-148) mmol/L Potassium (3.6-5.0) mmol/L Chloride (98-107) mmol/L Carbon Dioxide (21-33) mmol/L Anion Gap (10-20) BUN (7-21) mg/dL Creatinine (0.8-1.5) mg/dl Est GFR ( Amer) Est GFR (Non-Af Amer) Random Glucose (70-110) mg/dL Calcium (8.4-10.5) mg/dL Phosphorus (2.5-4.5) mg/dL Magnesium (1.7-2.2) mg/dL Ferritin 47.6 ng/mL Total Bilirubin (0.2-1.3) mg/dL AST (17-59) U/L ALT (7-56) U/L Alkaline Phosphatase (38-126) U/L NT-Pro-B Natriuret Pep (0-450) pg/mL Total Protein (5.8-8.3) g/dL Albumin (3.0-4.8) g/dL Globulin gm/dL Albumin/Globulin Ratio (1.1-1.8) Hep Bs Antigen (NEGATIVE) Hep Bs Antibody (NEGATIVE) Hep B Core IgM Ab (NEGATIVE) Laboratory Results - last 24 hr 04/11/18 04/11/18 04/11/18 05:40 14:00 14:00 WBC RBC Hgb Hct MCV MCH MCHC RDW Plt Count MPV Gran % Lymph % (Auto) [place] % (Auto) Eos % (Auto) Baso % (Auto) Gran # Lymph # (Auto) [place] # (Auto) Eos # (Auto) Baso # (Auto) pCO2 pO2 HCO3 ABG pH ABG Total CO2 ABG O2 Saturation ABG O2 Content ABG Base Excess ABG Hemoglobin ABG Carboxyhemoglobin POC ABG HHb (Measured) ABG Methemoglobin ABG O2 Capacity Hgb O2 Saturation FiO2 Sodium Potassium Chloride Carbon Dioxide Anion Gap BUN Creatinine Est GFR ( Amer) Est GFR (Non-Af Amer) Random Glucose Calcium Phosphorus Magnesium Ferritin 47.6 Total Bilirubin AST ALT Alkaline Phosphatase NT-Pro-B Natriuret Pep Total Protein Albumin Globulin Albumin/Globulin Ratio Hep Bs Antigen Negative Hep Bs Antibody Negative Hep B Core IgM Ab Negative 04/12/18 04/12/18 04/12/18 06:15 06:15 07:12 WBC 17.3 H D RBC 4.03 Hgb 11.2 L Hct 34.3 L MCV 85.1 MCH 27.8 MCHC 32.7 RDW 16.0 H Plt Count 186 MPV 8.7 Gran % 93.4 H Lymph % (Auto) 2.1 L [place] % (Auto) 4.5 Eos % (Auto) 0.0 L Baso % (Auto) 0.0 Gran # 16.14 H Lymph # (Auto) 0.4 L [place] # (Auto) 0.8 H Eos # (Auto) 0.0 Baso # (Auto) 0.00 pCO2 32 L pO2 59.0 L HCO3 17.7 L ABG pH 7.35 ABG Total CO2 18.7 L ABG O2 Saturation 93.2 L ABG O2 Content 13.9 L ABG Base Excess -7.0 L ABG Hemoglobin 10.7 L ABG Carboxyhemoglobin 0.9 POC ABG HHb (Measured) 6.7 H ABG Methemoglobin 0.3 ABG O2 Capacity 14.9 L Hgb O2 Saturation 92.1 L FiO2 36.0 Sodium 138 Potassium 4.4 Chloride 106 Carbon Dioxide 19 L Anion Gap 17 BUN 54 H Creatinine 5.0 H Est GFR ( Amer) 14 Est GFR (Non-Af Amer) 11 Random Glucose 170 H Calcium 9.4 Phosphorus 5.4 H Magnesium 1.9 Ferritin Total Bilirubin 0.3 AST 33 ALT 24 Alkaline Phosphatase 88 NT-Pro-B Natriuret Pep Total Protein 6.9 Albumin 4.0 Globulin 2.8 Albumin/Globulin Ratio 1.4 Hep Bs Antigen Hep Bs Antibody Hep B Core IgM Ab 04/12/18 08:30 WBC RBC Hgb Hct MCV MCH MCHC RDW Plt Count MPV Gran % Lymph % (Auto) [place] % (Auto) Eos % (Auto) Baso % (Auto) Gran # Lymph # (Auto) [place] # (Auto) Eos # (Auto) Baso # (Auto) pCO2 pO2 HCO3 ABG pH ABG Total CO2 ABG O2 Saturation ABG O2 Content ABG Base Excess ABG Hemoglobin ABG Carboxyhemoglobin POC ABG HHb (Measured) ABG Methemoglobin ABG O2 Capacity Hgb O2 Saturation FiO2 Sodium Potassium Chloride Carbon Dioxide Anion Gap BUN Creatinine Est GFR ( Amer) Est GFR (Non-Af Amer) Random Glucose Calcium Phosphorus Magnesium Ferritin Total Bilirubin AST ALT Alkaline Phosphatase NT-Pro-B Natriuret Pep 23015 H Total Protein Albumin Globulin Albumin/Globulin Ratio Hep Bs Antigen Hep Bs Antibody Hep B Core IgM Ab Radiology Impressions: Radiology Impressions Interventional Vascular Procedure 04/11/18 09:04 IMPRESSION: 1. Ultrasound and fluoroscopically placed left IJ tunneled dialysis catheter. Chest X-Ray 04/12/18 06:41 IMPRESSION: Vascular congestion right greater than left and right lower lobe infiltrate Critical Care Progress Note - Nutrition Nutrition: Nutrition Category Date Time Status Heart Healthy Diet [DIET] Diets 04/11/18 Breakfast Active Attending/Attestation - Attestation I have personally seen and examined this patient.: Yes I have fully participated in the care of the patient.: Yes I have reviewed all pertinent clinical information: Yes Notes (Text): 04/12/18 11:04 The patient was seen and examined at the bedside. Patient care was discussed with resident Medical records, lab studies were reviewed and management issues were discussed and formulated. Agree with above treatment plans as outlined in 's note with addition of the following: Acute respiratory Failure \ Hypoxemia \ Septic Shock \ Acute on Chronic Systolic CHF \ CAD \ ESRD \ UTI \ PNA \ COPD \ ho Pulmonary HTN \ Afib \ -hemodynamic monitoring to maintain MAP>65; off levophed overnight -d\c amiodarone and restart milrinone as per cardiology team -continue ASA and statin -o2 supplementation and bipap PRN and HS to maintain Spo2>90 Pao2>60; currently comfortable on NC -nebs PRN and steroid -continue Pulm HTN meds as per pulmonary team who are following closely -f\u Bun\Cr and U\o; renal team f\u for HD; volume removal of 1L today if tolerated -continue Abx as per ID team and f\u cultures -PO diet as tolerated and aspiration precautions -PT\OT eval -DVT \ PUD prophylaxis CCM time 33min
--- NOTE | 2018-04-12 08:31 | PN ---
DATE: 04/12/2018([id number]) SUBJECTIVE: The patient appears more short of breath this morning. He also appears anxious. PHYSICAL EXAMINATION: VITAL SIGNS: Temperature is 100.2, pulse on the monitor is 108, respiratory rate 26, blood pressure 108/52. Oxygen saturation on nasal cannula is 92%. HEENT: Normocephalic, atraumatic. No JVD. CARDIOVASCULAR: Systolic ejection murmur at the lower left sternal border. No S3 gallop. LUNGS: Decreased breath sounds at the bases. Scattered rhonchi and wheezing bilaterally are appreciated. EXTREMITIES: Mild edema. No cyanosis, no clubbing. Calves are nontender to palpation. GASTROINTESTINAL: Abdomen is soft, nontender, nondistended. Bowel sounds are positive. SKIN: No acute rash. NEUROLOGIC: Exam limited at the present time. PERTINENT LABORATORY DATA: Chest x-ray was done and reviewed. There appears to be increased pulmonary vascular congestion noted - consistent with pulmonary edema. There is also a questionable evolving right lower lobe infiltrate. Arterial blood gas was done on nasal cannula. Results are: PH 7.35, pCO2 of 32, pO2 of 59. IMPRESSION: 1. Acute on chronic renal failure. 2. Multiple electrolyte abnormalities. 3. Rule out congestive heart failure. 4. Advanced chronic obstructive pulmonary disease. 5. Coronary artery disease. 6. Pulmonary hypertension. PLAN: The patient appears more short of breath this morning. He also appears anxious. I did discuss the case with the night nurse at length. The night nurse stated that the patient had a good night, until approximately 15 minutes before I walked in the room. On physical exam, there is increased bronchospasm noted. A stat dose of Solu-Medrol was given, along with [id number] nebulizer treatments. I did review the chest x-ray as above. The chest x-ray reveals increased pulmonary vascular congestion. I also question whether there is an evolving right lower lobe infiltrate. I also reviewed the arterial blood gas. The arterial blood gas reveals a mild metabolic acidosis, with an increase in the alveolar-arterial gradient. We will adjust the oxygen requirements this morning. Repeat a.m. labs are pending. I would also check a B-type natriuretic peptide. Inputs by Renal and Cardiology are noted. CLINICAL STATUS: The patient appears very guarded this morning. His overall status/prognosis also remains guarded. I will discuss the above with the entire ICU team in the next few moments. I will also discuss the above with the attending physician later this morning. Mic Birmingham MD [facility]
[2018-04-12] MEDS: SELEXIPAG PO SCH ×2 (10:26→18:42)
[2018-04-12] MEDS: RIOCIGUAT 2.5 MG PO SCH ×3 (10:27→18:41)
[2018-04-12] MEDS ORDERED: Amiodarone 360 mg/D5W 200 ml 360 MG/200 ML BAG IV SCH (10:30)
--- NOTE | 2018-04-12 10:34 | RAD ---
Date of service: 04/12/2018 HISTORY: wheezing COMPARISON: 04/09/2018 FINDINGS: LUNGS: Right-sided infiltrate. PLEURA: No significant pleural effusion identified, no pneumothorax apparent. CARDIOVASCULAR: No aortic atherosclerotic calcification present. Normal cardiac size. Increasing vascular congestion right greater than left. OSSEOUS STRUCTURES: No significant abnormalities. VISUALIZED UPPER ABDOMEN: Normal. OTHER FINDINGS: Left-sided dialysis catheter terminates in the right atrium. Right-sided Port-A-Cath IMPRESSION: Vascular congestion right greater than left and right lower lobe infiltrate
[2018-04-12] MEDS ORDERED: Vancomycin 1gm in NS 250ml 1 GM/250 ML BAG IVPB STA (10:36)
[2018-04-12] MEDS ORDERED: Milrinone 20mg/100ml D5W 100 ML IV PRN (10:39)
--- NOTE | 2018-04-12 10:41 | PN ---
DATE: 04/12/2018 SUBJECTIVE: The patient is currently in the intensive care unit. He is a 77-year-old male with a past medical history for advanced COPD, pulmonary hypertension, chronic kidney disease, bladder cancer, coronary artery disease and hypertension and myocardial infarction. The patient presented with complaining of increasing fatigue, nausea, vomiting, limited urine output for 2 days' duration. He was noted to be in acute renal failure. He was admitted to the intensive care unit. There have been no acute events overnight. The patient is currently being dialyzed. PHYSICAL EXAMINATION: VITAL SIGNS: Pulse rate of 105, blood pressure 113/70, respiratory rate of 18 with an O2 saturation of 99% on supplemental oxygen. HEENT: PERRLA, EOMI. NECK: Supple with a full range of motion. No bruits are appreciated. LUNGS: Clear to auscultation and percussion bilaterally. HEART: Regular rate and rhythm. No murmurs, rubs or gallops. ABDOMEN: Benign. EXTREMITIES: No deformities or edema. NEUROLOGIC: The patient is confused x1, but there are no focal motor deficits. LABORATORY DATA: WBC of 17.3, H and H are 11.2 and 34.3, the percent granulocytes is 93.4%. Chemistry: Sodium of 138, BUN of 54, creatinine of 5, random glucose of 170. BNP of 16,900. We will currently continue regimen. Pascual Hartley MD
[2018-04-12] MEDS ORDERED: Piperacillin/Tazobact 3.375 gm 100 ML IVPB SCH (10:45)
[2018-04-12] MEDS: Levalbuterol 1.25 MG/3 ML Inhal Soln UD IH PRN ×3 (11:04→21:03)
[2018-04-12] MEDS: MEROPENEM 500 MG in NS 500 MG/50 ML BAG IVPB SCH (12:05)
[2018-04-12] MEDS: MethylPREDNISolone 40 mg Vial IVP SCH ×3 (12:11→23:56)
[2018-04-12] MEDS: Milrinone 20mg/100ml D5W 100 ML IV PRN (12:28)
--- NOTE | 2018-04-12 13:17 | CP.PCM.CON ---
History of Present Illness - History of Present Illness History of Present Illness: 77 year old male with PMH of COPD on home oxygen, pulmonary HTN, chronic renal failure, bladder cancer S/P ileal conduit, CAD S/P PCI, chronic CHF, HTN [place] [facility] [place], generalized weakness and decreased urine output from the ileal conduit for the past 2 days. In the ED, his blood pressure was also noted to be low, but responded to IV fluids. He did not have fevers, no chest pain, no headache or dizziness, no abdominal pain, no diarrhea, no sore throat, has dry cough, no rhinorrhea. CXR was done which showed probable right sided infiltrate and urine cx is showing bacteria. Infectious diseases consult is requested to further evaluate and manage. 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, CAD, s/p STEMI) - PULMONARY Hx Chronic Obstructive Pulmonary Disease (COPD): Yes (severe) - NEUROLOGICAL Hx Neurological Disorder: No - HEENT Hx HEENT Problems: Yes Other/Comment: hearing problem - RENAL Hx Renal Failure: Yes (CKD IV) - ENDOCRINE/METABOLIC Hx Endocrine Disorders: No - HEMATOLOGICAL/ONCOLOGICAL Hx Blood Transfusions: Yes - INTEGUMENTARY Hx Dermatological Problems: No - MUSCULOSKELETAL/RHEUMATOLOGICAL Hx Musculoskeletal Disorders: Yes - GASTROINTESTINAL Hx Gastrointestinal Disorders: Yes Other/Comment: hernia- inguinal - GENITOURINARY/GYNECOLOGICAL Hx Genitourinary Disorders: Yes Hx Bladder Cancer: Yes Other/Comment: urostomy - PSYCHIATRIC Hx Psychophysiologic Disorder: Yes Hx Depression: Yes Hx Substance Use: No - SURGICAL HISTORY Hx Cholecystectomy: Yes Hx Coronary Stent: Yes (ptca 11/2014) - ANESTHESIA Hx Anesthesia: Yes Hx Anesthesia Reactions: No Hx Malignant Hyperthermia: No Meds Allergies/Adverse Reactions: Allergies Allergy/AdvReac Type Severity Reaction Status Date / Time No Known Allergies Allergy Verified 04/09/18 18:51 - Medications Medications: Current Medications Acetaminophen (Tylenol 325mg Tab) 650 mg PO Q6H PRN PRN Reason: Fever >100.4 F Albuterol/Ipratropium (Duoneb 3 Mg/0.5 Mg (3 Ml) Ud) 3 ml IH [id number] PRN PRN Reason: Shortness of Breath Last Admin: 04/10/18 20:58 Dose: 3 ml Arformoterol Tartrate (Brovana) 15 mcg IH [id number] [facility] Last Admin: 04/11/18 07:42 Dose: 15 mcg Aspirin (Aspirin Chewable) 81 mg PO DAILY [facility] Last Admin: 04/10/18 10:19 Dose: 81 mg Atorvastatin Calcium (Lipitor) 40 mg PO DAILY [facility] Last Admin: 04/10/18 17:12 Dose: 40 mg Budesonide (Pulmicort Respules) 0.5 mg IH [id number] [facility] Last Admin: 04/11/18 07:42 Dose: 0.5 mg Calcium Acetate (Phoslo) 667 mg PO [facility] Dextrose (Dextrose 50% Inj) 0 ml IV STAT PRN; Protocol PRN Reason: Hypoglycemia Protocol Last Admin: 04/10/18 17:07 Dose: 50 ml Famotidine (Pepcid) 20 mg PO DAILY [facility] Last Admin: 04/10/18 10:19 Dose: 20 mg Heparin Sodium (Porcine) (Heparin) 5,000 units SC Q8 [facility]; Protocol Last Admin: 04/11/18 06:36 Dose: Not Given Ceftriaxone Sodium (Rocephin 1 Gram Ivpb) 1 gm in 100 mls @ 100 mls/hr IVPB DAILY [facility]; Protocol Last Admin: 04/11/18 10:07 Dose: 100 mls/hr Dextrose (Dextrose 5% In Water 1000 Ml) 1,000 mls @ 0 mls/hr IV .Q0M PRN; Protocol PRN Reason: Hypoglycemia Protocol NOREPINEPHRINE BIT/0.9 % NACL (Levophed 4 Mg/ 250 Ml Ns Premixed) 4 mg in 250 mls @ 15 mls/hr IV .[id number] PRN; Protocol PRN Reason: TITRATE PER MD ORDER Last Admin: 04/10/18 22:08 Dose: 4 mcg/min, 15 mls/hr Methylprednisolone (Solu-Medrol) 40 mg IVP Q12 [facility] Last Admin: 04/11/18 10:08 Dose: 40 mg Ondansetron HCl (Zofran Inj) 4 mg IVP Q6H PRN PRN Reason: Nausea/Vomiting Last Admin: 01/15/19 18:25 Dose: 4 mg Physical Exam - Constitutional Appears: Chronically Ill - Head Exam Head Exam: NORMAL INSPECTION - ENT Exam ENT Exam: Mucous Membranes Moist - Neck Exam Neck exam: Negative for: Meningismus - Respiratory Exam Respiratory Exam: Decreased Breath Sounds - Cardiovascular Exam Cardiovascular Exam: +S1, +S2 - GI/Abdominal Exam GI & Abdominal Exam: Soft. absent: Tenderness Additional comments: ileal conduit in place Results - Vital Signs Recent Vital Signs: Last Vital Signs Temp 98.1 F 04/10/18 18:00 Pulse 117 H 04/11/18 07:30 Resp 30 H 04/11/18 07:30 BP 111/93 H 04/11/18 07:00 Pulse Ox 93 L 04/11/18 07:30 - Labs Result Diagrams: 04/12/18 06:15 04/12/18 06:15 Labs: Laboratory Results - last 24 hr 04/09/18 04/09/18 04/09/18 16:32 18:00 23:50 WBC RBC Hgb Hct MCV MCH MCHC RDW Plt Count MPV Gran % Lymph % (Auto) [place] % (Auto) Eos % (Auto) Baso % (Auto) Gran # Lymph # (Auto) [place] # (Auto) Eos # (Auto) Baso # (Auto) Neutrophils % (Manual) Lymphocytes % (Manual) Monocytes % (Manual) Platelet Evaluation Poikilocytosis (manual Ovalocytes Acanthocytes (Spur) Sodium Potassium Chloride Carbon Dioxide Anion Gap BUN Creatinine Est GFR ( Amer) Est GFR (Non-Af Amer) POC Glucose (mg/dL) 123 H Random Glucose Calcium Phosphorus Magnesium Iron TIBC % Saturation Total Bilirubin AST ALT Alkaline Phosphatase Total Protein Albumin Globulin Albumin/Globulin Ratio Procalcitonin 0.14 L Urine Chloride TNP 04/10/18 04/10/18 04/10/18 07:36 15:25 15:53 WBC RBC Hgb Hct MCV MCH MCHC RDW Plt Count MPV Gran % Lymph % (Auto) [place] % (Auto) Eos % (Auto) Baso % (Auto) Gran # Lymph # (Auto) [place] # (Auto) Eos # (Auto) Baso # (Auto) Neutrophils % (Manual) Lymphocytes % (Manual) Monocytes % (Manual) Platelet Evaluation Poikilocytosis (manual Ovalocytes Acanthocytes (Spur) Sodium Potassium Chloride Carbon Dioxide Anion Gap BUN Creatinine Est GFR ( Amer) Est GFR (Non-Af Amer) POC Glucose (mg/dL) 82 116 H 154 H Random Glucose Calcium Phosphorus Magnesium Iron TIBC % Saturation Total Bilirubin AST ALT Alkaline Phosphatase Total Protein Albumin Globulin Albumin/Globulin Ratio Procalcitonin Urine Chloride 04/10/18 04/10/18 04/10/18 16:35 17:00 18:02 WBC RBC Hgb Hct MCV MCH MCHC RDW Plt Count MPV Gran % Lymph % (Auto) [place] % (Auto) Eos % (Auto) Baso % (Auto) Gran # Lymph # (Auto) [place] # (Auto) Eos # (Auto) Baso # (Auto) Neutrophils % (Manual) Lymphocytes % (Manual) Monocytes % (Manual) Platelet Evaluation Poikilocytosis (manual Ovalocytes Acanthocytes (Spur) Sodium Potassium Chloride Carbon Dioxide Anion Gap BUN Creatinine Est GFR ( Amer) Est GFR (Non-Af Amer) POC Glucose (mg/dL) 67 63 L 141 H Random Glucose Calcium Phosphorus Magnesium Iron TIBC % Saturation Total Bilirubin AST ALT Alkaline Phosphatase Total Protein Albumin Globulin Albumin/Globulin Ratio Procalcitonin Urine Chloride 04/10/18 04/11/18 04/11/18 19:30 05:17 05:40 WBC 8.2 D RBC 3.52 Hgb 9.8 L Hct 30.6 L MCV 86.9 MCH 27.8 MCHC 32.0 RDW 16.4 H Plt Count 165 MPV 8.5 Gran % 96.5 H Lymph % (Auto) 2.8 L [place] % (Auto) 0.7 L Eos % (Auto) 0.0 L Baso % (Auto) 0.0 Gran # 7.94 H Lymph # (Auto) 0.2 L [place] # (Auto) 0.1 Eos # (Auto) 0.0 Baso # (Auto) 0.00 Neutrophils % (Manual) 99 H Lymphocytes % (Manual) 1 L Monocytes % (Manual) TEST NOT PERFORMED Platelet Evaluation Normal Poikilocytosis (manual Slight Ovalocytes Slight Acanthocytes (Spur) Slight Sodium Potassium Chloride Carbon Dioxide Anion Gap BUN Creatinine Est GFR ( Amer) Est GFR (Non-Af Amer) POC Glucose (mg/dL) 125 H 131 H Random Glucose Calcium Phosphorus Magnesium Iron TIBC % Saturation Total Bilirubin AST ALT Alkaline Phosphatase Total Protein Albumin Globulin Albumin/Globulin Ratio Procalcitonin Urine Chloride 04/11/18 04/11/18 05:40 05:40 WBC RBC Hgb Hct MCV MCH MCHC RDW Plt Count MPV Gran % Lymph % (Auto) [place] % (Auto) Eos % (Auto) Baso % (Auto) Gran # Lymph # (Auto) [place] # (Auto) Eos # (Auto) Baso # (Auto) Neutrophils % (Manual) Lymphocytes % (Manual) Monocytes % (Manual) Platelet Evaluation Poikilocytosis (manual Ovalocytes Acanthocytes (Spur) Sodium 138 Potassium 5.3 H Chloride 112 H Carbon Dioxide 14 L Anion Gap 18 BUN 77 H Creatinine 8.0 H* Est GFR ( Amer) 8 Est GFR (Non-Af Amer) 7 POC Glucose (mg/dL) Random Glucose 140 H Calcium 8.9 Phosphorus 7.1 H Magnesium 1.9 Iron 63 TIBC 281 % Saturation 23 Total Bilirubin 0.3 AST 22 ALT 23 Alkaline Phosphatase 79 Total Protein 6.5 Albumin 3.8 Globulin 2.7 Albumin/Globulin Ratio 1.4 Procalcitonin Urine Chloride Assessment & Plan - Assessment and Plan (Free Text) Plan: Assessment severe sepsis with fluid-responsive hypotension due to right sided HCAP as well as UTI with E. faecalis chronic renal failure on hemodialysis COPD on home oxygen pulmonary HTN bladder cancer S/P ileal conduit CAD S/P PCI chronic CHF HTN Plan started intermittent Vancomycin and Merrem pending blood cx; urine cx showing E. faecalis will monitor clinically
--- NOTE | 2018-04-12 15:07 | CP.PCM.APN ---
Subjective - Date & Time of Evaluation Date of Evaluation: 04/12/18 Time of Evaluation: 09:15 - Subjective Subjective: pt seen with HD in progress, PMD at bedside pt had resp distress and was treated per critial care team Review of Systems - Respiratory Respiratory: Dyspnea, Wheezing Objective - Vital Signs/Intake and Output Vital Signs (last 24 hours): Temp Pulse Resp BP Pulse Ox 97.8 F 119 H 29 H 88/65 L 97 04/12/18 12:00 04/12/18 14:20 04/12/18 14:20 04/12/18 14:02 04/12/18 14:20 Intake and Output: 04/12/18 04/12/18 06:59 18:59 Intake Total 1530 Output Total 600 Balance 930 - Medications Medications: Current Medications Acetaminophen (Tylenol 325mg Tab) 650 mg PO Q6H PRN PRN Reason: Fever >100.4 F Albuterol/Ipratropium (Duoneb 3 Mg/0.5 Mg (3 Ml) Ud) 3 ml IH [id number] PRN PRN Reason: Shortness of Breath Last Admin: 04/10/18 20:58 Dose: 3 ml Arformoterol Tartrate (Brovana) 15 mcg IH [id number] [facility] Last Admin: 04/12/18 07:00 Dose: 15 mcg Aspirin (Aspirin Chewable) 81 mg PO DAILY [facility] Last Admin: 04/12/18 10:13 Dose: 81 mg Atorvastatin Calcium (Lipitor) 40 mg PO DAILY [facility] Last Admin: 04/11/18 14:37 Dose: Not Given Budesonide (Pulmicort Respules) 0.5 mg IH [id number] [facility] Last Admin: 04/12/18 07:11 Dose: 0.5 mg Calcium Acetate (Phoslo) 667 mg PO WM [facility] Last Admin: 04/12/18 12:10 Dose: 667 mg Dextrose (Dextrose 50% Inj) 0 ml IV STAT PRN; Protocol PRN Reason: Hypoglycemia Protocol Last Admin: 04/10/18 17:07 Dose: 50 ml Famotidine (Pepcid) 20 mg PO DAILY [facility] Last Admin: 04/12/18 10:14 Dose: 20 mg Heparin Sodium (Porcine) (Heparin) 5,000 units SC Q8 CECILY; Protocol Last Admin: 04/11/18 21:10 Dose: 5,000 units Dextrose (Dextrose 5% In Water 1000 Ml) 1,000 mls @ 0 mls/hr IV .Q0M PRN; Protocol PRN Reason: Hypoglycemia Protocol Meropenem/Sodium Chloride (Merrem Iv 500 Mg/Ns 50 Ml) 500 mg in 50 mls @ 100 mls/hr IVPB Q24H CECILY; Protocol Last Admin: 04/12/18 12:05 Dose: 100 mls/hr Milrinone Lactate/Dextrose (Primacor 20mg/100ml D5w) 100 mls @ 5.164 mls/hr IV .[id number] PRN; Protocol PRN Reason: TITRATE PER MD ORDER Last Admin: 04/12/18 12:28 Dose: 0.23 mcg/kg/min, 5.164 mls/hr Levalbuterol HCl (Xopenex) 1.25 mg IH [id number] PRN PRN Reason: Shortness of Breath Last Admin: 04/12/18 14:42 Dose: 1.25 mg Lorazepam (Ativan) 1 mg IVP DAILY CECILY; Protocol Last Admin: 04/12/18 12:26 Dose: 1 mg Methylprednisolone (Solu-Medrol) 40 mg IVP Q6 CECILY Last Admin: 04/12/18 12:11 Dose: 40 mg Non-Formulary Medication (Selexipag [Uptravi]) 600 mg PO BID [facility] Last Admin: 04/12/18 10:26 Dose: 600 mg Non-Formulary Medication (Riociguat [Adempas]) 2.5 mg PO TID [facility] Last Admin: 04/12/18 10:27 Dose: 2.5 mg Ondansetron HCl (Zofran Inj) 4 mg IVP Q6H PRN PRN Reason: Nausea/Vomiting Last Admin: 04/09/18 18:25 Dose: 4 mg Quetiapine Fumarate (Seroquel) 12.5 mg PO HS PRN; Protocol PRN Reason: Agitation - Labs Labs: 04/12/18 06:15 04/12/18 06:15 PT 11.3 SECONDS (9.4-12.5) 04/10/18 06:30 INR 0.98 04/10/18 06:30 APTT 29.5 Seconds (25.1-36.5) 04/10/18 06:30 - Constitutional Appears: No Acute Distress - Head Exam Head Exam: NORMOCEPHALIC - Respiratory Exam Respiratory Exam: Decreased Breath Sounds - Cardiovascular Exam Cardiovascular Exam: +S1, +S2 - Neurological Exam Neurological Exam: Alert, Awake Assessment and Plan - Assessment and Plan (Free Text) Plan: 77 yr old pmh sig for copd, cad s/p stenting, htn, bladder CA with ileal conduit, ICM on home Milrinone who presented to ED with c/o of urinary retention x 2 days found with LYNN on CKD, hyperkalemia and metabolic acidosis ph of 7.14 with severe electrolyte abnormalities with profound hypotension. pt is admitted to the ICU for further mgmt with renal and pulmonary consultation on board. #LYNN on CKD with hyperkalemia and acidosis - nephrology eval and consultation Urine studies noted Renal rec's noted monitor UO now with acute HD session s/p left IJ HD catheter 04/11 # bilateral lobe HCAP ID consultation and recs noted Iv azactam and Doxy regimen #Ischemic dilated CM and diastolic chf cardiology consulation and recs noted milrinone infusion ( from home) resumed #copd and pul htn pul consultation Brovana, solumedrol 40 q 6 regimen will continue to follow discuss high acuity with RICHY Coronado BPCI/TIC - BPCIA/TIC Educated pt/family on BPCIA/CIR/Med to Bed Programs: N/A Flyers given, including [facility] Beneficiary letter: N/A Pt/family verbalized understanding & agreed to program: N/A
--- NOTE | 2018-04-12 17:34 | CARD ---
APPROVED REPORT Date of service: 04/12/2018 EKG Measurement Heart [id number] <Conclusion> Sinus tachycardia with premature atrial complexes Right bundle branch block Cannot rule out Inferior infarct, age undetermined Anteroseptal infarct, age undetermined Abnormal ECG
--- NOTE | 2018-04-12 19:37 | PN ---
DATE: 04/12/2018 SUBJECTIVE: The patient is seen lying in bed in the ICU. He is seen in the presence of his granddaughter. His son undergoing dialysis treatment at the present time. He did develop atrial fibrillation with rapid ventricular response yesterday and was placed on IV amiodarone. He is currently converted to sinus tachycardia. He denies any chest pain. CURRENT MEDICATIONS: Include aspirin, Ativan, Brovana, DuoNeb inhaler, subcutaneous heparin, Lipitor 40 mg daily, meropenem, Pepcid, PhosLo, Pulmicort, Adempas, Uptravi, Seroquel, Solu-Medrol 40 mg every 6 hours, and Xopenex. OBJECTIVE: GENERAL: He is a chronically ill-appearing elderly man. VITAL SIGNS: Blood pressure is 130/80 with a pulse of 120 in sinus tachycardia with supraventricular premature beats. His respirations are 16. He is afebrile. NECK: No JVD. CHEST: Bilateral coarse rhonchi. HEART: PMI displaced laterally with a tachycardic rhythm and soft tones present. ABDOMEN: Soft and nontender. Normoactive bowel sounds. EXTREMITIES: No edema. DIAGNOSTIC DATA: Potassium 4.4, BUN and creatinine 54 and 5, white count 17.3, hemoglobin and hematocrit 11.2 and 34.3 with platelet count of 186,000. Arterial blood gas showed pH of 7.35, pCO2 of 32, and pO2 of 59. BNP 16,900. Electrocardiogram reveals sinus tachycardia with supraventricular premature beats, right bundle-branch block, and anteroseptal wall myocardial fraction pattern as well. IMPRESSION: 1. Acute on chronic renal failure, undergoing dialysis at this time. 2. Severe pulmonary hypertension. 3. Chronic obstructive pulmonary disease. 4. Severe left ventricular systolic dysfunction secondary to ischemic heart disease. 5. Status post prior anterior wall myocardial fraction and percutaneous coronary intervention. 6. Decompensated congestive heart failure systolic acute on chronic. RECOMMENDATIONS: 1. As his blood pressure has improved, IV milrinone therapy will be resumed, as he is return to sinus rhythm, amiodarone therapy will be discontinued and oral therapy will not be initiated unless he has frequent recurrences of atrial fibrillation due to his severe underlying lung disease and potential for pulmonary complications from amiodarone use. 2. His overall prognosis remains extremely poor and this was discussed again with his granddaughter at the bedside. In general, otherwise, conservative management would be most reasonable. We will continue to follow and make further recommendations as appropriate. Dwight Tejeda MD
--- NOTE | 2018-04-12 20:14 | CON ---
DATE: 04/12/2018 HISTORY OF PRESENT ILLNESS: The patient is a 77-year-old male, with a very limited psychiatric history, but extensive medical history, (please see medical notes for full history) who has recently experienced an acute change in mental status in past 24 hours. Psychiatry was called to evaluate and help treat the patient's confusion and agitation. I reviewed his notes. Spoke with the patient's daughter , as well as talked to treatment team members. The patient apparently had been alert and oriented x2; however, acutely became disoriented, confused, agitated, delusional, and unpredictable around 8:30 p.m. last night. Apparently the patient was being nonsensical, phrases and does not make any sense, acutely delusional. He received occasions without much benefits these include, Haldol 2 mg at 2345 hours and one in yesterday and then in 1:40 a.m. this morning. Daughter at bedside confirmed that this is not the patient's baseline, though he seems a little bit better this morning. He is still disoriented and the patient, it does demonstrate going focused during the course of our interview and his short-term memory is poor. He is aware that it is March of 2018. His eye contact is good; however, he is not aware of where he is located even after I told him that he is in at the hospital, he had corrected twice that he at the doctors office, on the less, he does appear to be demonstrating any acute delusions, those were not he is not actually paranoid. He is calm. Affect is flat and blunt. He is superficially cooperative with my questioning. The patient does want to . He does not want to harm anybody and it appears that he is clearly suffered from delirium. I reviewed initiation of Seroquel with the patient, as well as treatment and the patient's daughter so help with sleep, as well as the patient to keep it calm the next day; however, I am unsure which dose started at the patient's home, it is unknown to psychiatry. However, early grimace started as small dose of 12.5 mg at 8:00 p.m. if the patient continues to be agitated to repeat dose an hour later. PAST PSYCHIATRIC HISTORY: As noted, the patient does not have any form of psychiatric history. Not any consult for not even noticed in system. SOCIAL HISTORY: The patient lives by himself, has a girlfriend, two wives , four children which he is close with. I spoke with his daughter at bedside this morning. IMPRESSION: Delirium. RECOMMENDATIONS: As noted, would not provide Haldol and it has not been effective. We will provide Seroquel 12.5 mg, it is given at 8:00 p.m. as the patient is likely decompensating on 8:30 p.m. per collateral obtained, the patient's daughter who is at bedside today. Psychiatry will continue to followup. Next followup will be on 04/13/2018, please remember that you could get the patient additional dose 12.5 mg of Seroquel if after 1 hour the first dose was ineffective. Helena Curry MD
--- NOTE | 2018-04-12 21:46 | PN ---
DATE: 04/12/2018 SUBJECTIVE: The patient is seen in the ICU, he is lying in bed. He appears somewhat slow today. He was much more awake yesterday. He received dialysis earlier today. He does not appear to be in any kind of distress. He denies any chest pain. Denies any palpitations. He does report some intermittent shortness of breath. and daughter are at bedside. reports that he ate very little for lunch. PHYSICAL EXAMINATION: GENERAL: Elderly male lying in bed in the ICU. VITAL SIGNS: Blood pressure 88/65, heart rate 128, respiratory rate 25-28, temperature 97.8, and T max is 100.2. HEENT: Normocephalic and atraumatic. Positive pallor. NECK: Supple. No JVD. LUNGS: Bilateral equal air entry, bilateral distant breath sounds, bilateral rhonchi. CARDIAC: S1 and S2, regular rate rhythm. No murmur. No rub. ABDOMEN: Soft, nondistended, and nontender. Positive ileostomy. Bowel sounds present. EXTREMITIES: No lower extremity edema. INTAKE AND OUTPUT: 2260/2450. LABORATORY DATA: WBC 17, hemoglobin 11, hematocrit 34, and platelets 186. Sodium 138, potassium 4.4, chloride 106, CO2 of 19, BUN 54, creatinine 5, glucose 170, calcium 9.4, phosphorus 5.4, and magnesium 1.9. BNP 16,900. Albumin 4. ABG; pH of 7.35, pCO2 of 32, and pO2 of 59. Urine culture, Enterococcus faecalis. Blood cultures, no growth. CURRENT MEDICATIONS: Aspirin, Ativan, Brovana, heparin 5000 every 8 hours, Lipitor 40, meropenem 500 daily, Pepcid 20 p.o., PhosLo 667 p.o. t.i.d., Primacor at 0.23 mcg/kg/min, 2.5 t.i.d. Selexipag 600 b.i.d., Seroquel, Solu-Medrol, Tylenol, Xopenex, and Zofran. ASSESSMENT: 1. Advanced chronic kidney disease stage V, now end-stage renal disease. 2. Severe hyperkalemia resolved with dialysis. 3. Severe metabolic acidosis, much improved with dialysis. 4. Hypotension. 5. Tachycardia, ?atrial fibrillation. 6. Anemia of chronic kidney disease. 7. Enterococcal urinary tract infection. 8. Severe cardiomyopathy, decreased ejection fraction of 15-20%, on home Primacor. 9. Chronic obstructive pulmonary disease and history of pulmonary hypertension, severe. 10. Secondary hyperparathyroidism. 11. Hyperphosphatemia. PLAN: 1. The patient had second dialysis treatment today, ultrafiltration 500 mL. 2. Continue calcium acetate for phosphate control. 3. Agree with Primacor to increase cardiac output. 4. ?medication for rate control. 5.. Continue to monitor in the ICU. 6. Case discussed with Dr. Tejeda at length. 7. Case discussed with dialysis nursing staff, ICU nursing staff, and ICU residents at length. Case discussed with family members at length. More than 35 minutes spent in the care of this critically ill patient. Myranda Ivey MD
[2018-04-13] MEDS: MethylPREDNISolone 40 mg Vial IVP SCH ×4 (05:12→22:37)
[2018-04-13 05:49] LABS: ARTERIAL BLOOD GAS HCO3 22.2 mmol/L (21-28); ARTERIAL BLOOD GAS HEMOGLOBIN 8.6 g/dL (11.7-17.4); ARTERIAL BLOOD GAS O2 CONTENT 11.4 ML/dl (15-23); ARTERIAL BLOOD GAS O2 SAT 95.2 % (95-98); ARTERIAL BLOOD GAS PCO2 32 mm/Hg (35-45); ARTERIAL BLOOD GAS PH 7.45 (7.35-7.45); ARTERIAL BLOOD GAS TCO2 23.2 mmol.L (22-28)
[2018-04-13 06:49] LABS: GRAN # 7.18 (1.4-6.5); GRAN % 90.9 % (50.0-68.0); HEMOGLOBIN 8.7 g/dL (14.0-18.0); LYMPH # 0.5 (1.2-3.4); LYMPH % 6.3 % (22.0-35.0); MEAN CELL VOLUME 84.7 fl (80.0-105.0); MEAN CORPUSCULAR HEMOGLOBIN 28.2 pg (25.0-35.0); MEAN CORPUSCULAR HGB CONC 33.3 g/dl (31.0-37.0); MEAN PLATELET VOLUME 9.3 fl (7.0-11.0); MONO # 0.2 (0.1-0.6); MONO % 2.8 % (1.0-6.0); RBC 3.08 10^6/uL (3.5-6.1); WHITE BLOOD COUNT 7.9 10^3/uL (4.5-11.0)
[2018-04-13] MEDS: Budesonide 0.5 mg/2 ml Inhal Susp UD IH SCH ×2 (07:09→20:32)
[2018-04-13] MEDS: Levalbuterol 1.25 MG/3 ML Inhal Soln UD IH PRN ×4 (07:09→20:33)
[2018-04-13 07:37] LABS: ALB/GLOB RATIO 1.3 (1.1-1.8)
[2018-04-13] MEDS: Milrinone 20mg/100ml D5W 100 ML IV PRN (08:11)
--- NOTE | 2018-04-13 08:22 | PN ---
DATE: 04/13/2018(640am-730am) PULMONARY NOTE SUBJECTIVE: The patient appears much more comfortable this morning. He is not short of breath at rest. PHYSICAL EXAMINATION: VITALS: Temperature is 97.8, pulse is 124, respiratory rate 20, blood pressure 98/45. Oxygen saturation on nasal cannula is 94%. HEENT: Normocephalic, atraumatic. No JVD. CARDIOVASCULAR: Systolic ejection murmur at the lower left sternal border. No S3 gallop. LUNGS: Decreased breath sounds at the bases. Much less rhonchi and wheezing bilaterally. EXTREMITIES: Mild edema. No cyanosis, no clubbing. Calves are nontender to palpation. GASTROINTESTINAL: Abdomen is soft, nontender, and nondistended. Bowel sounds are positive. SKIN: No acute rash. NEUROLOGIC: Exam limited at the present time. PERTINENT LABORATORY DATA: Chest x-ray was done this morning and reviewed. The chest x-ray appears significantly improved - with decreased pulmonary vascular congestion. Chest x-ray also shows a significant decrease in the right lower lobe findings (from yesterday). Official results are pending. Arterial blood gas was done on what is listed as room air. Results are pH 7.45, pCO2 of 32, pO2 of 64. IMPRESSION: 1. Acute on chronic renal failure. 2. Multiple electrolyte abnormalities. 3. Rule out congestive heart failure. 4. Advanced chronic obstructive pulmonary disease. 5. Coronary artery disease. 6. Pulmonary hypertension. PLAN: The patient appears much more comfortable this morning. He is not short of breath at rest. He does state to feeling much better today. I did discuss the case with the night nurse at length. The night nurse stated that the patient had a much better night. I did review the chest x-ray as above. Findings are noted. The chest x-ray appears significantly improved from yesterday. The patient did receive hemodialysis yesterday. I have also reviewed the arterial blood gas. The arterial blood gas is also improved with a decrease in the alveolar-arterial gradient. On physical exam, there is much less bronchospasm noted - compared to yesterday. I will continue the current nebulizer treatments and decrease the intravenous steroids this morning. The patient remains on antibiotic therapy - as per Infectious Disease. Temperatures have resolved. The leukocytosis has also resolved. Inputs by Cardiology and Renal are also noted. Clinical status of the patient is significantly improved - compared to yesterday. However, given the above, the future status/prognosis for this patient does remain guarded. I will discuss the above with the entire ICU team in the next few moments. I will also discuss the above with the attending physician later this morning. Mic Birmingham MD MTDToya
[2018-04-13] MEDS: SELEXIPAG PO SCH ×2 (09:25→17:25)
[2018-04-13] MEDS: RIOCIGUAT 2.5 MG PO SCH ×3 (09:27→22:36)
[2018-04-13] MEDS: MEROPENEM 500 MG in NS 500 MG/50 ML BAG IVPB SCH (09:58)
--- NOTE | 2018-04-13 10:06 | PN ---
DATE: 04/13/2018 EGGS INSPECTOR NOTE SUBJECTIVE: The patient is resting in bed. Family is at bedside. The patient has O2 via nasal cannula and no obvious respiratory distress this morning. He continues to be on milrinone. Cardiology has evaluated him this morning. Blood pressure is slightly low, but Cardiology wants to continue to observe and the patient is having no chest pain, cough, wheezing or chest congestion, and no shortness of breath. PHYSICAL EXAMINATION: VITAL SIGNS: Temperature is 97.8, pulse is 130, respirations are 25, and BP is 94/50. SKIN: Warm and dry. HEENT: Head is atraumatic, normocephalic. Eyes reactive to light. Ear, nose, and throat seemed to be within normal limits. NECK: Supple. No JVD. No thyroid enlargement or lymph nodes. HEART: Has regular rate and rhythm. Normal S1, S2, but tachycardic. LUNGS: Reveal mild decreased breath sounds at the bases. ABDOMEN: Soft. Decreased bowel sounds. GENITALIA AND RECTAL: Deferred. MUSCULOSKELETAL: No joint deformities. EXTREMITIES: Reveal positive lower extremity edema. NEUROLOGIC: He seemed to be grossly intact. LABORATORY DATA: As far as his laboratories are concerned, his white count is 7.9, hemoglobin is 8.7, his hematocrit 26.1 with platelets of 149,000. The patient's arterial blood gas reveals a pH of 7.45, pCO2 of 32, pO2 of 64. Sodium is 137, potassium 3.7, chloride 104, CO2 of 23 with a BUN of 53, creatinine of 4.1 and a glucose of 125. His BNP is 16,900. IMPRESSION: As far as my impression, this patient has congestive heart failure with a history of pulmonary hypertension, and at this time, has pneumonia and septic shock. The patient has end-stage renal disease, cardiomyopathy with an ejection fraction of 20%, anemia, and a history of chronic obstructive pulmonary disease. PLAN: As far as our plan, we will continue to monitor him closely. He is on milrinone, chewable aspirin, Ativan as well as subcu heparin, Lipitor, meropenem, Pepcid, budesonide, Seroquel, Solu-Medrol, and Xopenex. We will continue to treat aggressively along with the other consultants and the primary care doctor. Juan May MD
--- NOTE | 2018-04-13 11:42 | PN ---
DATE: 04/13/2018 SUBJECTIVE: The patient is seen lying in bed in the ICU. He states he feels somewhat better. His dyspnea has improved. He completed another dialysis treatment yesterday. He remains tachycardic with predominantly a sinus rhythm and frequent supraventricular premature beats. CURRENT MEDICATIONS: Include aspirin, Brovana, DuoNeb inhaler, subcutaneous heparin, Lipitor, meropenem, Pepcid, PhosLo, Pulmicort inhaler, Adempas, Uptravi, Seroquel, Solu-Medrol 40 IV every 8 hours, and Xopenex. OBJECTIVE: GENERAL: He is a chronically ill appearing, elderly man. VITAL SIGNS: Blood pressure is 94/50 with a pulse of 120 in sinus with frequent supraventricular premature beats. Respirations are 20. He is afebrile. NECK: No JVD. CHEST: Bilateral coarse rhonchi. HEART: PMI displaced laterally with soft tones noted. The rhythm is tachycardic. ABDOMEN: Soft and nontender with bowel sounds. EXTREMITIES: No edema. LABORATORY DATA: Potassium 3.7, BUN and creatinine 53 and 4.1, white count 7.9, hemoglobin and hematocrit 8.7 and 26.1 with platelet count of 149,000. Recent arterial blood gas showed pH of 7.45, pCO2 of 32, and pO2 of 64. DIAGNOSTIC DATA: Repeat electrocardiogram reveals sinus tachycardia with supraventricular premature beats, prior anteroseptal wall myocardial fraction, and nonspecific ST-T wave abnormalities. Chest x-ray reveals borderline cardiac silhouette enlargement with mild pulmonary vascular congestive changes, clinically improved. IMPRESSION: 1. Recent worsening renal failure, acute on chronic, requiring dialysis. 2. Severe pulmonary hypertension. 3. Known coronary artery disease, status post anterior myocardial infarction and percutaneous coronary intervention of left anterior descending with residual severe left ventricular systolic dysfunction. 4. Severe chronic obstructive pulmonary disease. 5. Decompensated congestive heart failure, systolic, acute on chronic, improved. 6. Borderline hemodynamics. RECOMMENDATIONS: His current medications will continue for now. There is no role for antiarrhythmic therapy given the fact that his tachycardia is predominantly sinus and that there has been no recurrence of atrial fibrillation. His overall prognosis is extremely poor. Continued supportive and comfort care is advised. We will continue to follow and make further recommendations as appropriate. Dwight Tejeda MD
--- NOTE | 2018-04-13 12:06 | PN ---
SUBJECTIVE: The patient was seen and examined at bedside in the ICU. No acute events overnight. He has been weaned off vasopressors. He reports improvement in his cough and overall feels better since admission. OBJECTIVE: VITAL SIGNS: Temperature 98.8, pulse 120, blood pressure 94/50, respiratory rate 22, oxygen saturation 94% on 2L NC. GENERAL: Frail, nontoxic elderly man lying in bed in no apparent distress. HEENT: PERRL, EOMI. No scleral icterus. Mild conjunctival pallor is noted. NECK: No JVD. LUNGS: Decreased breath sounds at the bases with few scattered rhonchi. CARDIOVASCULAR: Tachycardic. Normal S1, S2. Grade II/ RAGHU to LLSB. ABDOMEN: Normoactive bowel sounds. Soft, nontender, nondistended. Left inguinal hernia has been reduced. EXTREMITIES: Trace pedal edema bilaterally. NEUROLOGIC: Awake, alert and oriented x 3. No focal motor deficits. LABORATORY DATA: WBC 7.9 with 91% neutrophils, hemoglobin 8.7, hematocrit 26, platelets 149. Sodium 137, potassium 3.7, chloride 104, bicarb 23, BUN 53, creatinine 4.1, glucose 128. Blood cultures with no growth to date. Urine culture with Enterococcus faecalis with sensitivities noted. ASSESSMENT: The patient is a 77-year-old man with multiple medical comorbidities including CKD stage IV and a remote history of bladder cancer s/p cystectomy s/p ileal conduit who presented with a 2 day history of decreased urinary output, nausea and lower abdominal pain and was admitted to the ICU for management of LYNN on CKD stage IV, metabolic acidosis, hyperkalemia and severe sepsis secondary to healthcare associated pneumonia. PLAN: 1. Severe sepsis secondary to healthcare-associated pneumonia, improving. Input from Dr. Montgomery noted. Continue Meropenem and Vancomycin. Continue supplemental oxygen and to monitor for fever and leukocytosis. 2. LYNN on CKD stage IV (baseline Cr 2-3), consider secondary to medication- induced versus ATN in the setting of severe sepsis, improving. Input from Dr. Ivey appreciated and the patient is s/p 2 sessions of hemodialysis. Renal function trending favorably. Continue care as per Dr. Ivey. Continue to monitor strict I&O's, renally dose medications and avoid nephrotoxins. 3. Remote history of bladder cancer s/p cystectomy s/p ileal conduit. As per Dr. Figueredo of Urology there is no need for urological intervention. 4. Severe COPD. Input from Dr. Birmingham greatly appreciated. Continue with supplemental oxygen and inhaled corticosteroids. Albuterol remains on hold given the patient's tachycardia. 5. 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 Input from Dr. Tejeda appreciated. The patient has been weaned off vasopressors and has been restarted on Milrinone. Continue with care as per Dr. Tejeda. 6. Metabolic acidosis, resolved. Input from Dr. Ivey appreciated. Continue with hemodialysis as needed as per Dr. Ivey. 7. Pulmonary hypertension. Continue with care as per Dr. Birmingham. 8. CAD s/p STEMI s/p PCI with stent placement. Continue Aspirin 81 mg p.o. daily and Lipitor 40 mg p.o. daily. 9. Anemia of chronic disease. Hb stable. 10. Hyperkalemia, resolved. 11. Insomnia. 12. Chronic left inguinal hernia s/p reduction. Continue to monitor. 13. Prophylaxis. GI prophylaxis not indicated as the patient is eating. Continue with Heparin for DVT prophylaxis. CODE STATUS: Full code. Matt Hartley MD MTDD
--- NOTE | 2018-04-13 12:43 | RAD ---
Date of service: 04/13/2018 HISTORY: f/u COMPARISON: 04/12/2018 FINDINGS: LUNGS: No active pulmonary disease. PLEURA: No significant pleural effusion identified, no pneumothorax apparent. CARDIOVASCULAR: No aortic atherosclerotic calcification present. Normal cardiac size. Right central venous infusion port. Left tunneled central venous dialysis catheter. OSSEOUS STRUCTURES: Right glenohumeral osteoarthritis. VISUALIZED UPPER ABDOMEN: Normal. OTHER FINDINGS: None. IMPRESSION: No active disease.
--- NOTE | 2018-04-13 13:20 | CP.PCM.PN ---
Subjective - Date & Time of Evaluation Date of Evaluation: 04/13/18 Time of Evaluation: 12:10 - Subjective Subjective: No fevers, not in distress but still with weakness, no diarrhea. Objective - Vital Signs/Intake and Output Vital Signs (last 24 hours): Temp Pulse Resp BP Pulse Ox 100.2 F H 114 H 18 116/67 99 04/11/18 17:00 04/12/18 12:28 04/12/18 09:00 04/12/18 12:28 04/12/18 09:00 Intake and Output: 04/12/18 04/12/18 06:59 18:59 Intake Total 1530 Output Total 600 Balance 930 - Medications Medications: Current Medications Acetaminophen (Tylenol 325mg Tab) 650 mg PO Q6H PRN PRN Reason: Fever >100.4 F Albuterol/Ipratropium (Duoneb 3 Mg/0.5 Mg (3 Ml) Ud) 3 ml IH [id number] PRN PRN Reason: Shortness of Breath Last Admin: 04/10/18 20:58 Dose: 3 ml Arformoterol Tartrate (Brovana) 15 mcg IH [id number] [facility] Last Admin: 04/12/18 07:00 Dose: 15 mcg Aspirin (Aspirin Chewable) 81 mg PO DAILY [facility] Last Admin: 04/12/18 10:13 Dose: 81 mg Atorvastatin Calcium (Lipitor) 40 mg PO DAILY [facility] Last Admin: 04/11/18 14:37 Dose: Not Given Budesonide (Pulmicort Respules) 0.5 mg IH [id number] [facility] Last Admin: 04/12/18 07:11 Dose: 0.5 mg Calcium Acetate (Phoslo) 667 mg PO WM [facility] Last Admin: 04/12/18 12:10 Dose: 667 mg Dextrose (Dextrose 50% Inj) 0 ml IV STAT PRN; Protocol PRN Reason: Hypoglycemia Protocol Last Admin: 04/10/18 17:07 Dose: 50 ml Famotidine (Pepcid) 20 mg PO DAILY [facility] Last Admin: 04/12/18 10:14 Dose: 20 mg Heparin Sodium (Porcine) (Heparin) 5,000 units SC Q8 [facility]; Protocol Last Admin: 04/11/18 21:10 Dose: 5,000 units Dextrose (Dextrose 5% In Water 1000 Ml) 1,000 mls @ 0 mls/hr IV .Q0M PRN; Protocol PRN Reason: Hypoglycemia Protocol Meropenem/Sodium Chloride (Merrem Iv 500 Mg/Ns 50 Ml) 500 mg in 50 mls @ 100 mls/hr IVPB Q24H [facility]; Protocol Last Admin: 04/12/18 12:05 Dose: 100 mls/hr Milrinone Lactate/Dextrose (Primacor 20mg/100ml D5w) 100 mls @ 5.164 mls/hr IV .[id number] PRN; Protocol PRN Reason: TITRATE PER MD ORDER Last Admin: 04/12/18 12:28 Dose: 0.23 mcg/kg/min, 5.164 mls/hr Levalbuterol HCl (Xopenex) 1.25 mg IH [id number] PRN PRN Reason: Shortness of Breath Last Admin: 04/12/18 11:04 Dose: 1.25 mg Lorazepam (Ativan) 1 mg IVP DAILY [facility]; Protocol Last Admin: 04/12/18 12:26 Dose: 1 mg Methylprednisolone (Solu-Medrol) 40 mg IVP Q6 [facility] Last Admin: 04/12/18 12:11 Dose: 40 mg Non-Formulary Medication (Selexipag [Uptravi]) 600 mg PO BID [facility] Last Admin: 04/12/18 10:26 Dose: 600 mg Non-Formulary Medication (Riociguat [Adempas]) 2.5 mg PO TID [facility] Last Admin: 04/12/18 10:27 Dose: 2.5 mg Ondansetron HCl (Zofran Inj) 4 mg IVP Q6H PRN PRN Reason: Nausea/Vomiting Last Admin: 04/09/18 18:25 Dose: 4 mg Quetiapine Fumarate (Seroquel) 12.5 mg PO HS PRN; Protocol PRN Reason: Agitation - Labs Labs: 04/12/18 06:15 04/12/18 06:15 PT 11.3 SECONDS (9.4-12.5) 04/10/18 06:30 INR 0.98 04/10/18 06:30 APTT 29.5 Seconds (25.1-36.5) 04/10/18 06:30 - Constitutional Appears: Chronically Ill - Head Exam Head Exam: NORMAL INSPECTION - Respiratory Exam Respiratory Exam: Decreased Breath Sounds - Cardiovascular Exam Cardiovascular Exam: +S1, +S2 - GI/Abdominal Exam GI & Abdominal Exam: Soft. absent: Tenderness Assessment and Plan - Assessment and Plan (Free Text) Plan: Assessment severe sepsis with fluid-responsive hypotension due to right sided HCAP as well as UTI with E. faecalis chronic renal failure on hemodialysis COPD on home oxygen pulmonary HTN bladder cancer S/P ileal conduit CAD S/P PCI chronic CHF HTN Plan continue intermittent Vancomycin and Merrem day 2 pending final blood cx results; urine cx showing E. faecalis will continue monitor clinically
[2018-04-13] MEDS ORDERED: Vancomycin 1gm in NS 250ml 1 GM/250 ML BAG IVPB STA (13:21)
[2018-04-13] MEDS: NOREPINEPHRINE BIT/0.9 % NACL 4 MG/250 ML BAG IV PRN (14:30)
--- NOTE | 2018-04-13 18:55 | CON ---
DATE: 04/13/2018 HISTORY OF PRESENT ILLNESS: The patient is a 77-year-old male with limited psychiatric history, extensive medical history, who Psychiatry is following up due to delirium which this provider treated with Seroquel 12.5 mg at bedtime yesterday with some improvement in sleep and agitation. I spoke with the patient's daughter as well, who also noticed some improvement and she is agreeable to increase up this medication to 25 mg. He appears to be a little bit more oriented, less impulsive and less delusional, though still has appears of confusion and making random irrelevant statements towards the evening time. His insight and judgment remain poor, and the patient clearly needs to be monitored for his medical condition as well as related delirium. Labs and vitals were reviewed. Psychiatric medications include Seroquel 12.5 mg at bedtime. IMPRESSION: Delirium. RECOMMENDATIONS: We will increase Seroquel to 25 mg at night p.r.n. and Psychiatry will continue to followup and monitor the patient's mental status. Helena Curry MD
--- NOTE | 2018-04-13 19:42 | PN ---
DATE: 04/13/2018 SUBJECTIVE: The patient is seen lying in bed in the ICU. Daughter is at bedside. He is awake. He is alert. He reports he had some shortness of breath earlier. He denies any chest pain. Denies any palpitations, but his heart rate remains high in the 120s-140s. PHYSICAL EXAMINATION: GENERAL: Elderly male lying in bed in the ICU. VITAL SIGNS: Blood pressure 69/35, heart rate 140, respiratory rate 18-24, temperature 97.8, and T max 100.2. HEENT: Normocephalic and atraumatic. Positive pallor. NECK: Supple. No JVD. LUNGS: Bilateral equal air entry, bilateral distant breath sounds. No rales appreciated. CARDIAC: S1 and S2, regular rate and rhythm, distant heart sounds. ABDOMEN: Obese, distended, soft, and positive ileostomy. EXTREMITIES: No lower extremity edema. INTAKE AND OUTPUT. 995/650. LABORATORY DATA: WBC 7.9, hemoglobin 8.7, hematocrit 26, and platelets 149. Sodium 137, potassium 3.7, chloride 104, CO2 of 23, BUN 53, creatinine 4.1, glucose 128, and calcium 9. AST 30, ALT 31, and albumin 3. CURRENT MEDICATIONS: Aspirin, Ativan, Brovana, DuoNeb, heparin, Lipitor, meropenem 500, Pepcid, PhosLo, Primacor, Seroquel, Solu-Medrol, Tylenol, vancomycin, and Zofran. ASSESSMENT: 1. Severe pulmonary hypertension, chronic obstructive pulmonary disease. 2. Coronary artery disease, history of anterior wall myocardial infarction, percutaneous coronary intervention. 3. Severe systolic dysfunction, decreased ejection fraction. 4. Decompensated congestive heart failure. 5. Chronic kidney disease stage IV/V, now end-stage renal disease. 6. Remote history of bladder cancer, cystectomy, and ileostomy. 7. Anemia of chronic kidney disease. 8. Hypotension. 9. Sinus tachycardia with premature ventricular contractions. PLAN: 1. Continue Primacor. 2. Dialysis again today. 3. Continue to monitor closely in the ICU. 4. Monitor heart rate. 5. Continue supportive care. 6. Prognosis poor. 7. Case discussed with daughter at bedside, case discussed with Dr. Tejead, and case discussed with nursing staff. More than 35 minutes spent in the care of this critically ill patient. Myranda Ivey MD
[2018-04-14] MEDS: NOREPINEPHRINE BIT/0.9 % NACL 4 MG/250 ML BAG IV PRN (02:57)
[2018-04-14 06:31] LABS: BASO # 0.01 K/mm3 (0.0-2.0); BASO % 0.1 % (0.0-3.0); GRAN # 11.9 (1.4-6.5); GRAN % 87.8 % (50.0-68.0); HEMOGLOBIN 9.6 g/dL (14.0-18.0); LYMPH # 1.2 (1.2-3.4); LYMPH % 8.9 % (22.0-35.0); MEAN CELL VOLUME 85.6 fl (80.0-105.0); MEAN CORPUSCULAR HEMOGLOBIN 27.6 pg (25.0-35.0); MEAN CORPUSCULAR HGB CONC 32.2 g/dl (31.0-37.0); MEAN PLATELET VOLUME 9.1 fl (7.0-11.0); MONO # 0.4 (0.1-0.6); MONO % 3.2 % (1.0-6.0); RBC 3.48 10^6/uL (3.5-6.1); RED CELL DISTRIBUTION WIDTH 16.1 % (11.5-14.5); WHITE BLOOD COUNT 13.6 10^3/uL (4.5-11.0)
[2018-04-14 06:55] LABS: ALB/GLOB RATIO 1.5 (1.1-1.8); ALBUMIN 3.5 g/dL (3.0-4.8); CALCIUM 9.3 mg/dL (8.4-10.5)
[2018-04-14] MEDS: RIOCIGUAT 2.5 MG PO SCH ×3 (06:56→22:15)
[2018-04-14] MEDS: Budesonide 0.5 mg/2 ml Inhal Susp UD IH SCH ×2 (07:30→20:05)
[2018-04-14] MEDS: Levalbuterol 1.25 MG/3 ML Inhal Soln UD IH PRN ×2 (07:30→13:15)
--- NOTE | 2018-04-14 08:35 | PN ---
DATE: 04/14/2018 PULMONARY NOTE SUBJECTIVE: The patient appears very comfortable this morning. He is not short of breath at rest. OBJECTIVE: VITAL SIGNS: Temperature is 97.8, pulse is 109, respiratory rate 18, blood pressure 112/73. Oxygen saturation on nasal cannula is 97%. HEENT: Normocephalic, atraumatic. NECK: No JVD. CARDIOVASCULAR: Systolic ejection murmur at the lower left sternal border. No S3 gallop. LUNGS: Improved breath sounds at the bases. Less rhonchi. No wheezing this morning. EXTREMITIES: Mild edema. No cyanosis, no clubbing. Calves are nontender to palpation. GASTROINTESTINAL: Abdomen is soft, nontender and nondistended. Bowel sounds are positive. SKIN: No acute rash. NEUROLOGIC: Limited at the present time. PERTINENT LABORATORY DATA: Chest x-ray was done this morning and reviewed. The chest x-ray continues to improve with decreased pulmonary vascular congestion, and decreased right lower lobe changes. IMPRESSION: 1. Acute on chronic renal failure. 2. Multiple electrolyte abnormalities. 3. Rule out congestive heart failure. 4. Advanced chronic obstructive pulmonary disease. 5. Coronary artery disease. 6. Pulmonary hypertension. PLAN: The patient appears very comfortable this morning. He is not short of breath at rest. He does state to feeling much better. I did discuss the case with night nurse at length. The night nurse stated the patient had a very good night. I did review the chest x-ray as above. The chest x-ray continues to improve with decreased pulmonary vascular congestion, and decreased right lower lobe changes. Official results are pending. I would continue with the antibiotic coverage as per Infectious Disease. Input by Dr. Montgomery is noted. There are no temperatures noted. The leukocytosis has resolved. Inputs by Renal and Cardiology are also noted. On physical exam, there is much less bronchospasm noted. In addition, the alveolar-arterial gradient is also much less. I will continue the current nebulizer treatments and decrease the intravenous steroids this morning. Clinical status of the patient is significantly improved - compared to a few days ago. However, given the above, the future status/prognosis for this patient does remain guarded. I will discuss the above with the entire ICU team in the next few moments. I will discuss the above with the attending physician later this morning. Mic Birmingham MD [facility] # [id number] [facility]
--- NOTE | 2018-04-14 09:11 | PN ---
DATE: 04/14/2018 SUBJECTIVE: The patient is seen lying in bed, in the ICU. He has been placed back on Levophed for blood pressure support. Milrinone has been discontinued. He offers no complaints. CURRENT MEDICATIONS: Include aspirin, Brovana, DuoNeb inhalers, subcutaneous Heparin, Levophed at 8 mcg per minute, Lipitor, meropenem, Pepcid, PhosLo, Pulmicort, Adempas, Uptravi, Seroquel and Solu-Medrol 40 mg every 8 hours and Xopenex. OBJECTIVE: GENERAL: This is a chronically ill appearing, elderly man. VITAL SIGNS: His blood pressure is 112/70, pulse of 120, in sinus with frequent supraventricular premature beats. HEENT: No JVD. CHEST: Bilateral coarse rhonchi. HEART: PMI displaced laterally with soft tones noted. ABDOMEN: Soft and nontender with bowel sounds. EXTREMITIES: No edema. DIAGNOSIS DATA: Morning blood work is pending. IMPRESSION: 1. Acute on chronic renal failure, now undergoing on dialysis. 2. Severe pulmonary hypertension. 3. Severe left ventricular systolic dysfunction, status post remote myocardial infarction and percutaneous coronary intervention. 4. Severe chronic obstructive pulmonary disease. 5. Decompensated congestive heart failure. 6. Transient hypotension, suspect his present symptoms more consistent with uremia rather than severe volume overload. It is possible that dialysis has caused volume depletion requiring additional pressor support at this time. Avoidance of excessive fluid removal of dialysis would be advised. The rest of his medications will continue unchanged. Milrinone will remain on hold for now. Further plans will be based upon his clinical course. His overall prognosis remains poor. The family is aware. Dwight Tejeda MD [facility]
[2018-04-14] MEDS: MethylPREDNISolone 40 mg Vial IVP SCH ×2 (09:53→21:56)
[2018-04-14] MEDS: MEROPENEM 500 MG in NS 500 MG/50 ML BAG IVPB SCH (09:54)
[2018-04-14] MEDS: SELEXIPAG PO SCH ×2 (09:58→17:14)
--- NOTE | 2018-04-14 11:51 | PN ---
DATE: 04/14/2018 ELECTRONICS TECHNICIAN APPRENTICE NOTE SUBJECTIVE: The patient is resting in bed with no complaints of shortness of breath, cough, wheezing, chest congestion, O2 via nasal cannula, O2 saturations are 95%. The patient still has tachycardia and is still on Levophed for blood pressure support. PHYSICAL EXAMINATION: VITAL SIGNS: His temperature is 98, pulse is 119, respirations of 23 and BP is 112/73. SKIN: Warm and dry. HEENT: Head atraumatic and normocephalic. Eyes reactive to light. Ear, nose and throat seemed to be within normal limits. NECK: Supple. No JVD. No thyroid enlargement or lymph nodes. HEART: Has regular rate and rhythm. Normal S1, S2, but tachycardic. LUNGS: Reveal good breath sounds bilaterally. ABDOMEN: Soft, nontender, decreased bowel sounds. GENITALIA: Deferred. RECTAL: Deferred. MUSCULOSKELETAL: No joint deformities. EXTREMITIES: Reveal trace lower extremity edema. NEUROLOGICALLY: He seemed to be grossly intact. LABORATORY DATA: His white count is 13.6, hemoglobin is 9.6, hematocrit 29.8 with platelets of 216,000. His sodium is 138, potassium 3.8, chloride 106, CO2 of 22 with a BUN of 74, creatinine of 4.9 and a glucose of 136. Chest x-ray is pending. IMPRESSION: This patient has congestive heart failure with a history of pulmonary hypertension with pneumonia and a resolving septic shock. He has end-stage renal disease, cardiomyopathy with an ejection fraction of 20%, anemia and chronic obstructive pulmonary disease. PLAN: We will continue to monitor closely. He is on Levophed for blood pressure support. The patient continues to get chewable aspirin, Ativan, subcutaneous heparin, Lipitor, meropenem, Pepcid, budesonide, Seroquel, Solu-Medrol and Xopenex. We will continue to treat aggressively along with the other consultants and the primary care doctor. Juan May MD
--- NOTE | 2018-04-14 11:58 | CP.PCM.PN ---
Subjective - Date & Time of Evaluation Date of Evaluation: 04/14/18 Time of Evaluation: 08:45 - Subjective Subjective: No fevers, still with cough, no diarrhea. Objective - Vital Signs/Intake and Output Vital Signs (last 24 hours): Temp Pulse Resp BP Pulse Ox 97.8 F 119 H 23 112/73 85 L 04/12/18 12:00 04/14/18 06:00 04/14/18 06:00 04/14/18 06:01 04/14/18 05:30 Intake and Output: 04/14/18 04/14/18 06:59 18:59 Intake Total 586 220 Output Total 980 Balance -394 220 - Medications Medications: Current Medications Acetaminophen (Tylenol 325mg Tab) 650 mg PO Q6H PRN PRN Reason: Fever >100.4 F Last Admin: 04/13/18 13:07 Dose: 650 mg Albuterol/Ipratropium (Duoneb 3 Mg/0.5 Mg (3 Ml) Ud) 3 ml IH [id number] PRN PRN Reason: Shortness of Breath Last Admin: 04/10/18 20:58 Dose: 3 ml Arformoterol Tartrate (Brovana) 15 mcg [facility] [id number] [facility] Last Admin: 04/12/18 07:00 Dose: 15 mcg Aspirin (Aspirin Chewable) 81 mg PO DAILY [facility] Last Admin: 04/14/18 09:53 Dose: 81 mg Atorvastatin Calcium (Lipitor) 40 mg PO DAILY [facility] Last Admin: 04/13/18 09:24 Dose: 40 mg Budesonide (Pulmicort Respules) 0.5 mg IH [id number] [facility] Last Admin: 04/14/18 07:30 Dose: 0.5 mg Calcium Acetate (Phoslo) 667 mg PO WM [facility] Last Admin: 04/14/18 09:53 Dose: 667 mg Dextrose (Dextrose 50% Inj) 0 ml IV STAT PRN; Protocol PRN Reason: Hypoglycemia Protocol Last Admin: 04/10/18 17:07 Dose: 50 ml Famotidine (Pepcid) 20 mg PO DAILY [facility] Last Admin: 04/14/18 09:53 Dose: 20 mg Heparin Sodium (Porcine) (Heparin) 5,000 units SC Q8 [facility]; Protocol Last Admin: 04/14/18 06:55 Dose: 5,000 units Dextrose (Dextrose 5% In Water 1000 Ml) 1,000 mls @ 0 mls/hr IV .Q0M PRN; Protocol PRN Reason: Hypoglycemia Protocol Meropenem/Sodium Chloride (Merrem Iv 500 Mg/Ns 50 Ml) 500 mg in 50 mls @ 100 mls/hr IVPB Q24H [facility]; Protocol Last Admin: 04/14/18 09:54 Dose: 100 mls/hr Milrinone Lactate/Dextrose (Primacor 20mg/100ml D5w) 100 mls @ 5.164 mls/hr IV .[id number] PRN; Protocol PRN Reason: TITRATE PER MD ORDER Last Admin: 04/13/18 08:11 Dose: 0.23 mcg/kg/min, 5.164 mls/hr NOREPINEPHRINE BIT/0.9 % NACL (Levophed 4 Mg/ 250 Ml Ns Premixed) 4 mg in 250 mls @ 15 mls/hr IV .[id number] PRN; Protocol PRN Reason: TITRATE PER MD ORDER Last Titration: 04/14/18 10:25 Dose: 6 mcg/min, 22.5 mls/hr Levalbuterol HCl (Xopenex) 1.25 mg IH [id number] PRN PRN Reason: Shortness of Breath Last Admin: 04/14/18 07:30 Dose: 1.25 mg Lorazepam (Ativan) 1 mg IVP DAILY [facility]; Protocol Last Admin: 04/14/18 10:00 Dose: 1 mg Methylprednisolone (Solu-Medrol) 40 mg IVP Q12 [facility] Last Admin: 04/14/18 09:53 Dose: 40 mg Non-Formulary Medication (Selexipag [Uptravi]) 600 mg PO BID [facility] Last Admin: 04/14/18 09:58 Dose: 600 mg Non-Formulary Medication (Riociguat [Adempas]) 2.5 mg PO 0700,1500,2300 [facility] Last Admin: 04/14/18 06:56 Dose: 2.5 mg Ondansetron HCl (Zofran Inj) 4 mg IVP Q6H PRN PRN Reason: Nausea/Vomiting Last Admin: 04/09/18 18:25 Dose: 4 mg Quetiapine Fumarate (Seroquel) 25 mg PO HS PRN; Protocol PRN Reason: Agitation Last Admin: 04/13/18 21:06 Dose: 25 mg - Labs Labs: 04/14/18 06:00 04/14/18 06:00 PT 11.3 SECONDS (9.4-12.5) 04/10/18 06:30 INR 0.98 04/10/18 06:30 APTT 29.5 Seconds (25.1-36.5) 04/10/18 06:30 - Constitutional Appears: Chronically Ill - Head Exam Head Exam: NORMAL INSPECTION - Respiratory Exam Respiratory Exam: Decreased Breath Sounds - Cardiovascular Exam Cardiovascular Exam: +S1, +S2 - GI/Abdominal Exam GI & Abdominal Exam: Soft. absent: Tenderness Assessment and Plan - Assessment and Plan (Free Text) Plan: Assessment severe sepsis with fluid-responsive hypotension due to right sided HCAP as well as UTI with E. faecalis chronic renal failure on hemodialysis COPD on home oxygen pulmonary HTN bladder cancer S/P ileal conduit CAD S/P PCI chronic CHF HTN Plan continue intermittent Vancomycin and Merrem day 3; blood cx are negative; urine cx showing E. faecalis; target 7-10 days of antibiotics will continue monitor clinically
[2018-04-14] MEDS: Prostat 15 g packet GT SCH (12:00)
[2018-04-14] MEDS ORDERED: Prostat 15 g packet GT SCH (12:15)
--- NOTE | 2018-04-14 12:15 | RAD ---
Date of service: 04/14/2018 HISTORY: f/u COMPARISON: 04/13/2018 FINDINGS: LUNGS: No active pulmonary disease. PLEURA: No significant pleural effusion identified, no pneumothorax apparent. CARDIOVASCULAR: There is atherosclerotic calcification of the aortic arch. Normal cardiac size. Left tunneled central venous dialysis catheter. Right IJ central venous infusion port. No congestive change. OSSEOUS STRUCTURES: No significant abnormalities. VISUALIZED UPPER ABDOMEN: Normal. OTHER FINDINGS: None. IMPRESSION: No active disease.
--- NOTE | 2018-04-14 12:53 | PN ---
SUBJECTIVE: The patient was seen and examined at bedside in the ICU. He was restarted on vasopressor support with Levophed due to hypotension. Otherwise he remains afebrile, is demonstrating gradual clinical improvement and offers no complaints. OBJECTIVE: VITAL SIGNS: Temperature 97.7, pulse 119, blood pressure 112/73, respiratory rate 23, oxygen saturation 96% on 3L NC. GENERAL: Frail, chronically ill-appearing man, lying in bed in no apparent distress. HEENT: PERRL, EOMI. No scleral icterus. Mild conjunctival pallor is noted. NECK: No JVD. LUNGS: Decreased breath sounds at the bases with few scattered rhonchi. CARDIOVASCULAR: Tachycardic. Normal S1 and S2. Grade II/ RAGHU to LLSB. ABDOMEN: Normoactive bowel sounds, soft, nontender, nondistended. Left inguinal hernia remains reduced. EXTREMITIES: Trace pedal edema bilaterally. NEUROLOGIC: Awake, alert and oriented x 3. No focal motor deficits. LABORATORY DATA: WBC 13.6 with 88% neutrophils, hemoglobin 9.6, hematocrit 30, platelets 216. Sodium 138, potassium 3.8, chloride 106, bicarb 22, BUN 74, creatinine 4.9, glucose 136. Blood cultures with no growth to date. Urine culture with Enterococcus faecalis and sensitivities noted. ASSESSMENT: The patient is a 77-year-old man with multiple medical comorbidities including CKD stage IV and a remote history of bladder cancer s/p cystectomy s/p ileal conduit who presented with a 2 day history of decreased urinary output, nausea and lower abdominal pain and was admitted to the ICU for management of LYNN on CKD stage IV, metabolic acidosis, hyperkalemia and severe sepsis secondary to healthcare-associated pneumonia. PLAN: 1. Severe sepsis, secondary to healthcare-associated pneumonia, improving. Input from Dr. Montgomery noted. The patient remains afebrile and with negative blood cultures. Continue current antimicrobials as per Dr. Montgomery. 2. LYNN on CKD stage IV (baseline Cr 2-3), consider secondary to medication- induced vs ATN in the setting of severe sepsis, improving. Input from Dr. Ivey noted. The patient is s/p 2 sessions of hemodialysis with renal parameters trending favorably. Continue with care as per Dr. Ivey. Continue to monitor strict I&O's, renally dose medications and avoid nephrotoxins. 3. Remote history of bladder cancer s/p cystectomy s/p ileal conduit. As per Dr. Figueredo, no need for acute urological intervention. 4. Severe COPD. Input from Dr. Birmingham noted. Continue with supplemental oxygen, inhaled corticosteroids and Solu-Medrol to taper. 5. 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 Input from Dr. Tejeda noted. Milrinone on hold as patient has been restarted on vasopressor support. Continue with care as per Dr. Tejeda. 6. Metabolic acidosis, resolved. 7. Pulmonary hypertension. Continue with care as per Dr. Birmingham 8. CAD s/p STEMI s/p PCI with stent placement. Continue Aspirin 81 mg p.o. daily and Lipitor 40 mg p.o. daily. 9. Anemia of chronic disease. Hb stable. 10. Hyperkalemia, resolved. 11. Insomnia. 12. Chronic left inguinal hernia s/p manual reduction. Continue to monitor. 13. Prophylaxis. GI prophylaxis not indicated as the patient is eating. Continue with Heparin for DVT prophylaxis. CODE STATUS: Full code. Matt Hartley MD [facility]
--- NOTE | 2018-04-14 21:20 | CON ---
DATE: 04/14/2018 HISTORY OF PRESENT ILLNESS: The patient is 77-year-old male with psychiatric history, extensive medical history please see medical notes for comprehends list of medical conditions, her psychiatrist following up due to symptoms of delirium while he has been treated in ICU with Seroquel at bedtime to help with sun downing and worsening of behavioral at that time. I have recently increased to 25 mg at bedtime and the patient did appeared much more comfortably and much more sound last night. The patient did reportedly required some Benadryl for restlessness. He is definitely less destructive, less disorganized since the initiation of Seroquel p.r.n. I talked with reports improvement that he also reports that he has orientation and behavioral and impulse control. The patient is alert and oriented to current circumstances and he is much more verbal and communicative and related today he is not depressed. His appetite is returning. He is engaged, focus is fair and eye contact is good. He definitely does not had any wishes or suicidal thoughts and he denies having any issues with hallucinations and no evidence of perceptual disturbances noted at bedside stay. The patient appeared to be improving which is consistent with course of delirium at medical issues. Insight and judgment are improving well. Labs and vitals are reviewed. Psychiatric medications include Seroquel 25 mg at bedtime. Delirium improving. RECOMMENDATIONS: We will increase Seroquel to 75 mg at bedtime p.r.n. as to minimize other psychotropic medications such as benzos or Benadryl which can worse on confusion. Psychiatrist will sign off at time p.r.n. Helena Curry MD
[2018-04-15] MEDS: RIOCIGUAT 2.5 MG PO SCH ×3 (06:04→23:00)
[2018-04-15 07:10] LABS: BASO # 0.01 K/mm3 (0.0-2.0); BASO % 0.1 % (0.0-3.0); GRAN # 7.74 (1.4-6.5); GRAN % 88.6 % (50.0-68.0); HEMOGLOBIN 9.2 g/dL (14.0-18.0); LYMPH # 0.8 (1.2-3.4); LYMPH % 8.9 % (22.0-35.0); MEAN CELL VOLUME 85.7 fl (80.0-105.0); MEAN CORPUSCULAR HGB CONC 32.7 g/dl (31.0-37.0); MEAN PLATELET VOLUME 8.8 fl (7.0-11.0); MONO # 0.2 (0.1-0.6); MONO % 2.4 % (1.0-6.0); RBC 3.28 10^6/uL (3.5-6.1); RED CELL DISTRIBUTION WIDTH 15.8 % (11.5-14.5); WHITE BLOOD COUNT 8.7 10^3/uL (4.5-11.0)
[2018-04-15 07:25] LABS: ALB/GLOB RATIO 1.5 (1.1-1.8); CALCIUM 8.9 mg/dL (8.4-10.5)
[2018-04-15] MEDS: Budesonide 0.5 mg/2 ml Inhal Susp UD IH SCH ×2 (08:00→20:05)
[2018-04-15] MEDS: Levalbuterol 1.25 MG/3 ML Inhal Soln UD IH PRN ×2 (08:00→14:45)
--- NOTE | 2018-04-15 08:35 | PN ---
DATE: 04/15/2018 SUBJECTIVE: The patient appears comfortable this morning. He is not short of breath at rest. PHYSICAL EXAMINATION: VITAL SIGNS: Temperature is 98.6, pulse is 104, respiratory rate 18/20, blood pressure 117/62. Oxygen saturation on nasal cannula is 93%. HEENT: Normocephalic, atraumatic. No JVD. CARDIOVASCULAR: Systolic ejection murmur at the lower left sternal border. No S3 gallop. LUNGS: Minimal/less rhonchi. No wheezing. EXTREMITIES: Mild edema. No cyanosis, no clubbing. Calves are nontender to palpation. GASTROINTESTINAL: Abdomen is soft, nontender and nondistended. Bowel sounds are positive. SKIN: No acute rash. NEUROLOGIC: Exam limited at the present time. PERTINENT LABORATORY DATA: Chest x-ray was done this morning and reviewed. The chest x-ray today is similar to yesterday's film, but much improved compared to the film of 04/12/2018. IMPRESSION: 1. [id number] renal failure. 2. Multiple electrolyte abnormalities. 3. Rule out congestive heart failure. 4. Advanced chronic obstructive pulmonary disease. 5. Coronary artery disease. 6. Pulmonary hypertension. PLAN: The patient appears comfortable this morning. He is not short of breath at rest. He does state to feeling better overall. I did discuss the case with the night nurse at length. The night nurse stated the patient had a good night. I did review the chest x-ray as above. The chest x-ray is similar to yesterday's film, but much improved compared to the film of 04/12/2018. I would continue with the current antibiotic therapy - as per Infectious Disease. Input by Dr. Montgomery is noted. On physical exam, there is certainly less bronchospasm noted. I will continue the current nebulizer treatments and low-dose intravenous steroids (decreased yesterday) for now. Inputs by Renal and Cardiology are also noted. Repeat a.m. labs are pending. Clinical status of the patient is certainly improved - compared to last week. However, again, given the above, the future status/prognosis for this patient does remain guarded. I will discuss the above with the entire ICU team the next few moments. I will also discuss the above with Dr. Hartley later this morning. Mic Birmingham MD [facility] # [id number] MTDToya
[2018-04-15] MEDS ORDERED: Vancomycin 1gm in NS 250ml 1 GM/250 ML BAG IVPB STA (09:13)
[2018-04-15] MEDS: MethylPREDNISolone 40 mg Vial IVP SCH (09:26)
[2018-04-15] MEDS: SELEXIPAG PO SCH ×2 (09:28→17:27)
--- NOTE | 2018-04-15 09:52 | PN ---
SUBJECTIVE: The patient was seen and examined at bedside in the ICU. No acute events overnight. He remains afebrile and clinically stable. OBJECTIVE: VITAL SIGNS: Temperature 98.8, pulse 78, blood pressure 98/50, respiratory rate 16, oxygen saturation 93% on 2L NC. GENERAL: Frail, chronically ill-appearing man lying in bed in no apparent distress. HEENT: PERRL, EOMI. No scleral icterus. Mild conjunctival pallor is noted. NECK: No JVD. LUNGS: Decreased breath sounds at the bases with faint rhonchi. CARDIOVASCULAR: Normal S1, S2. Grade II/ RAGHU to LLSB. ABDOMEN: Normoactive bowel sounds. Soft, nontender, nondistended. Left inguinal hernia remains reduced. EXTREMITIES: Trace pedal edema bilaterally. NEUROLOGIC: Awake, alert and oriented x 3. No focal motor deficits. LABORATORY DATA: WBC 8.7 with 88% neutrophils, hemoglobin 9, hematocrit 28, platelets 144. Sodium 137, potassium 4.3, chloride 108, bicarb 22, BUN 83, creatinine 4, glucose 109. Blood cultures negative. Urine culture with Enterococcus faecalis and sensitivities noted. ASSESSMENT: The patient is a 77-year-old man with multiple medical comorbidities including CKD stage IV and a remote history of bladder cancer s/p cystectomy s/p ileal conduit who presented with a 2 day history of decreased urinary output, nausea and lower abdominal pain and was admitted to the ICU for management of LYNN on CKD stage IV, metabolic acidosis, hyperkalemia and severe sepsis secondary to healthcare-associated pneumonia. PLAN: 1. Severe sepsis secondary to healthcare-associated ammonia, improving. Input from Dr. Montgomery noted. The patient remains afebrile with negative blood cultures. Continue current antimicrobials as per Dr. Montgomery. 2. LYNN on CKD stage IV (baseline Cr 2-3), consider secondary to medication- induced vs ATN in the setting of severe sepsis, improving. Input from Dr. Ivey noted. The patient is s/p 2 sessions of hemodialysis with renal parameters trending towards baseline. Continue with care as per Dr. Ivey. Continue to monitor strict I&O's, renally dose medications and avoid nephrotoxins. 3. Remote history of bladder cancer s/p cystectomy s/p ileal conduit. 4. Severe COPD. Input from Dr. Birmingham noted. Continue supplemental oxygen, inhaled corticosteroids and Solu-Medrol to taper. 5. 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 In from Dr. Tejeda noted. Milrinone on hold as the patient remains on vasopressor support. Continue with care as per Dr. Tejeda. 6. Metabolic acidosis, resolved. 7. Pulmonary hypertension. Continue with care as per Dr. Birmingham. 8. CAD s/p STEMI s/p PCI with stent placement. Continue Aspirin 81 mg p.o. daily and Lipitor 40 mg p.o. daily. 9. Anemia of chronic disease. Hb stable. 10. Hyperkalemia, resolved. 11. Insomnia. 12. Chronic left inguinal hernia s/p manual reduction. Continue to monitor. 13. Prophylaxis. GI prophylaxis not indicated as the patient is eating. Continue with heparin for DVT prophylaxis. CODE STATUS: Full code. Matt Hartley MD MTDToya
[2018-04-15] MEDS ORDERED: Prostat 15 g packet GT SCH (10:00)
[2018-04-15] MEDS: Prostat 15 g packet GT SCH (10:00)
--- NOTE | 2018-04-15 10:27 | RAD ---
Date of service: 04/15/2018 HISTORY: f/u COMPARISON: 04/14/2018 FINDINGS: LUNGS: No active pulmonary disease. PLEURA: No significant pleural effusion identified, no pneumothorax apparent. CARDIOVASCULAR: No aortic atherosclerotic calcification present. Normal cardiac size. No pulmonary vascular congestion. OSSEOUS STRUCTURES: No significant abnormalities. VISUALIZED UPPER ABDOMEN: Normal. OTHER FINDINGS: Right-sided Port-A-Cath and left-sided dialysis catheter unchanged IMPRESSION: No active disease.
--- NOTE | 2018-04-15 10:43 | CP.PCM.PN ---
Subjective - Date & Time of Evaluation Date of Evaluation: 04/15/18 Time of Evaluation: 10:30 - Subjective Subjective: Comfortable in bed, although feels little cold, but not in distress, no fevers overnight, no abdominal pain, no SOB at rest. Objective - Vital Signs/Intake and Output Vital Signs (last 24 hours): Temp Pulse Resp BP Pulse Ox 97.8 F 119 H 23 112/73 85 L 04/12/18 12:00 04/14/18 06:00 04/14/18 06:00 04/14/18 06:01 04/14/18 05:30 Intake and Output: 04/14/18 04/14/18 06:59 18:59 Intake Total 586 220 Output Total 980 Balance -394 220 - Medications Medications: Current Medications Acetaminophen (Tylenol 325mg Tab) 650 mg PO Q6H PRN PRN Reason: Fever >100.4 F Last Admin: 04/13/18 13:07 Dose: 650 mg Albuterol/Ipratropium (Duoneb 3 Mg/0.5 Mg (3 Ml) Ud) 3 ml IH [id number] PRN PRN Reason: Shortness of Breath Last Admin: 04/10/18 20:58 Dose: 3 ml Arformoterol Tartrate (Brovana) 15 mcg IH [id number] [facility] Last Admin: 04/12/18 07:00 Dose: 15 mcg Aspirin (Aspirin Chewable) 81 mg PO DAILY [facility] Last Admin: 04/14/18 09:53 Dose: 81 mg Atorvastatin Calcium (Lipitor) 40 mg PO DAILY [facility] Last Admin: 04/13/18 09:24 Dose: 40 mg Budesonide (Pulmicort Respules) 0.5 mg IH [id number] [facility] Last Admin: 04/14/18 07:30 Dose: 0.5 mg Calcium Acetate (Phoslo) 667 mg PO WM [facility] Last Admin: 04/14/18 09:53 Dose: 667 mg Dextrose (Dextrose 50% Inj) 0 ml IV STAT PRN; Protocol PRN Reason: Hypoglycemia Protocol Last Admin: 04/10/18 17:07 Dose: 50 ml Famotidine (Pepcid) 20 mg PO DAILY [facility] Last Admin: 04/14/18 09:53 Dose: 20 mg Heparin Sodium (Porcine) (Heparin) 5,000 units SC Q8 [facility]; Protocol Last Admin: 04/14/18 06:55 Dose: 5,000 units Dextrose (Dextrose 5% In Water 1000 Ml) 1,000 mls @ 0 mls/hr IV .Q0M PRN; Protocol PRN Reason: Hypoglycemia Protocol Meropenem/Sodium Chloride (Merrem Iv 500 Mg/Ns 50 Ml) 500 mg in 50 mls @ 100 mls/hr IVPB Q24H [facility]; Protocol Last Admin: 04/14/18 09:54 Dose: 100 mls/hr Milrinone Lactate/Dextrose (Primacor 20mg/100ml D5w) 100 mls @ 5.164 mls/hr IV .[id number] PRN; Protocol PRN Reason: TITRATE PER MD ORDER Last Admin: 04/13/18 08:11 Dose: 0.23 mcg/kg/min, 5.164 mls/hr NOREPINEPHRINE BIT/0.9 % NACL (Levophed 4 Mg/ 250 Ml Ns Premixed) 4 mg in 250 mls @ 15 mls/hr IV .[id number] PRN; Protocol PRN Reason: TITRATE PER MD ORDER Last Titration: 04/14/18 10:25 Dose: 6 mcg/min, 22.5 mls/hr Levalbuterol HCl (Xopenex) 1.25 mg IH [id number] PRN PRN Reason: Shortness of Breath Last Admin: 04/14/18 07:30 Dose: 1.25 mg Lorazepam (Ativan) 1 mg IVP DAILY [facility]; Protocol Last Admin: 04/14/18 10:00 Dose: 1 mg Methylprednisolone (Solu-Medrol) 40 mg IVP Q12 [facility] Last Admin: 04/14/18 09:53 Dose: 40 mg Non-Formulary Medication (Selexipag [Uptravi]) 600 mg PO BID [facility] Last Admin: 04/14/18 09:58 Dose: 600 mg Non-Formulary Medication (Riociguat [Adempas]) 2.5 mg PO 0700,1500,2300 [facility] Last Admin: 04/14/18 06:56 Dose: 2.5 mg Ondansetron HCl (Zofran Inj) 4 mg IVP Q6H PRN PRN Reason: Nausea/Vomiting Last Admin: 04/09/18 18:25 Dose: 4 mg Quetiapine Fumarate (Seroquel) 25 mg PO HS PRN; Protocol PRN Reason: Agitation Last Admin: 04/13/18 21:06 Dose: 25 mg - Labs Labs: 04/14/18 06:00 04/14/18 06:00 PT 11.3 SECONDS (9.4-12.5) 04/10/18 06:30 INR 0.98 04/10/18 06:30 APTT 29.5 Seconds (25.1-36.5) 04/10/18 06:30 - Constitutional Appears: Chronically Ill - Head Exam Head Exam: NORMAL INSPECTION - Neck Exam Neck Exam: absent: Meningismus - Respiratory Exam Respiratory Exam: Decreased Breath Sounds - Cardiovascular Exam Cardiovascular Exam: +S1, +S2 - GI/Abdominal Exam GI & Abdominal Exam: Soft. absent: Tenderness Assessment and Plan - Assessment and Plan (Free Text) Plan: Assessment severe sepsis with fluid-responsive hypotension due to right sided HCAP as well as UTI with E. faecalis chronic renal failure on hemodialysis COPD on home oxygen pulmonary HTN bladder cancer S/P ileal conduit CAD S/P PCI chronic CHF HTN Plan continue intermittent Vancomycin and Merrem day 4; blood cx are negative; urine cx showing E. faecalis; target 7-10 days of antibiotics will continue monitor clinically
[2018-04-15] MEDS: MEROPENEM 500 MG in NS 500 MG/50 ML BAG IVPB SCH (10:53)
[2018-04-15] MEDS ORDERED: Darbepoetin Alfa 60 mcg/ml Inj SC ONE (11:51)
--- NOTE | 2018-04-15 14:32 | CP.CCUPN ---
CCU Subjective - Physician Review Subjective (Free Text): García Jasso, PGY-1, ICU Progress Note for Dr. Judd CC: fatigue, dark urine, dark diarrhea, dark vomit, abdominal pain Patient seen and evaluated at bedside. Patient continues to have insomnia. Patient is AAOx3 at bedside. Patient has no complaints today. 12-point ROS was unreliable due to mental status. CCU Objective - Vital Signs / Intake & Output Intake and Output (Last 8hrs): Intake & Output 04/14/18 04/15/18 04/15/18 22:59 06:59 14:59 Intake Total 790 450 Output Total 1000 1000 Balance -210 -550 Weight 188 lb Intake: IV 70 450 Left Forearm 50 450 Right Subclavian 0 levophed 20 0 Oral 720 Output: Drainage 1000 1000 Urostomy 1000 1000 Urine 0 Suprapubic 0 Other: Voiding Method Urinal # Bowel Movements 1 - Physical Exam Head: Positive for: Atraumatic, Normocephalic Pupils: Positive for: PERRL Extroacular Muscles: Positive for: EOMI Conjunctiva: Positive for: Normal Mouth: Positive for: Dry Nose (External): Positive for: Atraumatic Neck: Positive for: Normal Range of Motion Respiratory/Chest: Positive for: Clear to Auscultation, Good Air Exchange Cardiovascular: Positive for: Irregular Rhythm, Tachycardic Abdomen: Positive for: Normal Bowel Sounds, Other (ileal conduit pouch intact). Negative for: Tenderness, Distention, Peritoneal Signs Genitourinary Male: Positive for: Other (reduction of testicular swelling) Back: Positive for: Normal Inspection Upper Extremity: Positive for: Normal Inspection. Negative for: Cyanosis, Edema Lower Extremity: Positive for: Normal Inspection. Negative for: Edema Neurological: Positive for: GCS=15, CN II-XII Intact, Speech Normal Skin: Positive for: Warm, Dry, Normal Color Psychiatric: Positive for: Alert - Medications Active Medications: Active Medications Generic Name Dose Route Start Last Admin Trade Name Freq PRN Reason Stop Dose Admin Acetaminophen 650 mg 04/09/18 16:51 04/13/18 13:07 Tylenol 325mg Tab PO 650 mg Q6H PRN Administration Fever >100.4 F Albuterol/Ipratropium 3 ml 04/09/18 16:50 04/10/18 20:58 Duoneb 3 Mg/0.5 Mg (3 Ml) Ud IH 3 ml [id number] PRN Administration Shortness of Breath Amino Acid Protein 15 gm 04/14/18 13:00 04/14/18 12:00 Prostat 15 G Packet GT 15 gm DAILY [facility] Administration Arformoterol Tartrate 15 mcg 04/09/18 20:00 04/12/18 07:00 Brovana IH 15 mcg [id number] [facility] Administration Aspirin 81 mg 04/10/18 10:00 04/15/18 09:26 Aspirin Chewable PO 81 mg DAILY [facility] Administration Atorvastatin Calcium 40 mg 04/14/18 22:00 04/14/18 21:56 Lipitor PO 40 mg HS [facility] Administration Budesonide 0.5 mg 04/10/18 08:00 04/15/18 08:00 Pulmicort Respules IH 0.5 mg [id number] [facility] Administration Calcium Acetate 667 mg 04/11/18 08:00 04/15/18 13:00 Phoslo PO 667 mg WM [facility] Administration Dextrose 0 ml 04/10/18 14:30 04/10/18 17:07 Dextrose 50% Inj IV 50 ml STAT PRN Administration Hypoglycemia Protocol Protocol Doxercalciferol 0.5 mcg 04/15/18 12:00 04/15/18 13:00 Hectorol PO 0.5 mcg DAILY [facility] Administration Famotidine 20 mg 04/10/18 10:00 04/15/18 09:26 Pepcid PO 20 mg DAILY [facility] Administration Heparin Sodium (Porcine) 5,000 units 04/09/18 22:00 04/15/18 13:10 Heparin SC 5,000 units Q8 [facility] Administration Protocol Dextrose 1,000 mls @ 0 mls/hr 04/10/18 14:30 Dextrose 5% In Water 1000 Ml IV .Q0M PRN Hypoglycemia Protocol Protocol Per Protocol Meropenem/Sodium Chloride 500 mg in 50 mls @ 100 mls/hr 04/12/18 10:45 04/15/18 10:53 Merrem Iv 500 Mg/Ns 50 Ml IVPB 100 mls/hr Q24H [facility] Administration Protocol NOREPINEPHRINE BIT/0.9 % NACL 4 mg in 250 mls @ 15 mls/hr 04/13/18 15:29 04/14/18 13:45 Levophed 4 Mg/ 250 Ml Ns Premixed IV Infused .[id number] PRN Titration TITRATE PER MD ORDER Protocol 4 MCG/MIN Levalbuterol HCl 1.25 mg 04/12/18 08:01 04/15/18 08:00 Xopenex IH 1.25 mg [id number] PRN Administration Shortness of Breath Lorazepam 1 mg 04/14/18 11:58 Ativan IVP DAILY PRN Anxiety Protocol Methylprednisolone 40 mg 04/14/18 10:00 04/15/18 09:26 Solu-Medrol IVP 40 mg Q12 [facility] Administration Non-Formulary Medication 600 mg 04/11/18 18:00 04/15/18 09:28 Selexipag [Uptravi] PO 600 mg BID [facility] Administration Non-Formulary Medication 2.5 mg 04/13/18 15:43 04/15/18 06:04 Riociguat [Adempas] PO 2.5 mg 0700,1500,2300 [facility] Administration Ondansetron HCl 4 mg 04/09/18 16:51 04/09/18 18:25 Zofran Inj IVP 4 mg Q6H PRN Administration Nausea/Vomiting Quetiapine Fumarate 50 mg 04/14/18 12:46 Seroquel PO HS PRN Agitation Protocol Zolpidem Tartrate 5 mg 04/14/18 11:58 04/14/18 21:55 Ambien PO 5 mg HS PRN Administration Insomnia Protocol - Patient Studies Lab Studies: Microbiology Studies 04/09/18 23:50 Blood Culture - Final Blood NO GROWTH AFTER 5 DAYS Gram Stain - Final TEST NOT PERFORMED 04/09/18 23:40 Blood Culture - Final Blood NO GROWTH AFTER 5 DAYS Gram Stain - Final TEST NOT PERFORMED Lab Studies 04/15/18 04/15/18 04/15/18 Range/Units 11:50 06:30 06:30 WBC 8.7 D (4.5-11.0) 10^3/uL RBC 3.28 L (3.5-6.1) 10^6/uL Hgb 9.2 L (14.0-18.0) g/dL Hct 28.1 L (42.0-52.0) % MCV 85.7 (80.0-105.0) fl MCH 28.0 (25.0-35.0) pg MCHC 32.7 (31.0-37.0) g/dl RDW 15.8 H (11.5-14.5) % Plt Count 144 (120.0-450.0) 10^3/uL MPV 8.8 (7.0-11.0) fl Gran % 88.6 H (50.0-68.0) % Lymph % (Auto) 8.9 L (22.0-35.0) % Cecil % (Auto) 2.4 (1.0-6.0) % Eos % (Auto) 0.0 L (1.5-5.0) % Baso % (Auto) 0.1 (0.0-3.0) % Gran # 7.74 H (1.4-6.5) Lymph # (Auto) 0.8 L (1.2-3.4) Cecil # (Auto) 0.2 (0.1-0.6) Eos # (Auto) 0.0 (0.0-0.7) Baso # (Auto) 0.01 (0.0-2.0) K/mm3 Sodium 137 (132-148) mmol/L Potassium 4.3 (3.6-5.0) mmol/L Chloride 108 H (98-107) mmol/L Carbon Dioxide 22 (21-33) mmol/L Anion Gap 12 (10-20) BUN 83 H (7-21) mg/dL Creatinine 4.0 H (0.8-1.5) mg/dl Est GFR ( Amer) 18 Est GFR (Non-Af Amer) 15 Random Glucose 109 (70-110) mg/dL Calcium 8.9 (8.4-10.5) mg/dL Phosphorus 4.7 H (2.5-4.5) mg/dL Total Bilirubin 0.2 (0.2-1.3) mg/dL AST 49 (17-59) U/L ALT 43 (7-56) U/L Alkaline Phosphatase 58 (38-126) U/L Total Protein 5.1 L (5.8-8.3) g/dL Albumin 3.0 (3.0-4.8) g/dL Globulin 2.1 gm/dL Albumin/Globulin Ratio 1.5 (1.1-1.8) Laboratory Results - last 24 hr 04/15/18 04/15/18 04/15/18 06:30 06:30 11:50 WBC 8.7 D RBC 3.28 L Hgb 9.2 L Hct 28.1 L MCV 85.7 MCH 28.0 MCHC 32.7 RDW 15.8 H Plt Count 144 MPV 8.8 Gran % 88.6 H Lymph % (Auto) 8.9 L Cecil % (Auto) 2.4 Eos % (Auto) 0.0 L Baso % (Auto) 0.1 Gran # 7.74 H Lymph # (Auto) 0.8 L Cecil # (Auto) 0.2 Eos # (Auto) 0.0 Baso # (Auto) 0.01 Sodium 137 Potassium 4.3 Chloride 108 H Carbon Dioxide 22 Anion Gap 12 BUN 83 H Creatinine 4.0 H Est GFR ( Amer) 18 Est GFR (Non-Af Amer) 15 Random Glucose 109 Calcium 8.9 Phosphorus 4.7 H Total Bilirubin 0.2 AST 49 ALT 43 Alkaline Phosphatase 58 Total Protein 5.1 L Albumin 3.0 Globulin 2.1 Albumin/Globulin Ratio 1.5 Radiology Impressions: Radiology Impressions Chest X-Ray 04/15/18 06:00 IMPRESSION: No active disease. Fingerstick Blood Sugar Results: 116 Review of Systems - Review of Systems Review of Systems: except for what was mentioned in HPI Critical Care Progress Note - Ventilator Checklist Head of Bed 30 Degrees: Yes PUD Prophalyxis: Yes DVT Prophylaxis: Yes - Nutrition Nutrition: Nutrition Category Date Time Status Heart Healthy Diet [DIET] Diets 04/11/18 Breakfast Active Assessment/Plan - Assessment and Plan (Free Text) Assessment: 77 year old female with past medical history of CAD status post STEMI with stent, congestive heart failure with last EF: 25% from 02/2018, severe COPD on 3L at home, CKD stage 4, history of bladder carcinoma s/p ileal conduit, pulmonary hypertension, and hypertension presents with fatigue, nausea, black vomit, black diarrhea, black urine, shortness of breath, dysphagia, and sharp abdominal pain worse with eating. Plan: Neuro: Altered Mental Status -Secondary to ICU delirium vs. delirium from infection -AAOx3, no FND, moving extremities past midline. -Seroquel 50 mg HS PRN -Ativan 1 mg daily PRN -Ambien 5 mg PO HS PRN -Patient currently not agitated -Dr. Curry, Psychiatry, consulted for recommendations. -Monitor neuro status. -Reorient patient as necessary. Cardio: Systolic Congestive Heart failure Echocardiogram from 02/2018: EF: 25% -Regular rate, normotensive -EKG 04/09: sinus tachycardia with PACs, RBBB with HR: 132 -Stopped home milrinone due to patient's renal function and current hypotension -Hold MARK I, spironolactone -Levophed was titrated off. -Maintain MAP>65. -Monitor for S/S, HD compromise. -Dr. Mancilla, Cardiology, consulted for recommendations. Follow recommendations. CAD s/p stent placement -Continue home aspirin 81 mg PO daily, lipitor 40 mg PO daily, plavix 75 mg PO daily New onset Atrial Fibrillation -Due to patient's hypotension, patient is currently being rhythm controlled with amiodarone 0.5 mg/min for 12 hours -Will start amiodarone 400 mg daily. -Currently no therapeutic anticoagulation. DVT prophylaxis with heparin 5000 U Q8 Pulm: COPD exacerbation -Resolved respiratory distress -CXR 04/10: mild cardiomegaly, right lower lobe infiltrate 2/2 to pneumonia vs. vascular congestion -CXR 04/15: no active disease -Maintain O2 saturation>95%. -O2 NC 3L -Xopenex 1.25 Q4, pulmicort 0.5 Q12, and methylprednisone 40 mg Q12 -Elevate bed to 30 degrees Pulmonary Hypertension -Continue home medications as per Dr. Birmingham, Pulmonology. GI: Diet -Tolerating HHD diet well. GI prophylaxis -Pepcid 20 mg PO daily /Nephro: ESRD currently not on dialysis -BUN/Cr improved to 83/4.0 -UA 04/09: 100 protein, large blood, trace leukocyte esterase, large bacteria, yeast. Likely UTI present -Phoslo continued for hyperphosphatemia -UO: 1045 mL -Aranesp one time dose given. -Continue monitoring. -Continue to follow Cardiology, Nephrology, and Radiology recommendations. Nonanion gap metabolic acidosis -PH: 7.14 from prior VBG on 04/09 secondary to RTA vs. diarrhea. -ABG ordered to evaluate for appropriate compensation Endocrinology: -Random glucose: 144 -Maintain euglycemia. Heme/Onc: Normocytic Anemia -H/H improved to 9.2/28.1 -Continue monitoring H/H DVT prophylaxis -Heparin 5000 U SubQ Q8 ID: UTI vs. pneumonia -Afebrile, leukocytosis resolved -UA: 100 protein, large blood, trace leukocyte esterase, large bacteria, yeast. Likely UTI present -CXR 04/10: mild cardiomegaly, right lower lobe infiltrate 2/2 to pneumonia vs. vascular congestion -UCx: Enterococcus faecalis -BCx is negative for 5 days, MRSA negative. -Lactate: 0.8 on 04/09 -Vancomycin 1 gm and Merrem 500 mg daily day 4. -Dr. Peterson, ID, consulted for further recommendations. -Monitor for signs and symptoms of infection. Disposition: At this time, patient is stable and will be transferred to telemetry. Please reconsult the ICU if patient has worsening of condition or new concerning symptoms. Patient seen and examined with Dr. Judd. - Date & Time Date: 04/15/18 Time: 14:10
--- NOTE | 2018-04-15 17:16 | PN ---
DATE: 04/15/2018 SUBJECTIVE: The patient is seen lying in bed, in the CCU. He feels comfortable at the present time. He denies any dyspnea at rest. His norepinephrine has been weaned off. CURRENT MEDICATIONS: Include aspirin, Brovana, albuterol inhaler, subcutaneous heparin, Lipitor 40 mg daily, meropenem, Pepcid, PhosLo, Pulmicort, Adempas, Uptravi, Seroquel, Solu-Medrol, and Xopenex. OBJECTIVE: GENERAL: He is a chronically ill-appearing elderly man. VITAL SIGNS: His blood pressure is 98/50 with pulse of 76 in sinus, respirations are 16. He is afebrile. HEENT: No JVD. CHEST: Bilateral coarse rhonchi. HEART: PMI displaced laterally with soft tones noted. ABDOMEN: Soft and nontender with normoactive bowel sounds. EXTREMITIES: No edema. DIAGNOSTIC DATA: Potassium 4.3, BUN and creatinine 83 and 4, white count is 8.7, hemoglobin and hematocrit 9.2 and 28.1 with platelet count of 144,000. IMPRESSION: 1. Acute on chronic renal failure with dialysis initiated. 2. Severe pulmonary hypertension. 3. Coronary artery disease status post remote myocardial infarction and percutaneous coronary intervention with severe residual left ventricular systolic dysfunction. 4. Severe chronic obstructive pulmonary disease. 5. Chronic congestive heart failure. 6. Longstanding history of tobacco abuse. RECOMMENDATIONS: His current medications will continue for now. Given his borderline low blood pressure, milrinone therapy will not be initiated especially in the setting of the need for continued dialysis and potential for hypotension. He does not appear terribly volume overloaded at this time and it would be advisable to avoid excessive fluid removal with dialysis as this appears to have precipitated his severe hypotension and tachycardia last week. His overall prognosis remains extremely poor. We will continue to follow and make further recommendations as appropriate. Dwight Tejeda MD
--- NOTE | 2018-04-15 18:03 | PN ---
DATE: 04/15/2018 SUBJECTIVE: The patient is seen in the ICU. He is awake, he is alert, is comfortable. He denies any chest pain. He reports he is feeling a little bit better today. He denies any shortness of breath. He complains of cough. He is not bringing up any phlegm. The patient did not receive dialysis on Sunday as ordered, because he was extremely hypotensive and tachycardic. PHYSICAL EXAMINATION: GENERAL: Elderly male lying in bed in the ICU. VITAL SIGNS: Blood pressure 98/50, heart rate 78, respiratory rate 16, temperature 98.6. HEENT: Normocephalic, atraumatic, positive pallor. NECK: Supple, no JVD. LUNGS: Bilateral equal air entry, distant breath sounds, no rales, no rhonchi appreciated. CARDIAC: S1, S2, distant heart sounds, no murmur, no rub appreciated. ABDOMEN: Obese, distended, soft, positive ileostomy with URO bag, bowel sounds present, ecchymosis of the anterior abdominal wall. EXTREMITIES: No lower extremity edema. INTAKE AND OUTPUT: 1490/2000. LABORATORY DATA: WBC 8.7, hemoglobin 9.2, hematocrit 28, platelets 144. Sodium 137, potassium 4.3, chloride 108, CO2 of 22, BUN 83, creatinine 4, glucose 109, calcium 8.9. AST 49, ALT 43, albumin 3, globulin 2.1. Urine culture, Enterococcus. Chest x-ray, no active disease. CURRENT MEDICATIONS: Ambien, aspirin, Ativan, Brovana, DuoNeb, heparin, Levophed at 4 mcg per minute, Lipitor, meropenem 500 every 24 hours, Pepcid, PhosLo, Adempas, selexipag, Seroquel, Solu-Medrol, Tylenol, Xopenex, Zofran. Vancomycin 1 g given this morning. ASSESSMENT/PLAN: 1. Acute kidney injury superimposed on chronic kidney disease stage IV. The patient was dialyzed on and Sunday of last week. The patient was unable to get dialysis on Sunday because he was extremely hypotensive and tachycardic. So his last dialysis was on Sunday. His creatinine was 5 on Sunday. Today his creatinine is 4. Renal parameters seems to have improved and stabilized. Will not dialyze today. 2. Severe pulmonary hypertension. 3. Chronic obstructive pulmonary disease. 4. Coronary artery disease. 5. Severe cardiomyopathy, decreased ejection fraction, on home milrinone therapy. 6. Anemia of chronic kidney disease. 7. Secondary hyperparathyroidism. 8. Hyperphosphatemia. 9. Enterococcal urinary tract infection. PLAN: 1. We will hold dialysis today. Renal parameters seem to be improving. His baseline creatinine as per the computer was 2.8 in February. 2. 24-hour urine for protein and creatinine clearance. 3. Continue Levophed, urine output seems to be improved with improved ionotropic function. 4. Start Hectorol 0.5 mcg oral daily. 5. Check phosphorus levels. 6. Darbepoetin 60 mcg subcutaneous. Case discussed with ICU nursing staff, case discussed with residents, case discussed with dialysis staff. Will discuss with cardiology regarding further plan for ionotropic agents. More than 35 minutes was spent in the care of this critically ill patient. Myranda Ivey MD
[2018-04-16] MEDS: RIOCIGUAT 2.5 MG PO SCH ×3 (07:00→23:30)
[2018-04-16 07:03] LABS: BASO # 0.01 K/mm3 (0.0-2.0); BASO % 0.1 % (0.0-3.0); GRAN # 8.73 (1.4-6.5); GRAN % 86.7 % (50.0-68.0); HEMOGLOBIN 9.3 g/dL (14.0-18.0); LYMPH # 0.5 (1.2-3.4); LYMPH % 5.2 % (22.0-35.0); MEAN CELL VOLUME 86.6 fl (80.0-105.0); MEAN CORPUSCULAR HEMOGLOBIN 28.3 pg (25.0-35.0); MEAN CORPUSCULAR HGB CONC 32.6 g/dl (31.0-37.0); MEAN PLATELET VOLUME 9.1 fl (7.0-11.0); MONO # 0.8 (0.1-0.6); RBC 3.29 10^6/uL (3.5-6.1); RED CELL DISTRIBUTION WIDTH 15.8 % (11.5-14.5); WHITE BLOOD COUNT 10.1 10^3/uL (4.5-11.0)
[2018-04-16 07:21] LABS: ALB/GLOB RATIO 1.4 (1.1-1.8); ALBUMIN 2.9 g/dL (3.0-4.8); CALCIUM 8.8 mg/dL (8.4-10.5)
[2018-04-16] MEDS: Levalbuterol 1.25 MG/3 ML Inhal Soln UD IH PRN ×3 (07:24→20:47)
[2018-04-16] MEDS: Budesonide 0.5 mg/2 ml Inhal Susp UD IH SCH ×2 (07:24→20:36)
--- NOTE | 2018-04-16 08:16 | PN ---
DATE: 04/16/2018 SUBJECTIVE: The patient appears comfortable this morning. He is not short of breath at rest. PHYSICAL EXAMINATION: VITAL SIGNS: Temperature 98.7, pulse 94, respiratory rate 18/20, blood pressure 113/61. Oxygen saturation on nasal cannula is 99%. HEENT: Normocephalic, atraumatic. NECK: No JVD. CARDIOVASCULAR: Systolic ejection murmur at the lower left sternal border. No S3 gallop. LUNGS: Minimal/less rhonchi. No wheezing. EXTREMITIES: Mild edema. No cyanosis. No clubbing. Calves are nontender to palpation. GI: Abdomen is soft, nontender and nondistended. Bowel sounds are positive. SKIN: No acute rash. NEUROLOGIC: Exam limited at the present time. IMPRESSION: 1. Acute on chronic renal failure. 2. Multiple electrolyte abnormalities. 3. Rule out congestive heart failure. 4. Advanced chronic obstructive pulmonary disease. 5. Coronary artery disease. 6. Pulmonary hypertension. PLAN: The patient appears comfortable this morning. He is not short of breath at rest. He does state to feeling better overall. I did discuss the case with the night nurse at length. The night nurse stated the patient had a good night. On physical exam, the patient's bronchospasm is resolving. In addition, the alveolar-arterial gradient is also resolving. I will continue with the current nebulizer treatments and decrease the intravenous steroids this morning. The patient remains on antibiotic therapy - as per Infectious Disease. There are no temperatures noted. The leukocytosis has resolved. Inputs by Cardiology and Renal are also noted. Clinical status of the patient is significantly improved - compared to his initial presentation. However, given the above, the future status/prognosis for this patient does remain very guarded. I will discuss the above with the entire ICU team in the next few moments. I will discuss the above with the attending physician later this morning. Mic Birmingham MD [facility]
[2018-04-16] MEDS: MethylPREDNISolone 40 mg Vial IVP SCH ×2 (09:00→21:07)
[2018-04-16] MEDS: SELEXIPAG PO SCH ×2 (09:01→17:03)
[2018-04-16] MEDS: MEROPENEM 500 MG in NS 500 MG/50 ML BAG IVPB SCH ×2 (09:02→10:45)
--- NOTE | 2018-04-16 09:49 | PN ---
SUBJECTIVE: The patient was seen and examined at bedside in the ICU. No acute events overnight. He remains afebrile and hemodynamically stable. He has been weaned off vasopressor support. This morning he feels well overall and offers no complaints. PHYSICAL EXAMINATION: VITAL SIGNS: Temperature 97.5, pulse 109, blood pressure 106/75, respiratory rate 22, oxygen saturation 94% on 3L NC. GENERAL: Frail, chronically ill-appearing man sitting up in his chair in no apparent distress. HEENT: PERRL, EOMI. No scleral icterus. Mild conjunctival pallor is noted. NECK: No JVD. LUNGS: Decreased breath sounds at the bases with faint rhonchi. CARDIOVASCULAR: Normal S1 and S2. Grade II/ RAGHU to LLSB. ABDOMEN: Normoactive bowel sounds, soft, nontender, nondistended. Left inguinal hernia remains reduced. EXTREMITIES: Trace pedal edema bilaterally. NEUROLOGIC: Awake, alert and oriented x 3. No focal motor deficits. LABORATORY DATA: WBC 10 with 87% neutrophils, hemoglobin 9, hematocrit 28, platelets 136. Sodium 137, potassium 4.5, chloride 110, bicarb 21, BUN 84, creatinine 3.4, glucose 116. Blood cultures with no growth to date. Urine culture with Enterococcus faecalis and sensitivities noted. ASSESSMENT: The patient is a 77-year-old man with multiple medical comorbidities including CKD stage IV and a remote history of bladder cancer s/p cystectomy s/p ileal conduit who admitted to the ICU for management of severe sepsis secondary to healthcare-associated pneumonia, LYNN on CKD stage IV, and metabolic acidosis. PLAN: 1. Severe sepsis secondary to healthcare-associated pneumonia, resolving. Input from Dr. Montgomery noted. The patient remains afebrile and with negative blood cultures. Continue with current antimicrobials as per Dr. Montgomery. 2. LYNN on CKD stage IV (baseline Cr 2-3), consider secondary to medication- induced vs ATN in the setting of severe sepsis, improving. Input from Dr. Ivey noted. The patient is s/p 2 sessions of hemodialysis with renal parameters trending towards baseline. No further plans for HD and thus we will remove his HD access. Continue with care as per Dr. Ivey. 3. Remote history of bladder cancer s/p cystectomy s/p ileal conduit. 4. Severe COPD. Input from Dr. Birmingham noted. Continue supplemental oxygen, inhaled corticosteroids and Solu-Medrol to taper. 5. 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 Input from Dr. Tejeda noted. The patient remains off vasopressor support. Continue with care as per Dr. Tejeda. 6. Metabolic acidosis, resolved. 7. Pulmonary hypertension. Continue with care as per Dr. Birmingham. 8. CAD s/p STEMI s/p PCI with stent placement. Continue Aspirin 81 mg p.o. daily and Lipitor 40 mg p.o. daily. 9. Anemia of chronic disease. Hb stable. Patient scheduled to receive Venofer as per Dr. Ivey. 10. Hyperkalemia, resolved. 11. Insomnia. Continue Ambien 5 mg p.o. at bedtime. and Ativan 1 mg IV at bedtime. 12. Chronic left inguinal hernia s/p manual reduction. Continue to monitor. 13. Prophylaxis. GI prophylaxis not indicated as the patient is eating. Continue with Heparin for DVT prophylaxis. CODE STATUS: Full code. Matt Hartley MD [facility]
[2018-04-16] MEDS: Prostat 15 g packet GT SCH (11:58)
[2018-04-16 12:14] LABS: URINE CREATININE 55.8 mg/dL
--- NOTE | 2018-04-16 12:28 | CP.PCM.PN ---
Subjective - Date & Time of Evaluation Date of Evaluation: 04/16/18 Time of Evaluation: 12:00 - Subjective Subjective: Comfortable in bed, sitting up, no SOB at rest, feels a little better. Objective - Vital Signs/Intake and Output Vital Signs (last 24 hours): Temp Pulse Resp BP Pulse Ox 97.5 F L 108 H 20 106/75 96 04/16/18 08:00 04/16/18 08:00 04/16/18 08:00 04/16/18 08:00 04/16/18 08:00 Intake and Output: 04/16/18 04/16/18 06:59 18:59 Intake Total 200 770 Output Total 1000 400 Balance -800 370 - Medications Medications: Current Medications Acetaminophen (Tylenol 325mg Tab) 650 mg PO Q6H PRN PRN Reason: Fever >100.4 F Last Admin: 04/15/18 20:22 Dose: 650 mg Albuterol/Ipratropium (Duoneb 3 Mg/0.5 Mg (3 Ml) Ud) 3 ml IH [id number] PRN PRN Reason: Shortness of Breath Last Admin: 04/10/18 20:58 Dose: 3 ml Amino Acid Protein (Prostat 15 G Packet) 15 gm GT DAILY [facility] Last Admin: 04/16/18 11:58 Dose: 15 gm Arformoterol Tartrate (Brovana) 15 mcg IH [id number] [facility] Last Admin: 04/12/18 07:00 Dose: 15 mcg Aspirin (Aspirin Chewable) 81 mg PO DAILY [facility] Last Admin: 04/16/18 09:02 Dose: 81 mg Atorvastatin Calcium (Lipitor) 40 mg PO HS [facility] Last Admin: 04/15/18 21:29 Dose: 40 mg Budesonide (Pulmicort Respules) 0.5 mg IH [id number] [facility] Last Admin: 04/16/18 07:24 Dose: 0.5 mg Calcium Acetate (Phoslo) 667 mg PO WM [facility] Last Admin: 04/16/18 08:58 Dose: 667 mg Dextrose (Dextrose 50% Inj) 0 ml IV STAT PRN; Protocol PRN Reason: Hypoglycemia Protocol Last Admin: 04/10/18 17:07 Dose: 50 ml Doxercalciferol (Hectorol) 0.5 mcg PO DAILY [facility] Last Admin: 04/15/18 13:00 Dose: 0.5 mcg Famotidine (Pepcid) 20 mg PO DAILY [facility] Last Admin: 04/16/18 09:02 Dose: 20 mg Heparin Sodium (Porcine) (Heparin) 5,000 units SC Q8 [facility]; Protocol Last Admin: 04/16/18 07:00 Dose: 5,000 units Dextrose (Dextrose 5% In Water 1000 Ml) 1,000 mls @ 0 mls/hr IV .Q0M PRN; Protocol PRN Reason: Hypoglycemia Protocol Meropenem/Sodium Chloride (Merrem Iv 500 Mg/Ns 50 Ml) 500 mg in 50 mls @ 100 mls/hr IVPB Q24H [facility]; Protocol Last Admin: 04/16/18 10:45 Dose: Not Given NOREPINEPHRINE BIT/0.9 % NACL (Levophed 4 Mg/ 250 Ml Ns Premixed) 4 mg in 250 mls @ 15 mls/hr IV .[id number] PRN; Protocol PRN Reason: TITRATE PER MD ORDER Last Titration: 04/14/18 13:45 Dose: Infused Levalbuterol HCl (Xopenex) 1.25 mg IH [id number] PRN PRN Reason: Shortness of Breath Last Admin: 04/16/18 07:24 Dose: 1.25 mg Lorazepam (Ativan) 1 mg IVP HS [facility]; Protocol Methylprednisolone (Solu-Medrol) 30 mg IVP Q12 [facility] Last Admin: 04/16/18 09:00 Dose: 30 mg Non-Formulary Medication (Selexipag [Uptravi]) 600 mg PO BID [facility] Last Admin: 04/16/18 09:01 Dose: 600 mg Non-Formulary Medication (Riociguat [Adempas]) 2.5 mg PO 0700,1500,2300 [facility] Last Admin: 04/16/18 07:00 Dose: 2.5 mg Ondansetron HCl (Zofran Inj) 4 mg IVP Q6H PRN PRN Reason: Nausea/Vomiting Last Admin: 04/09/18 18:25 Dose: 4 mg Quetiapine Fumarate (Seroquel) 50 mg PO HS PRN; Protocol PRN Reason: Agitation Zolpidem Tartrate (Ambien) 5 mg PO HS PRN; Protocol PRN Reason: Insomnia Last Admin: 04/15/18 21:28 Dose: 5 mg - Labs Labs: 04/16/18 05:40 04/16/18 05:40 PT 11.3 SECONDS (9.4-12.5) 04/10/18 06:30 INR 0.98 04/10/18 06:30 APTT 29.5 Seconds (25.1-36.5) 04/10/18 06:30 - Constitutional Appears: Chronically Ill - Head Exam Head Exam: NORMAL INSPECTION - Respiratory Exam Respiratory Exam: Decreased Breath Sounds - Cardiovascular Exam Cardiovascular Exam: +S1, +S2 - GI/Abdominal Exam GI & Abdominal Exam: Soft. absent: Tenderness Assessment and Plan - Assessment and Plan (Free Text) Plan: Assessment severe sepsis with fluid-responsive hypotension due to right sided HCAP as well as UTI with E. faecalis chronic renal failure on hemodialysis COPD on home oxygen pulmonary HTN bladder cancer S/P ileal conduit CAD S/P PCI chronic CHF HTN Plan continue intermittent Vancomycin and Merrem day 5; blood cx are negative; urine cx showing E. faecalis; target 7-10 days of antibiotics will continue monitor clinically will get Vanco level today
--- NOTE | 2018-04-16 13:11 | PN ---
DATE: 04/16/2018 SUBJECTIVE: The patient is seen sitting in a chair on telemetry. His main complaint is that he was extremely cold overnight and felt that there was not enough heat in the room and he slept with multiple blankets. He denies any lightheadedness. He has no dyspnea at rest. He remains in sinus rhythm. MEDICATIONS: His current medications include aspirin, Ativan p.r.n., Brovana, DuoNeb inhaler, subcutaneous heparin, Lipitor 40 mg daily, meropenem, Pepcid, PhosLo, Pulmicort inhaler, Adempas , Uptravi, Seroquel, Solu-Medrol 30 mg every 12 hours, Xopenex. OBJECTIVE: GENERAL: He is a chronically ill-appearing elderly man. VITAL SIGNS: Blood pressure 106/76 with pulse of 110 in sinus, respirations 14. He is afebrile. HEENT: No JVD. CHEST: Bilateral coarse rhonchi. HEART: PMI displaced laterally with soft tones noted. ABDOMEN: Soft, nontender with normoactive bowel sounds. EXTREMITIES: No edema. DIAGNOSTIC DATA: Potassium 4.5, BUN and creatinine 84 and 3.4. White count 10.1, hemoglobin and hematocrit 9.3 and 28.5 with platelet count 136,000. Intake and output from yesterday was 700 and 1450. IMPRESSION: 1. Jxgne-kh-jyyoxah renal failure, clinically improved, not requiring dialysis for the past 4 days with adequate urine output. creatinine appears stable. 2. Severe pulmonary hypertension. 3. Coronary artery disease status post remote myocardial fraction and percutaneous coronary intervention with severe left ventricle systolic dysfunction. 4. Severe chronic obstructive pulmonary disease. 5. Chronic heart failure. 6. Longstanding tobacco abuse. RECOMMENDATIONS: His current cardiac medications will continue for now. Milrinone will be held pending his blood pressure response. If he remains normotensive, this will be resumed if tolerated. Apparently dialysis will not be needed for the near future and removal of his dialysis catheter will be planned. Transfer to telemetry is advised. His overall prognosis however, continues to remain poor. We will continue to follow and make further recommendations as appropriate. Dwight Tejeda MD [facility] # [id number]
--- NOTE | 2018-04-16 13:47 | CP.PCM.APN ---
Subjective - Date & Time of Evaluation Date of Evaluation: 04/16/18 Time of Evaluation: 11:55 - Subjective Subjective: pt seen and examined at bedside, sitting up in chair in NAD - offers no complaints Review of Systems - Constitutional Constitutional: Fatigue Objective - Vital Signs/Intake and Output Vital Signs (last 24 hours): Temp Pulse Resp BP Pulse Ox 97.5 F L 108 H 20 106/75 96 04/16/18 08:00 04/16/18 08:00 04/16/18 08:00 04/16/18 08:00 04/16/18 08:00 Intake and Output: 04/16/18 04/16/18 06:59 18:59 Intake Total 200 770 Output Total 1000 400 Balance -800 370 - Medications Medications: Current Medications Acetaminophen (Tylenol 325mg Tab) 650 mg PO Q6H PRN PRN Reason: Fever >100.4 F Last Admin: 04/15/18 20:22 Dose: 650 mg Albuterol/Ipratropium (Duoneb 3 Mg/0.5 Mg (3 Ml) Ud) 3 ml IH [id number] PRN PRN Reason: Shortness of Breath Last Admin: 04/10/18 20:58 Dose: 3 ml Amino Acid Protein (Prostat 15 G Packet) 15 gm GT DAILY [facility] Last Admin: 04/16/18 11:58 Dose: 15 gm Arformoterol Tartrate (Brovana) 15 mcg IH [id number] [facility] Last Admin: 04/12/18 07:00 Dose: 15 mcg Aspirin (Aspirin Chewable) 81 mg PO DAILY [facility] Last Admin: 04/16/18 09:02 Dose: 81 mg Atorvastatin Calcium (Lipitor) 40 mg PO HS [facility] Last Admin: 04/15/18 21:29 Dose: 40 mg Budesonide (Pulmicort Respules) 0.5 mg IH [id number] [facility] Last Admin: 04/16/18 07:24 Dose: 0.5 mg Calcium Acetate (Phoslo) 667 mg PO WM [facility] Last Admin: 04/16/18 12:26 Dose: 667 mg Dextrose (Dextrose 50% Inj) 0 ml IV STAT PRN; Protocol PRN Reason: Hypoglycemia Protocol Last Admin: 04/10/18 17:07 Dose: 50 ml Doxercalciferol (Hectorol) 0.5 mcg PO DAILY [facility] Last Admin: 04/16/18 12:26 Dose: 0.5 mcg Famotidine (Pepcid) 20 mg PO DAILY [facility] Last Admin: 04/16/18 09:02 Dose: 20 mg Heparin Sodium (Porcine) (Heparin) 5,000 units SC Q8 [facility]; Protocol Last Admin: 04/16/18 07:00 Dose: 5,000 units Dextrose (Dextrose 5% In Water 1000 Ml) 1,000 mls @ 0 mls/hr IV .Q0M PRN; Protocol PRN Reason: Hypoglycemia Protocol Meropenem/Sodium Chloride (Merrem Iv 500 Mg/Ns 50 Ml) 500 mg in 50 mls @ 100 mls/hr IVPB Q24H [facility]; Protocol Last Admin: 04/16/18 10:45 Dose: Not Given NOREPINEPHRINE BIT/0.9 % NACL (Levophed 4 Mg/ 250 Ml Ns Premixed) 4 mg in 250 mls @ 15 mls/hr IV .[id number] PRN; Protocol PRN Reason: TITRATE PER MD ORDER Last Titration: 04/14/18 13:45 Dose: Infused Levalbuterol HCl (Xopenex) 1.25 mg IH [id number] PRN PRN Reason: Shortness of Breath Last Admin: 04/16/18 07:24 Dose: 1.25 mg Lorazepam (Ativan) 1 mg IVP HS [facility]; Protocol Methylprednisolone (Solu-Medrol) 30 mg IVP Q12 [facility] Last Admin: 04/16/18 09:00 Dose: 30 mg Non-Formulary Medication (Selexipag [Uptravi]) 600 mg PO BID [facility] Last Admin: 04/16/18 09:01 Dose: 600 mg Non-Formulary Medication (Riociguat [Adempas]) 2.5 mg PO 0700,1500,2300 [facility] Last Admin: 04/16/18 07:00 Dose: 2.5 mg Ondansetron HCl (Zofran Inj) 4 mg IVP Q6H PRN PRN Reason: Nausea/Vomiting Last Admin: 04/09/18 18:25 Dose: 4 mg Quetiapine Fumarate (Seroquel) 50 mg PO HS PRN; Protocol PRN Reason: Agitation Zolpidem Tartrate (Ambien) 5 mg PO HS PRN; Protocol PRN Reason: Insomnia Last Admin: 04/15/18 21:28 Dose: 5 mg - Labs Labs: 04/16/18 05:40 04/16/18 05:40 PT 11.3 SECONDS (9.4-12.5) 04/10/18 06:30 INR 0.98 04/10/18 06:30 APTT 29.5 Seconds (25.1-36.5) 04/10/18 06:30 - Constitutional Appears: No Acute Distress - Eye Exam Eye Exam: Normal appearance - ENT Exam ENT Exam: Mucous Membranes Moist - Respiratory Exam Respiratory Exam: Decreased Breath Sounds, NORMAL BREATHING PATTERN - Cardiovascular Exam Cardiovascular Exam: +S1, +S2 - GI/Abdominal Exam GI & Abdominal Exam: Soft - Neurological Exam Neurological Exam: Alert, Awake - Skin Skin Exam: Dry, Normal Color Assessment and Plan - Assessment and Plan (Free Text) Plan: 77 yr old pmh sig for copd, cad s/p stenting, htn, bladder CA with ileal conduit, ICM on home Milrinone who presented to ED with c/o of urinary retention x 2 days found with LYNN on CKD, hyperkalemia and metabolic acidosis ph of 7.14 with severe electrolyte abnormalities with profound hypotension. pt is admitted to the ICU for further mgmt with renal and pulmonary consultation on board. #LYNN on CKD with hyperkalemia and acidosis - nephrology eval and consultation Urine studies noted Renal rec's noted s/p left IJ HD catheter 04/11 now with acute HD s/p 2sessions awaiting renal re further HD recommendations # bilateral lobe HCAP # UTI with enterococcus ID notes for target of 7 to 10 days antibiotics #Ischemic dilated CM and diastolic chf milrinone infusion ( from home) held due to hypotension - monitoring bp for normalization s/p levophed drip for inotrophic support #copd and pul htn pul consultation ophelia Robbins regimen.. solumedrol weaned down to 30 q 12 regimen # bladder ca s/p ileal conduit stable will continue to monitor , pt for trasnfer to tele dc plan noted for TCU -eval pending Naila Coronado, DNP, [facility] DIRECTOR BPCI/TIC - BPCIA/TIC Educated pt/family on BPCIA/CIR/Med to Bed Programs: N/A Flyers given, including [facility] Beneficiary letter: N/A Pt/family verbalized understanding & agreed to program: N/A
[2018-04-16] MEDS ORDERED: Lidocaine 5% Patch TD STA (20:28)
--- NOTE | 2018-04-16 23:50 | PN ---
DATE: 04/16/2018 SUBJECTIVE: The patient is seen lying in bed. He is awake, he is alert. He is comfortable. He does not appear to be in any kind of distress. PHYSICAL EXAMINATION: GENERAL: Elderly male lying in bed in the ICU. VITAL SIGNS: Blood pressure 118/72, heart rate 98, respiratory rate 22, temperature 98.7. HEENT: Normocephalic, atraumatic, positive pallor. NECK: Supple. No JVD. CARDIOPULMONARY: S1, S2, regular rate and rhythm, no murmur, no rub. LUNGS: Bilateral equal entry, bilateral equal expansion, distant breath sounds. ABDOMEN: Obese, distended, soft, positive ileostomy with the bag, bowel sounds present. EXTREMITIES: No lower extremity edema. INTAKE AND OUTPUT: 900/2415. LABORATORY DATA: WBC 10, hemoglobin 9.3, hematocrit 28.5, platelets 136. Sodium 137, potassium 4.5, chloride 110, CO2 21, BUN 84, creatinine 3.4, glucose 116, calcium 8.8, phosphorus 4.6, AST 41, ALT 42. A 24-hour urine showing urine protein of 281 mg per day. Creatinine clearance of 14 mL/minute.. Random vanco level 20. Urine culture, enterococcus, blood cultures, no growth. CURRENT MEDICATIONS: Ambien, aspirin, Ativan, Brovana, DuoNeb, Hectorol 0.5 mcg, Lipitor, meropenem 500 daily, Pepcid, PhosLo 667 p.o. t.i.d. with meals, Pro-Stat 15 g, riociguat, selexipag, Seroquel, Solu-Medrol 30 IV every 12, Xopenex, Zofran. ASSESSMENT: 1. Acute kidney injury superimposed on chronic kidney disease stage IV, resolving acute kidney injury. 2. Status post severe hyperkalemia. 3. Chronic obstructive pulmonary disease exacerbation. 4. Severe pulmonary hypertension. 5. Coronary artery disease, congestive heart failure, cardiomyopathy, decreased ejection fraction. 6. Anemia of chronic kidney disease. 7. Secondary hyperparathyroidism. PLAN: 1. No indication for dialysis today. Urine output is great. Creatinine is improved. Creatinine clearance is 14 mL/minute. 2. Venofer IV piggyback today. 3. Aranesp once a week. 4. Hectorol 0.5 mcg daily 5. Continue phosphate binders. 6. Restart milrinone therapy. 7. Case discussed with caregiver at bedside, case is discussed with Dr. Tejeda, case discussed with ICU staff at length. More than 35 minutes spent in the care of this critically ill patient. Myranda Ivey MD
[2018-04-17] MEDS: RIOCIGUAT 2.5 MG PO SCH ×4 (06:02→23:24)
[2018-04-17 06:33] LABS: BASO # 0.02 K/mm3 (0.0-2.0); BASO % 0.2 % (0.0-3.0); GRAN # 8.99 (1.4-6.5); GRAN % 87.4 % (50.0-68.0); HEMOGLOBIN 8.7 g/dL (14.0-18.0); LYMPH # 1.2 (1.2-3.4); LYMPH % 11.5 % (22.0-35.0); MEAN CORPUSCULAR HEMOGLOBIN 28.3 pg (25.0-35.0); MEAN CORPUSCULAR HGB CONC 32.6 g/dl (31.0-37.0); MEAN PLATELET VOLUME 9.1 fl (7.0-11.0); MONO # 0.1 (0.1-0.6); MONO % 0.9 % (1.0-6.0); RBC 3.07 10^6/uL (3.5-6.1); RED CELL DISTRIBUTION WIDTH 15.9 % (11.5-14.5); WHITE BLOOD COUNT 10.3 10^3/uL (4.5-11.0)
[2018-04-17 07:01] LABS: ALB/GLOB RATIO 1.3 (1.1-1.8); ALBUMIN 2.8 g/dL (3.0-4.8); CALCIUM 8.7 mg/dL (8.4-10.5)
--- NOTE | 2018-04-17 07:48 | PN ---
DATE: 04/17/2018 SUBJECTIVE: The patient appears comfortable this morning. He is not short of breath at rest. PHYSICAL EXAMINATION: VITAL SIGNS: Temperature 98.5, pulse 96, respiratory rate 20, blood pressure last recorded - 106/75. Oxygen saturation on nasal cannula is 95%. HEENT: Normocephalic, atraumatic. NECK: No JVD. CARDIOVASCULAR: Systolic ejection murmur at the lower left sternal border. No S3 gallop. LUNGS: Minimal/less rhonchi. No wheezing. EXTREMITIES: Mild edema. No cyanosis. No clubbing. Calves are nontender to palpation. GI: Abdomen is soft, nontender and nondistended. Bowel sounds are positive. SKIN: No acute rash. NEUROLOGIC: Exam limited at the present time. IMPRESSION: 1. Acute on chronic renal failure. 2. Multiple electrolyte abnormalities. 3. Rule out congestive heart failure. 4. Advanced chronic obstructive pulmonary disease. 5. Coronary artery disease. 6. Pulmonary hypertension. PLAN: The patient appears comfortable this morning. He is not short of breath at rest. He does state to feeling much better overall. I discussed the case with the night nurse at length. The night nurse stated that the patient had an uneventful night. On physical exam, the patient's bronchospasm continues to resolve. In addition, the alveolar-arterial gradient also continues to resolve. I will continue with the current nebulizer treatments and intravenous steroids (decreased yesterday) for now. The patient also remains on therapy for his pulmonary hypertension. Input by Dr. Montgomery (Infectious Disease) is noted. The patient remains on antibiotic therapy. The leukocytosis has resolved. Inputs by Renal and Cardiology are also noted. Clinical status of the patient is significantly improved - compared to last week. However, given the above, the future status/prognosis for this patient does remain guarded. I will discuss the above with the entire ICU team in the next few moments. I will also discuss the above with the attending physician later this morning. Mic Birmingham MD [facility]
[2018-04-17] MEDS: Budesonide 0.5 mg/2 ml Inhal Susp UD IH SCH ×2 (07:51→20:44)
[2018-04-17] MEDS: MethylPREDNISolone 40 mg Vial IVP SCH ×2 (09:48→21:44)
[2018-04-17] MEDS: SELEXIPAG PO SCH ×2 (09:59→17:00)
--- NOTE | 2018-04-17 10:02 | PN ---
SUBJECTIVE: The patient was seen and examined at bedside in the ICU. No acute events overnight. He remains afebrile, hemodynamically stable and continues to demonstrate clinical improvement. This morning he feels well and offers no complaints. PHYSICAL EXAMINATION: VITAL SIGNS: Temperature 98.4, pulse 106, blood pressure 119/64, respiratory rate 22, oxygen saturation 94% on 3L NC. GENERAL: Frail, chronically ill-appearing man, sitting up in his bed in no apparent distress. HEENT: PERRL, EOMI. No scleral icterus. Mild conjunctival pallor is noted. NECK: No JVD. LUNGS: Decreased breath sounds at the bases with faint rhonchi. CARDIOVASCULAR: Normal S1, S2. Grade II/ RAGHU to LLSB. ABDOMEN: Normoactive bowel sounds, soft, nontender and nondistended. Left inguinal hernia remains reduced. EXTREMITIES: Trace pedal edema bilaterally. NEUROLOGIC: Awake, alert and oriented x 3. No focal motor deficits. LABORATORY DATA: WBC 10 with 87% neutrophils, hemoglobin 8.7, hematocrit 27, platelets 131. Sodium 138, potassium 4.6, chloride 110, bicarb 21, BUN 84, creatinine 3, glucose 119. Blood cultures negative. Urine culture with Enterococcus faecalis and sensitivities noted. ASSESSMENT: The patient is a 77-year-old man with multiple medical comorbidities including CKD stage IV and a remote history of bladder cancer s/p cystectomy s/p ileal conduit who was admitted to the ICU for management of severe sepsis secondary to healthcare-associated pneumonia, LYNN on CKD stage IV and metabolic acidosis. PLAN: 1. Severe sepsis secondary to healthcare-associated pneumonia, resolving. Input from Dr. Montgomery noted. The patient remains afebrile and with negative blood cultures. Continue with current antimicrobials as per Dr. Montgomery. 2. LYNN on CKD stage IV (baseline Cr 2-3), consider secondary to medication- induced vs ATN in the setting of severe sepsis, improving. Input from Dr. Ivey noted. No further plans for hemodialysis. Continue with care as per Dr. Ivey. 3. Remote history of bladder cancer s/p cystectomy s/p ileal conduit. 4. Severe COPD. Input from Dr. Birmingham noted. Continue supplemental oxygen, inhaled corticosteroids and Solu-Medrol to taper. 5. 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 Input from Dr. Tejeda noted. The patient remains off vasopressor support. Continue with care as per Dr. Tejeda. 6. Metabolic acidosis, resolved. 7. Pulmonary hypertension. Continue with care as per Dr. Birmingham. 8. CAD s/p STEMI s/p PCI with stent placement. Continue Aspirin 81 mg p.o. daily and Lipitor 40 mg p.o. daily. 9. Anemia of chronic disease. Hb stable. The patient is scheduled to receive Venofer as per Dr. Ivey. 10. Hyperkalemia, resolved. 11. Insomnia. Continue Ambien 5 mg p.o. at bedtime and Ativan 1 mg IV at bedtime. 12. Chronic left inguinal hernia s/p manual reduction. Continue to monitor. 13. Prophylaxis. GI prophylaxis not indicated as the patient is eating. Continue with Heparin for DVT prophylaxis. CODE STATUS: Full code. Matt Hartley MD MTDToya
[2018-04-17] MEDS: MEROPENEM 500 MG in NS 500 MG/50 ML BAG IVPB SCH (10:30)
[2018-04-17] MEDS ORDERED: Iodixanol 320 MG/ML 100 ML BOTTLE IV ONE (11:26)
[2018-04-17] MEDS ORDERED: Lidocaine 2% Inj (20ml) ONE (11:26)
--- NOTE | 2018-04-17 11:46 | CP.PCM.PN ---
Subjective - Date & Time of Evaluation Date of Evaluation: 04/17/18 Time of Evaluation: 10:30 - Subjective Subjective: No fevers, not in distress. Objective - Vital Signs/Intake and Output Vital Signs (last 24 hours): Temp Pulse Resp BP Pulse Ox 97.5 F L 108 H 20 106/75 96 04/16/18 08:00 04/16/18 08:00 04/16/18 08:00 04/16/18 08:00 04/16/18 08:00 Intake and Output: 04/16/18 04/16/18 06:59 18:59 Intake Total 200 770 Output Total 1000 400 Balance -800 370 - Medications Medications: Current Medications Acetaminophen (Tylenol 325mg Tab) 650 mg PO Q6H PRN PRN Reason: Fever >100.4 F Last Admin: 04/15/18 20:22 Dose: 650 mg Albuterol/Ipratropium (Duoneb 3 Mg/0.5 Mg (3 Ml) Ud) 3 ml IH [id number] PRN PRN Reason: Shortness of Breath Last Admin: 04/10/18 20:58 Dose: 3 ml Amino Acid Protein (Prostat 15 G Packet) 15 gm GT DAILY [facility] Last Admin: 04/16/18 11:58 Dose: 15 gm Arformoterol Tartrate (Brovana) 15 mcg IH [id number] [facility] Last Admin: 04/12/18 07:00 Dose: 15 mcg Aspirin (Aspirin Chewable) 81 mg PO DAILY [facility] Last Admin: 04/16/18 09:02 Dose: 81 mg Atorvastatin Calcium (Lipitor) 40 mg PO HS [facility] Last Admin: 04/15/18 21:29 Dose: 40 mg Budesonide (Pulmicort Respules) 0.5 mg IH [id number] [facility] Last Admin: 04/16/18 07:24 Dose: 0.5 mg Calcium Acetate (Phoslo) 667 mg PO WM [facility] Last Admin: 04/16/18 08:58 Dose: 667 mg Dextrose (Dextrose 50% Inj) 0 ml IV STAT PRN; Protocol PRN Reason: Hypoglycemia Protocol Last Admin: 04/10/18 17:07 Dose: 50 ml Doxercalciferol (Hectorol) 0.5 mcg PO DAILY [facility] Last Admin: 04/15/18 13:00 Dose: 0.5 mcg Famotidine (Pepcid) 20 mg PO DAILY [facility] Last Admin: 04/16/18 09:02 Dose: 20 mg Heparin Sodium (Porcine) (Heparin) 5,000 units SC Q8 [facility]; Protocol Last Admin: 04/16/18 07:00 Dose: 5,000 units Dextrose (Dextrose 5% In Water 1000 Ml) 1,000 mls @ 0 mls/hr IV .Q0M PRN; Protocol PRN Reason: Hypoglycemia Protocol Meropenem/Sodium Chloride (Merrem Iv 500 Mg/Ns 50 Ml) 500 mg in 50 mls @ 100 mls/hr IVPB Q24H [facility]; Protocol Last Admin: 04/16/18 10:45 Dose: Not Given NOREPINEPHRINE BIT/0.9 % NACL (Levophed 4 Mg/ 250 Ml Ns Premixed) 4 mg in 250 mls @ 15 mls/hr IV .[id number] PRN; Protocol PRN Reason: TITRATE PER MD ORDER Last Titration: 04/14/18 13:45 Dose: Infused Levalbuterol HCl (Xopenex) 1.25 mg IH [id number] PRN PRN Reason: Shortness of Breath Last Admin: 04/16/18 07:24 Dose: 1.25 mg Lorazepam (Ativan) 1 mg IVP HS [facility]; Protocol Methylprednisolone (Solu-Medrol) 30 mg IVP Q12 [facility] Last Admin: 04/16/18 09:00 Dose: 30 mg Non-Formulary Medication (Selexipag [Uptravi]) 600 mg PO BID [facility] Last Admin: 04/16/18 09:01 Dose: 600 mg Non-Formulary Medication (Riociguat [Adempas]) 2.5 mg PO 0700,1500,2300 [facility] Last Admin: 04/16/18 07:00 Dose: 2.5 mg Ondansetron HCl (Zofran Inj) 4 mg IVP Q6H PRN PRN Reason: Nausea/Vomiting Last Admin: 04/09/18 18:25 Dose: 4 mg Quetiapine Fumarate (Seroquel) 50 mg PO HS PRN; Protocol PRN Reason: Agitation Zolpidem Tartrate (Ambien) 5 mg PO HS PRN; Protocol PRN Reason: Insomnia Last Admin: 04/15/18 21:28 Dose: 5 mg - Labs Labs: 04/16/18 05:40 04/16/18 05:40 PT 11.3 SECONDS (9.4-12.5) 04/10/18 06:30 INR 0.98 04/10/18 06:30 APTT 29.5 Seconds (25.1-36.5) 04/10/18 06:30 - Constitutional Appears: Chronically Ill - Head Exam Head Exam: NORMAL INSPECTION - Respiratory Exam Respiratory Exam: Decreased Breath Sounds - Cardiovascular Exam Cardiovascular Exam: +S1, +S2 - GI/Abdominal Exam GI & Abdominal Exam: Soft. absent: Tenderness Assessment and Plan - Assessment and Plan (Free Text) Plan: Assessment severe sepsis with fluid-responsive hypotension due to right sided HCAP as well as UTI with E. faecalis chronic renal failure on hemodialysis COPD on home oxygen pulmonary HTN bladder cancer S/P ileal conduit CAD S/P PCI chronic CHF HTN Plan continue intermittent Vancomycin and Merrem day 6; blood cx are negative; urine cx showing E. faecalis; target 7-10 days of antibiotics will continue monitor clinically will get Vanco level is 20.7 and will monitor and get a level tomorrow
--- NOTE | 2018-04-17 12:35 | CP.PCM.APN ---
Subjective - Date & Time of Evaluation Date of Evaluation: 04/17/18 Time of Evaluation: 11:45 - Subjective Subjective: pt seen sitting in bed ith nurse at bedside rn explaining removal of tunnelled Hd cath planned for today pt with no complaints Review of Systems - Constitutional Constitutional: As Per HPI Objective - Vital Signs/Intake and Output Vital Signs (last 24 hours): Temp Pulse Resp BP Pulse Ox 98.3 F 103 H 20 81/37 L 97 04/17/18 08:00 04/17/18 11:00 04/17/18 10:00 04/17/18 10:00 04/17/18 11:00 Intake and Output: 04/17/18 04/17/18 06:59 18:59 Intake Total 380 Output Total 1201 Balance -821 - Medications Medications: Current Medications Acetaminophen (Tylenol 325mg Tab) 650 mg PO Q6H PRN PRN Reason: Fever >100.4 F Last Admin: 04/15/18 20:22 Dose: 650 mg Albuterol/Ipratropium (Duoneb 3 Mg/0.5 Mg (3 Ml) Ud) 3 ml IH [id number] PRN PRN Reason: Shortness of Breath Last Admin: 04/10/18 20:58 Dose: 3 ml Amino Acid Protein (Prostat 15 G Packet) 15 gm GT DAILY [facility] Last Admin: 04/16/18 11:58 Dose: 15 gm Arformoterol Tartrate (Brovana) 15 mcg IH [id number] [facility] Last Admin: 04/12/18 07:00 Dose: 15 mcg Aspirin (Aspirin Chewable) 81 mg PO DAILY [facility] Last Admin: 04/17/18 09:50 Dose: 81 mg Atorvastatin Calcium (Lipitor) 40 mg PO HS [facility] Last Admin: 04/16/18 21:08 Dose: 40 mg Budesonide (Pulmicort Respules) 0.5 mg IH [id number] [facility] Last Admin: 04/17/18 07:51 Dose: 0.5 mg Calcium Acetate (Phoslo) 667 mg PO WM [facility] Last Admin: 04/17/18 09:49 Dose: 667 mg Dextrose (Dextrose 50% Inj) 0 ml IV STAT PRN; Protocol PRN Reason: Hypoglycemia Protocol Last Admin: 04/10/18 17:07 Dose: 50 ml Doxercalciferol (Hectorol) 0.5 mcg PO DAILY [facility] Last Admin: 04/17/18 10:17 Dose: 0.5 mcg Famotidine (Pepcid) 20 mg PO DAILY [facility] Last Admin: 04/17/18 09:49 Dose: 20 mg Heparin Sodium (Porcine) (Heparin) 5,000 units SC Q8 [facility]; Protocol Last Admin: 04/17/18 06:02 Dose: 5,000 units Dextrose (Dextrose 5% In Water 1000 Ml) 1,000 mls @ 0 mls/hr IV .Q0M PRN; Protocol PRN Reason: Hypoglycemia Protocol NOREPINEPHRINE BIT/0.9 % NACL (Levophed 4 Mg/ 250 Ml Ns Premixed) 4 mg in 250 mls @ 15 mls/hr IV .[id number] PRN; Protocol PRN Reason: TITRATE PER MD ORDER Last Titration: 04/14/18 13:45 Dose: Infused Levalbuterol HCl (Xopenex) 1.25 mg IH [id number] PRN PRN Reason: Shortness of Breath Last Admin: 04/16/18 20:47 Dose: 1.25 mg Lorazepam (Ativan) 1 mg IVP HS [facility]; Protocol Last Admin: 04/16/18 21:17 Dose: 1 mg Methylprednisolone (Solu-Medrol) 30 mg IVP Q12 [facility] Last Admin: 04/17/18 09:48 Dose: 30 mg Non-Formulary Medication (Selexipag [Uptravi]) 600 mg PO BID [facility] Last Admin: 04/17/18 09:59 Dose: 600 mg Non-Formulary Medication (Riociguat [Adempas]) 2.5 mg PO 0700,1500,2300 [facility] Last Admin: 04/17/18 06:02 Dose: 2.5 mg Ondansetron HCl (Zofran Inj) 4 mg IVP Q6H PRN PRN Reason: Nausea/Vomiting Last Admin: 04/09/18 18:25 Dose: 4 mg Quetiapine Fumarate (Seroquel) 50 mg PO HS PRN; Protocol PRN Reason: Agitation Last Admin: 04/16/18 21:07 Dose: 50 mg Zolpidem Tartrate (Ambien) 5 mg PO HS PRN; Protocol PRN Reason: Insomnia Last Admin: 04/15/18 21:28 Dose: 5 mg - Labs Labs: 04/17/18 05:15 01/23/19 05:15 PT 11.3 SECONDS (9.4-12.5) 04/10/18 06:30 INR 0.98 04/10/18 06:30 APTT 29.5 Seconds (25.1-36.5) 04/10/18 06:30 - Constitutional Appears: No Acute Distress - Eye Exam Eye Exam: Normal appearance - Neck Exam Neck Exam: Normal Inspection - Respiratory Exam Respiratory Exam: NORMAL BREATHING PATTERN - Cardiovascular Exam Cardiovascular Exam: +S1, +S2 - GI/Abdominal Exam GI & Abdominal Exam: Soft - Neurological Exam Neurological Exam: Alert, Awake, Oriented x3 - Psychiatric Exam Psychiatric exam: Normal Mood - Skin Skin Exam: Dry, Intact Assessment and Plan - Assessment and Plan (Free Text) Plan: 77 yr old pmh sig for copd, cad s/p stenting, htn, bladder CA with ileal conduit, ICM on home Milrinone who presented to ED with c/o of urinary retention x 2 days found with LYNN on CKD, hyperkalemia and metabolic acidosis ph of 7.14 with severe electrolyte abnormalities with profound hypotension. pt is admitted to the ICU for further mgmt with renal and pulmonary consultation on board. #LYNN on CKD with hyperkalemia and acidosis - nephrology eval and consultation Urine studies noted Renal rec's noted s/p left IJ HD catheter 04/11 now with acute HD s/p 2sessions, no additional HD needed # bilateral lobe HCAP # UTI with enterococcus ID notes for target of 7 to 10 days antibiotics #Ischemic dilated CM and diastolic chf milrinone infusion ( from home) held due to hypotension - monitoring bp for normalization s/p levophed drip for inotrophic support #copd and pul htn pul consultation ophelia Robbins regimen.. solumedrol weaned down to 30 q 12 regimen # bladder ca s/p ileal conduit stable pt for removal of HD catheter today dc plan noted for TCU -eval pending BPCI/TIC - BPCIA/TIC Educated pt/family on BPCIA/CIR/Med to Bed Programs: N/A Flyers given, including [facility] Beneficiary letter: N/A Pt/family verbalized understanding & agreed to program: N/A
--- NOTE | 2018-04-17 12:56 | PN ---
DATE: 04/17/2018 SUBJECTIVE: The patient is seen lying in bed in the CCU. He is comfortable at the present time. Plans are being made for removal of his dialysis catheter later today. CURRENT MEDICATIONS; Include aspirin, Ativan, Brovana, DuoNeb inhaler, subcutaneous heparin, Lipitor, meropenem, Pepcid, PhosLo, Pulmicort, Adempas, Uptravi, Seroquel, Solu-Medrol and Xopenex. OBJECTIVE: GENERAL: He is a chronically ill-appearing elderly man. VITAL SIGNS: Blood pressure is 106/76 with a pulse of 110 and sinus, respirations are 16. He is afebrile. HEENT: No JVD. CHEST: Bilateral coarse rhonchi. HEART: PMI displaced laterally with soft tones noted. ABDOMEN: Soft, nontender, normoactive bowel sounds. EXTREMITIES: No edema. DIAGNOSTIC DATA: Potassium 4.6. BUN and creatinine 84 and 3.0. White count 10.3, hemoglobin 8.7, hematocrit 26.7 with platelet count of 131,000. IMPRESSION: 1. Acute on chronic renal failure, clinically improved, currently off dialysis for the past several days. 2. Coronary disease status post remote myocardial fraction and percutaneous coronary intervention, was pursued severe residual left ventricular systolic dysfunction. 3. Chronic congestive heart failure, systolic. 4. Severe pulmonary hypertension. 5. Severe chronic obstructive pulmonary disease. 6. Longstanding tobacco abuse. RECOMMENDATIONS: The dialysis catheter will be removed later today. His current cardiac medications will be continued. If his blood pressure remains stable, milrinone will be resumed. Consideration may need to be given to TCU evaluation given his prolonged hospitalization and bedrest. His overall prognosis remains poor. Dwight Tejeda MD
[2018-04-17] MEDS: Prostat 15 g packet GT SCH (12:57)
[2018-04-17] MEDS: Levalbuterol 1.25 MG/3 ML Inhal Soln UD IH PRN (13:02)
--- NOTE | 2018-04-17 14:50 | PN ---
DATE: 04/17/2018 SUBJECTIVE: The patient is seen in the ICU. He is sitting in bed. He is awake, he is alert, he is comfortable. He does not appear to be in any kind of distress. OBJECTIVE: GENERAL: Elderly male sitting in bed. VITAL SIGNS: Blood pressure 81/37, heart rate 88-103, respiratory rate 20, temperature 98.3. HEENT: Normocephalic, atraumatic, positive pallor. NECK: Supple, no JVD. LUNGS: Bilateral equal entry, bilateral distant breath sounds, no rales or rhonchi appreciated. CARDIAC: S1, S2. regular rate and rhythm, no murmur, no rub. ABDOMEN: Obese, distended, soft, nontender, bowel sounds present, positive ileostomy. EXTREMITIES: No lower extremity edema. INTAKE AND OUTPUT: [id number]. LABORATORY DATA: WBC 10, hemoglobin 8.7, hematocrit 27, platelets 131. Sodium 138, potassium 4.6, chloride 110, CO2 21, BUN 84, creatinine 3.0, glucose 119, calcium 8.7. Albumin 2.8, corrected calcium is 9.6. CURRENT MEDICATIONS: Ambien, aspirin, Ativan, Brovana, DuoNeb, Lipitor, Pepcid, PhosLo, Pro-Stat. ASSESSMENT/PLAN: 1. Acute kidney injury superimposed on chronic disease stage IV. Status post dialysis. Now, with recovery of renal parameters. Creatinine at baseline. 2. Severe anemia. 3. Severe pulmonary hypertension. 4. Severe chronic obstructive pulmonary disease with exacerbation. 5. Coronary artery disease, severe cardiomyopathy, decreased ejection fraction. 6. Secondary hyperparathyroidism. PLAN: 1. No further dialysis needed right now. 2. Okay to remove PermCath. 3. Monitor H&H. 4. Continue phosphate binders. 5. Continue Hectorol. 6. Continue Aranesp. 7.?Restart Primacor. 8. Discharge planning. 9. Close outpatient followup. Myranda Ivey MD
--- NOTE | 2018-04-17 19:01 | VASCULAR ---
PROCEDURE: Removal of tunneled left IJ dialysis catheter. CLINICAL HISTORY: Acute renal failure. Previously placed tunneled left IJ catheter. Needs catheter removed PHYSICIAN(S): Wayne Mathews M.D. TECHNIQUE: The relative risks and indications of the procedure were explained to the patient and his family and consent obtained. The patient was placed supine on the arteriogram table and the tunneled left IJ dialysis catheter prepped and draped in the usual sterile fashion. Conscious sedation and monitoring were provided throughout the procedure by nurse. 1% Xylocaine was used to anesthetize skin and soft tissues along the tunnel. The tunnel and cuff were bluntly dissected. The catheter was removed and pressure applied at the venous insertion site. A single interrupted suture was placed at the exit site. The patient tolerated the procedure well. IMPRESSION: 1. Removal of the patient's tunneled left IJ dialysis catheter.
[2018-04-18 05:51] LABS: BASO # 0.01 K/mm3 (0.0-2.0); BASO % 0.1 % (0.0-3.0); EOS % 0.1 % (1.5-5.0); GRAN # 9.76 (1.4-6.5); HEMOGLOBIN 8.6 g/dL (14.0-18.0); LYMPH # 1.2 (1.2-3.4); LYMPH % 10.7 % (22.0-35.0); MEAN CELL VOLUME 87.9 fl (80.0-105.0); MEAN CORPUSCULAR HEMOGLOBIN 28.2 pg (25.0-35.0); MEAN CORPUSCULAR HGB CONC 32.1 g/dl (31.0-37.0); MEAN PLATELET VOLUME 8.9 fl (7.0-11.0); MONO # 0.1 (0.1-0.6); MONO % 1.1 % (1.0-6.0); RBC 3.05 10^6/uL (3.5-6.1); RED CELL DISTRIBUTION WIDTH 16.1 % (11.5-14.5); WHITE BLOOD COUNT 11.1 10^3/uL (4.5-11.0)
[2018-04-18 06:01] LABS: ALB/GLOB RATIO 1.2 (1.1-1.8); ALBUMIN 2.7 g/dL (3.0-4.8); CALCIUM 8.7 mg/dL (8.4-10.5)
[2018-04-18 06:11] VITALS: RESP 18; O2SAT 99
[2018-04-18] MEDS: RIOCIGUAT 2.5 MG PO SCH ×2 (07:46→16:29)
[2018-04-18] MEDS: Budesonide 0.5 mg/2 ml Inhal Susp UD IH SCH (07:58)
[2018-04-18] MEDS ORDERED: Vancomycin 1.5 GM in Sodium Chloride 0.9% 500 ML IVPB ONE (09:25)
[2018-04-18] MEDS ORDERED: MEROPENEM 500 MG in NS 500 MG/50 ML BAG IVPB SCH (09:30)
--- NOTE | 2018-04-18 09:43 | PN ---
SUBJECTIVE: The patient was seen and examined at bedside on the telemetry sarkar. No acute events overnight. He remains afebrile, hemodynamically stable and is doing well s/p transfer out of the ICU. OBJECTIVE: VITAL SIGNS: Temperature 98.2, pulse 99, blood pressure 107/51, respiratory rate 18, oxygen saturation 99% on 2L NC. GENERAL: Chronically ill-appearing man sitting up in bed in no apparent distress. HEENT: PERRL, EOMI. No scleral icterus. Mild conjunctival pallor is noted. NECK: No JVD. LUNGS: Decreased breath sounds at the bases with few scattered wheeze. CARDIOVASCULAR: Regular rate and rhythm. Normal S1, S2. Grade II/ RAGHU to LLSB. ABDOMEN: Normoactive bowel sounds, soft, nontender, nondistended. Left inguinal hernia remains reduced. EXTREMITIES: Trace pedal edema bilaterally. NEUROLOGIC: Awake, alert and oriented x 3. No focal motor deficits. LABORATORY DATA: WBC 11.1 with 88% neutrophils, hemoglobin 8.6, hematocrit 27, platelets 138. Sodium 138, potassium 4.6, chloride 110, bicarb 21, BUN 82, creatinine 2.4, glucose 140. Blood cultures negative. Urine culture with Enterococcus faecalis. ASSESSMENT: The patient is a 77-year-old man with multiple medical comorbidities including CKD stage IV and a remote history of bladder cancer s/p cystectomy s/p ileal conduit who was admitted to the ICU for management of severe sepsis secondary to healthcare-associated pneumonia, LYNN on CKD stage IV and metabolic acidosis who is now s/p transfer out of the ICU. PLAN: 1. Severe sepsis secondary to healthcare-associated pneumonia, resolving. Input from Dr. Montgomery noted. Continue with current antimicrobials as per Dr. Montgomery to complete a 7-10 day course. The patient remains afebrile and with negative blood cultures. 2. LYNN on CKD stage IV (baseline Cr 2-3), consider secondary to medication- induced vs ATN in the setting of severe sepsis, resolving. Input from Dr. Ivey noted and no further plans for hemodialysis. Continue with care as per Dr. Ivey. 3. Remote history of bladder cancer s/p cystectomy s/p ileal conduit. 4. Severe COPD. Input from Dr. Birmingham noted. Continue supplemental oxygen, inhaled corticosteroids and Solu-Medrol to taper. 5. 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 Input from Dr. Tejeda noted. We will continue to monitor hemodynamics and resume Milrinone as tolerated. 6. Metabolic acidosis, resolved. 7. Pulmonary hypertension. Continue with care as per Dr. Birmingham. 8. CAD s/p STEMI s/p PCI with stent placement. Continue Aspirin 81 mg p.o. daily and Lipitor 40 mg p.o. daily. 9. Anemia of chronic disease. Hb stable. The patient is s/p 1 dose of Venofer. 10. Hyperkalemia, resolved. 11. Insomnia. Continue Ambien 5 mg p.o. at bedtime and Ativan 1 mg IV at bedtime. 12. Chronic left inguinal hernia s/p manual reduction. Continue to monitor. 13. Prophylaxis. GI prophylaxis not indicated as the patient is eating. Continue with Heparin for DVT prophylaxis. CODE STATUS: Full code. Matt Hartley MD MTDD
[2018-04-18] MEDS: SELEXIPAG PO SCH ×2 (10:23→17:13)
[2018-04-18] MEDS: MethylPREDNISolone 40 mg Vial IVP SCH (10:24)
--- NOTE | 2018-04-18 10:27 | PN ---
DATE: 04/18/2018 SUBJECTIVE: The patient appears comfortable this morning. He is not short of breath at rest. PHYSICAL EXAMINATION: VITAL SIGNS: Temperature 98.2, pulse 99, respirations 18, blood pressure 107/51. Oxygen saturation on nasal cannula is 99%. HEENT: Normocephalic, atraumatic. NECK: No JVD. CARDIOVASCULAR: Systolic ejection murmur at the lower left sternal border. No S3 gallop. LUNGS: Mild rhonchi bilaterally - overall less. No wheezing. EXTREMITIES: Mild edema. No cyanosis. No clubbing. Calves are nontender to palpation. GI: Abdomen is soft, nontender and nondistended. Bowel sounds are positive. SKIN: No acute rash. NEUROLOGIC: Exam limited at the present time. IMPRESSION: 1. Acute on chronic renal failure. 2. Multiple electrolyte abnormalities. 3. Rule out congestive heart failure. 4. Advanced chronic obstructive pulmonary disease. 5. Coronary artery disease. 6. Pulmonary hypertension. PLAN: The patient appears comfortable this morning. He is not short of breath at rest. He does state to feeling better overall. I did discuss the case with the night nurse at length. The night nurse stated the patient had an uneventful night. On physical exam, the patient's bronchospasm continues to slowly resolve. In addition, the oxygen saturation on nasal cannula is now 99%. I will continue with the current nebulizer treatments and low dose intravenous steroids for now. The patient also remains on his treatment for the pulmonary hypertension. Inputs by Renal, Cardiology, and Infectious Disease are also noted. Clinical status of the patient is significantly improved - compared to his initial presentation. However, given the above, the future status/prognosis for this patient does remain guarded. I will discuss the above with the attending physician. Mic Birmingham MD [facility]
[2018-04-18] MEDS: Prostat 15 g packet GT SCH (10:31)
--- NOTE | 2018-04-18 11:12 | CP.PCM.APN ---
Subjective - Date & Time of Evaluation Date of Evaluation: 04/18/18 Time of Evaluation: 11:00 - Subjective Subjective: pt seen and exmined at bedside pt reports he feels ok, NAD Review of Systems - Constitutional Constitutional: As Per HPI Objective - Vital Signs/Intake and Output Vital Signs (last 24 hours): Temp Pulse Resp BP Pulse Ox 98.2 F 99 H 18 107/51 L 99 04/18/18 06:00 04/18/18 06:00 04/18/18 06:00 04/18/18 06:00 04/18/18 06:00 Intake and Output: 04/18/18 04/18/18 06:59 18:59 Intake Total 400 Output Total 500 Balance -100 - Medications Medications: Current Medications Acetaminophen (Tylenol 325mg Tab) 650 mg PO Q6H PRN PRN Reason: Fever >100.4 F Last Admin: 04/15/18 20:22 Dose: 650 mg Albuterol/Ipratropium (Duoneb 3 Mg/0.5 Mg (3 Ml) Ud) 3 ml IH [id number] PRN PRN Reason: Shortness of Breath Last Admin: 04/10/18 20:58 Dose: 3 ml Amino Acid Protein (Prostat 15 G Packet) 15 gm GT DAILY [facility] Last Admin: 04/18/18 10:31 Dose: Not Given Arformoterol Tartrate (Brovana) 15 mcg IH [id number] [facility] Last Admin: 04/12/18 07:00 Dose: 15 mcg Aspirin (Aspirin Chewable) 81 mg PO DAILY [facility] Last Admin: 04/18/18 10:25 Dose: 81 mg Atorvastatin Calcium (Lipitor) 40 mg PO HS [facility] Last Admin: 04/17/18 21:47 Dose: 40 mg Budesonide (Pulmicort Respules) 0.5 mg IH [id number] [facility] Last Admin: 04/18/18 07:58 Dose: 0.5 mg Calcium Acetate (Phoslo) 667 mg PO WM [facility] Last Admin: 04/18/18 07:47 Dose: 667 mg Dextrose (Dextrose 50% Inj) 0 ml IV STAT PRN; Protocol PRN Reason: Hypoglycemia Protocol Last Admin: 04/10/18 17:07 Dose: 50 ml Doxercalciferol (Hectorol) 0.5 mcg PO DAILY [facility] Last Admin: 04/18/18 10:24 Dose: 0.5 mcg Famotidine (Pepcid) 20 mg PO DAILY [facility] Last Admin: 04/18/18 10:25 Dose: 20 mg Dextrose (Dextrose 5% In Water 1000 Ml) 1,000 mls @ 0 mls/hr IV .Q0M PRN; Protocol PRN Reason: Hypoglycemia Protocol Vancomycin HCl 1.5 gm/ Sodium (Chloride) 500 mls @ 167 mls/hr IVPB ONCE ONE; Protocol Stop: 04/18/18 12:24 Last Admin: 04/18/18 11:01 Dose: 167 mls/hr Meropenem/Sodium Chloride (Merrem Iv 500 Mg/Ns 50 Ml) 500 mg in 50 mls @ 100 mls/hr IVPB Q24H [facility]; Protocol Last Admin: 04/18/18 10:20 Dose: 100 mls/hr Levalbuterol HCl (Xopenex) 1.25 mg IH [id number] PRN PRN Reason: Shortness of Breath Last Admin: 04/17/18 13:02 Dose: 1.25 mg Lorazepam (Ativan) 1 mg IVP HS [facility]; Protocol Last Admin: 04/17/18 21:43 Dose: 1 mg Methylprednisolone (Solu-Medrol) 30 mg IVP Q12 [facility] Last Admin: 04/18/18 10:24 Dose: 30 mg Non-Formulary Medication (Selexipag [Uptravi]) 600 mg PO BID [facility] Last Admin: 04/18/18 10:23 Dose: 600 mg Non-Formulary Medication (Riociguat [Adempas]) 2.5 mg PO 0700,1500,2300 [facility] Last Admin: 04/18/18 07:46 Dose: 2.5 mg Ondansetron HCl (Zofran Inj) 4 mg IVP Q6H PRN PRN Reason: Nausea/Vomiting Last Admin: 04/09/18 18:25 Dose: 4 mg Quetiapine Fumarate (Seroquel) 50 mg PO HS PRN; Protocol PRN Reason: Agitation Last Admin: 04/16/18 21:07 Dose: 50 mg Zolpidem Tartrate (Ambien) 5 mg PO HS PRN; Protocol PRN Reason: Insomnia Last Admin: 04/15/18 21:28 Dose: 5 mg - Labs Labs: 04/18/18 05:30 04/18/18 05:30 PT 11.3 SECONDS (9.4-12.5) 04/10/18 06:30 INR 0.98 04/10/18 06:30 APTT 29.5 Seconds (25.1-36.5) 04/10/18 06:30 - Constitutional Appears: No Acute Distress - Head Exam Head Exam: NORMOCEPHALIC - Eye Exam Eye Exam: PERRL - ENT Exam ENT Exam: Normal Exam - Respiratory Exam Respiratory Exam: Decreased Breath Sounds - Cardiovascular Exam Cardiovascular Exam: +S1, +S2 - GI/Abdominal Exam GI & Abdominal Exam: Soft, Normal Bowel Sounds - Neurological Exam Neurological Exam: Alert, Awake - Skin Skin Exam: Dry, Intact Assessment and Plan - Assessment and Plan (Free Text) Plan: 77 yr old pmh sig for copd, cad s/p stenting, htn, bladder CA with ileal conduit, ICM on home Milrinone who presented to ED with c/o of urinary retention x 2 days found with LYNN on CKD, hyperkalemia and metabolic acidosis ph of 7.14 with severe electrolyte abnormalities with profound hypotension. pt is admitted to the ICU for further mgmt with renal and pulmonary consultation on board. pt now transferred to tele from the unit. #LYNN on CKD with hyperkalemia and acidosis - nephrology eval and consultation Renal rec's noted s/p left IJ HD catheter 04/11 s/p 2 sessions HD, HD catheter removed yesterday no addiitonal need for [employer] per renal # bilateral lobe HCAP stable # UTI with enterococcus ID notes for target of 7 to 10 days antibiotics #Ischemic dilated CM and diastolic chf milrinone infusion ( from home) held due to hypotension - monitoring bp for normalization s/p levophed drip for inotrophic support #copd and pul htn pul consultation ophelia Robbins regimen.. solumedrol weaned down to 30 q 12 regimen # bladder ca s/p ileal conduit stable dc plan noted for TCU -eval pending,discuss with Chloé Coronado, DNP, BUSINESS RISK CONSULTANT
--- NOTE | 2018-04-18 12:47 | PN ---
DATE: 04/18/2018 SUBJECTIVE: The patient is seen lying in bed on telemetry. He is comfortable at the present time. The blood pressure remains stable. He continues to have adequate urine output and creatinine continues to improve. His dialysis catheter was removed yesterday. CURRENT MEDICATIONS: Include aspirin, Ativan, Brovana, DuoNeb inhaler, Lipitor, meropenem, Pepcid, PhosLo, Pulmicort inhaler, Adempas, Uptravi, Seroquel, Solu-Medrol 30 mg every 12 hours, IV vancomycin and Xopenex. OBJECTIVE: GENERAL: He is a chronically ill-appearing elderly man. VITAL SIGNS: Blood pressure is 106/50 with a pulse of 90 and sinus respirations are 16. He is afebrile. HEENT: No JVD. CHEST: Bilateral scattered rhonchi. HEART: PMI displaced laterally with soft tones noted. ABDOMEN: Soft, nontender, normoactive bowel sounds. EXTREMITIES: No edema. DIAGNOSTIC DATA: Potassium 4.6, BUN and creatinine 82 and 2.4. White count 11.1, hemoglobin and hematocrit 8.6 and 26.8 with platelet count 138,000. IMPRESSION: 1. Recent acute on chronic renal failure requiring short-term dialysis now clinically improved and back to baseline. 2. Severe left ventricular systolic dysfunction secondary to ischemic cardiomyopathy. 3. Remote myocardial fraction and percutaneous coronary intervention of left anterior descending. 4. Chronic congestive heart failure, systolic. 5. Severe pulmonary hypertension. 6. Severe chronic obstructive pulmonary disease. 7. Anemia. 8. Respiratory problems as noted. RECOMMENDATIONS: Continued medical therapy appears appropriate for now. He is being considered for Transitional Care placement. If his blood pressure remained stable when he is ready for discharge home, consideration will be given to resumption of IV milrinone infusion as an outpatient. We will continue to follow and make further recommendations as appropriate. Dwight Tejeda MD
[2018-04-18 12:52] VITALS: BP 108/49; PULSE 89; TEMP 98.4
--- NOTE | 2018-04-18 13:11 | CP.PCM.PN ---
Subjective - Date & Time of Evaluation Date of Evaluation: 04/18/18 Time of Evaluation: 10:35 - Subjective Subjective: Comfortable in bed, no fevers overnight, not in distress. Objective - Vital Signs/Intake and Output Vital Signs (last 24 hours): Temp Pulse Resp BP Pulse Ox 98.4 F 103 H 20 81/37 L 97 04/17/18 06:00 04/17/18 11:00 04/17/18 10:00 04/17/18 10:00 04/17/18 11:00 Intake and Output: 04/17/18 04/17/18 06:59 18:59 Intake Total 380 Output Total 1201 Balance -821 - Medications Medications: Current Medications Acetaminophen (Tylenol 325mg Tab) 650 mg PO Q6H PRN PRN Reason: Fever >100.4 F Last Admin: 04/15/18 20:22 Dose: 650 mg Albuterol/Ipratropium (Duoneb 3 Mg/0.5 Mg (3 Ml) Ud) 3 ml IH [id number] PRN PRN Reason: Shortness of Breath Last Admin: 04/10/18 20:58 Dose: 3 ml Amino Acid Protein (Prostat 15 G Packet) 15 gm GT DAILY [facility] Last Admin: 04/16/18 11:58 Dose: 15 gm Arformoterol Tartrate (Brovana) 15 mcg IH [id number] [facility] Last Admin: 04/12/18 07:00 Dose: 15 mcg Aspirin (Aspirin Chewable) 81 mg PO DAILY [facility] Last Admin: 04/17/18 09:50 Dose: 81 mg Atorvastatin Calcium (Lipitor) 40 mg PO HS [facility] Last Admin: 04/16/18 21:08 Dose: 40 mg Budesonide (Pulmicort Respules) 0.5 mg IH [id number] [facility] Last Admin: 04/17/18 07:51 Dose: 0.5 mg Calcium Acetate (Phoslo) 667 mg PO WM [facility] Last Admin: 04/17/18 09:49 Dose: 667 mg Dextrose (Dextrose 50% Inj) 0 ml IV STAT PRN; Protocol PRN Reason: Hypoglycemia Protocol Last Admin: 04/10/18 17:07 Dose: 50 ml Doxercalciferol (Hectorol) 0.5 mcg PO DAILY [facility] Last Admin: 04/17/18 10:17 Dose: 0.5 mcg Famotidine (Pepcid) 20 mg PO DAILY [facility] Last Admin: 04/17/18 09:49 Dose: 20 mg Heparin Sodium (Porcine) (Heparin) 5,000 units SC Q8 [facility]; Protocol Last Admin: 04/17/18 06:02 Dose: 5,000 units Dextrose (Dextrose 5% In Water 1000 Ml) 1,000 mls @ 0 mls/hr IV .Q0M PRN; Protocol PRN Reason: Hypoglycemia Protocol NOREPINEPHRINE BIT/0.9 % NACL (Levophed 4 Mg/ 250 Ml Ns Premixed) 4 mg in 250 mls @ 15 mls/hr IV .[id number] PRN; Protocol PRN Reason: TITRATE PER MD ORDER Last Titration: 04/14/18 13:45 Dose: Infused Levalbuterol HCl (Xopenex) 1.25 mg IH [id number] PRN PRN Reason: Shortness of Breath Last Admin: 04/16/18 20:47 Dose: 1.25 mg Lorazepam (Ativan) 1 mg IVP HS [facility]; Protocol Last Admin: 04/16/18 21:17 Dose: 1 mg Methylprednisolone (Solu-Medrol) 30 mg IVP Q12 [facility] Last Admin: 04/17/18 09:48 Dose: 30 mg Non-Formulary Medication (Selexipag [Uptravi]) 600 mg PO BID [facility] Last Admin: 04/17/18 09:59 Dose: 600 mg Non-Formulary Medication (Riociguat [Adempas]) 2.5 mg PO 0700,1500,2300 [facility] Last Admin: 04/17/18 06:02 Dose: 2.5 mg Ondansetron HCl (Zofran Inj) 4 mg IVP Q6H PRN PRN Reason: Nausea/Vomiting Last Admin: 04/09/18 18:25 Dose: 4 mg Quetiapine Fumarate (Seroquel) 50 mg PO HS PRN; Protocol PRN Reason: Agitation Last Admin: 04/16/18 21:07 Dose: 50 mg Zolpidem Tartrate (Ambien) 5 mg PO HS PRN; Protocol PRN Reason: Insomnia Last Admin: 04/15/18 21:28 Dose: 5 mg - Labs Labs: 04/17/18 05:15 04/17/18 05:15 PT 11.3 SECONDS (9.4-12.5) 04/10/18 06:30 INR 0.98 04/10/18 06:30 APTT 29.5 Seconds (25.1-36.5) 04/10/18 06:30 - Constitutional Appears: Chronically Ill - Head Exam Head Exam: NORMAL INSPECTION - Respiratory Exam Respiratory Exam: Decreased Breath Sounds - Cardiovascular Exam Cardiovascular Exam: +S1, +S2 - GI/Abdominal Exam GI & Abdominal Exam: Soft. absent: Tenderness Assessment and Plan - Assessment and Plan (Free Text) Plan: Assessment severe sepsis with fluid-responsive hypotension due to right sided HCAP as well as UTI with E. faecalis, clinically improving chronic renal failure on hemodialysis COPD on home oxygen pulmonary HTN bladder cancer S/P ileal conduit CAD S/P PCI chronic CHF HTN Plan continue intermittent Vancomycin and Merrem day 7; blood cx are negative; urine cx showing E. faecalis; target 7-10 days of antibiotics will continue monitor clinically repeat Vanco level is 13.5 and will give another dose today and will monitor
--- NOTE | 2018-04-18 16:37 | PN ---
DATE: 04/18/2018 SUBJECTIVE: The patient is seen sitting in a chair. He is awake, he is alert, is comfortable. He does not appear to be in any kind of distress. PHYSICAL EXAMINATION: VITAL SIGNS: Blood pressure 108/49, heart rate 89, respiratory rate 18-24, temperature 98. HEENT: Normocephalic, atraumatic, positive pallor. NECK: Supple, no JVD. LUNGS: Bilateral distant breath sounds, no rales, no rhonchi. CARDIAC: S1, S2, regular rate and rhythm, no murmur, no rub. ABDOMEN: Soft, nondistended, nontender, bowel sounds present, positive ileostomy. EXTREMITIES: No lower extremity edema. LABORATORY DATA: WBC 11, hemoglobin 8.6, hematocrit 27, platelets 138. Sodium 138, potassium 4.6, chloride 110, CO2 of 21, BUN 82, creatinine 2.4, glucose 140. MEDICATIONS: Medication list reviewed. ASSESSMENT: 1. Resolved acute kidney injury, creatinine at baseline. 2. Anemia of chronic kidney disease. 3. Secondary hyperparathyroidism. 4. Hyperphosphatemia. 5. Severe pulmonary hypertension. 6. Severe chronic obstructive pulmonary disease. 7. Severe cardiomyopathy, decreased ejection fraction, coronary artery disease. PLAN: 1. Continue phosphate binders. 2. Continue Hectorol. 3. Continue Aranesp. 4. ? Primacor. 5. No indication for dialysis right now. 6. Stable from the renal standpoint. Myranda Ivey MD
== END 2018-04-18 17:26 | DRG 673 ==
LOC: ED 13:23 → ERH 16:17 → ICU 17:45 → 2RNO 04-17 18:51
PROVIDERS: ADMIT Internal Medicine; ATTEND Internal Medicine
PROC: 3E033XZ Introduction of Vasopressor into Peripheral Vein, Percutaneous Approach (ICD-10-PCS; 2018-04-10)
PROC: 5A09357 Assistance with Respiratory Ventilation, Less than 24 Consecutive Hours, Continuous Positive Airway Pressure (ICD-10-PCS; 2018-04-10)
PROC: 0JH63XZ Insertion of Tunneled Vascular Access Device into Chest Subcutaneous Tissue and Fascia, Percutaneous Approach (ICD-10-PCS; principal; 2018-04-11)
PROC: 02H633Z Insertion of Infusion Device into Right Atrium, Percutaneous Approach (ICD-10-PCS; 2018-04-11)
PROC: B544ZZA Ultrasonography of Left Jugular Veins, Guidance (ICD-10-PCS; 2018-04-11)
PROC: 5A1D70Z Performance of Urinary Filtration, Intermittent, Less than 6 Hours Per Day (ICD-10-PCS; 2018-04-11)
PROC: 5A1D70Z Performance of Urinary Filtration, Intermittent, Less than 6 Hours Per Day (ICD-10-PCS; 2018-04-12)
PROC: 05PY33Z Removal of Infusion Device from Upper Vein, Percutaneous Approach (ICD-10-PCS; 2018-04-17)
DX: N17.9 Acute kidney failure, unspecified (principal); I50.23 Acute on chronic systolic (congestive) heart failure; J18.9 Pneumonia, unspecified organism; J96.01 Acute respiratory failure with hypoxia; A41.9 Sepsis, unspecified organism; R65.21 Severe sepsis with septic shock; E87.2 Acidosis; I42.0 Dilated cardiomyopathy; I13.2 Hypertensive heart and chronic kidney disease with heart failure and with stage 5 chronic kidney disease, or end stage renal disease; J44.0 Chronic obstructive pulmonary disease with (acute) lower respiratory infection; J44.1 Chronic obstructive pulmonary disease with (acute) exacerbation; N39.0 Urinary tract infection, site not specified; N18.6 End stage renal disease; K40.90 Unilateral inguinal hernia, without obstruction or gangrene, not specified as recurrent; I25.10 Atherosclerotic heart disease of native coronary artery without angina pectoris; R10.30 Lower abdominal pain, unspecified; E87.5 Hyperkalemia; I95.9 Hypotension, unspecified; I25.5 Ischemic cardiomyopathy; D63.1 Anemia in chronic kidney disease; E86.0 Dehydration; I27.20 Pulmonary hypertension, unspecified; N25.81 Secondary hyperparathyroidism of renal origin; I48.91 Unspecified atrial fibrillation; I49.1 Atrial premature depolarization; R00.0 Tachycardia, unspecified; B95.2 Enterococcus as the cause of diseases classified elsewhere; I08.3 Combined rheumatic disorders of mitral, aortic and tricuspid valves; Y95 Nosocomial condition; G47.00 Insomnia, unspecified; Z79.82 Long term (current) use of aspirin; Z85.51 Personal history of malignant neoplasm of bladder; Z93.6 Other artificial openings of urinary tract status; Z90.6 Acquired absence of other parts of urinary tract; Z99.81 Dependence on supplemental oxygen; Z95.5 Presence of coronary angioplasty implant and graft; I25.2 Old myocardial infarction; Z72.0 Tobacco use

== ENCOUNTER 2018-04-18 17:26 | Inpatient (IN) | payer OTHER ==
[2018-04-18 18:01] VITALS: BMI 29.4
[2018-04-18] MEDS ORDERED: Albuterol-Ipratrop 3 mg / 0.5 (3 ml) UD IH PRN (18:02)
[2018-04-18] MEDS ORDERED: Dextrose 50% SYRINGE Inj (50 ml) IV PRN (18:33)
[2018-04-18] MEDS ORDERED: Arformoterol 15 mcg/2 ml Inh Sol IH SCH (20:00)
[2018-04-18] MEDS: Budesonide 0.5 mg/2 ml Inhal Susp UD IH SCH (20:05)
[2018-04-18] MEDS: MethylPREDNISolone 40 mg Vial IVP SCH (21:42)
[2018-04-18] MEDS ORDERED: Home Med 1 UNIT PO SCH (22:00)
[2018-04-18] MEDS: RIOCIGUAT 2.5 MG PO SCH (22:03)
[2018-04-19] MEDS: MEROPENEM 500 MG in NS 500 MG/50 ML BAG IVPB SCH (05:20)
[2018-04-19] MEDS: RIOCIGUAT 2.5 MG PO SCH ×3 (06:13→23:00)
[2018-04-19] MEDS: Budesonide 0.5 mg/2 ml Inhal Susp UD IH SCH ×2 (07:03→20:21)
[2018-04-19] MEDS: Levalbuterol 1.25 MG/3 ML Inhal Soln UD IH PRN (07:05)
--- NOTE | 2018-04-19 07:41 | PN ---
DATE: 04/19/2018 PULMONARY NOTE SUBJECTIVE: The patient appears comfortable this morning. He is not short of breath at rest. PHYSICAL EXAMINATION: VITALS: (Last noted in the computer): Temperature is 98.4, pulse 86, respiratory rate 18, blood pressure 108/49. Oxygen saturation on nasal cannula is 99%. HEENT: Normocephalic, atraumatic. NECK: No JVD. CARDIOVASCULAR: Systolic ejection murmur at the lower left sternal border. No S3 gallop. LUNGS: Mild/less rhonchi bilaterally. No wheezing. EXTREMITIES: Mild edema. No cyanosis, no clubbing. Calves are nontender to palpation. GASTROINTESTINAL: Abdomen is soft, nontender, and nondistended. Bowel sounds are positive. SKIN: No acute rash. NEUROLOGIC: Exam limited at the present time. IMPRESSION: 1. Acute on chronic renal failure. 2. Multiple electrolyte abnormalities. 3. Rule out congestive heart failure. 4. Advanced chronic obstructive pulmonary disease. 5. Coronary artery disease. 6. Pulmonary hypertension. PLAN: The patient appears comfortable this morning. He is not short of breath at rest. He does state to feeling better overall. I did discuss the case with the night nurse at length. The night nurse stated that the patient had a good night. On physical exam, the patient's bronchospasm continues to slowly resolve. In addition, the alveolar-arterial gradient is significantly less. The oxygen saturation on nasal cannula is now 99%. I will continue the current nebulizer treatments and low-dose intravenous steroids for now. The patient also remains on his treatment for the pulmonary hypertension. I would continue the antibiotic coverage as per Infectious Disease. Input by Dr. Montgomery is noted. Inputs by Renal and Cardiology are also noted. Clinical status of the patient is significantly improved - compared to the initial presentation. However, given the above, the future status/prognosis for this patient does remain guarded. The patient is now on the transitional unit - where he will participate with physical therapy. I will discuss the above with the attending physician. Mic Birmingham MD [facility]
--- NOTE | 2018-04-19 08:28 | CP.PCM.CON ---
History of Present Illness - History of Present Illness History of Present Illness: Surgery Consult note- Dr. Arndt Reason for consult- Left Inguinal Hernia (re-consult now pt in TCU) 77M pmhx significant for COPD on O2 at home, CKD, Pulmn HTN, Bladder Ca s/p cystectmy and left lower abdomen conduit placement approx 25 years ago, CAD w/ cardiac stents, CHF, HTN, on Milrinone ggt at home, initially presened to [facility] D w/ decreased urine output and found to have potassium 5.9. Patient was admitted t the ICU for hypotension, acute on chronic renal failure, uremia, systolic CHF. Patient is now moved from main hospital to TCU for strength training. Surgery was re-consulted for Left inguinal hernia. Patient states he has had the hernia for > 2.5 years. He is passing flatus and having regular bowel movements. Patient said he had addressed the hernia w/ his PMD and lining stamper, and said it is not safe to operate on if he continues to remain asymptomatic. Patient admits that as he ambulates at home he states an increased heaviness in his testicles. He has never tried to reduce it at home and has never seen a surgeon for it. At this time again, Patient is refusing surgery. PMH: COPD (on 3L NC at home), Pulmonary HTN, CKD stage IV, hx bladder CA, CAD, anterior wall SD, CHF, and HTN, on milrinone ggt Surg: Port-a-cath placement, cardiac catherization, cystectomy 25 years ago All: NKDA SH: Former 2-3 PPD for 40 years (quit 3 yrs ago), social EtOH use, denied illicit drug use FHx: Non-contributory Past Patient History - Infectious Disease Hx of Infectious Diseases: None - Past Medical History & Family History Past Medical History?: Yes - Past Social History Smoking Status: Former Smoker - CARDIAC Hx Cardiac Disorders: Yes (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, CAD, s/p STEMI) - PULMONARY Hx Chronic Obstructive Pulmonary Disease (COPD): Yes (severe) - NEUROLOGICAL Hx Neurological Disorder: No - HEENT Hx HEENT Problems: Yes Other/Comment: hearing problem - RENAL Hx Renal Failure: Yes (CKD IV) - ENDOCRINE/METABOLIC Hx Endocrine Disorders: No - HEMATOLOGICAL/ONCOLOGICAL Hx Blood Transfusions: Yes - INTEGUMENTARY Hx Dermatological Problems: No - MUSCULOSKELETAL/RHEUMATOLOGICAL Hx Falls: No - GASTROINTESTINAL Hx Gastrointestinal Disorders: No - GENITOURINARY/GYNECOLOGICAL Hx Genitourinary Disorders: Yes (HX BLADDER CA W./ REMOVAL) Hx Reproductive Disorders: No - PSYCHIATRIC Hx Psychophysiologic Disorder: Yes Hx Depression: Yes Hx Substance Use: No - SURGICAL HISTORY Hx Cholecystectomy: Yes Hx Coronary Stent: Yes (ptca 11/2014) - ANESTHESIA Hx Anesthesia: Yes Hx Anesthesia Reactions: No Hx Malignant Hyperthermia: No Meds Allergies/Adverse Reactions: Allergies Allergy/AdvReac Type Severity Reaction Status Date / Time No Known Allergies Allergy Verified 04/09/18 18:51 - Medications Medications: Current Medications Acetaminophen (Tylenol 325mg Tab) 650 mg PO Q6H PRN; Protocol PRN Reason: Fever >100.4 F Last Admin: 04/18/18 19:08 Dose: 650 mg Albuterol/Ipratropium (Duoneb 3 Mg/0.5 Mg (3 Ml) Ud) 3 ml IH [id number] PRN; Protocol PRN Reason: Shortness of Breath Amino Acid Protein (Prostat 15 G Packet) 15 gm GT DAILY [facility]; Protocol Arformoterol Tartrate (Brovana) 15 mcg IH [id number] [facility]; Protocol Aspirin (Aspirin Chewable) 81 mg PO 0800 [facility]; Protocol Last Admin: 04/19/18 08:08 Dose: 81 mg Atorvastatin Calcium (Lipitor) 40 mg PO HS [facility]; Protocol Last Admin: 04/18/18 21:41 Dose: 40 mg Budesonide (Pulmicort Respules) 0.5 mg IH [id number] [facility]; Protocol Last Admin: 04/19/18 07:03 Dose: 0.5 mg Calcium Acetate (Phoslo) 667 mg PO WM [facility]; Protocol Last Admin: 04/19/18 08:09 Dose: 667 mg Dextrose (Dextrose 50% Inj) 0 ml IV STAT PRN; Protocol PRN Reason: Hypoglycemia Protocol Doxercalciferol (Hectorol) 0.5 mcg PO DAILY [facility]; Protocol Famotidine (Pepcid) 20 mg PO 2200 [facility]; Protocol Last Admin: 04/18/18 21:41 Dose: 20 mg Home Med (Home Med) 0 unit PO BID [facility] Meropenem/Sodium Chloride (Merrem Iv 500 Mg/Ns 50 Ml) 500 mg in 50 mls @ 100 mls/hr IVPB 0600 [facility]; Protocol Stop: 04/23/18 06:01 Last Admin: 04/19/18 05:20 Dose: 100 mls/hr Dextrose (Dextrose 5% In Water 1000 Ml) 1,000 mls @ 0 mls/hr IV .Q0M PRN; Protocol PRN Reason: Hypoglycemia Protocol Levalbuterol HCl (Xopenex) 1.25 mg IH [id number] PRN; Protocol PRN Reason: Shortness of Breath Last Admin: 04/19/18 07:05 Dose: 1.25 mg Lorazepam (Ativan) 1 mg IVP HS [facility]; Protocol Last Admin: 04/18/18 21:39 Dose: 1 mg Methylprednisolone (Solu-Medrol) 30 mg IVP Q12 [facility]; Protocol Last Admin: 04/18/18 21:42 Dose: 30 mg Selexipag [Uptravi] (600 Mcg (Home Med)) 600 mg PO BID [facility] Riociguat [Adempas] (2.5 Mg (Home Med)) 2.5 mg PO 0700,1500,2300 [facility] Last Admin: 04/19/18 06:13 Dose: 2.5 mg Ondansetron HCl (Zofran Inj) 4 mg IVP Q6H PRN; Protocol PRN Reason: Nausea/Vomiting Quetiapine Fumarate (Seroquel) 50 mg PO HS [facility]; Protocol Last Admin: 04/18/18 21:41 Dose: 50 mg Zolpidem Tartrate (Ambien) 5 mg PO HS PRN; Protocol PRN Reason: Insomnia Last Admin: 04/18/18 23:19 Dose: 5 mg Physical Exam - Constitutional Appears: Non-toxic, No Acute Distress, Chronically Ill - Head Exam Head Exam: ATRAUMATIC - Eye Exam Eye Exam: EOMI - ENT Exam ENT Exam: Mucous Membranes Moist - Respiratory Exam Respiratory Exam: NORMAL BREATHING PATTERN. absent: Accessory Muscle Use, Respiratory Distress - Cardiovascular Exam Cardiovascular Exam: REGULAR RHYTHM. absent: Bradycardia, Tachycardia - GI/Abdominal Exam GI & Abdominal Exam: Hernia (large left inguinal hernia; reducible at bedside), Soft. absent: Diminished Bowel Sounds, Distended, Firm, Guarding, Tenderness - Neurological Exam Neurological exam: Alert, Oriented x3 - Psychiatric Exam Psychiatric exam: Normal Affect - Skin Skin Exam: Intact, Warm Results - Vital Signs Recent Vital Signs: Last Vital Signs Temp Pulse 86 04/18/18 20:59 Resp BP Pulse Ox Assessment & Plan - Assessment and Plan (Free Text) Assessment: 77M admitted to ICU for hypotension, acute on chronic renal failure, acute electrolyte disturbance, uremia, systolic CHF; w/ known left inguinal hernia present for over 2 years, no clinical signs of obstruction, partially reducible at bedside. Patient now in TCU for conditioning and strength training Plan: - Recommend scrotal support - agree with cardio team- patient is high risk for surgery - patient has emphasized that he does not want surgery - serial abdominal exams - NO acute surgical intervention at this time - counselled patient; if becomes symptomatic or shows signs of obstruction may have to consider emergent surgery - further recs per Dr. Yris Duran PGY2
[2018-04-19] MEDS ORDERED: Home Med 1 UNIT PO SCH (10:00)
[2018-04-19] MEDS: SELEXIPAG PO SCH ×4 (10:46→17:47)
[2018-04-19] MEDS: Prostat 15 g packet GT SCH (10:46)
[2018-04-19] MEDS: MethylPREDNISolone 40 mg Vial IVP SCH ×2 (10:47→21:50)
--- NOTE | 2018-04-19 13:37 | CP.PCM.CON ---
History of Present Illness - History of Present Illness History of Present Illness: 77 year old male with PMH of COPD on home oxygen, pulmonary HTN, chronic renal failure, bladder cancer S/P ileal conduit, CAD S/P PCI, chronic CHF, HTN initially came in to [facility] because of weakness and was found to have right sided HCAP and UTI with E. faecalis, complicated but having an ileal conduit done due to complications of bladder cancer. He has been doing well with antibiotics. He is now transferred to [facility] for continued medical therapy, physical rehab. Infectious Diseases consult is requested to further evaluate and manage. He is comfortably resting in bed, no fevers, no SOB at rest, no diarrhea, no vomiting. 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, CAD, s/p STEMI) - PULMONARY Hx Chronic Obstructive Pulmonary Disease (COPD): Yes (severe) - NEUROLOGICAL Hx Neurological Disorder: No - HEENT Hx HEENT Problems: Yes Other/Comment: hearing problem - RENAL Hx Renal Failure: Yes (CKD IV) - ENDOCRINE/METABOLIC Hx Endocrine Disorders: No - HEMATOLOGICAL/ONCOLOGICAL Hx Blood Transfusions: Yes - INTEGUMENTARY Hx Dermatological Problems: No - MUSCULOSKELETAL/RHEUMATOLOGICAL Hx Falls: No - GASTROINTESTINAL Hx Gastrointestinal Disorders: No - GENITOURINARY/GYNECOLOGICAL Hx Genitourinary Disorders: Yes (HX BLADDER CA W./ REMOVAL) Hx Reproductive Disorders: No - PSYCHIATRIC Hx Psychophysiologic Disorder: Yes Hx Depression: Yes Hx Substance Use: No - SURGICAL HISTORY Hx Cholecystectomy: Yes Hx Coronary Stent: Yes (ptca 11/2014) - ANESTHESIA Hx Anesthesia: Yes Hx Anesthesia Reactions: No Hx Malignant Hyperthermia: No Meds Allergies/Adverse Reactions: Allergies Allergy/AdvReac Type Severity Reaction Status Date / Time No Known Allergies Allergy Verified 04/09/18 18:51 - Medications Medications: Current Medications Acetaminophen (Tylenol 325mg Tab) 650 mg PO Q6H PRN; Protocol PRN Reason: Fever >100.4 F Last Admin: 04/18/18 19:08 Dose: 650 mg Albuterol/Ipratropium (Duoneb 3 Mg/0.5 Mg (3 Ml) Ud) 3 ml IH [id number] PRN; Protocol PRN Reason: Shortness of Breath Amino Acid Protein (Prostat 15 G Packet) 15 gm GT DAILY CECILY; Protocol Arformoterol Tartrate (Brovana) 15 mcg IH [id number] CECILY; Protocol Aspirin (Aspirin Chewable) 81 mg PO 0800 CECILY; Protocol Atorvastatin Calcium (Lipitor) 40 mg PO HS CECILY; Protocol Last Admin: 04/18/18 21:41 Dose: 40 mg Budesonide (Pulmicort Respules) 0.5 mg IH [id number] CECILY; Protocol Last Admin: 04/18/18 20:05 Dose: 0.5 mg Calcium Acetate (Phoslo) 667 mg PO WM CECILY; Protocol Dextrose (Dextrose 50% Inj) 0 ml IV STAT PRN; Protocol PRN Reason: Hypoglycemia Protocol Doxercalciferol (Hectorol) 0.5 mcg PO DAILY CECILY; Protocol Famotidine (Pepcid) 20 mg PO 2200 CECILY; Protocol Last Admin: 04/18/18 21:41 Dose: 20 mg Home Med (Home Med) 0 unit PO BID CECILY Meropenem/Sodium Chloride (Merrem Iv 500 Mg/Ns 50 Ml) 500 mg in 50 mls @ 100 mls/hr IVPB 0600 CECILY; Protocol Stop: 04/23/18 06:29 Dextrose (Dextrose 5% In Water 1000 Ml) 1,000 mls @ 0 mls/hr IV .Q0M PRN; Protocol PRN Reason: Hypoglycemia Protocol Levalbuterol HCl (Xopenex) 1.25 mg IH [id number] PRN; Protocol PRN Reason: Shortness of Breath Lorazepam (Ativan) 1 mg IVP HS CECILY; Protocol Last Admin: 04/18/18 21:39 Dose: 1 mg Methylprednisolone (Solu-Medrol) 30 mg IVP Q12 CECILY; Protocol Last Admin: 04/18/18 21:42 Dose: 30 mg Selexipag [Uptravi] (600 Mcg (Home Med)) 600 mg PO BID CECILY Riociguat [Adempas] (2.5 Mg (Home Med)) 2.5 mg PO 0700,1500,2300 CECILY Last Admin: 04/18/18 22:03 Dose: 2.5 mg Ondansetron HCl (Zofran Inj) 4 mg IVP Q6H PRN; Protocol PRN Reason: Nausea/Vomiting Quetiapine Fumarate (Seroquel) 50 mg PO HS CECILY; Protocol Last Admin: 04/18/18 21:41 Dose: 50 mg Zolpidem Tartrate (Ambien) 5 mg PO HS PRN; Protocol PRN Reason: Insomnia Physical Exam - Constitutional Appears: Chronically Ill - Head Exam Head Exam: NORMAL INSPECTION - Respiratory Exam Respiratory Exam: Decreased Breath Sounds - Cardiovascular Exam Cardiovascular Exam: +S1, +S2 - GI/Abdominal Exam GI & Abdominal Exam: Soft. absent: Tenderness Results - Vital Signs Recent Vital Signs: Last Vital Signs Temp Pulse 86 04/18/18 20:59 Resp BP Pulse Ox Assessment & Plan - Assessment and Plan (Free Text) Plan: Assessment severe sepsis with fluid-responsive hypotension due to right sided HCAP as well as UTI with E. faecalis, clinically improving chronic renal failure on hemodialysis COPD on home oxygen pulmonary HTN bladder cancer S/P ileal conduit CAD S/P PCI chronic CHF HTN Plan continue intermittent Vancomycin and Merrem day 8; blood cx are negative; urine cx showing E. faecalis; target 7-10 days of antibiotics will continue monitor clinically will get a Vanco level tomorrow
--- NOTE | 2018-04-19 15:44 | HP ---
DATE OF EXAM: 04/19/2018 HISTORY OF PRESENT ILLNESS: The patient is currently in [facility] in for deconditioning. He has a past medical history of acute on chronic renal failure, severe obstructive pulmonary disease, pulmonary hypertension and coronary artery disease. There have been no acute events overnight and the patient is resting comfortably and has no complaints. PHYSICAL EXAMINATION: VITAL SIGNS: The patient is afebrile and pulse rate of 86. HEENT: Unremarkable. NECK: Supple with full range of motion. LUNGS: Clear to auscultation and percussion bilaterally with diminished breath sounds bilaterally. HEART: With regular rate and rhythm. ABDOMEN: Benign. NEUROLOGICALLY: The patient is intact. The patient will be started rehabilitation today. IMPRESSION: 1. Deconditioning. 2. Chronic obstructive pulmonary disease. 3. Pulmonary hypertension. 4. Coronary artery disease. Pascual Hartley MD
--- NOTE | 2018-04-19 16:53 | PN ---
DATE: 04/19/2018 SUBJECTIVE: The patient is seen lying in bed on the Transitional Care Unit. His only complaint is cold environment overnight, he did not sleep well. His dyspnea is at baseline. MEDICATIONS: His current medications include aspirin, Ativan, Brovana, DuoNeb inhaler, Lipitor, meropenem, Pepcid, Pulmicort, Adempas, Uptravi, Seroquel, Solu-Medrol and Xopenex. OBJECTIVE: GENERAL: He is an elderly man, who appears chronically ill. VITAL SIGNS: Blood pressure 100/60 with a pulse of 90, respirations are 16. He is afebrile. HEENT: No JVD. CHEST: Bilateral scattered rhonchi. HEART: PMI displaced laterally with soft tones noted. ABDOMEN: Soft, nontender, normoactive bowel sounds. EXTREMITIES: No edema. DIAGNOSTIC DATA: Morning blood work is pending. IMPRESSION: 1. Recent acute on chronic renal failure, requiring temporary dialysis, now back to baseline. 2. Severe left ventricular dysfunction secondary to ischemic cardiomyopathy. 3. Remote myocardial infarction and percutaneous coronary intervention of left anterior descending. 4. Severe chronic obstructive pulmonary disease. 5. Severe pulmonary hypertension. RECOMMENDATIONS: Continued conservative management is advised. He had been on home milrinone infusion and this may be resumed upon discharge from rehabilitation. However, if he does relatively well without this, continued withholding milrinone may be considered given its questionable benefit. We will continue to follow and make further recommendations as appropriate. Dwight Tejeda MD [facility]
--- NOTE | 2018-04-20 01:18 | CON ---
DATE: 04/19/2018 REASON FOR CONSULTATION: Anemia, shortness of breath. HISTORY OF PRESENTING ILLNESS: A 77-year-old male known to me from recent evaluation. The patient was admitted to the ICU on the medical side with shortness of breath. He was found to be in acute kidney injury. He had hyperkalemia. He got couple of dialysis treatments. Subsequently, his renal parameters improved. His dialysis was discontinued. The patient does have advanced chronic kidney disease, cardiomyopathy, CHF, pulmonary hypertension. Currently, he is in the Transitional Care Unit. Consultation is requested for management of anemia. PAST MEDICAL AND SURGICAL HISTORY: Severe pulmonary hypertension, COPD, CHF, cardiomyopathy, decreased ejection fraction, chronic kidney disease stage IV, acute kidney injury, hyperkalemia, need for dialysis x2. FAMILY HISTORY: Noncontributory. SOCIAL HISTORY: Long-term heavy smoker, no alcohol use, no IV drug abuse. ALLERGIES: NO KNOWN DRUG ALLERGIES. CURRENT MEDICATIONS: Ambien, aspirin, Ativan, Brovana, DuoNeb, hectorol 0.5 mcg, Lipitor 40, meropenem 500, Pepcid 20, PhosLo t.i.d. with meals, Pro-Stat, Pulmicort, riociguat, selexipag, Seroquel, Solu-Medrol 30 IV every 12, Tylenol, Xopenex, Zofran. ASSESSMENT: 1. Anemia of chronic kidney disease. 2. Secondary hyperparathyroidism. 3. Hypertension. 4. Pulmonary hypertension. 5. Coronary artery disease, congestive heart failure, cardiomyopathy. PLAN: 1. Check labs in a.m. 2. Will need Procrit. 3. Continue respiratory treatments. 4. Continue medication for pulmonary hypertension. 5. Physical therapy. Myranda Ivey MD
[2018-04-20] MEDS: MEROPENEM 500 MG in NS 500 MG/50 ML BAG IVPB SCH (06:40)
[2018-04-20] MEDS: RIOCIGUAT 2.5 MG PO SCH ×3 (06:41→23:55)
[2018-04-20] MEDS: Budesonide 0.5 mg/2 ml Inhal Susp UD IH SCH ×2 (08:36→19:59)
[2018-04-20] MEDS: SELEXIPAG PO SCH ×3 (09:13→17:48)
[2018-04-20] MEDS: MethylPREDNISolone 40 mg Vial IVP SCH ×2 (09:13→21:18)
[2018-04-20] MEDS: Prostat 15 g packet GT SCH (10:12)
--- NOTE | 2018-04-20 11:27 | PN ---
DATE: 04/20/2018 SUBJECTIVE: The patient is in bed in no acute distress, nontoxic, was seen earlier today in room 320. PHYSICAL EXAMINATION: VITAL SIGNS: Temperature is 97, blood pressure is 108/60. HEENT: Unremarkable. NECK: Supple. LUNGS: Have decreased breath sounds. HEART: Normal S1, S2. ABDOMEN: Soft, nontender. LABORATORY EXAMINATION: Reviewed. Vanco random level is 9.5. Review of orders reveals the patient to be on meropenem and Solu-Medrol. ASSESSMENT AND PLAN: This is a 77-year-old male with chronic obstructive lung disease on home oxygen therapy, pulmonary hypertension, chronic renal failure, bladder cancer status post ileoconduit, coronary artery disease, hypertension, congestive heart failure who is admitted with severe sepsis with fluid responsive hypotension. Fluid responsive hypotension due to right-sided healthcare-associated pneumonia as well as urinary tract infection with Enterococcus faecalis are now improving on day #9 of meropenem and intermittent vancomycin and would discontinue the antibiotics tomorrow which will be day #10. We will follow with you. Maurice Peterson MD
--- NOTE | 2018-04-20 12:02 | PN ---
SUBJECTIVE: The patient was seen and examined at bedside in the TCU. No acute events overnight. OBJECTIVE: VITAL SIGNS: Temperature 98.1, pulse 80, blood pressure 108/69, respiratory rate 20 and oxygen saturation 96% on 2L NC. GENERAL: Chronically ill-appearing man lying in bed, in no apparent distress. HEENT: PERRL, EOMI. No scleral icterus. Mild conjunctival pallor is noted. NECK: No JVD. LUNGS: Decreased breath sounds at the bases with faint scattered rhonchi. CARDIOVASCULAR: Regular rate and rhythm. Normal S1 and S2. Grade II/ RAGHU to LLSB. ABDOMEN: Normoactive bowel sounds. Soft, nontender and nondistended. Left inguinal hernia remains reduced. EXTREMITIES: No edema. NEUROLOGIC: Awake, alert and oriented x 3. No focal motor deficits. LABORATORY DATA: No new labs. ASSESSMENT: The patient is a 77-year-old man with multiple medical comorbidities including CKD stage IV and a remote history of bladder cancer s/p cystectomy s/p ileal conduit who was admitted to the ICU for management of severe sepsis secondary to healthcare-associated pneumonia, LYNN on CKD stage IV and metabolic acidosis who is now s/p transfer to the TCU for continued PT. PLAN: 1. Severe sepsis secondary to healthcare-associated pneumonia, resolving. Input from Dr. Montgomery noted. Continue current antimicrobials as per ID. The patient remains afebrile with negative blood cultures. 2. LYNN on CKD stage IV (baseline Cr 2-3), consider secondary to medication- induced vs ATN in the setting of severe sepsis, resolving. Input from Dr. Ivey noted and renal parameters trending towards baseline. 3. Remote history of bladder cancer s/p cystectomy s/p ileal conduit. 4. Severe COPD. Input from Dr. Birmingham noted. Continue supplemental oxygen, inhaled corticosteroids and Solu-Medrol to taper. 5. 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 Input from Dr. Tejeda noted. The patient remains off Milrinone. Continue with care as per Dr. Tejeda. 6. Metabolic acidosis, resolved. 7. Pulmonary hypertension. Continue with care as per Dr. Birmingham. 8. CAD s/p STEMI s/p PCI with stent placement. Continue Aspirin 81 mg p.o. daily and Lipitor 40 mg p.o. daily. 9. Anemia of chronic disease. Hb stable. 10. Hyperkalemia, resolved. 11. Insomnia. Continue Ambien 5 mg p.o. at bedtime and Ativan 1 mg IV at bedtime. 12. Chronic left inguinal hernia s/p manual reduction. Continue to monitor. 13. Prophylaxis. GI prophylaxis not indicated as the patient is eating. Continue with Heparin for DVT prophylaxis. CODE STATUS: Full code. Matt Hartley MD [facility]TDD
--- NOTE | 2018-04-20 16:46 | PN ---
DATE: 04/20/2018 PULMONARY PROGRESS NOTE SUBJECTIVE: Boy is markedly improved this morning. He is not complaining of shortness of breath. He is anxious to get a Given in his room. He feels stranded not having a walker by his bedside. We have discussed his general status with his daughter who was present as well as the nurse caring for him today. We will make all attempts to make him as comfortable as possible in the hospital. It is important to make him feel comfortable and unencumbered so that he can concentrate on getting better. We are very happy with his overall status since his admission he remains on Adempas and Uptravi for his pulmonary hypertension. PHYSICAL EXAMINATION: VITAL SIGNS: Remain stable. He is afebrile, 98.6, respiratory rate of 16, pulse of 82, blood pressure 110/60, O2 saturation 98% on supplemental oxygen. HEENT: Normocephalic, atraumatic. NECK: Supple. No JVD. No lymphadenopathy. CARDIOVASCULAR: Regular rhythm. S1, S2. No gallop is appreciated. There is a soft systolic ejection murmur as previously reported. LUNGS: Global decrease in breath sounds. Minimal rales noted. No rhonchi or wheezes appreciated. ABDOMEN: Soft. Bowel sounds normoactive without mass, guarding or rebound or organomegaly. EXTREMITIES: Reveal trace edema. No cyanosis or clubbing. Calves show no signs of abnormalities. There is no Homans sign. SKIN: Shows no rash or excoriation. Lymphadenopathy is not present. NEUROLOGIC: The patient is awake and alert and oriented. CLINICAL IMPRESSION: 1. Advanced pulmonary hypertension. 2. Chronic obstructive pulmonary disease. 3. Cardiac arrhythmia. 4. Congestive heart failure. 5. Acute on chronic renal failure. 6. Multiple electrolyte abnormalities. PLAN: Continue vigorous medications for pulmonary hypertension, chronic obstructive pulmonary disease, cardiac arrhythmia, pulmonary vascular congestion, etc. The patient needs additional help in getting around his room so that he can concentrate on getting better. This has been discussed with the nurse caring for him today. Boy will continue to improve with continued support. Hopefully in a short period of time, he will be able to be discharged. We are aware of his visiting nurse and from his pulmonary hypertensive followup, he needs further cardiac intervention as well. We stand ready to do anything possible to help Boy regain his independence and ability to remain at home. Thank you for the opportunity to care for this mara patient. We will follow closely with you. Jan Griffin MD
--- NOTE | 2018-04-20 18:59 | PN ---
DATE: 04/20/2018 SUBJECTIVE: The patient is seen in the gym. He is working on the bike. He seems to be comfortable. PHYSICAL EXAMINATION: GENERAL: Elderly male sitting in chair. VITAL SIGNS: Blood pressure 108/66, heart rate 89, respiratory rate 20, and temperature 98.1. HEENT: Normocephalic and atraumatic. Positive pallor. NECK: Supple. No JVD. LUNGS: Bilateral equal air entry, bilateral equal expansion. Distant breath sounds. CARDIAC: S1 and S2, distant heart sounds. ABDOMEN: Soft, nondistended, and nontender. Positive ileostomy bag . EXTREMITIES: No lower extremity edema. LABORATORY DATA: No new labs. CURRENT MEDICATIONS: Ambien, aspirin, Ativan, Brovana, Hectorol 0.5 daily, Lipitor 40, Merrem 500 daily, Pepcid 20, PhosLo, Pro-Stat, and Pulmicort. ASSESSMENT AND PLAN: 1. Stable chronic kidney disease stage IV. 2. Advanced chronic obstructive pulmonary disease, currently compensated. 3. Severe pulmonary hypertension. 4. Severe cardiomyopathy/congestive heart failure. 5. Anemia of chronic kidney disease. 6. Okay to check labs . Myranda Ivey MD
[2018-04-20] MEDS: Levalbuterol 1.25 MG/3 ML Inhal Soln UD IH PRN (19:59)
[2018-04-21] MEDS: MEROPENEM 500 MG in NS 500 MG/50 ML BAG IVPB SCH (05:41)
[2018-04-21] MEDS: RIOCIGUAT 2.5 MG PO SCH ×3 (06:58→22:14)
[2018-04-21] MEDS: Budesonide 0.5 mg/2 ml Inhal Susp UD IH SCH ×2 (07:13→20:05)
[2018-04-21] MEDS: SELEXIPAG PO SCH ×3 (10:14→17:38)
[2018-04-21] MEDS: MethylPREDNISolone 40 mg Vial IVP SCH ×2 (10:16→22:12)
[2018-04-21] MEDS: Prostat 15 g packet GT SCH (11:00)
--- NOTE | 2018-04-21 14:02 | PN ---
DATE: 04/21/2018 SUBJECTIVE: The patient is in bed in no acute distress, nontoxic. PHYSICAL EXAMINATION VITAL SIGNS: Temperature is 97, blood pressure is 111/60, respiratory rate of 20, heart rate of 95. HEENT: Examination of HEENT is unremarkable. NECK: Supple. LUNGS: Have decreased breath sounds. HEART: Normal S1 and S2. ABDOMEN: Soft, nontender. LABORATORY DATA: Reveals a random vancomycin level is 9.5. Microbiology reveals that the blood cultures have no growth from 04/09. Review of orders reveals the patient to be on Solu-Medrol and meropenem. ASSESSMENT AND PLAN: This is a 77-year-old male with chronic obstructive lung disease, on home O2 oxygen therapy; chronic respiratory failure; pulmonary hypertension; chronic renal failure; bladder cancer, status post ileal conduit; coronary artery disease; hypertension and congestive heart failure, who was admitted to the acute care with severe sepsis fluid-responsive hypotension due to right-sided healthcare-associated pneumonia as well as a urinary tract infection with Enterococcus faecalis. Today is day #10 of meropenem and intermittent vancomycin. We will discontinue the antibiotics after today's last dose. Maurice Peterson MD
[2018-04-21] MEDS: Levalbuterol 1.25 MG/3 ML Inhal Soln UD IH PRN (20:05)
--- NOTE | 2018-04-22 01:42 | PN ---
SUBJECTIVE; The patient was seen and examined at bedside in the TCU. No acute events overnight. He remains afebrile and hemodynamically stable. The patient does complain of mild low back pain which he which he attributes to the hospital bed, but otherwise offers no complaints. OBJECTIVE: VITAL SIGNS: Temperature 98, pulse 85, blood pressure 100/64, respiratory rate 16, oxygen saturation 96% on 2 liters nasal cannula. GENERAL: Chronically ill-appearing man lying in bed in no apparent distress. HEENT: PERRL, EOMI. No scleral icterus. Mild conjunctival pallor is noted. NECK: No JVD. LUNGS: Distant breath sounds with few scattered wheeze. CARDIOVASCULAR: Regular rate and rhythm. Normal S1, S2. Grade 2/6 RAGHU to LLSB. ABDOMEN: Normoactive bowel sounds. Soft, nontender, nondistended. Left inguinal hernia remains reduced. EXTREMITIES: No edema. NEUROLOGIC: Awake, alert and oriented x 3. No focal motor deficits. LABORATORY DATA: No new labs. ASSESSMENT: The patient is a 77-year-old man with multiple medical comorbidities including CKD stage IV and a remote history of bladder cancer s/p cystectomy s/p ileal conduit who was admitted to the ICU for severe sepsis secondary to healthcare- associated pneumonia, LYNN on CKD stage IV and metabolic acidosis and was subsequently transfer to the TCU for continued PT. PLAN: 1. Severe sepsis secondary to healthcare-associated pneumonia, resolving. Input from Dr. Peterson noted. Continue with current antimicrobials as per ID. The patient remains afebrile with negative blood cultures. 2. LYNN on CKD stage IV (baseline Cr 2-3), consider secondary to medication- induced vs ATN in the setting of severe sepsis, resolved. Input from Dr. Ivey noted and renal parameters returned to baseline. 3. Musculoskeletal low back pain. Start Tramadol and Flexeril. 4. Remote history of bladder cancer s/p cystectomy s/p ileal conduit. 5. Severe COPD. Input from Dr. Griffin noted. Continue with supplemental oxygen, inhaled corticosteroids and Solu-Medrol to taper. 6. Ischemic dilated cardiomyopathy. Input from Dr. Tejeda noted. The patient remains off Milrinone. Continue with care as per Dr. Tejeda. 7. Metabolic acidosis, resolved. 8. Pulmonary hypertension. Continue with care as per Dr. Burghauser. 9. CAD s/p STEMI s/p PCI with stent placement. Continue aspirin 81 mg p.o. daily and Lipitor 40 mg p.o. daily. 10. Anemia of chronic disease. Hb stable. 11. Hyperkalemia, resolved. 12. Insomnia. Continue Ambien 5 mg p.o. at bedtime and Ativan 1 mg IV at bedtime. 13. Chronic left inguinal hernia status post manual reduction. Continue to monitor. 14. Prophylaxis. GI prophylaxis not indicated as the patient is eating. Continue with Heparin for DVT prophylaxis. CODE STATUS: Full code. Matt Hartley MD [facility]
[2018-04-22] MEDS: MEROPENEM 500 MG in NS 500 MG/50 ML BAG IVPB SCH (06:19)
[2018-04-22] MEDS: RIOCIGUAT 2.5 MG PO SCH ×3 (06:21→22:49)
[2018-04-22 07:11] LABS: HEMOGLOBIN 8.8 g/dL (14.0-18.0); MEAN CELL VOLUME 89.4 fl (80.0-105.0); MEAN CORPUSCULAR HEMOGLOBIN 28.3 pg (25.0-35.0); MEAN CORPUSCULAR HGB CONC 31.7 g/dl (31.0-37.0); MEAN PLATELET VOLUME 8.9 fl (7.0-11.0); RBC 3.11 10^6/uL (3.5-6.1); RED CELL DISTRIBUTION WIDTH 16.6 % (11.5-14.5); WHITE BLOOD COUNT 14.7 10^3/uL (4.5-11.0)
[2018-04-22] MEDS: Budesonide 0.5 mg/2 ml Inhal Susp UD IH SCH ×2 (07:22→19:59)
[2018-04-22 07:33] LABS: ALB/GLOB RATIO 1.2 (1.1-1.8); ALBUMIN 2.7 g/dL (3.0-4.8); CALCIUM 8.9 mg/dL (8.4-10.5)
--- NOTE | 2018-04-22 09:27 | PN ---
DATE: 04/22/2018 SUBJECTIVE: The patient appears comfortable this morning. He is not short of breath at rest. OBJECTIVE: VITAL SIGNS (Last noted in the computer): Temperature is 98.0, pulse 85, respirations 16, blood pressure 100/64. Oxygen saturation on nasal cannula is 96%. HEENT: Normocephalic, atraumatic. NECK: No JVD. CARDIOVASCULAR: Systolic ejection murmur at the lower left sternal border. No S3 gallop. LUNGS: Minimal/less rhonchi. No wheezing. EXTREMITIES: Mild edema. No cyanosis, no clubbing. Calves are nontender to palpation. GASTROINTESTINAL: Abdomen is soft, nontender, and nondistended. Bowel sounds are positive. SKIN: No acute rash. NEUROLOGIC: Limited at limit at the present time. IMPRESSION: 1. Acute on chronic renal failure. 2. Multiple electrolyte abnormalities. 3. Rule out congestive heart failure. 4. Advanced chronic obstructive pulmonary disease. 5. Coronary artery disease. 6. Pulmonary hypertension. PLAN: The patient appears quite comfortable this morning. He is not short of breath at rest. He does state to feeling better overall. I did discuss the case to night nurse at length. The night nurse stated the patient had a good night. On physical exam, the patient's bronchospasm continues to resolve. In addition, the alveolar-arterial gradient also continues to resolve. I will continue the current nebulizer treatments and low-dose intravenous steroids (decreased yesterday) for now. The patient also remains on his treatment for the pulmonary hypertension. I would continue with the antibiotic coverage as per Infectious Disease. Inputs by Renal and Internal Medicine are also noted. Clinical status of the patient is significantly improved - compared to the initial presentation. However, given the above, the future status/prognosis for this patient does remain somewhat guarded. I will discuss the above with the attending physician. Mic Birmingham MD MTDD
[2018-04-22] MEDS: Prostat 15 g packet GT SCH (10:12)
[2018-04-22] MEDS: SELEXIPAG PO SCH ×2 (10:12→17:46)
[2018-04-22] MEDS: MethylPREDNISolone 40 mg Vial IVP SCH ×2 (10:13→21:28)
--- NOTE | 2018-04-22 12:46 | PN ---
SUBJECTIVE: The patient was seen and examined at bedside in the TCU. No acute events overnight. He reports improvement in his musculoskeletal low back pain with the Tramadol and Flexeril and otherwise offers no complaints. OBJECTIVE: VITAL SIGNS: Temperature 98, pulse 85, blood pressure 100/64, respiratory rate 18, oxygen saturation 96% on 2L NC. GENERAL: Chronically ill man, sitting up in bed, in no apparent distress. HEENT: PERRL, EOMI. No scleral icterus. Mild conjunctival pallor is noted. NECK: No JVD. LUNGS: Distant breath sounds with few scattered wheeze. CARDIOVASCULAR: Regular rate and rhythm. Normal S1 and S2. Grade 2/6 RAGHU to LLSB. ABDOMEN: Normoactive bowel sounds. Soft, nontender, nondistended. Left inguinal hernia remains reduced. EXTREMITIES: No edema. NEUROLOGIC: Awake, alert and oriented x 3. No focal motor deficits. LABORATORY DATA: WBC 14.7, hemoglobin 8.8, hematocrit 28, platelets 168. Sodium 137, potassium 5.5, chloride 112, bicarb 21, BUN 71, creatinine 2.1, glucose 124. ASSESSMENT: The patient is a 77-year-old man with multiple medical comorbidities including CKD stage IV and severe COPD who was initially admitted to the ICU for severe sepsis secondary to healthcare-associated pneumonia, LYNN on CKD stage IV and metabolic acidosis and was subsequently transferred to the TCU for continued PT. PLAN 1. Severe sepsis, secondary to healthcare-associated pneumonia, resolving. Input from Dr. Peterson noted. Continue with current antimicrobials as per Infectious Disease. The patient remains afebrile and with negative blood cultures. 2. LYNN on CKD stage IV (baseline Cr 2-3), resolved. 3. Musculoskeletal low back pain. Continue Tramadol and Flexeril. 4. Remote history of bladder cancer s/p cystectomy s/p ileal conduit. 5. Severe COPD. Input from Dr. Birmingham noted. Continue with supplemental oxygen, inhaled corticosteroids and Solu-Medrol taper. 6. Ischemic dilated cardiomyopathy. Input from Dr. Tejeda noted. The patient remains off Milrinone. Continue with care as per Dr. Tejeda. 7. Metabolic acidosis, resolved. 8. Pulmonary hypertension. Continue with care as per Dr. Birmingham. 9. CAD s/p STEMI s/p PCI with stent placement. Continue Aspirin 81 mg p.o. daily and Lipitor 40 mg p.o. daily. 10. Anemia of chronic disease. Hb stable. 11. Hyperkalemia, resolved. 12. Insomnia. Continue Ambien 5 mg p.o. at bedtime and Ativan 1 mg IV at bedtime. 13. Chronic left inguinal hernia s/p manual reduction. Continue to monitor. 14. Prophylaxis. GI prophylaxis not indicated as the patient is eating. Continue with Heparin for DVT prophylaxis. CODE STATUS: Full code. Matt Hartley MD MTDD
--- NOTE | 2018-04-22 13:08 | CP.PCM.PN ---
Subjective - Date & Time of Evaluation Date of Evaluation: 04/22/18 Time of Evaluation: 10:50 - Subjective Subjective: Comfortable in bed, not short of breath at rest, no fevers, no nausea, no diarrhea, abdominal pain is improved. Objective - Vital Signs/Intake and Output Vital Signs (last 24 hours): Temp Pulse Resp BP Pulse Ox 98 F 81 16 91/64 L 96 04/21/18 16:00 04/22/18 10:14 04/21/18 16:00 04/22/18 10:14 04/21/18 16:00 - Medications Medications: Current Medications Acetaminophen (Tylenol 325mg Tab) 650 mg PO Q6H PRN; Protocol PRN Reason: Fever >100.4 F Last Admin: 04/18/18 19:08 Dose: 650 mg Albuterol/Ipratropium (Duoneb 3 Mg/0.5 Mg (3 Ml) Ud) 3 ml IH [id number] PRN; Protocol PRN Reason: Shortness of Breath Amino Acid Protein (Prostat 15 G Packet) 15 gm GT DAILY CECILY; Protocol Last Admin: 04/22/18 10:12 Dose: 15 gm Arformoterol Tartrate (Brovana) 15 mcg IH [id number] CECILY; Protocol Aspirin (Aspirin Chewable) 81 mg PO 0800 CECILY; Protocol Last Admin: 04/22/18 08:20 Dose: 81 mg Atorvastatin Calcium (Lipitor) 40 mg PO HS CECILY; Protocol Last Admin: 04/21/18 22:07 Dose: 40 mg Budesonide (Pulmicort Respules) 0.5 mg IH [id number] CECILY; Protocol Last Admin: 04/22/18 07:22 Dose: 0.5 mg Calcium Acetate (Phoslo) 667 mg PO WM CECILY; Protocol Last Admin: 04/22/18 12:22 Dose: 667 mg Carvedilol (Coreg) 3.125 mg PO BID CECILY Last Admin: 04/22/18 10:14 Dose: Not Given Cyclobenzaprine HCl (Flexeril) 5 mg PO TID PRN PRN Reason: Pain, Mild (1-3) Dextrose (Dextrose 50% Inj) 0 ml IV STAT PRN; Protocol PRN Reason: Hypoglycemia Protocol Doxercalciferol (Hectorol) 0.5 mcg PO DAILY CECILY; Protocol Last Admin: 04/22/18 10:12 Dose: 0.5 mcg Famotidine (Pepcid) 20 mg PO 2200 CECILY; Protocol Last Admin: 04/21/18 22:07 Dose: 20 mg Dextrose (Dextrose 5% In Water 1000 Ml) 1,000 mls @ 0 mls/hr IV .Q0M PRN; Protocol PRN Reason: Hypoglycemia Protocol Levalbuterol HCl (Xopenex) 1.25 mg IH [id number] PRN; Protocol PRN Reason: Shortness of Breath Last Admin: 04/21/18 20:05 Dose: 1.25 mg Lorazepam (Ativan) 1 mg IVP HS CECILY; Protocol Last Admin: 04/21/18 23:56 Dose: Not Given Methylprednisolone (Solu-Medrol) 20 mg IVP Q12 CECILY; Protocol Last Admin: 04/22/18 10:13 Dose: 20 mg Selexipag [Uptravi] (600 Mcg (Home Med)) 600 mg PO BID CECILY Last Admin: 04/22/18 10:12 Dose: 600 mg Riociguat [Adempas] (2.5 Mg (Home Med)) 2.5 mg PO 0700,1500,2300 CECILY Last Admin: 04/22/18 06:21 Dose: 2.5 mg Ondansetron HCl (Zofran Inj) 4 mg IVP Q6H PRN; Protocol PRN Reason: Nausea/Vomiting Quetiapine Fumarate (Seroquel) 50 mg PO HS CECILY; Protocol Last Admin: 04/21/18 22:07 Dose: 50 mg Tramadol HCl (Ultram) 50 mg PO TID PRN PRN Reason: Pain, moderate (4-7) Last Admin: 04/21/18 22:06 Dose: 50 mg Zolpidem Tartrate (Ambien) 5 mg PO HS CECILY; Protocol Last Admin: 04/21/18 22:06 Dose: 5 mg - Labs Labs: 04/22/18 06:40 04/22/18 06:40 - Constitutional Appears: Chronically Ill - Head Exam Head Exam: NORMAL INSPECTION - Neck Exam Neck Exam: absent: Meningismus - Respiratory Exam Respiratory Exam: Decreased Breath Sounds - Cardiovascular Exam Cardiovascular Exam: +S1, +S2 - GI/Abdominal Exam GI & Abdominal Exam: Soft. absent: Tenderness Assessment and Plan - Assessment and Plan (Free Text) Plan: Assessment S/P severe sepsis with fluid-responsive hypotension due to right sided HCAP as well as UTI with E. faecalis, clinically improved and S/P treatment with antibiotics chronic renal failure on hemodialysis COPD on home oxygen pulmonary HTN bladder cancer S/P ileal conduit CAD S/P PCI chronic CHF HTN Plan completed 10 days of intermittent Vancomycin and Merrem - continue to monitor off antibiotics since he is at risk for nosocomial infections
--- NOTE | 2018-04-22 13:09 | PN ---
DATE: 04/22/2018 SUBJECTIVE: The patient is seen lying in bed on the Transitional Care Unit. He feels comfortable. He is urinating well. His creatinine is down to 2.1. His exertional dyspnea about the same. He remains on antibiotic therapy for his pneumonia. CURRENT MEDICATIONS: Include aspirin, Ativan p.r.n., Brovana, DuoNeb inhaler, Flexeril, Lipitor, meropenem, Pepcid, PhosLo, Pulmicort, Adempas, Uptravi, Seroquel, Solu-Medrol, Ultram and Xopenex. OBJECTIVE: GENERAL: He is a chronically ill-appearing elderly man. VITAL SIGNS: His blood pressure is 100/64 with a pulse of 80 and regular, respirations are 14 and he is afebrile. HEENT: No JVD. CHEST: Bilateral scattered rhonchi. HEART: PMI displaced laterally with soft tones present. ABDOMEN: Soft, nontender and normoactive bowel sounds. EXTREMITIES: No edema. DIAGNOSTIC DATA: Potassium 5.5, BUN and creatinine 71 and 2.1. White count 14.7, hemoglobin and hematocrit 8.8 and 27.8 with platelet count 168,000. IMPRESSION: 1. Recent acute renal failure requiring dialysis, now improved. 2. Severe left ventricular systolic dysfunction secondary to ischemic cardiomyopathy. 3. Remote myocardial infarction status post percutaneous coronary intervention of left anterior descending. 4. Severe chronic obstructive pulmonary disease. 5. Severe pulmonary hypertension. 6. Chronic anemia. RECOMMENDATIONS: Continued conservative management is advised at this time. Low dose carvedilol will be resumed at this time and increase as tolerated. Milrinone therapy will be withheld at the present time. If he remains fairly stable without this, attempts will be made to continue him off infusion therapy as an outpatient as the clear benefit of this is questionable. With respect to his large inguinal hernia, he would be at a fairly high cardiac and pulmonary risk for any surgical intervention at the present time. We will continue to follow and make further recommendations as appropriate. Dwight Tejeda MD
[2018-04-22] MEDS ORDERED: Darbepoetin Alfa 60 mcg/ml Inj SC ONE (14:36)
[2018-04-22 15:00] LABS: IRON 27 ug/dL (45-180)
[2018-04-22 15:09] LABS: % IRON SATURATION 12 % (20-55); TOTAL IRON BINDING CAPACITY 229 ug/dL (261-462)
--- NOTE | 2018-04-22 19:15 | PN ---
DATE: 04/22/2018 SUBJECTIVE: The patient is seen working in the gym. He is walking. He appears mildly short of breath. PHYSICAL EXAMINATION: GENERAL: Elderly male. VITAL SIGNS: Blood pressure 91/64, heart rate 81, respiratory rate 14-18, and temperature 97.5. HEENT: Normocephalic and atraumatic. Positive pallor. NECK: Supple. No JVD. LUNGS: Bilateral equal air entry, bilateral distant breath sounds. CARDIAC: S1 and S2, regular rate and rhythm. No murmur. No rub. ABDOMEN: Obese, distended, and soft. Positive urostomy bag. EXTREMITIES: No lower extremity edema. LABORATORY DATA: WBC 14.7, hemoglobin 8.8, hematocrit 27.8, and platelets 168. Sodium 137, potassium 5.5, chloride 112, CO2 of 21, BUN 71, creatinine 2.1, glucose 124, and calcium 8.9. AST 20, ALT 43, albumin 2.7, and corrected calcium is 9.9. CURRENT MEDICATIONS: Ambien, aspirin, Ativan, Brovana, Coreg 3.125 b.i.d., Flexeril, Hectorol, Lipitor, Pepcid, PhosLo, riociguat, selexipag, Seroquel, Solu-Medrol, Tylenol, tramadol, Xopenex, Merrem 500 given this morning, and Solu-Medrol discontinued. ASSESSMENT: 1. Hyperkalemia, ?etiology not on any medications to cause hyperkalemia. 2. Severe chronic obstructive pulmonary disease. 3. Pulmonary hypertension, severe. 4. Stable chronic kidney disease stage IV. 5. Secondary hyperparathyroidism/hyperphosphatemia. 6. Severe anemia. PLAN: 1. Check iron, TIBC, and ferritin. 2. Check phosphorus levels. 3. Repeat potassium in a.m. 4. Aranesp 60 mcg today. Myranda Ivey MD
[2018-04-22] MEDS: Levalbuterol 1.25 MG/3 ML Inhal Soln UD IH PRN (20:00)
[2018-04-22 21:17] LABS: FERRITIN 91.8 ng/mL
[2018-04-23] MEDS: Budesonide 0.5 mg/2 ml Inhal Susp UD IH SCH ×2 (07:30→21:35)
[2018-04-23] MEDS: Prostat 15 g packet GT SCH (08:16)
[2018-04-23] MEDS: RIOCIGUAT 2.5 MG PO SCH ×3 (10:25→23:25)
[2018-04-23] MEDS: SELEXIPAG PO SCH ×2 (10:26→17:17)
--- NOTE | 2018-04-23 10:40 | PN ---
DATE: 04/23/2018 SUBJECTIVE: The patient appears very comfortable this morning. He is not short of breath at rest. PHYSICAL EXAMINATION: VITAL SIGNS: (Last noted in the computer): Temperature is 98.4, pulse 80, respirations 18, blood pressure 105/68. Oxygen saturation on nasal cannula is 97% to 100%. HEENT: Normocephalic, atraumatic. No JVD. CARDIOVASCULAR: Systolic ejection murmur at the lower left sternal border. No S3 gallop. LUNGS: Minimal/less rhonchi. No wheezing. EXTREMITIES: Mild edema. No cyanosis, no clubbing. Calves are nontender to palpation. GASTROINTESTINAL: Abdomen is soft, nontender and nondistended. Bowel sounds are positive. SKIN: No acute rash. NEUROLOGIC: Exam limited at the present time. IMPRESSION: 1. [id number] renal failure. 2. Multiple electrolyte abnormalities. 3. Rule out congestive heart failure. 4. Advanced chronic obstructive pulmonary disease. 5. Coronary artery disease. 6. Pulmonary hypertension. PLAN: The patient appears very comfortable this morning. He is not short of breath at rest. He does state to feeling much better overall. On physical exam, his bronchospasm continues to resolve. In addition, the alveolar-arterial gradient also continues to resolve. I will continue the current nebulizer treatments and change to oral steroids this morning. The patient also remains on his treatment for the pulmonary hypertension. Inputs by Renal, Cardiology, and Infectious Disease are also noted. Clinical status of the patient is significantly improved - compared to last week. However, again, the future status/prognosis for this patient continues to be guarded. I will discuss the above with the attending physician. Mic Birmingham MD [facility]
--- NOTE | 2018-04-23 10:42 | CP.PCM.PN ---
Subjective - Date & Time of Evaluation Date of Evaluation: 04/23/18 Time of Evaluation: 09:05 - Subjective Subjective: Comfortable in bed, afebrile. Objective - Vital Signs/Intake and Output Vital Signs (last 24 hours): Temp Pulse Resp BP Pulse Ox 98 F 81 16 91/64 L 96 04/21/18 16:00 04/22/18 10:14 04/21/18 16:00 04/22/18 10:14 04/21/18 16:00 - Medications Medications: Current Medications Acetaminophen (Tylenol 325mg Tab) 650 mg PO Q6H PRN; Protocol PRN Reason: Fever >100.4 F Last Admin: 04/18/18 19:08 Dose: 650 mg Albuterol/Ipratropium (Duoneb 3 Mg/0.5 Mg (3 Ml) Ud) 3 ml IH [id number] PRN; Protocol PRN Reason: Shortness of Breath Amino Acid Protein (Prostat 15 G Packet) 15 gm GT DAILY CECILY; Protocol Last Admin: 04/22/18 10:12 Dose: 15 gm Arformoterol Tartrate (Brovana) 15 mcg IH [id number] CECILY; Protocol Aspirin (Aspirin Chewable) 81 mg PO 0800 CECILY; Protocol Last Admin: 04/22/18 08:20 Dose: 81 mg Atorvastatin Calcium (Lipitor) 40 mg PO HS CECILY; Protocol Last Admin: 04/21/18 22:07 Dose: 40 mg Budesonide (Pulmicort Respules) 0.5 mg IH [id number] CECILY; Protocol Last Admin: 04/22/18 07:22 Dose: 0.5 mg Calcium Acetate (Phoslo) 667 mg PO WM CECILY; Protocol Last Admin: 04/22/18 12:22 Dose: 667 mg Carvedilol (Coreg) 3.125 mg PO BID CECILY Last Admin: 04/22/18 10:14 Dose: Not Given Cyclobenzaprine HCl (Flexeril) 5 mg PO TID PRN PRN Reason: Pain, Mild (1-3) Dextrose (Dextrose 50% Inj) 0 ml IV STAT PRN; Protocol PRN Reason: Hypoglycemia Protocol Doxercalciferol (Hectorol) 0.5 mcg PO DAILY CECILY; Protocol Last Admin: 04/22/18 10:12 Dose: 0.5 mcg Famotidine (Pepcid) 20 mg PO 2200 CECILY; Protocol Last Admin: 04/21/18 22:07 Dose: 20 mg Dextrose (Dextrose 5% In Water 1000 Ml) 1,000 mls @ 0 mls/hr IV .Q0M PRN; Protocol PRN Reason: Hypoglycemia Protocol Levalbuterol HCl (Xopenex) 1.25 mg IH [id number] PRN; Protocol PRN Reason: Shortness of Breath Last Admin: 04/21/18 20:05 Dose: 1.25 mg Lorazepam (Ativan) 1 mg IVP HS [facility]; Protocol Last Admin: 04/21/18 23:56 Dose: Not Given Methylprednisolone (Solu-Medrol) 20 mg IVP Q12 CECILY; Protocol Last Admin: 04/22/18 10:13 Dose: 20 mg Selexipag [Uptravi] (600 Mcg (Home Med)) 600 mg PO BID [facility] Last Admin: 04/22/18 10:12 Dose: 600 mg Riociguat [Adempas] (2.5 Mg (Home Med)) 2.5 mg PO 0700,1500,2300 [facility] Last Admin: 04/22/18 06:21 Dose: 2.5 mg Ondansetron HCl (Zofran Inj) 4 mg IVP Q6H PRN; Protocol PRN Reason: Nausea/Vomiting Quetiapine Fumarate (Seroquel) 50 mg PO HS [facility]; Protocol Last Admin: 04/21/18 22:07 Dose: 50 mg Tramadol HCl (Ultram) 50 mg PO TID PRN PRN Reason: Pain, moderate (4-7) Last Admin: 04/21/18 22:06 Dose: 50 mg Zolpidem Tartrate (Ambien) 5 mg PO HS [facility]; Protocol Last Admin: 04/21/18 22:06 Dose: 5 mg - Labs Labs: 04/22/18 06:40 04/22/18 06:40 - Constitutional Appears: Chronically Ill - Head Exam Head Exam: NORMAL INSPECTION - Neck Exam Neck Exam: absent: Meningismus - Respiratory Exam Respiratory Exam: Decreased Breath Sounds - Cardiovascular Exam Cardiovascular Exam: +S1, +S2 - GI/Abdominal Exam GI & Abdominal Exam: Soft. absent: Tenderness Assessment and Plan - Assessment and Plan (Free Text) Plan: Assessment S/P severe sepsis with fluid-responsive hypotension due to right sided HCAP as well as UTI with E. faecalis, clinically improved and S/P treatment with antibiotics chronic renal failure on hemodialysis COPD on home oxygen pulmonary HTN bladder cancer S/P ileal conduit CAD S/P PCI chronic CHF HTN Plan completed 10 days of intermittent Vancomycin and Merrem - continue to monitor off antibiotics since he is at risk for hospital-acquired infections
--- NOTE | 2018-04-23 12:34 | PN ---
SUBJECTIVE: The patient was seen and examined at bedside on the TCU. No acute events overnight. He remains afebrile, hemodynamically stable and offers no complaints. OBJECTIVE: VITAL SIGNS: Temperature 98, pulse 78, blood pressure 98/64, respiratory rate 18, oxygen saturation 97% on room air. GENERAL: Chronically ill appearing man, sitting up in bed in no apparent distress. HEENT: PERRL. EOMI. No scleral icterus. Mild conjunctival pallor is noted. NECK: No JVD. LUNGS: Distant breath sounds with few scattered wheeze. CARDIOVASCULAR: Regular rate and rhythm. Normal S1, S2. Grade II/ RAGHU to LLSB. ABDOMEN: Normoactive bowel sounds, soft, nontender, nondistended. Left inguinal hernia palpable. EXTREMITIES: No edema. NEUROLOGIC: Awake, alert and oriented x 3. No focal motor deficits. LABORATORY DATA: No new labs. ASSESSMENT: The patient is a 77-year-old man with multiple medical comorbidities including CKD stage IV and severe COPD who was initially admitted to the ICU for severe sepsis secondary to healthcare-associated pneumonia, LYNN on CKD stage IV and metabolic acidosis and was subsequently transferred to the TCU for continued PT. PLAN: 1. Severe sepsis, secondary to healthcare-associated pneumonia, resolved. Input from Dr. Peterson noted. The patient completed a 10 day course of antimicrobials and remains afebrile and with negative blood cultures. 2. Ischemic dilated cardiomyopathy. Input from Dr. Tejeda noted. The patient remains off Milrinone and has been started on Coreg 3.125 mg p.o. b.i.d. Continue with care as per Dr. Tejeda. 3. CKD stage IV. Input from Dr. Ivey noted. Continue with care as per Dr. Ivey. 4. Musculoskeletal low back pain. Continue with Tramadol and Flexeril. 5. Severe COPD. Input from Dr. Birmingham noted. Continue with supplemental oxygen, inhaled corticosteroids and Prednisone taper. 6. Remote history of bladder cancer s/p cystectomy s/p ileal conduit. 7. Pulmonary hypertension. Continue with care as per Dr. Birmingham 8. CAD s/p STEMI s/p PCI with stent placement. Continue Aspirin 81 mg p.o. daily and Lipitor 40 mg p.o. daily 9. Anemia of chronic disease. The patient has been started on Aranesp. 10. Insomnia. Continue Ambien 5 mg p.o. q.h.s and Ativan 1 mg IV q.h.s. 11. Chronic left inguinal hernia s/p manual reduction. Continue to monitor. 12. Prophylaxis. GI prophylaxis is not indicated as the patient is eating. Continue with Heparin for DVT prophylaxis. CODE STATUS: Full code. Matt Hartley MD MTDD
--- NOTE | 2018-04-23 17:52 | PN ---
DATE: 04/23/2018 SUBJECTIVE: The patient is currently seen in TCU, sitting up in bed. His potassium level this morning was 5.7. He does have a renal diet ordered. He is not receiving any food from home. He does have chronic kidney disease stage IV and is status post acute dialysis during the initial part of the hospitalization. MEDICATIONS: Medication list reviewed. The patient is currently on Ambien, aspirin, Ativan, Coreg, DuoNeb, Flexeril, Hectorol, Lipitor, Pepcid, PhosLo, prednisone, Pro-Stat, Pulmicort Respules, riociguat, selexipag, Seroquel, Tylenol p.r.n., Ultram p.r.n., Xopenex p.r.n. and Zofran p.r.n. OBJECTIVE: VITAL SIGNS: Blood pressure 99/61, temperature 97.8, respiratory rate 16 with a pulse of 84. HEENT: Shows him to be normocephalic, atraumatic. Conjunctivae are pale. Sclerae nonicteric. NECK: Supple. No neck vein distention. CHEST: Clear to auscultation and percussion with slight decreased breath sounds. No rales, rhonchi or wheezing. CARDIOVASCULAR: Shows a regular rate and rhythm with /MR/TR. No S3 no S4, no rub. ABDOMEN: Soft. Bowel sounds normal. Positive ureteroileostomy bag, right lower quadrant. Positive large left inguinal hernia. EXTREMITIES: Show no lower extremity cyanosis or clubbing. He does have trace to 1+ ankle edema. LABORATORY DATA AND IMAGING STUDIES: CBC, white blood cell count yesterday 14.7, hemoglobin 8.8 with a platelet count of 168,000. Chemistries show potassium of 5.7 today. The patient will be treated with Kayexalate. BUN stable at 72, creatinine 2.2. This is down from a maximum creatinine of 9.4. The patient did receive dialysis. Iron saturations are 12%. The patient will be treated with IV Venofer today and continue with oral iron supplements for the remainder of his hospitalization and on discharge home. Albumin level was 2.7. Calcium 9. Last phosphorus 3.8. ASSESSMENT: 1. Chronic kidney disease stage IV, status post acute dialysis. 2. Persistent hyperkalemia. The patient will receive Kayexalate, today 30 g. I have instructed the dietitian to speak to the about a low potassium diet for discharge home. Apparently he is on a renal diet at present and is not receiving food from the outside. One possibility would be is for the patient to receive daily Veltassa. This will help keep his potassium level in a normal range. It is not available on formulary at the hospital but the patient can receive this as an outpatient. 3. History of chronic obstructive pulmonary disease, currently stable on inhalation therapy. 4. History of severe pulmonary hypertension. 5. History of secondary hyperparathyroidism. Phosphorus level was excellent at 3.8 with the patient on a renal diet and on binder therapy. 6. History of severe anemia. The patient received Aranesp on 04/22/2018. He is showing iron saturations which are low at 12%. The patient will receive IV Venofer 200 mg today and continue on oral iron supplements for the duration. 7. History of bladder cancer status post resection of the bladder with ureteroileostomy, currently stable. 8. History of dilated cardiomyopathy with arteriosclerotic heart disease with valvular heart disease, aortic stenosis, mitral regurgitation, tricuspid regurgitation. PLAN: 1. Kayexalate 30 g and sorbitol x1 dose today. 2. Consideration for possible initiation of Veltassa therapy upon discharge. 3. Continue binder therapy. 4. I will ask dietitian to speak to the patient's about a low potassium diet as he will likely be discharged till the end of the week. 5. Continue to monitor labs closely in the TCU until discharge. Paul Bonner MD
[2018-04-23] MEDS: Levalbuterol 1.25 MG/3 ML Inhal Soln UD IH PRN (21:35)
--- NOTE | 2018-04-23 22:48 | PN ---
DATE: 04/23/2018 SUBJECTIVE: The patient is seen sitting in bed on Transitional Care Unit. He is feeling better. He states he has been able to participate in more exercise. His stamina has improved. Renal function remained stable. OBJECTIVE: GENERAL: He is a chronically ill-appearing elderly man. VITAL SIGNS: His blood pressure is 100/60, pulse of 84, respirations are 14. NECK: No JVD. CHEST: Bilaterally scattered rhonchi. HEART: PMI displaced laterally with soft tones noted. ABDOMEN: Soft, nontender, and normoactive bowel sounds. EXTREMITIES: No edema. DIAGNOSTIC DATA: Potassium 5.7, BUN and creatinine 72 and 2.2. MEDICATIONS: Include aspirin, Ativan, Brovana, carvedilol 3.125 mg b.i.d., DuoNeb inhaler, Flexeril, Lipitor, Prevacid, PhosLo, prednisone 30 mg daily, Pro-Stat, Pulmicort, Adempas, Uptravi, Seroquel, and Xopenex. IMPRESSION: 1. Advanced ischemic cardiomyopathy with severe left ventricular systolic dysfunction, acute on chronic heart failure, clinically improved. 2. Recent acute renal failure requiring temporary dialysis. 3. Remote myocardial infarction status post percutaneous coronary Intervention. 4. Severe chronic obstructive pulmonary disease. 5. Severe pulmonary hypertension. 6. Chronic anemia. RECOMMENDATIONS: His current medications should continue for now. We will continue to withhold his milrinone infusion as long as he remains relatively stable. Increase activity and exercise as advised. Continue sodium and fluid restriction as advised as well. We will continue to follow and make further recommendations as appropriate. Dwight Tejeda MD MTDD
[2018-04-24 06:40] LABS: HEMOGLOBIN 8.4 g/dL (14.0-18.0); MEAN CORPUSCULAR HEMOGLOBIN 28.1 pg (25.0-35.0); MEAN CORPUSCULAR HGB CONC 31.6 g/dl (31.0-37.0); MEAN PLATELET VOLUME 8.8 fl (7.0-11.0); RBC 2.99 10^6/uL (3.5-6.1); RED CELL DISTRIBUTION WIDTH 16.7 % (11.5-14.5); WHITE BLOOD COUNT 10.7 10^3/uL (4.5-11.0)
[2018-04-24 06:56] LABS: ALB/GLOB RATIO 1.2 (1.1-1.8); ALBUMIN 2.5 g/dL (3.0-4.8); CALCIUM 8.7 mg/dL (8.4-10.5)
[2018-04-24] MEDS: RIOCIGUAT 2.5 MG PO SCH ×3 (07:53→22:12)
[2018-04-24] MEDS: Levalbuterol 1.25 MG/3 ML Inhal Soln UD IH PRN ×2 (08:09→23:45)
[2018-04-24] MEDS: Budesonide 0.5 mg/2 ml Inhal Susp UD IH SCH ×2 (08:09→23:40)
[2018-04-24] MEDS: Iron Complex Polysacch 150mg Cap PO SCH (10:16)
[2018-04-24] MEDS: Prostat 15 g packet GT SCH (10:17)
[2018-04-24] MEDS: SELEXIPAG PO SCH ×2 (10:18→17:20)
--- NOTE | 2018-04-24 12:36 | PN ---
DATE: 04/24/2018 SUBJECTIVE: The patient was seen lying in bed in the transitional care unit. He is currently comfortable. He has been participating in exercise. He remains off his milrinone infusion. His current medications include, aspirin, Ativan p.r.n., Brovana, carvedilol 3.125 mg b.i.d., DuoNeb inhaler, Flexeril, Hectorol, Lipitor, Pepcid, PhosLo, prednisone, Pulmicort, Adempas, Uptravi, Seroquel, and Xopenex. PHYSICAL EXAMINATION: GENERAL: He is a chronically ill appearing elderly male. VITAL SIGNS: His blood pressure 104/60 with a pulse 76, respirations 16. He is afebrile. HEENT: No JVD. CHEST: Bilateral scattered rhonchi. HEART: PMI displaced laterally with soft tones noted. ABDOMEN: Soft, nontender and normoactive bowel sounds. EXTREMITIES: No edema. DIAGNOSTIC DATA: Potassium 4.7, BUN and creatinine 65 and 2. White count 10.7, hemoglobin and hematocrit 8.4 and 26.6 with platelet count of 132,000. IMPRESSION: 1. Advanced ischemic cardiomyopathy with severe elevated systolic dysfunction, recent acute on chronic decompensation has clinically improved. 2. Recent acute renal failure requiring hemodialysis with renal function back to baseline. 3. Remote myocardial infarction status post remote percutaneous coronary intervention. 4. Severe chronic obstructive pulmonary disease. 5. Severe pulmonary hypertension. 6. Anemia. RECOMMENDATIONS: His current medications will be continued for now. Milrinone infusion will continued to be withheld at this time. Increase his activity as tolerated as advised. His overall prognosis remains limited. We will continue to follow and make further recommendations as appropriate. Dwight Tejeda MD
--- NOTE | 2018-04-24 12:41 | CARD ---
APPROVED REPORT Date of service: 04/23/2018 EKG Measurement Heart [id number] <Conclusion> Normal sinus rhythm Right bundle branch block Anteroseptal infarct, Old? Abnormal ECG
[2018-04-24] MEDS ORDERED: Darbepoetin Alfa 60 mcg/ml Inj SC ONE (12:54)
--- NOTE | 2018-04-24 13:08 | CP.PCM.PN ---
Subjective - Date & Time of Evaluation Date of Evaluation: 04/24/18 Time of Evaluation: 11:20 - Subjective Subjective: No fevers, comfortable in bed, not in distress. Objective - Vital Signs/Intake and Output Vital Signs (last 24 hours): Temp Pulse Resp BP Pulse Ox 98.4 F 78 18 98/64 L 97 04/22/18 16:00 04/23/18 08:36 04/22/18 16:00 04/23/18 08:36 04/22/18 16:21 Intake and Output: 04/23/18 04/23/18 06:59 18:59 Intake Total 600 Output Total 600 Balance 0 - Medications Medications: Current Medications Acetaminophen (Tylenol 325mg Tab) 650 mg PO Q6H PRN; Protocol PRN Reason: Fever >100.4 F Last Admin: 04/18/18 19:08 Dose: 650 mg Albuterol/Ipratropium (Duoneb 3 Mg/0.5 Mg (3 Ml) Ud) 3 ml IH [id number] PRN; Protocol PRN Reason: Shortness of Breath Amino Acid Protein (Prostat 15 G Packet) 15 gm GT DAILY [facility]; Protocol Last Admin: 04/22/18 10:12 Dose: 15 gm Arformoterol Tartrate (Brovana) 15 mcg IH [id number] [facility]; Protocol Aspirin (Aspirin Chewable) 81 mg PO 0800 [facility]; Protocol Last Admin: 04/23/18 08:36 Dose: 81 mg Atorvastatin Calcium (Lipitor) 40 mg PO HS [facility]; Protocol Last Admin: 04/22/18 21:26 Dose: 40 mg Budesonide (Pulmicort Respules) 0.5 mg IH [id number] [facility]; Protocol Last Admin: 04/23/18 07:30 Dose: 0.5 mg Calcium Acetate (Phoslo) 667 mg PO WM [facility]; Protocol Last Admin: 04/23/18 08:37 Dose: 667 mg Carvedilol (Coreg) 3.125 mg PO 0800,1800 [facility] Last Admin: 04/23/18 08:36 Dose: Not Given Cyclobenzaprine HCl (Flexeril) 5 mg PO TID PRN PRN Reason: Pain, Mild (1-3) Dextrose (Dextrose 50% Inj) 0 ml IV STAT PRN; Protocol PRN Reason: Hypoglycemia Protocol Doxercalciferol (Hectorol) 0.5 mcg PO DAILY [facility]; Protocol Last Admin: 04/23/18 10:23 Dose: 0.5 mcg Famotidine (Pepcid) 20 mg PO 2200 [facility]; Protocol Last Admin: 04/22/18 21:26 Dose: 20 mg Dextrose (Dextrose 5% In Water 1000 Ml) 1,000 mls @ 0 mls/hr IV .Q0M PRN; Protocol PRN Reason: Hypoglycemia Protocol Levalbuterol HCl (Xopenex) 1.25 mg IH [id number] PRN; Protocol PRN Reason: Shortness of Breath Last Admin: 04/22/18 20:00 Dose: 1.25 mg Lorazepam (Ativan) 1 mg IVP HS [facility]; Protocol Last Admin: 04/22/18 22:46 Dose: Not Given Selexipag [Uptravi] (600 Mcg (Home Med)) 600 mg PO BID [facility] Last Admin: 04/23/18 10:26 Dose: 600 mg Riociguat [Adempas] (2.5 Mg (Home Med)) 2.5 mg PO 0700,1500,2300 [facility] Last Admin: 04/23/18 10:25 Dose: 2.5 mg Ondansetron HCl (Zofran Inj) 4 mg IVP Q6H PRN; Protocol PRN Reason: Nausea/Vomiting Prednisone (Prednisone Tab) 30 mg PO DAILY [facility] Last Admin: 04/23/18 10:24 Dose: 30 mg Quetiapine Fumarate (Seroquel) 50 mg PO HS [facility]; Protocol Last Admin: 04/22/18 21:27 Dose: 50 mg Tramadol HCl (Ultram) 50 mg PO TID PRN PRN Reason: Pain, moderate (4-7) Last Admin: 04/22/18 13:19 Dose: 50 mg Zolpidem Tartrate (Ambien) 5 mg PO HS [facility]; Protocol Last Admin: 04/22/18 21:26 Dose: 5 mg - Labs Labs: 04/22/18 06:40 04/23/18 06:40 - Constitutional Appears: Chronically Ill - Head Exam Head Exam: NORMAL INSPECTION - Neck Exam Neck Exam: absent: Meningismus - Respiratory Exam Respiratory Exam: Decreased Breath Sounds - Cardiovascular Exam Cardiovascular Exam: +S1, +S2 - GI/Abdominal Exam GI & Abdominal Exam: Soft. absent: Tenderness Assessment and Plan - Assessment and Plan (Free Text) Plan: Assessment S/P severe sepsis with fluid-responsive hypotension due to right sided HCAP as well as UTI with E. faecalis, clinically improved and S/P treatment with antibiotics chronic renal failure on hemodialysis COPD on home oxygen pulmonary HTN bladder cancer S/P ileal conduit CAD S/P PCI chronic CHF HTN Plan completed 10 days of intermittent Vancomycin and Merrem - continue to monitor off antibiotics since he is at risk for healthcare-associated infections
--- NOTE | 2018-04-24 13:47 | PN ---
SUBJECTIVE: The patient was seen and examined at bedside on the TCU. No acute events overnight. He remains afebrile and hemodynamically stable. This morning he feels well and offers no complaints. OBJECTIVE: VITAL SIGNS: Temperature 98, pulse 77, blood pressure 104/61, respiratory rate 20, oxygen saturation 99% on 2L NC. GENERAL: Chronically ill-appearing man, sitting up in bed in no apparent distress. HEENT: PERRL. EOMI. No scleral icterus. Mild conjunctival pallor is noted. NECK: No JVD. LUNGS: Distant breath sounds with few scattered wheeze. CARDIOVASCULAR: Regular rate and rhythm. Normal S1 and S2. Grade II/ RAGHU to LLSB. ABDOMEN: Normoactive bowel sounds. Soft, nontender, nondistended. EXTREMITIES: No edema. NEUROLOGIC: Awake, alert and oriented x 3. No focal motor deficits. LABORATORY DATA: WBC 10.7, hemoglobin 8.4, hematocrit 27, platelets 132. Sodium 136, potassium 4.7, chloride 112, bicarb 22, BUN 65, creatinine 2, glucose 81. ASSESSMENT: The patient is a 77-year-old man with multiple medical comorbidities including CKD stage IV and severe COPD who was initially admitted to the ICU for severe sepsis secondary to healthcare-associated pneumonia, LYNN on CKD stage IV and metabolic acidosis and was subsequently transferred to the TCU for continued PT. PLAN: 1. Severe sepsis secondary to healthcare-associated pneumonia, resolved. Input from Dr. Peterson noted. The patient completed a 10 day course of antimicrobials and remains afebrile and with negative blood cultures. 2. Ischemic dilated cardiomyopathy. Input from Dr. Tejeda noted. The patient remains off Milrinone and has been started on Coreg 3.125 mg p.o. b.i.d. Continue with care as per Dr. Tejeda. 3. CKD stage IV. Input from Dr. Ivey noted. Continue with care as per Dr. Ivey. 4. Musculoskeletal low back pain. Continue with Tramadol and Flexeril. 5. Severe COPD. Input from Dr. Birmingham noted. Continue with care as per Dr. Birmingham 6. Remote history of bladder cancer s/p cystectomy s/p ileal conduit. 7. Pulmonary hypertension. Continue with care as per Dr. Birmingham 8. CAD s/p STEMI s/p PCI with stent placement. Continue Aspirin 81 mg p.o. daily and Lipitor 40 mg p.o. daily 9. Anemia of chronic disease. The patient has received additional infusions of Venofer and has received Aranesp. 10. Insomnia. Continue Ambien 5 mg p.o. qhs and Ativan 1 mg IV qhs. 11. Chronic left inguinal hernia s/p manual reduction. Continue to monitor. 12. Prophylaxis. GI prophylaxis not indicated as the patient is eating. Continue with Heparin for DVT prophylaxis. CODE STATUS: Full code. Matt Hartley MD MTDD
--- NOTE | 2018-04-24 18:08 | PN ---
DATE: 04/24/2018 SUBJECTIVE: The patient is seen sitting in bed. He is awake. He is alert. He is comfortable. PHYSICAL EXAMINATION: GENERAL: Elderly male sitting in bed. VITAL SIGNS: Blood pressure 104/61, heart rate 77, respiratory rate 20, and temperature 98.3. HEENT: Normocephalic and atraumatic. Positive pallor. NECK: Supple. No JVD. LUNGS: Bilateral equal air entry, distant breath sounds, scattered rhonchi. CARDIAC: S1 and S2, regular rate and rhythm. No murmur. No rub. ABDOMEN: Soft, nondistended, and nontender. Bowel sounds present. Positive urostomy. EXTREMITIES: No lower extremity edema. INTAKE AND OUTPUT: Not charted. LABORATORY DATA: WBC 10.7, hemoglobin 8.4, hematocrit 26.6, and platelets 132. Sodium 136, potassium 4.7, chloride 112, CO2 of 22, BUN 65, creatinine 2, glucose 81, calcium 8.7, phosphorus 3.6, magnesium 2.2, and iron 27. Iron saturation 12, ferritin 92, albumin 2.5, and corrected calcium is 9.4. CURRENT MEDICATIONS: Ambien, aspirin, Ativan, Brovana, Coreg, iron-polysaccharide daily, Flexeril, Hectorol 0.5, Lipitor 40, Pepcid, PhosLo, prednisone, iron, 200 mg Venofer given on 04/23/2018, and Kayexalate 30 g given yesterday. ASSESSMENT: 1. Severe anemia, low iron stores. 2. Hyperkalemia, status post Kayexalate yesterday. Today, potassium is normal. 3. Chronic kidney disease stage IV. 4. Resolved acute kidney injury. 5. Severe advanced chronic obstructive pulmonary disease. 6. Congestive heart failure/cardiomyopathy/coronary artery disease. 7. Severe pulmonary hypertension. PLAN: 1. Venofer 200 mg IV piggyback again today. 2. Aranesp 60 mcg today. 3. Continue Hectorol. 4. Change PhosLo to twice a day only with lunch and dinner. 5. Discharge planning. Myranda Ivey MD [facility] # [id number]
[2018-04-25] MEDS: Budesonide 0.5 mg/2 ml Inhal Susp UD IH SCH ×2 (07:44→20:05)
[2018-04-25 08:28] LABS: ALB/GLOB RATIO 1.3 (1.1-1.8); ALBUMIN 2.9 g/dL (3.0-4.8); CALCIUM 8.8 mg/dL (8.4-10.5)
[2018-04-25] MEDS: Iron Complex Polysacch 150mg Cap PO SCH (11:09)
[2018-04-25] MEDS: SELEXIPAG PO SCH ×2 (11:12→17:40)
[2018-04-25] MEDS: Prostat 15 g packet GT SCH (12:00)
--- NOTE | 2018-04-25 13:16 | PN ---
SUBJECTIVE: The patient was seen and examined at bedside in the TCU. No acute events overnight. He remains afebrile and hemodynamically stable. This morning he feels okay and offers no complaints. OBJECTIVE: VITAL SIGNS: Temperature 98, pulse 97, blood pressure 104/69, respiratory rate 20, oxygen saturation 96% on 2L NC. GENERAL: Chronically ill-appearing man, sitting up in bed in no apparent distress. HEENT: PERRL. No scleral icterus. Mild conjunctival pallor is noted. NECK: No JVD. LUNGS: Distant breath sounds with few scattered wheeze. CARDIOVASCULAR: Regular rate and rhythm. Normal S1 and S2. Grade II/ RAGHU to LLSB. ABDOMEN: Normoactive bowel sounds, soft, nontender, nondistended. EXTREMITIES: No edema. NEUROLOGIC: Awake, alert and oriented x 3. No focal motor deficits. LABORATORY DATA: Sodium 139, potassium 4.6, chloride 113, bicarb 25, BUN 60, creatinine 2, glucose 103. ASSESSMENT: The patient is a 77-year-old man with multiple medical comorbidities including CKD stage IV and severe COPD who was initially admitted to the ICU for severe sepsis secondary to healthcare-associated pneumonia, LYNN on CKD stage IV and metabolic acidosis and was subsequently transferred to the TCU for continued PT. PLAN: 1. Severe sepsis secondary to healthcare-associated pneumonia, resolved. Input from Dr. Montgomery noted. The patient completed a 10 day course of antimicrobials. 2. Ischemic dilated cardiomyopathy. Input from Dr. Tejeda noted. The patient remains off Milrinone. Continue Coreg 3.125 mg p.o. b.i.d. 3. CKD stage IV. Input from Dr. Ivey noted. 4. Musculoskeletal low back pain. Continue with Tramadol and Flexeril. 5. Severe COPD. Input from Dr. Birmingham noted. Continue with care as per Dr. Birmingham 6. Remote history of bladder cancer s/p cystectomy s/p ileal conduit. 7. Pulmonary hypertension. Continue with current medications as per Dr. Birmingham. 8. CAD s/p STEMI s/p PCI with stent placement. Continue Aspirin 81 mg p.o. daily and Lipitor 40 mg p.o. daily. 9. Anemia of chronic disease. The patient is s/p multiple infusions of Venofer and has received Aranesp. 10. Insomnia. Continue Ambien 5 mg p.o. qhs and Ativan 1 mg IV qhs. 11. Chronic left inguinal hernia s/p manual reduction. 12. Prophylaxis. GI prophylaxis not indicated as the patient is eating. Continue with Heparin for DVT prophylaxis. CODE STATUS: Full code. Matt Hartley MD MTDD
--- NOTE | 2018-04-25 13:47 | CP.PCM.PN ---
Subjective - Date & Time of Evaluation Date of Evaluation: 04/25/18 Time of Evaluation: 09:10 - Subjective Subjective: Comfortable, afebrile, not in distress. Objective - Vital Signs/Intake and Output Vital Signs (last 24 hours): Temp Pulse Resp BP Pulse Ox 98 F 97 H 20 104/69 96 04/24/18 16:00 04/25/18 08:54 04/24/18 16:00 04/25/18 08:54 04/24/18 16:00 - Medications Medications: Current Medications Acetaminophen (Tylenol 325mg Tab) 650 mg PO Q6H PRN; Protocol PRN Reason: Fever >100.4 F Last Admin: 04/18/18 19:08 Dose: 650 mg Albuterol/Ipratropium (Duoneb 3 Mg/0.5 Mg (3 Ml) Ud) 3 ml IH [id number] PRN; Protocol PRN Reason: Shortness of Breath Amino Acid Protein (Prostat 15 G Packet) 15 gm GT DAILY [facility]; Protocol Last Admin: 04/24/18 10:17 Dose: 15 gm Arformoterol Tartrate (Brovana) 15 mcg IH [id number] [facility]; Protocol Aspirin (Aspirin Chewable) 81 mg PO 0800 [facility]; Protocol Last Admin: 04/25/18 08:54 Dose: 81 mg Atorvastatin Calcium (Lipitor) 40 mg PO HS [facility]; Protocol Last Admin: 04/24/18 21:18 Dose: 40 mg Budesonide (Pulmicort Respules) 0.5 mg IH [id number] [facility]; Protocol Last Admin: 04/25/18 07:44 Dose: 0.5 mg Calcium Acetate (Phoslo) 667 mg PO WM [facility]; Protocol Last Admin: 04/25/18 12:47 Dose: 667 mg Carvedilol (Coreg) 3.125 mg PO 0800,1800 [facility] Last Admin: 04/25/18 08:54 Dose: 3.125 mg Cyclobenzaprine HCl (Flexeril) 5 mg PO TID PRN PRN Reason: Pain, Mild (1-3) Dextrose (Dextrose 50% Inj) 0 ml IV STAT PRN; Protocol PRN Reason: Hypoglycemia Protocol Doxercalciferol (Hectorol) 0.5 mcg PO DAILY [facility]; Protocol Last Admin: 04/25/18 11:00 Dose: 0.5 mcg Famotidine (Pepcid) 20 mg PO 2200 [facility]; Protocol Last Admin: 04/24/18 21:17 Dose: 20 mg Furosemide (Lasix) 40 mg PO DAILY [facility] Dextrose (Dextrose 5% In Water 1000 Ml) 1,000 mls @ 0 mls/hr IV .Q0M PRN; Protocol PRN Reason: Hypoglycemia Protocol Levalbuterol HCl (Xopenex) 1.25 mg IH [id number] PRN; Protocol PRN Reason: Shortness of Breath Last Admin: 04/24/18 23:45 Dose: 1.25 mg Lorazepam (Ativan) 1 mg IVP HS [facility]; Protocol Last Admin: 04/24/18 21:18 Dose: 1 mg Selexipag [Uptravi] (600 Mcg (Home Med)) 600 mg PO BID [facility] Last Admin: 04/25/18 11:12 Dose: 600 mg Riociguat [Adempas] (2.5 Mg (Home Med)) 2.5 mg PO 0700,1500,2300 [facility] Last Admin: 04/24/18 22:12 Dose: 2.5 mg Ondansetron HCl (Zofran Inj) 4 mg IVP Q6H PRN; Protocol PRN Reason: Nausea/Vomiting Polysaccharide Iron Complex (Ferrex-150) 150 mg PO DAILY [facility] Last Admin: 04/25/18 11:09 Dose: 150 mg Prednisone (Prednisone Tab) 30 mg PO DAILY [facility] Last Admin: 04/25/18 11:10 Dose: 30 mg Quetiapine Fumarate (Seroquel) 50 mg PO [facility]; Protocol Last Admin: 04/24/18 21:17 Dose: 50 mg Tramadol HCl (Ultram) 50 mg PO TID PRN PRN Reason: Pain, moderate (4-7) Last Admin: 04/24/18 21:26 Dose: 50 mg Zolpidem Tartrate (Ambien) 5 mg PO [facility]; Protocol Last Admin: 04/24/18 21:16 Dose: 5 mg - Labs Labs: 04/24/18 06:00 04/25/18 08:05 - Constitutional Appears: Chronically Ill - Head Exam Head Exam: NORMAL INSPECTION - ENT Exam ENT Exam: Mucous Membranes Moist - Neck Exam Neck Exam: absent: Meningismus - Respiratory Exam Respiratory Exam: Decreased Breath Sounds - Cardiovascular Exam Cardiovascular Exam: +S1, +S2 - GI/Abdominal Exam GI & Abdominal Exam: Soft. absent: Tenderness Assessment and Plan - Assessment and Plan (Free Text) Plan: Assessment S/P severe sepsis with fluid-responsive hypotension due to right sided HCAP as well as UTI with E. faecalis, clinically improved and S/P treatment with antibiotics chronic renal failure on hemodialysis COPD on home oxygen pulmonary HTN bladder cancer S/P ileal conduit CAD S/P PCI chronic CHF HTN Plan completed 10 days of intermittent Vancomycin and Merrem - continue to monitor off antibiotics since he is at risk for nosocomial infections
[2018-04-25] MEDS: RIOCIGUAT 2.5 MG PO SCH ×2 (14:02→23:53)
--- NOTE | 2018-04-25 14:42 | PN ---
DATE: 04/25/2018 SUBJECTIVE: The patient is seen lying in bed in the transitional care unit. He is fairly comfortable. He has been participating in more exercises. He remains off milrinone. MEDICATIONS: His current medications include aspirin, Ativan, Brovana, carvedilol 3.125 mg b.i.d., DuoNeb inhaler, Flexeril, Lipitor, Pepcid, PhosLo, prednisone 30 mg daily, Pulmicort inhaler, Adempas, Uptravi, Seroquel, and Xopenex. OBJECTIVE: GENERAL: He is a chronically ill-appearing elderly man. VITAL SIGNS: Blood pressure is 104/70 with a pulse of 90, respirations are 16. He is afebrile. HEENT: No JVD. CHEST: Bilateral scattered rhonchi. HEART: PMI is displaced laterally with soft tones noted. ABDOMEN: Soft, nontender, normoactive bowel sounds. EXTREMITIES: No edema. DIAGNOSTIC DATA: Potassium 4.6, BUN and creatinine are 60 and 2.0. IMPRESSION: 1. Severe ischemic cardiomyopathy with severe left ventricular systolic dysfunction. 2. Acute on chronic renal failure, requiring hemodialysis, now back to baseline. 3. Rule out myocardial infarction, status post percutaneous coronary intervention of left anterior descending. 4. Severe chronic obstructive pulmonary disease. 5. Severe pulmonary hypertension. 6. Chronic anemia. RECOMMENDATIONS: His current medications will be continued for now. If blood pressure allows, carvedilol dose will be increased gradually. Continue sodium and fluid restriction as advised. We will continue withholding milrinone therapy as it is unproven benefit at this time. He was encouraged to participate in activities as fully as possible. Dwight Tejeda MD
--- NOTE | 2018-04-25 17:12 | PN ---
DATE: 04/25/2018 SUBJECTIVE: The patient is seen sitting in bed. He is awake, he is alert, he is comfortable. He appears to be in mild respiratory distress. He reports that his pressure was low this morning. PHYSICAL EXAMINATION: GENERAL: Elderly male sitting in bed. VITAL SIGNS: Blood pressure 104/69, heart rate 97, respiratory rate 20, temperature 98. HEENT: Normocephalic, atraumatic, positive pallor. NECK: Supple, no JVD. LUNGS: Bilateral equal air entry, distant breath sounds. CARDIAC: S1, S2 regular rate and rhythm. No murmur, no rub. ABDOMEN: Soft, nondistended, nontender, positive urostomy. EXTREMITIES: 2+ pitting edema of the lower extremities. Intake and output, not charted. LABORATORY DATA: Sodium 139, potassium 4.6, chloride 113, CO2 25, BUN 60, creatinine 2, glucose 103, calcium 8.8. CURRENT MEDICATIONS: Ambien, aspirin, Ativan, Brovana, Coreg 3.125 b.i.d., oral iron 150, Flexeril, Hectorol 0.5, Lipitor, Pepcid, PhosLo 667 t.i.d., prednisone 30 daily, Pro-Stat, Seroquel, Tylenol, Hectorol, Venofer 200 mg IV piggyback yesterday and today, Aranesp 60 mg given yesterday. ASSESSMENT: 1. Severe chronic obstructive pulmonary disease. 2. Severe pulmonary hypertension. 3. Congestive heart failure/cardiomyopathy/decreased ejection fraction. 4. Severe anemia. 5. Chronic kidney disease stage IV. 6. Secondary hyperparathyroidism. PLAN: 1. In light of edema, start Lasix 40 mg p.o. daily. 2. Continue Hectorol. 3. Continue calcium acetate. 4. Continue oral iron. 5. Will require close outpatient followup. Myradna Ivey MD
[2018-04-26] MEDS: RIOCIGUAT 2.5 MG PO SCH ×3 (07:56→23:08)
[2018-04-26] MEDS: Budesonide 0.5 mg/2 ml Inhal Susp UD IH SCH ×2 (08:42→20:30)
[2018-04-26] MEDS: Iron Complex Polysacch 150mg Cap PO SCH (10:09)
[2018-04-26] MEDS: Prostat 15 g packet GT SCH (10:12)
[2018-04-26] MEDS: SELEXIPAG PO SCH ×2 (10:12→17:41)
--- NOTE | 2018-04-26 12:31 | PN ---
DATE: 04/26/2018 SUBJECTIVE: The patient is seen lying in bed on the transitional care unit. He states he feels fairly well. He has been participating in physical activities and rehabilitation efforts. CURRENT MEDICATIONS: Include aspirin, Ativan, Brovana, carvedilol 3.125 mg b.i.d., however, morning dose not given because of borderline low blood pressure, iron infusion, Flexeril, Lasix 40 mg daily, Lipitor 40 mg daily, Pepcid, PhosLo, prednisone 30 mg daily, Pulmicort, Adempas, Uptravi, Seroquel, and Xopenex. OBJECTIVE: GENERAL: He is a chronically ill-appearing elderly man. VITAL SIGNS: Blood pressure 92/56 with pulse of 80 and respirations are 16. He is afebrile. HEENT: No JVD. CHEST: Bilateral scattered rhonchi. HEART: PMI displaced laterally with systolic murmur at lower left sternal border. ABDOMEN: Soft, nontender with normoactive bowel sounds. EXTREMITIES: No edema. DIAGNOSTIC DATA: No blood work pending from this morning. Last BUN and creatinine were 60 and 2. IMPRESSION: 1. Severe ischemic cardiomyopathy with severe left ventricular systolic dysfunction. Currently appears fairly well compensated at the present time. 2. [id number] renal failure with recent dialysis requirement, however, with reasonable recovery. 3. Prior myocardial infarction, status post percutaneous coronary intervention of his left anterior descending. 4. Severe chronic obstructive pulmonary disease and severe pulmonary hypertension. 5. Chronic anemia. RECOMMENDATIONS: Continued conservative management is advised. Low-dose beta-nicanor will be continued as tolerated. Milrinone will continue to be withheld. From a cardiac standpoint, he appears reasonably stable for discharge once his rehabilitation stay is completed. Outpatient followup will be arranged. Dwight Tejeda MD
--- NOTE | 2018-04-26 15:05 | PN ---
DATE: 04/26/2018 SUBJECTIVE: Boy is currently in the [facility] room 320 bed 1. He is a 77-year-old man with severe congestive heart failure who was admitted to [facility] for physical therapy. PHYSICAL EXAMINATION: VITAL SIGNS: Temperature of 98.7, pulse rate of 83, blood pressure 101/65, respiratory rate of 20 with an O2 saturation of 98% on a 2-liter nasal cannula. HEENT: Negative. NECK: Supple with a full range of motion. LUNGS: Clear to auscultation and percussion bilaterally. HEART: Regular rate and rhythm. No murmur, rubs or gallops. ABDOMEN: Benign. NEUROLOGICAL: The patient is intact. IMPRESSION: 1. Deconditioning. 2. Congestive heart failure. PLAN: The plan is to continue physical therapy. Pascual Hartley MD
--- NOTE | 2018-04-26 15:44 | CP.PCM.PN ---
Subjective - Date & Time of Evaluation Date of Evaluation: 04/26/18 Time of Evaluation: 13:40 - Subjective Subjective: Doing his physical therapy well enough, no fevers, non-toxic. Objective - Vital Signs/Intake and Output Vital Signs (last 24 hours): Temp Pulse Resp BP Pulse Ox 98 F 97 H 20 104/69 96 04/24/18 16:00 04/25/18 08:54 04/24/18 16:00 04/25/18 08:54 04/24/18 16:00 - Medications Medications: Current Medications Acetaminophen (Tylenol 325mg Tab) 650 mg PO Q6H PRN; Protocol PRN Reason: Fever >100.4 F Last Admin: 04/18/18 19:08 Dose: 650 mg Albuterol/Ipratropium (Duoneb 3 Mg/0.5 Mg (3 Ml) Ud) 3 ml IH [id number] PRN; Protocol PRN Reason: Shortness of Breath Amino Acid Protein (Prostat 15 G Packet) 15 gm GT DAILY [facility]; Protocol Last Admin: 04/24/18 10:17 Dose: 15 gm Arformoterol Tartrate (Brovana) 15 mcg IH [id number] [facility]; Protocol Aspirin (Aspirin Chewable) 81 mg PO 0800 [facility]; Protocol Last Admin: 04/25/18 08:54 Dose: 81 mg Atorvastatin Calcium (Lipitor) 40 mg PO HS [facility]; Protocol Last Admin: 04/24/18 21:18 Dose: 40 mg Budesonide (Pulmicort Respules) 0.5 mg IH [id number] [facility]; Protocol Last Admin: 04/25/18 07:44 Dose: 0.5 mg Calcium Acetate (Phoslo) 667 mg PO WM [facility]; Protocol Last Admin: 04/25/18 12:47 Dose: 667 mg Carvedilol (Coreg) 3.125 mg PO 0800,1800 [facility] Last Admin: 04/25/18 08:54 Dose: 3.125 mg Cyclobenzaprine HCl (Flexeril) 5 mg PO TID PRN PRN Reason: Pain, Mild (1-3) Dextrose (Dextrose 50% Inj) 0 ml IV STAT PRN; Protocol PRN Reason: Hypoglycemia Protocol Doxercalciferol (Hectorol) 0.5 mcg PO DAILY [facility]; Protocol Last Admin: 04/25/18 11:00 Dose: 0.5 mcg Famotidine (Pepcid) 20 mg PO 2200 [facility]; Protocol Last Admin: 04/24/18 21:17 Dose: 20 mg Furosemide (Lasix) 40 mg PO DAILY [facility] Dextrose (Dextrose 5% In Water 1000 Ml) 1,000 mls @ 0 mls/hr IV .Q0M PRN; Prot ocol PRN Reason: Hypoglycemia Protocol Levalbuterol HCl (Xopenex) 1.25 mg IH [id number] PRN; Protocol PRN Reason: Shortness of Breath Last Admin: 04/24/18 23:45 Dose: 1.25 mg Lorazepam (Ativan) 1 mg IVP [facility]; Protocol Last Admin: 04/24/18 21:18 Dose: 1 mg Selexipag [Uptravi] (600 Mcg (Home Med)) 600 mg PO BID [facility] Last Admin: 04/25/18 11:12 Dose: 600 mg Riociguat [Adempas] (2.5 Mg (Home Med)) 2.5 mg PO 0700,1500,2300 [facility] Last Admin: 04/24/18 22:12 Dose: 2.5 mg Ondansetron HCl (Zofran Inj) 4 mg IVP Q6H PRN; Protocol PRN Reason: Nausea/Vomiting Polysaccharide Iron Complex (Ferrex-150) 150 mg PO DAILY [facility] Last Admin: 04/25/18 11:09 Dose: 150 mg Prednisone (Prednisone Tab) 30 mg PO DAILY [facility] Last Admin: 04/25/18 11:10 Dose: 30 mg Quetiapine Fumarate (Seroquel) 50 mg PO [facility]; Protocol Last Admin: 04/24/18 21:17 Dose: 50 mg Tramadol HCl (Ultram) 50 mg PO TID PRN PRN Reason: Pain, moderate (4-7) Last Admin: 04/24/18 21:26 Dose: 50 mg Zolpidem Tartrate (Ambien) 5 mg PO [facility]; Protocol Last Admin: 04/24/18 21:16 Dose: 5 mg - Labs Labs: 04/24/18 06:00 04/25/18 08:05 - Constitutional Appears: Non-toxic, Chronically Ill - Head Exam Head Exam: NORMAL INSPECTION - Respiratory Exam Respiratory Exam: Decreased Breath Sounds - Cardiovascular Exam Cardiovascular Exam: +S1, +S2 - GI/Abdominal Exam GI & Abdominal Exam: Soft. absent: Tenderness Assessment and Plan - Assessment and Plan (Free Text) Plan: Assessment S/P severe sepsis with fluid-responsive hypotension due to right sided HCAP as well as UTI with E. faecalis, clinically improved and S/P treatment with antibiotics chronic renal failure on hemodialysis COPD on home oxygen pulmonary HTN bladder cancer S/P ileal conduit CAD S/P PCI chronic CHF HTN Plan completed 10 days of intermittent Vancomycin and Merrem - continue to monitor off antibiotics since he is at risk for hospital-acquired infections
[2018-04-26] MEDS: POLYETHYLENE GLYCOL 3350 17 GM/Dose PACKET PO SCH (17:45)
[2018-04-26] MEDS: Levalbuterol 1.25 MG/3 ML Inhal Soln UD IH PRN (20:30)
[2018-04-27] MEDS: RIOCIGUAT 2.5 MG PO SCH (06:31)
[2018-04-27] MEDS: Budesonide 0.5 mg/2 ml Inhal Susp UD IH SCH (09:40)
[2018-04-27] MEDS: Iron Complex Polysacch 150mg Cap PO SCH (10:16)
[2018-04-27] MEDS: POLYETHYLENE GLYCOL 3350 17 GM/Dose PACKET PO SCH (10:17)
[2018-04-27] MEDS: Prostat 15 g packet GT SCH (10:17)
[2018-04-27] MEDS: SELEXIPAG PO SCH (10:18)
[2018-04-27 10:27] VITALS: BP 110/60
--- NOTE | 2018-04-27 11:04 | PN ---
DATE: 04/27/2018 SUBJECTIVE: The patient is currently seen sitting up in bed in the TCU. He will likely be discharged later today. The patient's daughter is in the room. The patient has no acute ongoing issues. He was told by his primary care physician that he should follow up with our group in the outpatient setting. MEDICATIONS: Medication list reviewed. The patient is on Ambien, aspirin, Ativan, Colace, Coreg, DuoNeb, iron, Flexeril, Hectorol, p.o. Lasix, Lipitor, MiraLax, Pepcid, PhosLo, prednisone, Pro-Stat protein supplements, Pulmicort, Adempas, Uptravi, Seroquel, Tylenol, Ultram, Xopenex, and Zofran p.r.n. OBJECTIVE: VITAL SIGNS: Blood pressure 105/69, pulse of 89, temperature 98, respiratory rate is 18, pulse ox 94%. HEENT: Normocephalic, atraumatic. Conjunctivae are pale. Sclerae are nonicteric. NECK: Supple. No neck vein distention. CHEST: Clear to auscultation and percussion with slight decreased breath sounds. No rales, rhonchi, or wheezing. CARDIOVASCULAR: Show a regular rate and rhythm with /MR/TR. No S3, no S4, no rub. ABDOMEN: Soft. Bowel sounds normal. Positive ureteroileostomy bag, right lower quadrant. Positive large left inguinal hernia. EXTREMITIES: Show no appreciable edema. No cyanosis or clubbing. LABORATORY DATA AND IMAGING: No recent labs. Last set of laboratory work, CBC: White blood cell count 10.7, hemoglobin 8.4, platelet count is 132,000. Chemistries: Sodium 139, potassium 4.6, chloride 113 with a CO2 of 25, BUN is 60 with a creatinine of 2. Glucose is 129. Calcium is 8.8, phosphorus 3.6, magnesium 2.2. Iron saturations were 12%. Albumin level is 2.9. ASSESSMENT: 1. Chronic kidney disease stage III/IV, status post acute dialysis. 2. Persistent hyperkalemia. This has improved with dietary restrictions. He is status post Kayexalate earlier this past week. 3. History of chronic obstructive pulmonary disease, currently stable on inhalation therapy. 4. History of severe pulmonary hypertension. 5. History of secondary hyperparathyroidism. Phosphorus level is improved with renal diet and binder therapy. 6. History of severe anemia. He received Aranesp on 04/22/2018. Iron saturations are low. He did receive one dose of Venofer and continues on oral iron supplements. 7. History of bladder cancer status post resection of the bladder with ureteroileostomy, currently stable. 8. History of dilated cardiomyopathy with arteriosclerotic heart disease with valvular heart disease, aortic stenosis/mitral regurgitation/tricuspid regurgitation. PLAN: 1. Discussed with the patient and his daughter in detail. The patient is willing to follow up with us and can be seen in approximately three to four weeks in the outpatient setting. 2. Reminded the patient and his daughter about the need for him to stay on a low potassium diet. 3. Continue renal diet along with binder therapy. 4. The patient may be discharged home on low-dose Lasix therapy for his lower extremity edema. Paul Bonner MD MTDD
[2018-04-27 11:05] VITALS: PULSE 97; RESP 20; TEMP 97.5; O2SAT 98
--- NOTE | 2018-04-27 14:46 | PN ---
SUBJECTIVE: The patient was seen and examined at bedside on the TCU. No acute events overnight. He remains afebrile and hemodynamically stable. This morning he feels well, offers no complaints and is looking forward to discharge home. OBJECTIVE: VITAL SIGNS: Temperature 98, pulse 89, blood pressure 105/69, respiratory rate 18, oxygen saturation 94% on room air. GENERAL: Chronically ill-appearing man, lying in bed, in no apparent distress. HEENT: PERRL, EOMI. No scleral icterus. Mild conjunctival pallor is noted. NECK: No JVD. LUNGS: Distant breath sounds but, otherwise, clear to auscultation. CARDIOVASCULAR: Regular rate and rhythm. Normal S1 and S2. Grade II/ RAGHU to LLSB. ABDOMEN: Normoactive bowel sounds. Soft, nontender, nondistended. EXTREMITIES: No edema. NEUROLOGIC: Awake, alert and oriented x 3. No focal motor deficits. LABORATORY DATA: No new labs. ASSESSMENT: The patient is a 77-year-old man with multiple medical comorbidities including CKD stage IV and severe COPD who was initially admitted to the ICU for severe sepsis secondary to healthcare-associated pneumonia, LYNN on CKD stage IV and metabolic acidosis who was subsequently transferred to the TCU for continued PT. PLAN: 1. Severe sepsis, secondary to healthcare-associated pneumonia, resolved. Input from Dr. Montgomery noted. The patient has completed a 10 day course of antimicrobials. 2. Ischemic dilated cardiomyopathy. Input from Dr. Tejeda noted. The patient remains off Milrinone. Continue Coreg 3.125 mg p.o. b.i.d. 3. CKD stage IV. Input from Dr. Ivey noted. Renal function remains at baseline. 4. Musculoskeletal low back pain. Continue with Tramadol and Flexeril. 5. Severe COPD. Input from Dr. Birmingham noted. Continue with care as per Dr. Birmingham. 6. Remote history of bladder cancer s/p cystectomy s/p ileal conduit. 7. Pulmonary hypertension. Continue with current medications as per Dr. Birmingham. 8. CAD s/p STEMI s/p PCI with stent placement. Continue Aspirin 81 mg p.o. daily and Lipitor 40 mg p.o. daily. 9. Anemia of chronic disease. 10. Insomnia. Continue Ambien 5 mg p.o. at bedtime. 11. Chronic left inguinal hernia s/p manual reduction. 12. Prophylaxis. GI prophylaxis not indicated as the patient is eating. Continue with Heparin for DVT prophylaxis. CODE STATUS: Full code. Matt Hartley MD MTDToya
--- NOTE | 2018-04-27 16:24 | CP.PCM.PN ---
Subjective - Date & Time of Evaluation Date of Evaluation: 04/27/18 Time of Evaluation: 11:05 - Subjective Subjective: No fevers, not in distress, afebrile. No dysuria. Objective - Vital Signs/Intake and Output Vital Signs (last 24 hours): Temp Pulse Resp BP Pulse Ox 98.7 F 83 20 87/54 L 98 04/25/18 16:00 04/26/18 07:54 04/25/18 16:00 04/26/18 10:10 04/25/18 16:00 - Medications Medications: Current Medications Acetaminophen (Tylenol 325mg Tab) 650 mg PO Q6H PRN; Protocol PRN Reason: Fever >100.4 F Last Admin: 04/18/18 19:08 Dose: 650 mg Albuterol/Ipratropium (Duoneb 3 Mg/0.5 Mg (3 Ml) Ud) 3 ml IH [id number] PRN; Protocol PRN Reason: Shortness of Breath Last Admin: 04/25/18 20:06 Dose: 3 ml Amino Acid Protein (Prostat 15 G Packet) 15 gm GT DAILY [facility]; Protocol Last Admin: 04/26/18 10:12 Dose: 15 gm Arformoterol Tartrate (Brovana) 15 mcg IH [id number] [facility]; Protocol Aspirin (Aspirin Chewable) 81 mg PO 0800 [facility]; Protocol Last Admin: 04/26/18 07:53 Dose: 81 mg Atorvastatin Calcium (Lipitor) 40 mg PO HS [facility]; Protocol Last Admin: 04/25/18 21:03 Dose: 40 mg Budesonide (Pulmicort Respules) 0.5 mg IH [id number] [facility]; Protocol Last Admin: 04/26/18 08:42 Dose: 0.5 mg Calcium Acetate (Phoslo) 667 mg PO WM [facility]; Protocol Last Admin: 04/26/18 12:17 Dose: 667 mg Carvedilol (Coreg) 3.125 mg PO 0800,1800 [facility] Last Admin: 04/26/18 07:54 Dose: Not Given Cyclobenzaprine HCl (Flexeril) 5 mg PO TID PRN PRN Reason: Pain, Mild (1-3) Dextrose (Dextrose 50% Inj) 0 ml IV STAT PRN; Protocol PRN Reason: Hypoglycemia Protocol Docusate Sodium (Colace) 100 mg PO BID [facility]; Protocol Last Admin: 04/26/18 10:09 Dose: 100 mg Doxercalciferol (Hectorol) 0.5 mcg PO DAILY [facility]; Protocol Last Admin: 04/26/18 10:10 Dose: 0.5 mcg Famotidine (Pepcid) 20 mg PO 2200 [facility]; Protocol Last Admin: 04/25/18 21:03 Dose: 20 mg Furosemide (Lasix) 40 mg PO DAILY [facility] Last Admin: 04/26/18 10:10 Dose: Not Given Dextrose (Dextrose 5% In Water 1000 Ml) 1,000 mls @ 0 mls/hr IV .Q0M PRN; Protocol PRN Reason: Hypoglycemia Protocol Levalbuterol HCl (Xopenex) 1.25 mg IH [id number] PRN; Protocol PRN Reason: Shortness of Breath Last Admin: 04/24/18 23:45 Dose: 1.25 mg Lorazepam (Ativan) 1 mg IVP HS [facility]; Protocol Last Admin: 04/25/18 22:21 Dose: Not Given Selexipag [Uptravi] (600 Mcg (Home Med)) 600 mg PO BID [facility] Last Admin: 04/26/18 10:12 Dose: 600 mg Riociguat [Adempas] (2.5 Mg (Home Med)) 2.5 mg PO 0700,1500,2300 [facility] Last Admin: 04/26/18 15:15 Dose: 2.5 mg Ondansetron HCl (Zofran Inj) 4 mg IVP Q6H PRN; Protocol PRN Reason: Nausea/Vomiting Polyethylene Glycol (Miralax) 17 gm PO DAILY [facility] Polysaccharide Iron Complex (Ferrex-150) 150 mg PO DAILY [facility] Last Admin: 04/26/18 10:09 Dose: 150 mg Prednisone (Prednisone Tab) 30 mg PO DAILY [facility] Last Admin: 04/26/18 10:11 Dose: Not Given Quetiapine Fumarate (Seroquel) 50 mg PO HS [facility]; Protocol Last Admin: 04/25/18 21:03 Dose: 50 mg Tramadol HCl (Ultram) 50 mg PO TID PRN PRN Reason: Pain, moderate (4-7) Last Admin: 04/25/18 21:06 Dose: 50 mg Zolpidem Tartrate (Ambien) 5 mg PO HS [facility]; Protocol Last Admin: 04/25/18 21:01 Dose: 5 mg - Labs Labs: 04/24/18 06:00 04/25/18 08:05 - Constitutional Appears: Chronically Ill - Head Exam Head Exam: NORMAL INSPECTION - Respiratory Exam Respiratory Exam: Decreased Breath Sounds - Cardiovascular Exam Cardiovascular Exam: +S1, +S2 - GI/Abdominal Exam GI & Abdominal Exam: Soft. absent: Tenderness Assessment and Plan - Assessment and Plan (Free Text) Plan: Assessment S/P severe sepsis with fluid-responsive hypotension due to right sided HCAP as well as UTI with E. faecalis, clinically improved and S/P treatment with antibiotics chronic renal failure on hemodialysis COPD on home oxygen pulmonary HTN bladder cancer S/P ileal conduit CAD S/P PCI chronic CHF HTN Plan completed 10 days of intermittent Vancomycin and Merrem - continue to monitor off antibiotics while he is in the hospital
== END 2018-04-27 13:53 | disposition home or self-care (01) | DRG 871 ==
LOC: TRCU 17:26
PROVIDERS: ADMIT Internal Medicine; ATTEND Internal Medicine
PROC: 3E0F7GC Introduction of Other Therapeutic Substance into Respiratory Tract, Via Natural or Artificial Opening (ICD-10-PCS; 2018-04-18)
PROC: F07Z9ZZ Gait Training/Functional Ambulation Treatment (ICD-10-PCS; principal; 2018-04-19)
PROC: F08Z4ZZ Home Management Treatment (ICD-10-PCS; 2018-04-20)
DX: A41.9 Sepsis, unspecified organism (principal); J18.9 Pneumonia, unspecified organism; J44.0 Chronic obstructive pulmonary disease with (acute) lower respiratory infection; E87.2 Acidosis; I42.0 Dilated cardiomyopathy; I50.22 Chronic systolic (congestive) heart failure; N39.0 Urinary tract infection, site not specified; N25.81 Secondary hyperparathyroidism of renal origin; J96.10 Chronic respiratory failure, unspecified whether with hypoxia or hypercapnia; N18.4 Chronic kidney disease, stage 4 (severe); N17.9 Acute kidney failure, unspecified; I13.10 Hypertensive heart and chronic kidney disease without heart failure, with stage 1 through stage 4 chronic kidney disease, or unspecified chronic kidney disease; Z79.2 Long term (current) use of antibiotics; I27.20 Pulmonary hypertension, unspecified; E87.5 Hyperkalemia; I25.10 Atherosclerotic heart disease of native coronary artery without angina pectoris; I25.5 Ischemic cardiomyopathy; D63.1 Anemia in chronic kidney disease; R65.20 Severe sepsis without septic shock; K40.90 Unilateral inguinal hernia, without obstruction or gangrene, not specified as recurrent; I08.3 Combined rheumatic disorders of mitral, aortic and tricuspid valves; G47.00 Insomnia, unspecified; Z99.81 Dependence on supplemental oxygen; Y95 Nosocomial condition; Z85.51 Personal history of malignant neoplasm of bladder; I25.2 Old myocardial infarction; Z95.5 Presence of coronary angioplasty implant and graft

== ENCOUNTER 2018-07-16 11:02 | Outpatient (CLI) | payer MEDICARE, OTHER | END 2018-07-16 11:03 | disposition home or self-care (01) | LOC: RAD 11:02 | DX: M54.30 Sciatica, unspecified side (principal) ==

== ENCOUNTER 2018-08-20 11:40 | Outpatient (CLI) | payer MEDICARE, OTHER | END 2018-08-20 11:41 | disposition home or self-care (01) | LOC: RAD 11:40 ==